=== PATIENT | male | born 1950 | race Hispanic/Latino ===

== ENCOUNTER 2020-10-30 18:36 | Emergency (ER) | payer MEDICARE, OTHER ==
--- OUTSIDE RECORDS SUMMARY | 2020-10-30 18:39 | XMS REPORT | Continuity of Care Document ---
:1950 Author Organization [facility] t Address [address] [place] [address] Care Team Providers Name Role Phone Unavailable Unavailable Unavailable Problems This patient has no known problems. Allergies, Adverse Reactions, Alerts This patient has no known allergies or adverse reactions. Medications This patient has no known medications. Procedures This patient has no known procedures. Encounters Start End Encounter Admission Attending Care Care Encounter Source Date/Time Date/Time Type Type Clinicians Facility Department ID 2020-06-03 2020-06-03 Outpatient [facility] [id number] [facility] 2020-05-04 2020-05-04 Outpatient [facility] [id number] [facility] Results This patient has no known results.
--- NOTE | 2020-10-30 19:02 | RAD REPORT ---
EXAM DESCRIPTION: CT - Head Brain Wo Cont - 10/30/2020 6:55 pm CLINICAL HISTORY: CONFUSED COMPARISON: No comparisons TECHNIQUE: All CT scans are performed using dose optimization technique as appropriate and may inclu de automated exposure control or mA/KV adjustment according to patient size. FINDINGS: Large cerebellar hemorrhage measuring nearly 5 centimeters in the posterior cranial fossa, centered right of midline. There is some intraventricular blood that extends up to the lateral ventr icles via the third ventricle and cerebral aqueduct. Chronic small vessel ischemic changes are noted. No acute large vascular territory infarct. No evidence of hydrocephalus at this time. The paranasal sinuses and mastoids are clear. The calvarium is intact. 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 No hydrocephalus. Discussed with Dr. Barakat by Dr. Ferrari at 1850 on 10/30/20
[2020-10-30 19:05] LABS: Absolute Lymphocytes (CBC) 2.2 K/uL (0.7-4.9); Basophils % 0.4 % (0-1.3); Hematocrit 43.1 % (39.6-49.0); Lymphocytes % 8.8 % (15.3-44.8); MPV 8.4 fL (7.6-11.3); RBC Red Blood Cell Count 4.82 M/uL (4.33-5.43)
[2020-10-30 19:06] LABS: Protime INR 1.08
[2020-10-30] MEDS ORDERED: NA CHLORIDE 0.9% 500 ML ONE (19:21)
[2020-10-30] MEDS ORDERED: FAMOTIDINE 20 MG/2 ML VIAL IV ONE (19:21)
[2020-10-30] MEDS ORDERED: ONDANSETRON 4 MG/2 ML VIAL ONE ×2 (19:21→19:29)
[2020-10-30] MEDS ORDERED: Nicardipine/NS 25 MG/250 ML KIT IV ONE (19:22)
[2020-10-30 19:26] LABS: Blood Morphology Comment NOT SEEN (NOT SEEN); Platelet Estimate ADEQ
[2020-10-30 19:27] LABS: ALT/SGPT 36 U/L (12-78); AST/SGOT 21 U/L (15-37); Albumin 4.8 g/dL (3.4-5.0); Alkaline Phosphatase 88 U/L (45-117); BUN Blood Urea Nitrogen 18 mg/dL (7-18); Bicarbonate 26 mmol/L (21-32); Bilirubin Direct 0.2 mg/dL (0-0.2); Bilirubin Total 0.6 mg/dL (0.2-1.0); Glucose Level 226 mg/dL (74-106); Magnesium 1.8 mg/dL (1.8-2.4); NT PRO-BNP 100 pg/mL (<125); Protein, Total 8.7 g/dL (6.4-8.2); Sodium Level 139 mmol/L (136-145); Troponin (Emerg Dept Use Only) < 0.02 ng/mL (0.0-0.045)
[2020-10-30 19:29] LABS: Potassium 2.9 mmol/L (3.5-5.1)
[2020-10-30] MEDS ORDERED: FENTANYL CITR 100 MCG/2 ML ONE (19:29)
[2020-10-30] MEDS ORDERED: NA CHLORIDE 0.9% 100 ML ONE (19:32)
[2020-10-30] MEDS ORDERED: LEVETIRACETAM 500 MG/5 ML VIAL IV ONE (19:32)
[2020-10-30] MEDS ORDERED: MANNITOL 20% 500 ML IV ONE (19:44)
--- NOTE | 2020-10-30 19:57 | EDPHYS ---
Physician Documentation [facility] Name: Contreras Naranjo Age: 69 yrs Sex: Male : 1950 Arrival Date: 10/30/2020 Time: 18:41 Bed 8 Private MD: ED Physician Zane Barakat HPI: 10/30 19:20 This 69 yrs old Male presents to ER via Unassigned with complaints of Headache cp and Weakness. 19:20 The patient's problem is reported as weakness, in the right lower extremity. Onset: The cp symptoms/episode began/occurred yesterday. Duration: The episode is continuous. Context: EMS reports patient was found sitting on couch complaining of headache. Vomitus observed on patient. Patient's baseline: Neuro: alert and fully oriented, Motor: no deficits, Ambulation: walks without assistance, Speech: normal, Patient with history of DM and HTN, unsure of prescribed medications. Patient reports taking daily aspirin. Patient complains of right leg weakness since yesterday. Patient complains of paresthesias to right side of face. Complains of headache to back of head, nausea.. Historical: - Allergies: 18:30 No Known Allergies; aa5 - PMHx: 18:30 Diabetes mellitus; Hypertensive disorder; aa5 ROS: 19:25 Constitutional: Negative for body aches, chills, fever, poor PO intake. cp 19:25 Cardiovascular: Negative for chest pain, edema, palpitations. cp 19:25 Respiratory: Negative for cough, shortness of breath, wheezing. 19:25 Abdomen/GI: Positive for nausea and vomiting, Negative for abdominal pain. 19:25 Neuro: Positive for headache, numbness, right leg weakness, Negative for altered mental status. 19:25 All other systems are negative. Exam: 19:30 Head/Face: Normocephalic, atraumatic. cp 19:30 Constitutional: The patient appears alert, awake, non-diaphoretic, non-toxic, well developed, well nourished. 19:30 Eyes: Periorbital structures: appear normal, Pupils: equal, round, and reactive to light and accomodation, Extraocular movements: intact throughout, Conjunctiva: normal, no exudate, no injection, Sclera: no appreciated abnormality, Lids and lashes: appear normal, bilaterally. 19:30 ENT: External ear(s): are unremarkable, Ear canal(s): are normal, clear, TM's: dullness, bilaterally, Nose: is normal, Mouth: Lips: moist, Oral mucosa: moist, Posterior pharynx: Airway: no evidence of obstruction, patent. 19:30 Neck: ROM/movement: is normal, is supple, no meningismus, no nuchal rigidity. 19:30 Chest/axilla: Inspection: Palpation: crepitus, is not appreciated, tenderness, is not appreciated. 19:30 Cardiovascular: Rate: normal, Rhythm: regular, Edema: is not appreciated, JVD: is not appreciated. 19:30 Respiratory: the patient does not display signs of respiratory distress, Respirations: normal, no use of accessory muscles, no retractions, labored breathing, is not present, Breath sounds: are clear throughout, no decreased breath sounds, no stridor, no wheezing. 19:30 Abdomen/GI: Inspection: abdomen appears normal, Palpation: abdomen is soft and non-tender, in all quadrants. 19:30 Skin: no rash present. 19:30 Neuro: Orientation: to person, place \T\ time. Mentation: able to follow commands, slow to respond, Motor: moves all fours, strength is 4/5 in the right arm and right leg, Sensation: light touch is decreased in the right side of face and right arm and right leg. 19:33 Radiologist reports: large posterior cerebellar hemorrhage cp 19:34 ECG was reviewed by the Attending Physician. cp Vital Signs: 18:30 BP 210 / 86; Pulse 69; Resp 20 S; Temp 98.0(O); Pulse Ox 100% on R/A; aa5 18:47 BP 186 / 113; Pulse 92; Resp 20 S; Pulse Ox 100% on R/A; aa5 19:00 BP 223 / 107; Pulse 95; Resp 20 S; Temp 97.3(O); Pulse Ox 100% on R/A; Pain 10/10; aa5 19:04 BP 213 / 105; Pulse 93; Resp 22 S; Pulse Ox 100% on R/A; aa5 19:06 BP 195 / 92; Pulse 95; Resp 20 S; Pulse Ox 100% on R/A; aa5 19:10 BP 182 / 80; Pulse 101; Resp 22 S; Pulse Ox 100% on R/A; aa5 19:20 Weight 58 kg; aa5 19:20 BP 169 / 67; Pulse 71; Resp 18 S; Pulse Ox 100% on R/A; aa5 19:30 BP 165 / 72; Pulse 84; Resp 18 S; Pulse Ox 100% on R/A; aa5 19:44 BP 163 / 83; Pulse 110; Resp 20 S; Pulse Ox 100% on R/A; aa5 NIH Stroke Scale Scores: 18:40 NIHSS Score: 5 cp MDM: 18:43 Patient medically screened. cp 18:45 Differential diagnosis: CVA, TIA, metabolic disorder, drug effects. cp 19:55 Data reviewed: vital signs, nurses notes, lab test result(s), EKG, radiologic studies, cp CT scan, I have discussed the patient's presentation/case with the attending Emergency Department Physician;. 19:55 Test interpretation: by ED physician or midlevel provider: ECG. Counseling: I had a cp detailed discussion with the patient and/or guardian regarding: the historical points, exam findings, and any diagnostic results supporting the discharge/admit diagnosis, the presence of at least one elevated blood pressure reading (>120/80) during this emergency department visit, lab results, radiology results, the need to transfer to another facility, for higher level of care. Response to treatment: the patient's symptoms have mildly improved after treatment. 10/30 18:43 Order name: Basic Metabolic Panel; Complete Time: 19:54 cp 10/30 18:43 Order name: CBC with Diff; Complete Time: 19:29 cp 10/30 18:43 Order name: LFT's; Complete Time: 19:54 cp 10/30 18:43 Order name: Magnesium; Complete Time: 19:54 cp 10/30 18:43 Order name: NT PRO-BNP; Complete Time: 19:54 cp 10/30 18:43 Order name: PT-INR; Complete Time: 19:08 cp 10/30 18:43 Order name: Troponin (emerg Dept Use Only); Complete Time: 19:54 cp 10/30 18:50 Order name: Head Brain Wo Cont CT; Complete Time: 19:05 la1 08 19:54 Interpretation: Report reviewed. cp 10/30 19:26 Order name: Manual Differential; Complete Time: 19:29 EDMS 10/30 19:31 Order name: glucometer results - FOR PT WITH NO ID aa5 10/30 18:43 Order name: EKG; Complete Time: 18:44 cp 10/30 18:43 Order name: Cardiac monitoring; Complete Time: 18:56 cp 10/30 18:43 Order name: EKG - Nurse/Tech; Complete Time: 19:54 cp 10/30 18:43 Order name: IV Saline Lock; Complete Time: 18:56 cp 10/30 18:43 Order name: Labs collected and sent; Complete Time: 18:56 cp 10/30 18:43 Order name: O2 Per Protocol; Complete Time: 18:56 cp 10/30 18:43 Order name: O2 Sat Monitoring; Complete Time: 18:56 cp EC:34 Rate is 84 beats/min. Rhythm is regular. CA interval is normal. QRS interval is normal. cp QT interval is normal. T waves are Inverted in lead aVL. Interpreted by me. Reviewed by me. Administered Medications: 19:00 Drug: Cardene (niCARdipine) 5 mg/hr Route: IV; Rate: calculated rate; Site: right aa5 antecubital; 20:00 Follow up: IV Status: Infusion continued upon transfer aa5 19:01 Drug: NS 0.9% 500 ml Route: IV; Rate: bolus; Site: left wrist; aa5 19:40 Follow up: IV Status: Completed infusion; IV Intake: 500ml aa 19:01 Drug: Zofran (Ondansetron) 4 mg Route: IVP; Site: left wrist; aa5 19:08 Follow up: Response: No adverse reaction 19: Drug: Pepcid (famotidine) 20 mg Route: IVP; Site: left wrist; aa5 19:08 Follow up: Response: No adverse reaction aa5 19:05 Drug: fentaNYL (PF) 25 mcg Route: IVP; Site: left wrist; aa5 19:10 Follow up: Response: No adverse reaction aa5 19:10 Drug: fentaNYL (PF) 25 mcg Route: IVP; Site: left wrist; aa5 19:15 Follow up: Response: No adverse reaction aa5 19:10 Drug: Keppra (levETIRAcetam) 1000 mg Route: IV; Rate: calculated rate; Site: left wrist;aa5 19:25 Follow up: Response: No adverse reaction; IV Status: Completed infusion aa5 19:17 CANCELLED (Physician Discretion): Zofran (Ondansetron) 4 mg IVP once; over 2 minutes aa5 19:29 Drug: Mannitol 20% 1 g/kg Volume: 500 ml; Route: IV; Rate: per protocol; Site: left aa wrist; 20:00 Follow up: IV Status: Completed infusion aa5 Disposition: 20:30 Chart complete. cp Disposition Summary: 10/30/20 19:57 Transfer Ordered Transfer Location: [facility] cp Reason: Higher level of care cp Condition: Stable cp Problem: new cp Symptoms: have improved cp Accepting Physician: DR Thomason(10/30/20 20:16) aa5 Diagnosis - Other nontraumatic intracerebral hemorrhage cp - Weakness - right arm and right leg cp - Paresthesia of skin - right arm and right leg cp Discharge Instructions: - Discharge Summary Sheet tt3 Forms: - Medication Reconciliation Form tt3 - SBAR form tt3 NIH Stroke Scale - NIH Stroke Score Date: 10/30/2020 Time: 18:40 Total Score = 5 1a. Level of Consciousness (LOC) - 0(Alert) 1b. Level of Consciousness (LOC) (Month \T\ Age) - 0(Both) 1c. LOC Commands (Open \T\ Closes Eyes/Salesperson [employer]iances) - 0(Both) 2. Best Gaze (Lateral Gaze Paresis) - 0(Normal) 3. Visual Field Loss - 0(No visual loss) 4. Facial Palsy - 1(Minor Paralysis) 5a. Left Arm: Motor (10-second hold) - 0(No drift) 5b. Right Arm: Motor (10-second hold) - 0(No drift) 6a. Left Leg: Motor (5-second hold - always test supine) - 0(No drift) 6b. Right Leg: Motor (5-second hold - always test supine) - 1(Drift) 7. Limb Ataxia (finger/nose \T\ heel/obrien - test with eyes open) - 2(Present in two limbs) 8. Sensory Loss (pinprick arms/legs/face) - 1(Mild to moderate loss) 9. Best Language: Aphasia (description/naming/reading) - 0(No aphasia) 10. Dysarthria (speech clarity - read or repeat words) - 0(Normal) 11. Extinction and Inattention (visual/tactile/auditory/spatial/personal) - 0(No abnormality) Initials: cp Addendum: 11/01/2020 07:34 Co-signature as Attending Physician, Zane Barakat MD I agree with the [facility] assessment and plan of care. Signatures: Dispatcher [employer] EDZane Martino MD MD cha Calderon, Audri, RN RN aa5 Zane Rubio, PA PA cp Corrections: (The following items were deleted from the chart) 10/30 19:00 18:52 Head Brain Wo Cont+CT.RAD.BRZ ordered. EDMS EDMS 19:17 19:05 Zofran (Ondansetron) 4 mg IVP once; over 2 minutes ordered. [facility] aa5 19:41 19:01 CORONAVIRUS+MR.LAB.BRZ ordered. EDMS EDMS 20:09 18:44 Chest Single View+RAD.RAD.BRZ ordered. EDMS EDMS 20:15 19:10 Cui ordered. aa5 20:16 19:57 DR Katelin clarke aa5
--- NOTE | 2020-10-30 19:57 | ER ---
Nurse's Notes [facility] Name: Contreras Naranjo Age: 69 yrs Sex: Male : 1950 Arrival Date: 10/30/2020 Time: 18:41 Bed 8 Private MD: Diagnosis: Other nontraumatic intracerebral hemorrhage;Weakness-right arm and right leg;Paresthesia of skin-right arm and right leg Presentation: 10/30 18:30 Chief complaint: Nausea/Vomiting and severe headache that began yesterday and got worse aa5 today around 1700. Right arm and right leg weakness noted. Pt denies fall. 18:30 Acuity: NANCY 2 aa5 18:30 Coronavirus screen: nausea, vomiting. aa5 18:30 Method Of Arrival: EMS: [facility] aa5 18:30 Ebola Screen: Patient negative for fever greater than or equal to 101.5 degrees aa5 Fahrenheit, and additional compatible Ebola Virus Disease symptoms. Initial Sepsis Screen: Does the patient meet any 2 criteria? No. Patient's initial sepsis screen is negative. Does the patient have a suspected source of infection? No. Patient's initial sepsis screen is negative. Risk Assessment: Do you want to hurt yourself or someone else? Patient reports no desire to harm self or others. Onset of symptoms was October 29, 2020. Historical: - Allergies: 18:30 No Known Allergies; aa5 - PMHx: 18:30 Diabetes mellitus; Hypertensive disorder; aa5 Screenin:50 Abuse screen: No signs of abuse. Nutritional screening: No deficits noted. Tuberculosis aa5 screening: No symptoms or risk factors identified. Fall Risk IV access (20 points). Total Jaramillo Fall Scale indicates No Risk (0-24 pts). Assessment: 18:30 General: Appears uncomfortable, Behavior is cooperative, restless. Pain: Complains of aa5 pain in head Pain currently is 10 out of 10 on a pain scale. Neuro: Level of Consciousness is awake, alert, obeys commands, Oriented to person, place, time, situation, Information Systems Director are weak on right Weakness in right arm(s) leg(s) Speech is normal, Reports headache that is the "worst ever", Denies paresthesias numbness. Cardiovascular: Heart tones S1 S2 present Rhythm is regular. Respiratory: Airway is patent Respiratory effort is even, unlabored, Respiratory pattern is regular, symmetrical, Breath sounds are clear bilaterally. GI: Abdomen is round non-distended, Bowel sounds present X 4 quads. Abd is soft and non tender X 4 quads. Reports nausea, vomiting. : No signs and/or symptoms were reported regarding the genitourinary system. EENT: No signs and/or symptoms were reported regarding the EENT system. Derm: Skin is dry, Skin is pale, Skin temperature is cool. Musculoskeletal: Range of motion: intact in all extremities. 18:46 Reassessment: Pt back from CT scan, accompanied by me, warm blankets provided. . aa5 General: General: Appears distressed, uncomfortable, Behavior is anxious, restless. 18:46 Pain: Complains of pain in head. Neuro: Level of Consciousness is awake, alert, obeys aa5 commands, Oriented to person, place, time, situation, Information Systems Director are weak bilaterally Moves all extremities. Speech is normal. Respiratory: Airway is patent Respiratory effort is even, unlabored, Respiratory pattern is regular, symmetrical. Derm: Skin is dry, Skin is pale, Skin temperature is cool. 18:46 Reassessment: Pt's at bedside . aa5 19:04 Reassessment: No changes from previously documented assessment. aa5 19:15 Reassessment: Pt appears calm at this time, pt currently resting in bed with eyes aa5 closed, respirations even and unlabored, skin is normal/warm/dry. . 19:30 Reassessment: No changes from previously documented assessment. aa5 19:50 Reassessment: Pt continues to rest in bed with eyes closed, respirations even and aa5 unlabored, skin is pink/warm/dry. Pt easy to awaken to verbal stimuli. Pt's remains at bedside. Awaiting life flight. . Vital Signs: 18:30 BP 210 / 86; Pulse 69; Resp 20 S; Temp 98.0(O); Pulse Ox 100% on R/A; aa5 18:47 BP 186 / 113; Pulse 92; Resp 20 S; Pulse Ox 100% on R/A; aa5 19:00 BP 223 / 107; Pulse 95; Resp 20 S; Temp 97.3(O); Pulse Ox 100% on R/A; Pain 10/10; aa5 19:04 BP 213 / 105; Pulse 93; Resp 22 S; Pulse Ox 100% on R/A; aa5 19:06 BP 195 / 92; Pulse 95; Resp 20 S; Pulse Ox 100% on R/A; aa5 19:10 BP 182 / 80; Pulse 101; Resp 22 S; Pulse Ox 100% on R/A; aa5 19:20 Weight 58 kg; aa5 19:20 BP 169 / 67; Pulse 71; Resp 18 S; Pulse Ox 100% on R/A; aa5 19:30 BP 165 / 72; Pulse 84; Resp 18 S; Pulse Ox 100% on R/A; aa5 19:44 BP 163 / 83; Pulse 110; Resp 20 S; Pulse Ox 100% on R/A; aa5 NIH Stroke Scale Scores: 18:40 NIHSS Score: 5 cp ED Course: 18:30 Patient arrived in ED. Triage completed. aa5 18:30 Patient has correct armband on for positive identification. Placed in gown. Bed in low aa5 position. Call light in reach. Side rails up X2. panel monitor on. Pulse ox on. NIBP on. 18:42 Zane Rubio PA is PHCP. cp 18:42 Zane Barakat MD is Attending Physician. cp 18:55 Head Brain Wo Cont CT In Process Unspecified. EDMS 18:56 Initiated transfer at [facility] with Kenyetta Rubi. tt3 19:00 Inserted saline lock: 20 gauge in left wrist, using aseptic technique. aa5 19:06 Kenyetta Rubi called back with their neurosurgeon, Dr. Thomason to consult with Dr. nick Barakat regarding the transfer request. 19:08 Notified Nurse Practitioner and/or Physician Sander Setter of a critical lab result(s), bb WBCs of 25.5 Zane DECKER notified. 19:13 Kenyetta Rubi gave admin approval. The accepting physician is Dr. Thomason. The pt tt3 is going to [facility] Neuro ICU. Nurse to call report to . Face sheet and MOT to be faxed to per Kenyetta's request. 19:15 Sandy Corbin, RN is Primary Nurse. aa5 20:00 No provider procedures requiring assistance completed. Patient transferred, IV remains aa5 in place. Administered Medications: 19:00 Drug: Cardene (niCARdipine) 5 mg/hr Route: IV; Rate: calculated rate; Site: right aa5 antecubital; 20:00 Follow up: IV Status: Infusion continued upon transfer aa5 19:01 Drug: NS 0.9% 500 ml Route: IV; Rate: bolus; Site: left wrist; aa5 19:40 Follow up: IV Status: Completed infusion; IV Intake: 500ml aa5 19:01 Drug: Zofran (Ondansetron) 4 mg Route: IVP; Site: left wrist; aa5 19:08 Follow up: Response: No adverse reaction aa5 19:01 Drug: Pepcid (famotidine) 20 mg Route: IVP; Site: left wrist; aa5 19:08 Follow up: Response: No adverse reaction aa5 19:05 Drug: fentaNYL (PF) 25 mcg Route: IVP; Site: left wrist; aa5 19:10 Follow up: Response: No adverse reaction aa5 19:10 Drug: fentaNYL (PF) 25 mcg Route: IVP; Site: left wrist; aa5 19:15 Follow up: Response: No adverse reaction aa5 19:10 Drug: Keppra (levETIRAcetam) 1000 mg Route: IV; Rate: calculated rate; Site: left wrist;aa5 19:25 Follow up: Response: No adverse reaction; IV Status: Completed infusion aa5 19:17 CANCELLED (Physician Discretion): Zofran (Ondansetron) 4 mg IVP once; over 2 minutes aa5 19:29 Drug: Mannitol 20% 1 g/kg Volume: 500 ml; Route: IV; Rate: per protocol; Site: left aa5 wrist; 20:00 Follow up: IV Status: Completed infusion aa5 Intake: 19:40 IV: 500ml; Total: 500ml. aa5 Outcome: 19:57 ER care complete, transfer ordered by MD. clarke 20:00 Transferred by helicopter to [facility], Transfer form completed. X-rays sent aa5 w/ patient. Note: Report given to gus Villafana (Neuro ICU) at [facility]. 20:00 Condition: stable aa5 20:00 Instructed on the need for transfer, Demonstrated understanding of instructions. 20:16 Patient left the ED. aa5 NIH Stroke Scale - NIH Stroke Score Date: 10/30/2020 Time: 18:40 Total Score = 5 1a. Level of Consciousness (LOC) - 0(Alert) 1b. Level of Consciousness (LOC) (Month \\T\\ Age) - 0(Both) 1c. LOC Commands (Open \\T\\ Closes Eyes/Director Case) - 0(Both) 2. Best Gaze (Lateral Gaze Paresis) - 0(Normal) 3. Visual Field Loss - 0(No visual loss) 4. Facial Palsy - 1(Minor Paralysis) 5a. Left Arm: Motor (10-second hold) - 0(No drift) 5b. Right Arm: Motor (10-second hold) - 0(No drift) 6a. Left Leg: Motor (5-second hold - always test supine) - 0(No drift) 6b. Right Leg: Motor (5-second hold - always test supine) - 1(Drift) 7. Limb Ataxia (finger/nose \\T\\ heel/obrien - test with eyes open) - 2(Present in two limbs) 8. Sensory Loss (pinprick arms/legs/face) - 1(Mild to moderate loss) 9. Best Language: Aphasia (description/naming/reading) - 0(No aphasia) 10. Dysarthria (speech clarity - read or repeat words) - 0(Normal) 11. Extinction and Inattention (visual/tactile/auditory/spatial/personal) - 0(No abnormality) Initials: cp Signatures: Dispatcher [employer] EDMS Linda George RN RN bb Williams, Irene, RN RN Sandy Corbin RN RN [facility] Zane Rubio PA PA [facility] Sol[facility] tt3 Corrections: (The following items were deleted from the chart) 19:32 19:13 Inserted saline lock: 20 gauge in left forearm, using aseptic technique. [facility] 19:43 18:30 Chief complaint: Nausea/Vomiting and severe headache that began yesterday aa5 and got worse today around 1700 [facility] 19:44 18:41 Patient arrived in ED. [facility] 19:44 19:42 Triage [place]. [place] [id number] 19:47 18:30 BP 223 / 107; Pulse 95bpm; Resp 20bpm; Spontaneous; Pulse Ox 100% RA; aa5 Temp 97.3F Oral; Pain 10/10; aa5 20:18 18:30 Chief complaint: Nausea/Vomiting and severe headache that began yesterday aa5 and got worse today around 1700. Right arm and right leg weakness noted. aa5 20:23 18:46 Neuro: Level of Consciousness is awake, alert, obeys commands, Oriented aa5 to person, place, time, situation, aa5
[2020-10-30 20:25] VITALS: O2SAT 100
[2020-10-30 20:28] VITALS: TEMP 97.3
[2020-10-30 20:38] VITALS: BP 163/83
--- NOTE | 2020-10-31 08:01 | EKG ---
Test Date: 2020-10-30 Test Time: 19:31:07 Fish Cleaner: YARIEL MEASUREMENT RESULTS: Intervals: Rate: 84 NE: 156 QRSD: 100 QT: 406 QTc: 479 Left Hand: P: 71 NE: 156 QRS: 7 T: 75 INTERPRETIVE STATEMENTS: Normal sinus rhythm Nonspecific ST abnormality Abnormal ECG No previous ECG available for comparison Electronically Signed On 10-31-20 08:00:15 CDT by Martínez Bergeron
== END 2020-10-30 20:16 | disposition short-term general hospital (02) ==
LOC: ER 18:36
DX: I61.8 Other nontraumatic intracerebral hemorrhage (principal); R53.1 Weakness; R20.2 Paresthesia of skin; I10 Essential (primary) hypertension; R29.705 NIHSS score 5; Z20.822 Contact with and (suspected) exposure to COVID-19
CPT/HCPCS: 93005; 85025; 80048; 36415; 83735; 85610; 82947; 80076; 84484; 83880; 70450; 99285; U0003; J3010; J1953; J7040; J2405 ×2

== ENCOUNTER 2020-12-02 17:18 | Emergency (ER) | payer MEDICARE, OTHER ==
--- OUTSIDE RECORDS SUMMARY | 2020-12-02 17:21 | XMS REPORT | Continuity of Care Document ---
:1950 Author Organization [facility] t Address [address] [place] [address] Care Team Providers Name Role Phone LIZET MALENA YOUNG Attending Clinician Unavailable Payers Payer Name Policy Type Policy Number Effective Date Expiration Date [place] [employer] [facility] [id number] 2020 00:00:00 Problems This patient has no known problems. Allergies, Adverse Reactions, Alerts This patient has no known allergies or adverse reactions. Medications This patient has no known medications. Procedures This patient has no known procedures. Encounters Start End Encounter Admission Attending Care Care Encounter Source Date/Time Date/Time Type Type Clinicians Facility Department ID 2020[id number] [place] [facility] 2020-11-26 2020-11-26 Outpatient [facility] [id number] [place] 00:00:00 [facility]00[facility]00 [facility] 2020-11-26 2020-11-26 Outpatient [facility] [id number] [facility] 2020-11-26 2020-11-26 Outpatient [facility] [id number] [facility] 2020-11-24 2020-11-24 Outpatient [facility] [id number] [facility] 2020-11-22 2020-11-22 Outpatient [facility] [id number] [facility] 2020-11-19 2020-11-19 Outpatient [facility] [id number] [facility] 2020-06-03 2020-06-03 Outpatient [facility] [id number] [facility] 2020-05-04 2020-05-04 Outpatient [facility] [id number] [facility] Results This patient has no known results.
[2020-12-02] MEDS ORDERED: ONDANSETRON 4 MG/2 ML VIAL ONE (18:42)
[2020-12-02] MEDS ORDERED: NA CHLORIDE 0.9% 500 ML ONE (18:42)
[2020-12-02 18:46] LABS: Albumin 3.5 g/dL (3.4-5.0); Bilirubin Direct 0.1 mg/dL (0-0.2); Bilirubin Total 0.6 mg/dL (0.2-1.0); Potassium 4.4 mmol/L (3.5-5.1); Protein, Total 7.7 g/dL (6.4-8.2)
[2020-12-02 18:52] LABS: Absolute Lymphocytes (CBC) 1.5 K/uL (0.7-4.9); Basophils % 0.5 % (0-1.3); Hematocrit 40.5 % (39.6-49.0); MPV 10.8 fL (7.6-11.3); RBC Red Blood Cell Count 4.43 M/uL (4.33-5.43)
--- NOTE | 2020-12-02 19:27 | RAD REPORT ---
EXAM DESCRIPTION: CT - Head Brain Wo Cont - 12/02/2020 7:16 pm CLINICAL HISTORY: vomiting, hx of SAH COMPARISON: Head Brain Wo Cont dated 10/30/2020 TECHNIQUE: All CT scans are performed using dose optimization technique as appropriate and may inclu de automated exposure control or mA/KV adjustment according to patient size. FINDINGS: No intracranial hemorrhage, hydrocephalus or extra-axial fluid collection.No areas of brai n edema or evidence of midline shift. Moderate chronic small vessel ischemic changes. Encephalomalaci a in the right cerebellar hemisphere with some residual hyperdensity likely remote blood products. No evidence of acute hemorrhage. The paranasal sinuses and mastoids are clear. Status post suboccipital craniectomy . IMPRESSION: No acute intracranial abnormality. Interval suboccipital craniectomy. Findings as noted above.
--- NOTE | 2020-12-02 19:40 | RAD REPORT ---
EXAM DESCRIPTION: CTStone Protocol - 12/02/2020 7:17 pm CLINICAL HISTORY: . constipation, vomiting COMPARISON: No comparisons TECHNIQUE: Biphasic CT imaging of the abdomen and pelvis was performed with 100 ml non-ionic IV cont rast. All CT scans are performed using dose optimization technique as appropriate and may include automated exposure control or mA/KV adjustment according to patient size. FINDINGS: Lower chest: Scarring at the right lung base. Circumferential thickened distal esophagus. Coronary artery calcifications. Liver: No acute abnormality or suspicious lesions. Cirrhotic liver morphology. Biliary: No biliary ductal dilatation. Stomach: No significant focal abnormality.Gastrostomy tube Duodenum: No significant focal abnormality. Pancreas: No significant abnormality. Spleen: No significant abnormality. Adrenal: No suspicious lesions. Kidney/ureter: No hydronephrosis. No renal calculi. Retroperitoneum: No retroperitoneal adenopathy. Vascular: No aneurysm. Atherosclerosis. Bowel: No significant focal abnormality. Normal appendix. Moderate difficulty Peritoneum: No ascites or free air. Bladder: Radiopaque debris within the bladder. Reproductive: No adnexal masses. Bones: No acute fracture. Other: n/a IMPRESSION: No acute intra-abdominal or pelvic finding. Radiopaque bladder debris/stones. Moderate colonic stool burden suggestive of constipation.
[2020-12-02] MEDS ORDERED: FLEET ENEMA ADULT PR ONE (20:41)
--- NOTE | 2020-12-02 21:51 | ER ---
Nurse's Notes [facility] Name: Contreras Naranjo Age: 69 yrs Sex: Male : 1950 Arrival Date: 12/02/2020 Time: 17:20 Bed 12 Private MD: Diagnosis: Constipation, unspecified;Vomiting Presentation: 12/02 17:41 Chief complaint: Spouse and/or significant other states: he had a bleeding stroke on tw2 10/30/20. he was in for 2 weeks. then went to [facility] that was a hell hole. he got worse when he was there. he arrived 11/23 at [facility]. [facility] 11/23/20. Dr. Christianson told me to bring him here to get him cleaned out because he hasnt gone to have a BM. Chief complaint: Spouse and/or significant other states: he has been bedridden since. his right side is weak from the stroke. Coronavirus screen: At this time, the client does not indicate any symptoms associated with coronavirus-19. Ebola Screen: Patient denies travel to an Ebola-affected area in the 21 days before illness onset. Initial Sepsis Screen: Does the patient meet any 2 criteria? No. Patient's initial sepsis screen is negative. Does the patient have a suspected source of infection? No. Patient's initial sepsis screen is negative. Risk Assessment: Do you want to hurt yourself or someone else? Patient reports no desire to harm self or others. Onset of symptoms was December 02, 2020. 17:41 Method Of Arrival: Wheelchair tw2 17:41 Acuity: NANCY 2 tw2 Triage Assessment: 17:45 General: Appears uncomfortable, Behavior is restless. Pain: Complains of pain in tw2 abdomen. GI: Parent/caregiver reports the patient having nausea. 17:45 General: Appears Behavior is drowsy. tw2 17:48 Neuro: Reports dizziness. tw2 Historical: - Allergies: 17:46 No Known Allergies; tw2 - Home Meds: 17:46 carvedilol 6.25 mg oral tab 1 tab 2 times per day [Active]; tw2 17:48 clonidine HCl 0.2 mg Oral tab 1 tab 3 times per day [Active]; NPH 10 units 3 times a tw2 day [Active]; losartan 50 mg oral tab 1 tab once daily [Active]; nystatin 100,000 unit/mL Oral susp 4 mL 4 times per day [Active]; ondansetron HCl 4 mg Oral tab 1 tab 4 times per day [Active]; pe glycol 3350-peg 400 (bulk) 40-60 % miscellaneous oint [Active]; quetiapine 50 mg oral tab 3 tab at bedtime [Active]; senna 8.6 mg oral tab 2 tabs once daily [Active]; - PMHx: 17:46 diabetes mellitus; Hypertensive disorder; Hemorrhagic stroke, 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 - Social history:: Smoking status: Patient denies any tobacco usage or history of. Screenin:56 Abuse screen: Denies threats or abuse. Nutritional screening: No deficits noted. tw2 Tuberculosis screening: No symptoms or risk factors identified. Fall Risk Secondary diagnosis (15 points) impaired mobility, CVA. Assessment: 18:15 General: Appears in no apparent distress. comfortable, Behavior is calm, cooperative, ld1 appropriate for age. Pain: Denies pain. Neuro: Level of Consciousness is awake, alert, obeys commands, Oriented to person, place, time, situation. Cardiovascular: Capillary refill < 3 seconds Patient's skin is warm and dry. Rhythm is regular. Respiratory: Airway is patent Respiratory effort is even, unlabored, Respiratory pattern is regular, symmetrical. 18:15 GI: Abdomen is flat, non-distended, Bowel sounds present X 4 quads. Abd is soft Abdomen ld1 is tender to palpation X 4 quads. GI: Reports constipation. : No signs and/or symptoms were reported regarding the genitourinary system. EENT: No signs and/or symptoms were reported regarding the EENT system. Derm: No signs and/or symptoms reported regarding the dermatologic system. Musculoskeletal: No signs and/or symptoms reported regarding the musculoskeletal system. 20:05 Reassessment: Patient appears in no apparent distress at this time. No changes from ld1 previously documented assessment. Patient and/or family updated on plan of care and expected duration. Pain level reassessed. Patient is alert, oriented x 3, equal unlabored respirations, skin warm/dry/pink. 20:46 Reassessment: Pt had large bowel movement. Stated "my stomach is feeling better." ld1 Notified ERP. Vital Signs: 17:41 BP 127 / 74; Pulse 71; Resp 17; Temp 98.8(TE); Pulse Ox 97% on R/A; Weight 63.05 kg; tw2 Height 6 ft. 1 in. (185.42 cm) (R); 19:00 BP 137 / 69; Pulse 75; Resp 18; Pulse Ox 98% on R/A; ld1 20:05 BP 107 / 82; Pulse 86; Resp 18; Pulse Ox 100% on R/A; ld1 20:46 BP 111 / 86; Pulse 84; Resp 18; Pulse Ox 99% on R/A; ld1 17:41 Body Mass Index 18.34 (63.05 kg, 185.42 cm) tw2 ED Course: 17:20 Patient arrived in ED. as 17:45 Triage completed. tw2 17:45 Arm band placed on. tw2 17:54 Francois Malik PA is PHCP. [facility] 17:54 Jer Paniagua MD is Attending Physician. jmm 17:56 Bed in low position. Call light in reach. Adult w/ patient. tw2 18:15 No provider procedures requiring assistance completed. ld1 18:46 Inserted saline lock: 22 gauge in right forearm, using aseptic technique. iw 19:16 CT Head Brain wo Cont In Process Unspecified. EDMS 19:17 CT Stone Protocol In Process Unspecified. EDMS 22:18 IV discontinued, intact, bleeding controlled, No redness/swelling at site. ld1 Administered Medications: 18:46 Drug: NS 0.9% 500 ml Route: IV; Rate: bolus; Site: right forearm; iw 20:23 Follow up: Response: No adverse reaction; IV Status: Completed infusion; IV Intake: ld1 500ml 18:49 Drug: Zofran (Ondansetron) 4 mg Route: IVP; Site: right forearm; ld1 18:49 Follow up: Response: No adverse reaction ld1 20:22 Drug: Fleet Enema (sodium phosphate) 133 ml Route: MT; ld1 20:23 Follow up: Response: No adverse reaction ld1 Intake: 20:23 IV: 500ml; Total: 500ml. ld1 Outcome: 21:50 Discharge ordered by . jmm 22:18 Discharged to home via wheelchair, with family. ld1 22:18 Condition: stable 22:18 Discharge instructions given to patient, family, Instructed on discharge instructions, follow up and referral plans. Demonstrated understanding of instructions, follow-up care. 22:19 Patient left the ED. ld1 Signatures: Dispatcher [employer] EDMS Francois Malik PA PA jmm Martinez, Amelia as Williams, Irene, RN RN iw Sheila Palumbo RN RN tw2 Glo Amin RN RN ld1
--- NOTE | 2020-12-02 21:51 | EDPHYS ---
Physician Documentation [facility] Name: Contreras Naranjo Age: 69 yrs Sex: Male : 1950 Arrival Date: 12/02/2020 Time: 17:20 Bed 12 Private MD: ED Physician Jer Paniagua HPI: 12/02 17:57 This 69 yrs old Male presents to ER via Wheelchair with complaints of jmm Constipation. 17:57 Onset: The symptoms/episode began/occurred gradually, 9 day(s) ago. Associated signs jmm and symptoms: Pertinent positives: nausea and vomiting. Is a 69-year-old male with history of diabetes mellitus hypertension, previous hemorrhagic stroke that presents to the emergency department with vomiting which states is due to the patient not having his normal medications. Patient normally takes Zofran since hemorrhagic stroke. is also concerned that the patient has not had a bowel movement in 1 week. Since approximately November 24.. Historical: - Allergies: 17:46 No Known Allergies; tw2 - Home Meds: 17:46 carvedilol 6.25 mg oral tab 1 tab 2 times per day [Active]; tw2 17:48 clonidine HCl 0.2 mg Oral tab 1 tab 3 times per day [Active]; NPH 10 units 3 times a tw2 day [Active]; losartan 50 mg oral tab 1 tab once daily [Active]; nystatin 100,000 unit/mL Oral susp 4 mL 4 times per day [Active]; ondansetron HCl 4 mg Oral tab 1 tab 4 times per day [Active]; pe glycol 3350-peg 400 (bulk) 40-60 % miscellaneous oint [Active]; quetiapine 50 mg oral tab 3 tab at bedtime [Active]; senna 8.6 mg oral tab 2 tabs once daily [Active]; - PMHx: 17:46 diabetes mellitus; Hypertensive disorder; Hemorrhagic stroke, 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 - Social history:: Smoking status: Patient denies any tobacco usage or history of. ROS: 17:57 Constitutional: Negative for fever, chills, and weight loss, Cardiovascular: Negative jmm for chest pain, palpitations, and edema, Respiratory: Negative for shortness of breath, cough, wheezing, and pleuritic chest pain. 17:57 Abdomen/GI: Positive for vomiting. 17:57 All other systems are negative. Exam: 17:57 Constitutional: This is a well developed, well nourished patient who is awake, alert, jmm and in no acute distress. Head/Face: atraumatic. Eyes: EOMI, no conjunctival erythema appreciated ENT: Moist Mucus Membranes Neck: Trachea midline, Supple Chest/axilla: Normal chest wall appearance and motion. Cardiovascular: Regular rate and rhythm. No edema appreciated Respiratory: Normal respirations, no respiratory distress appreciated Abdomen/GI: Non distended, soft Back: Normal ROM Skin: General appearance color normal 17:57 Neuro: 17:57 Psych: Behavior/mood is pleasant, cooperative. 21:58 Abdomen/GI: Inspection: Palpation: soft. [facility] Vital Signs: 17:41 BP 127 / 74; Pulse 71; Resp 17; Temp 98.8(TE); Pulse Ox 97% on R/A; Weight 63.05 kg; tw2 Height 6 ft. 1 in. (185.42 cm) (R); 19:00 BP 137 / 69; Pulse 75; Resp 18; Pulse Ox 98% on R/A; ld1 20:05 BP 107 / 82; Pulse 86; Resp 18; Pulse Ox 100% on R/A; ld1 20:46 BP 111 / 86; Pulse 84; Resp 18; Pulse Ox 99% on R/A; ld1 17:41 Body Mass Index 18.34 (63.05 kg, 185.42 cm) tw2 MDM: 17:57 Patient medically screened. [facility] 21:50 Data reviewed: vital signs, nurses notes. Counseling: I had a detailed discussion with [facility] the patient and/or guardian regarding: the historical points, exam findings, and any diagnostic results supporting the discharge/admit diagnosis, radiology results, the need for outpatient follow up, to return to the emergency department if symptoms worsen or persist or if there are any questions or concerns that arise at home. 12/02 17:58 Order name: Basic Metabolic Panel; Complete Time: 18:51 [facility] 12/02 17:58 Order name: CBC with Diff; Complete Time: 18:55 [facility] 12/02 17:58 Order name: Hepatic Function; Complete Time: 18:51 [facility] 12/02 17:58 Order name: Lipase; Complete Time: 18:51 [facility] 12/02 18:52 Order name: CT Head Brain wo Cont; Complete Time: 19:37 [facility] 12/02 18:52 Order name: CT Stone Protocol; Complete Time: 19:48 [facility] 12/02 17:58 Order name: IV Saline Lock; Complete Time: 18:10 [facility] 12/02 17:58 Order name: Labs collected and sent; Complete Time: 18:10 [facility] Administered Medications: 18:46 Drug: NS 0.9% 500 ml Route: IV; Rate: bolus; Site: right forearm; iw 20:23 Follow up: Response: No adverse reaction; IV Status: Completed infusion; IV Intake: ld1 500ml 18:49 Drug: Zofran (Ondansetron) 4 mg Route: IVP; Site: right forearm; ld1 18:49 Follow up: Response: No adverse reaction ld1 20:22 Drug: Fleet Enema (sodium phosphate) 133 ml Route: TN; ld1 20:23 Follow up: Response: No adverse reaction ld1 Disposition: 12/03 04:49 Co-signature as Attending Physician, Jer Paniagua MD I agree with the assessment and kdr plan of care. Disposition Summary: 12/02/20 21:50 Discharge Ordered Location: Home [facility] Condition: Stable jm Diagnosis - Constipation, unspecified jmm - Vomiting jmm Followup: jm - With: Private Physician - When: 2 - 3 days - Reason: Recheck today's complaints, Continuance of care, Re-evaluation by your physician Discharge Instructions: - Discharge Summary Sheet jmm - Constipation, Adult jmm - Vomiting, Adult jmm Forms: - Medication Reconciliation Form [facility] - Thank You Letter m - Antibiotic Education jmm - Prescription Opioid Use [facility] Signatures: Dispatcher [employer] Jer Judd MD MD kdr Mickail, Joel, PA PA [facility] Cyndee Huynh RN RN iw Sheila Palumbo RN RN tw2 Glo Amin RN RN ld1
[2020-12-02 22:26] VITALS: TEMP 98.8
[2020-12-02 22:30] VITALS: BP 111/86; O2SAT 99
== END 2020-12-02 22:19 | disposition home or self-care (01) ==
LOC: ER 17:18
DX: K59.00 Constipation, unspecified (principal); R11.10 Vomiting, unspecified; E11.9 Type 2 diabetes mellitus without complications; I10 Essential (primary) hypertension; Z86.73 Personal history of transient ischemic attack (TIA), and cerebral infarction without residual deficits
CPT/HCPCS: 96361; 85025; 80048; 36415; 80076; 83690; 70450; 76377; 74176; 96374; 99284; J7040; J2405

== ENCOUNTER 2021-06-24 13:49 | Observation (INO) | payer OTHER ==
[2021-06-24] MEDS ORDERED: METOCLOPRAMIDE 10 MG/2mL INJ ONE (15:43)
[2021-06-24] MEDS ORDERED: PANTOPRAZOLE 40 MG INJ ONE (15:43)
--- OUTSIDE RECORDS SUMMARY | 2021-06-24 15:52 | XMS REPORT | Continuity of Care Document ---
:1950 Author Organization [facility] t Address [address] [place] [address] [address]. [address]. [address] [place] [address] Care Team Providers Name Role Phone Tresa Christianson DO Primary Care Physician Herlinda Christianson Attending Clinician Unavailable DAVID Attending Clinician Unavailable MARII Attending Clinician Unavailable CHRISTOPHER Attending Clinician Unavailable WENDY Attending Clinician Unavailable HECTOR HINDS Attending Clinician Unavailable Ron RODRIGUEZ Attending Clinician Unavailable James OLSON Attending Clinician Katelin PARISI Attending Clinician Henna PARISI Attending Clinician Taryn Garcia MD Attending Clinician Payers Payer Name Policy Type Policy Number Effective Date Expiration Date S param [facility] [id number] 2020 00:00:00 Problems This patient has no known problems. Allergies, Adverse Reactions, Alerts This patient has no known allergies or adverse reactions. Social History Social Habit Start Date Stop Date Quantity Comments Source Exposure to Not sure [facility] SARS-CoV-2 (event) Tobacco use and 2021-03-07 2021-03-07 Smokeless tobacco [facility] exposure 00:00:00 00:00:00 non-user Sex Assigned At [birth year] [facility] 00:00:00 00:00:00 Smoking Status Start Date Stop Date Source Tobacco smoking consumption unknown [facility] Ex-smoker 2021-03-07 00:00:00 2021-03-07 00:00:00 [facility] Medications Ordered Filled Start Stop Current Ordering Indication Dosage Frequency Signature Comments Components Source Medication Medication Date Date Medication? Clinician (SIG) Name Name losartan Yes 25mg QD Take 25 mg [facility] (Cozaar) 25 2-25 by mouth 1 He alth MG tablet 09:09: (one) time 19 each day. metFORMIN Yes Q12H every 12 [facility] (Glucophage 2-25 () ) 1000 MG 09:09: hours. tablet 19 amLODIPine Yes amlodipine U T Besylate 2-25 5 mg Health (NORVASC 09:09: PO) 19 atorvastati Yes 20mg QD Take 20 mg UT n (Lipitor) 2-25 by mouth 1 He alth 20 MG 09:09: (one) time tablet 19 each day. At bedtime meloxicam Yes [id number] TAKE 1 UT (Mobic) 15 2-10 [id number] TABLET (15 H ealth MG tablet 00:00: MG TOTAL) 00 BY MOUTH ONE TIME EACH DAY. Diclofenac Yes [id number] Apply [facility] Sodium 1-18 [id number] topically Health (Voltaren) 00:00: 4 (four) 1 % 00 times a external day if gel needed (pain). Do not apply more than 8 grams daily. Diclofenac Yes [id number] Apply [facility] Sodium 1-18 [id number] topically Health (Voltaren) 00:00: 4 (four) 1 % 00 times a external day if gel needed (pain). Do not apply more than 8 grams daily. meloxicam 2021- Yes [id number] 15mg QD Take 1 UT (Mobic) 15 1-18 02-18 [id number] tablet (15 Health MG tablet 00:00: 05:59 mg total) 00 :00 by mouth 1 (one) time each day. No known 2020-03 No No known [facility] medications 2-13 medication He alth 13:15: s 55 metFORMIN 2020-03 Yes Q12H every 12 [facility] (Glucophage 2-13 ( ) 1000 MG 13:15: hours. tablet 47 amLODIPine 2020-03 Yes amlodipine U T Besylate 2-13 5 mg Health ([facility] 13:15: PO) 47 metFORMIN 2020-03 Yes Q12H every 12 [facility] (Glucophage 2-13 (twelve) [facility] ) 1000 MG 13:15: hours. tablet 47 amLODIPine 2020-03 Yes amlodipine U T Besylate 2-13 5 mg Health ([facility] 13:15: PO) 47 carvedilol 2020-03 Yes [facility] (Coreg) 1-30 Health 6.25 MG 00:00: tablet 00 carvedilol 2020-03 Yes [facility] (Coreg) 1-30 Health 6.25 MG 00:00: tablet 00 carvedilol 2020-03 Yes [facility] (Coreg) 1-30 Health 6.25 MG 00:00: tablet 00 senna 2020-03 Yes [facility] (Senokot) 0-29 Health 8.6 MG 00:00: tablet 00 senna 2020-03 Yes [facility] (Senokot) 0-29 Health 8.6 MG 00:00: tablet 00 senna 2020-03 Yes [facility] (Senokot) 0-29 Health 8.6 MG 00:00: tablet 00 Vital Signs Vital Name Observation Time Observation Value Comments Source Systolic blood pressure 2021-05-20 15:04:00 123 mm[Hg] [facility] Diastolic blood pressure 2021-05-20 15:04:00 83 mm[Hg] [facility] Heart rate 2021-05-20 15:04:00 75 /min [facility] Body temperature 2021-05-20 15:04:00 36.17 Dalila [facility] Respiratory rate 2021-05-20 15:04:00 18 /min [facility] Body height 2021-05-20 15:04:00 186.7 cm [facility] Body weight 2021-05-20 15:04:00 59.875 kg [facility] BMI 2021-05-20 15:04:00 17.18 kg/m2 [facility] Oxygen saturation in 2021-05-20 15:04:00 96 /min [facility] Arterial blood by Pulse oximetry Procedures Procedure Date / Time Performed Performing Clinician [facility] e AUTOMATED VISUAL FIELD, EXTENDED 2021-03-07 21:37:48 Tony Ramirez [facility] - OU - BOTH EYES MRI BRAIN W WO CONTRAST 2021-03-03 16:58:00 Jean Carloskatedhruv Sandraoctavio [facility] MRI HEAD ANGIO W AND WO IV 2021-01-03 13:22:00 Michael Aguillon [facility] CONTRAST Encounters Start End Encounter Admission Attending Care Care Encounter Source Date/Time Date/Time Type Type Clinicians Facility Department ID 2021-06-24 Outpatient Christianson, Na STLMLC [facility] [id number] [facility] 14:11[facility]00 [facility] 2021-06-06 Outpatient Christianson, Na STLMLC [facility] [id number] [facility] 16:10:02 [facility] 2021-05-24 Outpatient Christianson, Na STLMLC ST[facility] [id number] [facility] 16:44:01 [facility] 2021-05-20 Outpatient DAVID [facility] [id number] [place] 10:10:14 [facility] 2021-04-23 [facility] [id number] [place] 13:47:04 BRIAN DC [facility] 2021-04-20 Outpatient Christianson, Na STLMLC STLMLC [id number] [facility] [address] 14:25:16 [id number] [facility] 2021-04-20 Outpatient Christianson, Na STLMLC STLMLC [id number] [facility] 14:14:58 [id number] [facility] 2021-04-20 Outpatient Christianson, Na STLMLC STLMLC [id number] [facility] 13:49:11 [id number] [facility] 2021-04-20 Outpatient Christianson, Na STLMLC STLMLC [id number] [facility] 13:45:40 [id number] [facility] 2021-04-20 Outpatient Christianson, Na [facility]LMLC ST[facility]C [id number] [facility] 12:38:51 [id number] [facility] 2021-04-20 Outpatient Christianson, Na STLMLC STLMLC [id number] [facility] 12:37:46 [id number] [facility] 2021-04-20 Outpatient Tresa Christianson [facility] ST[facility] [id number] [facility] [facility] 12:30:50 [id number] [facility] 2021-04-20 Outpatient Tresa Christianson [facility]LMLC STL[facility] [id number] [facility] 12:15:45 [id number] [facility] 2021-04-12 Outpatient [facility] [id number] [place] 08:40:26 [facility] 2021-03-31 Outpatient TARYN WHITE [facility] [id number] [place] 13:13:47 [facility] 2021-02-09 Outpatient WENDY, [facility] [id number] [place] 01:03:51 [facility] 2020-11-30 Outpatient LIZET, [facility] [id number] [place] 01:04:12 [facility] 2021-06-14 2021-06-14 ambulatory [facility]MLC [facility] [id number] [facility] 2021-06-06 2021-06-06 ambulatory [facility] [id number] [facility] 2021-05-24 2021-05-24 ambulatory [facility] [id number] [facility] 2021-05-20 2021-05-20 Office ROSAS Keane 6410 [id number] [place] 08:30:00 10:09:41 Visit Diana HOBBS [id number] [facility] [id number] 2021-04-29 2021-04-29 ambulatory [facility]C [facility] [id number] [facility] 2021-04-22 2021-04-22 ambulatory [facility] [id number] [facility] 2021-04-22 2021-04-22 ambulatory [facility]C [facility] [id number] [facility] 2021-04-20 2021-04-20 Telephone Kay Velasquez [facility] [id number] [place] 00:00:00 00:00:00 Kay Velasquez [facility] [id number] [facility] MEDICAL [id number] [id number] 2021-03-21 2021-03-21 ambulatory [facility]LMLC [facility] [id number] [facility] 2021-03-16 2021-03-16 Outpatient MHIE IE [id number] Memoria 09:45:00 09:45:00 02 l Deny 2021-03-14 2021-03-14 ambulatory [facility]MLC [facility] [id number] [facility] 2021-03-08 2021-03-08 ambulatory [facility]MLC [facility] [id number] [facility]00 [facility] 2021-03-07 2021-03-07 Office ROSAS Ramirez 6400 [id number] [place] 13:00:00 14:00:00 Visit Donna HOBBS [id number] Health [id number] 2021-03-07 2021-03-07 ambulatory [facility]MLC [facility] [id number] [facility] 2021-03-03 2021-03-03 EXT [facility] OP SEAN Thomason [facility] [id number] [place] 00:00:00 00:00:00 [facility] LOCATION [id number] H ealt [id number] 2021-02-25 2021-02-25 ambulatory [facility]LMLC [facility] [id number] [facility] 2021-02-24 2021-02-24 ambulatory [facility]LMLC [facility] [id number] [facility] 2021-02-11 2021-02-11 ambulatory [facility]MLC [facility] [id number] [facility] 2021-02-11 2021-02-11 ambulatory [facility]MLC [facility] [id number] [facility] 2021-02-10 2021-02-10 ambulatory [facility]LMLC [facility] [id number] [facility] 2021-02-09 2021-02-09 Outpatient MHIE MHIE [id number] [facility]oria 08:45:00 08:45:00 01 herlinda Barclay 2021-01-12 2021-01-12 Outpatient MHIE [facility] [id number] Memoria 15:00:00 15:00:00 00 herlinda Barclay 2021-01-03 2021-01-03 EXT [facility] OP Henna, EXT [facility] [id number] [place] 00:00:00 00:00:00 [facility] LOCATION [id number] H [facility] [id number] 2020-12-31 2020-12-31 Outpatient [facility]LMLC [facility] [id number] [facility] 2020-12-29 2020-12-29 Outpatient [facility]MLC [facility] [id number] [facility] 2020-12-23 2020-12-23 Outpatient [facility]C [facility] [id number] [facility] 2020-12-22 2020-12-22 Outpatient [facility] [id number] [facility] 2020-12-17 2020-12-17 Outpatient [facility]MLC [facility] [id number] [facility] 2020-12-17 2020-12-17 Outpatient [facility]MLC STLC [id number] [facility] 2020-12-15 2020-12-15 Outpatient [facility]LMLC STLC [id number] [facility] 2020-12-14 2020-12-14 Outpatient [facility]LMLC STLC [id number] [facility] 2020-12-14 2020-12-14 Outpatient [facility]LMLC STLC [id number] [facility] 2020-12-10 2020-12-10 Outpatient [facility]LMLC STLC [id number] [facility] 2020-12-08 2020-12-08 Outpatient [facility]C [facility] [id number] [facility] 2020-12-08 2020-12-08 Outpatient [facility]LMLC STLC [id number] [facility] 2020-12-08 2020-12-08 Outpatient [facility]C STLC [id number] [facility] 2020-12-02 2020-12-02 Outpatient [facility] [id number] [facility] 2020-11-26 2020-11-26 [facility] [id number] [facility] 2020-11-26 2020-11-26 [facility] [id number] [facility] 2020-11-26 2020-11-26 [facility] [id number] [facility] 2020-11-24 2020-11-24 [facility] [id number] [facility] 2020-11-22 2020-11-22 [facility] [id number] [facility] 2020-11-19 2020-11-19 Out[facility] [id number] [facility] 2020-10-30 2020-10-30 EXT [facility] OP Garcia, EXT [facility] [id number] [place] 00:00:00 00:00:00 Awais Taryn [facility] [id number] [facility] [id number] 2020-06-03 2020-06-03 [facility] [id number] [facility] 2020-05-04 2020-05-04 [facility] [id number] [facility] Results This patient has no known results.
--- NOTE | 2021-06-24 17:14 | RAD REPORT ---
EXAM DESCRIPTION: RAD - Chest Single View - 06/24/2021 4:26 pm CLINICAL HISTORY: cough after taking 2 capsules, cannot tolerate PO COMPARISON: None TECHNIQUE: AP portable chest image was obtained 06/24/2021 4:26 pm . FINDINGS: Lung volumes are low but clear of aspiration findings, infiltrate or mass. No failure or v olume overload. Interstitial pattern is not outside of normal range for shallow inspiration portable film technique. Trachea is in the midline. No air trapping. Heart and vasculature are normal. No measurable pleural e ffusion and no pneumothorax. No acute bone findings seen. Thoracolumbar scoliosis is present. No acut e aortic findings suspected. IMPRESSION: No acute cardiopulmonary process.
--- NOTE | 2021-06-24 18:22 | RAD REPORT ---
EXAM DESCRIPTION: CT - Soft Tissue Neck W/Contr - 06/24/2021 6:09 pm CLINICAL HISTORY: dysphagia after taking abx capsules COMPARISON: Head Brain Wo Cont dated 12/02/2020 TECHNIQUE: During dynamic enhancement using 100 milliliters nonionic IV contrast, axial 5 millimeter thick images of the neck were obtained. All CT scans are performed using dose optimization technique as appropriate and may include automated exposure control or mA/KV adjustment according to patient size. FINDINGS: Intracranial portion the examination shows no acute finding. The patient has suboccipital craniectomy surgical changes that are stable from prior imaging. No globe or orbital content abnormal ity. No mastoid air cell or paranasal sinus acute finding. No pharyngeal mucosal mass or asymmetry identifiable. No tonsillar, tongue base or soft palate abnorm ality. Epiglottis is mildly thickened. There is mild edema continuing from the base of the epiglottis into t he valleculae and piriform sinus region. No laryngeal abnormality seen. No subglottic abnormalities a re seen. No esophageal abnormality seen. There are prominent cervical spine anterior endplate spurs from C3-C7 that cause extrinsic impression on to the cervical esophagus. A few small nonspecific cervical lymph nodes are present. No bulky lymphadenopathy. No vascular abnor mality. No acute bone finding is seen. IMPRESSION: Mild edema changes are evident in the epiglottis extending to the valleculae and pyrifor m sinus regions. No pharyngeal mass or asymmetry. No retropharyngeal abnormality seen. No acute esophageal finding. There is extrinsic compression on t he esophagus from extensive cervical spine degenerative spurring C3-C7.
--- NOTE | 2021-06-24 18:48 | ER ---
Nurse's Notes [facility] Name: Contreras Naranjo Age: 70 yrs Sex: Male : 1950 Arrival Date: 06/24/2021 Time: 13:50 Bed 6 Private MD: Tresa Christianson Diagnosis: Acute epiglottitis without obstruction-From pill erosion;Dysphagia Presentation: 06/24 14:24 Chief complaint: Patient states: He took his antibiotic for the cyst on his back and it ab2 got stuck in his throat last night, he's a stroke patient so he has a hard time. Since then he has been spitting up and having hard time swallowing. Pt denies SOB. Pt c/o cough. Pt denies any pain. Coronavirus screen: Vaccine status: Patient reports receiving the 2nd dose of the covid vaccine. Client denies travel out of the [place] in the last 14 days. At this time, the client does not indicate any symptoms associated with coronavirus-19. Ebola Screen: Patient negative for fever greater than or equal to 101.5 degrees Fahrenheit, and additional compatible Ebola Virus Disease symptoms Patient denies exposure to infectious person. Patient denies travel to an Ebola-affected area in the 21 days before illness onset. No symptoms or risks identified at this time. Initial Sepsis Screen: Does the patient meet any 2 criteria? No. Patient's initial sepsis screen is negative. Does the patient have a suspected source of infection? No. Patient's initial sepsis screen is negative. Risk Assessment: Do you want to hurt yourself or someone else? Patient reports no desire to harm self or others. Onset of symptoms is unknown. 14:24 Method Of Arrival: Wheelchair ab2 14:24 Acuity: NANCY 3 ab2 Triage Assessment: 14:28 General: Appears in no apparent distress. uncomfortable, Behavior is calm, cooperative, ab2 appropriate for age. Pain: Denies pain. Cardiovascular: No deficits noted. Respiratory: No deficits noted. Airway is patent Respiratory effort is even, unlabored, Respiratory pattern is regular, symmetrical, Denies shortness of breath. GI: Reports nausea, vomiting, Parent/caregiver reports the patient having Pt swallowed pill last night and caregiver believes it got stuck because since then he has been coughing and spitting up. Historical: - Allergies: 14:27 No Known Allergies; ab2 - PMHx: 14:27 diabetes mellitus; Hypertensive disorder; Right sided weakness; Hemorrhagic stroke, ab2 10/30/20; - PSHx: 14:27 PEG tube; ab2 - Immunization history:: Adult Immunizations up to date. - Social history:: Smoking status: Patient denies any tobacco usage or history of. - Family history:: not pertinent. - Hospitalizations: : No recent hospitalization is reported. Screenin:30 Abuse screen: Denies threats or abuse. jh6 16:30 Nutritional screening: No deficits noted. Tuberculosis screening: No symptoms or risk jh6 factors identified. Fall Risk None identified. Assessment: 15:53 General: Appears uncomfortable, Behavior is cooperative, appropriate for age. Pain: jh6 Complains of pain in thyroid cartilage, right aspect of thyroid and left aspect of thyroid Pain currently is 3 out of 10 on a pain scale. Quality of pain is described as burning. GI: Abdomen is flat, non-distended, Pt is actively vomiting clear fluid, Bowel sounds present X 4 quads. Reports vomiting. EENT: Reports pain when swallowing reports that last night when he swallowed a Capsul it became stuck in his throat. pt was able to drink water last night but today unable to keep anything down. pt states that is does not feel as if he has something stuck in his throat and is not having and trouble breathing. reports that pt has similar problem after his stroke last year but symptoms resolved on there own. . 17:00 Reassessment: No changes from previously documented assessment. at bedside, pt jh6 still coughing up sputum but able to speak in complete sentnces. 18:00 Reassessment: Patient and/or family updated on plan of care and expected duration. Pain jh6 level reassessed. Patient is alert, oriented x 3, equal unlabored respirations, skin warm/dry/pink. pt NPO. 20:34 Reassessment: Patient appears in no apparent distress at this time. as6 Vital Signs: 14:24 BP 110 / 62; Pulse 82; Resp 18; Temp 98.6(TE); Pulse Ox 99% on R/A; Weight 58.97 kg; ab2 Height 6 ft. 1 in. (185.42 cm); Pain 0/10; 18:55 BP 136 / 79; Pulse 76; Resp 17; Pulse Ox 100% ; jh6 20:34 BP 114 / 71; Pulse 82; Resp 18 S; Pulse Ox 94% on R/A; as6 22:12 BP 113 / 71; Pulse 74; Resp 18 S; Pulse Ox 93% on R/A; as6 23:54 BP 126 / 73; Pulse 76; Resp 18 S; Pulse Ox 96% on R/A; as6 14:24 Body Mass Index 17.15 (58.97 kg, 185.42 cm) ab2 ED Course: 13:50 Patient arrived in ED. am2 13:50 Tresa Christianson MD is Private Physician. am2 14:27 Triage completed. ab2 14:29 Arm band placed on right wrist. ab2 15:31 Wiliam De Dios MD is Attending Physician. rn 15:40 Bed in low position. Call light in reach. Side rails up X2. Adult w/ patient. jh6 15:53 Rajani Bo, BORIS is Primary Nurse. jh6 16:28 XRAY Chest (1 view) In Process Unspecified. EDMS 18:10 CT Soft Tissue Neck W/contr In Process Unspecified. EDMS 18:45 Dinesh De Dios MD is Hospitalizing Provider. rn 23:56 No provider procedures requiring assistance completed. Patient admitted, IV remains in as6 place. Administered Medications: 16:10 Drug: Reglan (metoCLOPramide) 10 mg Route: IVP; Site: left antecubital; 6 17:25 Follow up: Response: No adverse reaction 6 16:10 Drug: ProTONIX (pantoprazole) 40 mg Route: IVP; Site: left antecubital; 6 17:25 Follow up: Response: No adverse reaction jh6 18:53 Drug: Decadron - Dexamethasone 10 mg Route: IVP; Site: left antecubital; 6 23:56 Follow up: Response: No adverse reaction as6 Outcome: 18:47 Decision to Hospitalize by Provider. rn 23:57 Condition: stable as6 23:57 Instructed on the need for admit. 06/25 00:32 Admitted to Med/surg accompanied by nurse, family with patient, via stretcher, room as6 228, with chart, Report called to Fozia ESCALANTE 00:33 Patient left the ED. as6 Signatures: Dispatcher [employer] EDMS De Dios Wiliam, MD MD rn Dom, Meme am2 Gee Boston, RN RN as6 Rajani Bo RN RN jh6 Jose Hester
--- NOTE | 2021-06-24 18:48 | EDPHYS ---
Physician Documentation [facility] Name: Contreras Naranjo Age: 70 yrs Sex: Male : 1950 Arrival Date: 06/24/2021 Time: 13:50 Bed 6 Private MD: Tresa Christianson ED Physician Wiliam De Dios HPI: 06/24 18:33 This 70 yrs old Male presents to ER via Wheelchair with complaints of rn Vomiting, Cough. 18:35 The patient or guardian reports cough, sore throat, difficulty swallowing. Onset: The rn symptoms/episode began/occurred last night. Severity of symptoms: At their worst the symptoms were moderate, in the emergency department the symptoms are unchanged. Modifying factors: The symptoms are alleviated by nothing, the symptoms are aggravated by nothing. Associated signs and symptoms: Pertinent positives: rhinorrhea, sore throat, trouble swallowing, this patient has no pertinent positive symptoms. The patient has not experienced similar symptoms in the past. The patient has been recently seen by a physician:. reports taking abx for skin infection, clindamycin capsules, took one last night and got stuck in throat, had even more trouble swallowing a capsule this morning with persistent coughing and swelling sensation in throat. NO fever. [place] fine prior to taking capsules. Has PEG tube and chronic dysphagia from previous stroke, but states had been doing better taking PO. . Historical: - Allergies: 14:27 No Known Allergies; ab2 - PMHx: 14:27 diabetes mellitus; Hypertensive disorder; Right sided weakness; Hemorrhagic stroke, ab2 10/30/20; - PSHx: 14:27 PEG tube; ab2 - Immunization history:: Adult Immunizations up to date. - Social history:: Smoking status: Patient denies any tobacco usage or history of. - Family history:: not pertinent. - Hospitalizations: : No recent hospitalization is reported. ROS: 18:35 Constitutional: Negative for fever, chills, and weight loss, Eyes: Negative for injury, rn pain, redness, and discharge, ENT: + swelling sensation of throat and cough Neck: Negative for injury, pain, and swelling, Cardiovascular: Negative for chest pain, palpitations, and edema, Respiratory: Negative for shortness of breath, cough, wheezing, and pleuritic chest pain, Abdomen/GI: Negative for abdominal pain, nausea, vomiting, diarrhea, and constipation, Back: Negative for injury and pain, MS/Extremity: Negative for injury and deformity, Skin: Negative for injury Neuro: Negative for headache and seizure. Exam: 18:41 Constitutional: This is a well developed, well nourished patient who is awake, alert, rn holding emesis bag with constant spitting Head/Face: Normocephalic, atraumatic. Eyes: Periorbital areas with no swelling, redness, or edema. ENT: NO stridor. Cardiovascular: Regular rate and rhythm. No pulse deficits. Respiratory: No increased work of breathing, no retractions or nasal flaring. Clear bilateral breath sounds. Abdomen/GI: soft, non-tender Skin: Warm, dry MS/ Extremity: Pulses equal, no cyanosis. Neuro: Awake and alert, GCS 15 Vital Signs: 14:24 BP 110 / 62; Pulse 82; Resp 18; Temp 98.6(TE); Pulse Ox 99% on R/A; Weight 58.97 kg; ab2 Height 6 ft. 1 in. (185.42 cm); Pain 0/10; 18:55 BP 136 / 79; Pulse 76; Resp 17; Pulse Ox 100% ; jh6 20:34 BP 114 / 71; Pulse 82; Resp 18 S; Pulse Ox 94% on R/A; as6 22:12 BP 113 / 71; Pulse 74; Resp 18 S; Pulse Ox 93% on R/A; as6 23:54 BP 126 / 73; Pulse 76; Resp 18 S; Pulse Ox 96% on R/A; as6 14:24 Body Mass Index 17.15 (58.97 kg, 185.42 cm) ab2 MDM: 15:31 Patient medically screened. rn 18:41 Differential Diagnosis: Other epiglottis, pharyngitis, pill esophagitis/pharyngitis. rn Data reviewed: vital signs, nurses notes. 18:44 Counseling: I had a detailed discussion with the patient and/or guardian regarding: the rn historical points, exam findings, and any diagnostic results supporting the discharge/admit diagnosis, lab results, radiology results, the need for further work-up and treatment in the hospital. Response to treatment: There is no appreciated change of the patient's symptoms at this time, and as a result, I will admit patient. Admission orders: after a detailed discussion of the patient's condition and case, the admit orders are written by me. ED course: Consulted with Dr. Perla, will consult on patient, states steroids will help for now. CT shows epiglottis edema and pharyngeal edema, likely related to pill erosion. Esophagus without acute findings. Admitted to hospitalist service.. 06/24 18:38 Order name: CBC with Diff; Complete Time: 22:24 la1 06/24 18:38 Order name: CMP; Complete Time: 22:24 la1 06/24 15:42 Order name: XRAY Chest (1 view); Complete Time: 17:33 rn 06/24 15:42 Order name: CT Soft Tissue Neck W/contr; Complete Time: 18:23 rn 06/24 19:08 Order name: COVID-19 SARS RT PCR (Document "Date of Onset" if Symptomatic); Complete la1 Time: 22:24 06/24 21:35 Order name: CBC Smear Scan; Complete Time: 22:24 EDMS 06/24 15:37 Order name: IV Start; Complete Time: 16:24 rn Administered Medications: 16:10 Drug: Reglan (metoCLOPramide) 10 mg Route: IVP; Site: left antecubital; jh6 17:25 Follow up: Response: No adverse reaction jh6 16:10 Drug: ProTONIX (pantoprazole) 40 mg Route: IVP; Site: left antecubital; jh6 17:25 Follow up: Response: No adverse reaction jh6 18:53 Drug: Decadron - Dexamethasone 10 mg Route: IVP; Site: left antecubital; jh6 23:56 Follow up: Response: No adverse reaction as6 Disposition Summary: 06/24/21 18:47 Hospitalization Ordered Hospitalization Status: Observation rn Provider: Dinesh De Dios rn Location: Telemetry/MedSurg (observation) rn Condition: Stable rn Problem: new rn Symptoms: are unchanged rn Bed/Room Type: Standard rn Room Assignment: 228(06/24/21 23:50) cg Diagnosis - Acute epiglottitis without obstruction - From pill erosion rn - Dysphagia rn Forms: - Medication Reconciliation Form rn - SBAR form rn Signatures: Dispatcher [employer] EDMS Wiliam De Dios MD MD rn Angel Shaffer, [facility] Marquez RN RN cg Gee Boston, RN RN as6 Rajani Bo, RN RN jh6 Jose Hester Corrections: (The following items were deleted from the chart) 18:42 18:35 Constitutional: Negative for fever, chills, and weight loss, Eyes: Negative for rn injury, pain, redness, and discharge, Neck: Negative for injury, pain, and swelling, Cardiovascular: Negative for chest pain, palpitations, and edema, Respiratory: Negative for shortness of breath, cough, wheezing, and pleuritic chest pain, Abdomen/GI: Negative for abdominal pain, nausea, vomiting, diarrhea, and constipation, Back: Negative for injury and pain, MS/Extremity: Negative for injury and deformity, Skin: Negative for injury, rash, and discoloration, Neuro: Negative for headache, weakness, numbness, tingling, and seizure, rn 23:50 18:47 rn cg
[2021-06-24] MEDS ORDERED: dexAMETHasone 10 MG/ML VIAL ONE (18:50)
--- NOTE | 2021-06-24 19:23 | P.HP ---
Certification for Inpatient Patient admitted to: Observation With expected LOS: <2 Midnights Patient will require the following post-hospital care: None Practitioner: I am a practitioner with admitting privileges, knowledge of patient current condition, hospital course, and medical plan of care. Services: Services provided to patient in accordance with Admission requirements found in Title 42 Section 412.3 of the Code of Federal Regulations Patient History Date of Service: 06/24/21 Reason for admission: Dysphagia, epiglottitis History of Present Illness: 70-year-old male with history of hemorrhagic stroke in 2020 resulting in right-sided weakness, dysphagia with PEG tube in place presents the emergency department for cough, vomiting. Patient has an area of cellulitis/cyst to his back which he has been taking oral clindamycin for the past few days for. Initially he was taking the pills okay orally but the last 2 doses have gotten s tuck in the back of his throat causing irritation. At this time patient is unable to tolerate anything by mouth, having a lot of cough and vomiting. Patient had CT scan of the neck performed without contrast which demonstrated mild edema changes are evident in the epiglottis extending to the vallecula and pyriform sinus regions no acute esophageal findings. ENT was consulted by ED provider who recommends patient be admitted under observation as he is not tolerating eating by mouth at this time recommendation is for treatment with IV steroids and once patient is tolerating p.o. to add sucralfate. Will admit strictly n.p.o. Allergies No Known Allergies Allergy (Unverified 06/24/21 19:12) - Past Medical/Surgical History -: Hemorrhagic CVA 2020 -: PEG tube -: Hypertension -: Diabetes mellitus type 2 [id number] -: Brain surgery -: PEG tube Psychosocial/ Personal History: Patient lives at home with his - Family History Family History: Reviewed- Non-Contributory - Social History Smoking Status: Never smoker Alcohol use: No CD- Drugs: No Caffeine use: No Place of Residence: Home Review of Systems 10-point ROS is otherwise unremarkable ENT: Throat Pain, Throat Swelling Respiratory: Cough Gastrointestinal: Vomiting Physical Examination - Physical Exam General: Alert, In no apparent distress, Oriented x3 HEENT: Atraumatic, PERRLA, Mucous membr. moist/pink, EOMI, Sclerae nonicteric Neck: Supple, 2+ carotid pulse no bruit, No LAD, Without JVD or thyroid abnormality Respiratory: Normal air movement, Diminished Cardiovascular: Regular rate/rhythm, Normal S1 S2 Capillary refill: <2 Seconds Gastrointestinal: Normal bowel sounds, No tenderness, Other (PEG tube in place) Musculoskeletal: No tenderness Integumentary: Erythema (Small area of erythema/cellulitis surrounding cyst to the mid back area), [place] Neurological: Normal affect, Abnormal speech (Speech is slurred at baseline), Abnormal strength (Right-sided weakness previous CVA) Lymphatics: No axilla or inguinal lymphadenopathy Assessment and Plan - Plan Assessment: Dysphagia, noninfectious epiglottitis Cellulitis of the back Diabetes type [id number] Hypertension Plan: Dysphagia, noninfectious epiglottitis: Strictly n.p.o., utilize PEG tube for medications and tube feeds. ENT consulted airway is patent no respiratory distress able to speak clearly. Having difficulty swallowing, tolerating secretions is having coughing/vomiting. Chest x-ray is unremarkable continue with IV steroids until patient is tolerating p.o. to some degree and possibly add sucralfate per ENT. Cellulitis of the back: Patient was on his last 2 days of clindamycin for cellulitis/cyst of the back reports this is significantly improved small area of erythema/cellulitis noted on exam CBC is pending. We will continue with clindamycin IV for the time being. Diabetes type [id number]: ACHS Accu-Chek, sliding scale insulin. Hypertension: Continue home meds DVT PPX: Lovenox Code status: DNR Discharge Plan: Home Plan to discharge in: 24 Hours - Advance Directives Does patient have a Living Will: No Does patient have a Durable POA for Healthcare: No - Code Status/Comfort Care Code Status Assessed: Yes (DNR) Critical Care: No Time Spent Managing Pts Care (In Minutes): 55
[2021-06-24 20:39] LABS: Absolute Lymphocytes (CBC) 0.9 K/uL (0.7-4.9); Hematocrit 37.5 % (39.6-49.0); Lymphocytes % 6.2 % (15.3-44.8); MPV 8.9 fL (7.6-11.3)
[2021-06-24 21:02] LABS: ALT/SGPT 19 U/L (12-78); AST/SGOT 13 U/L (15-37); Albumin 3.9 g/dL (3.4-5.0); Alkaline Phosphatase 92 U/L (45-117); BUN Blood Urea Nitrogen 12 mg/dL (7-18); Bicarbonate 29 mmol/L (21-32); Bilirubin Total 0.7 mg/dL (0.2-1.0); Glucose Level 159 mg/dL (74-106); Potassium 4.1 mmol/L (3.5-5.1); Protein, Total 7.8 g/dL (6.4-8.2); Sodium Level 133 mmol/L (136-145)
[2021-06-24 21:35] LABS: Blood Morphology Comment NOT SEEN (NOT SEEN); Platelet Estimate ADEQ; White Blood Cell Scan OK (OK)
[2021-06-25] MEDS ORDERED: ONDANSETRON 4 MG/2 ML VIAL IV PRN (00:54)
[2021-06-25] MEDS: INSULIN -REGULAR HUMAN 50 UNIT/0.5 ML ML SQ SCH ×3 (00:54→11:30)
[2021-06-25] MEDS ORDERED: CLINDAMYCIN IV 150 MG/ML (6 mL) VIAL ONE (01:37)
[2021-06-25] MEDS ORDERED: NA CHLORIDE 0.9% 50 ML ONE (01:38)
[2021-06-25] MEDS: dexAMETHasone 10 MG/ML VIAL IV SCH ×2 (01:42→08:31)
[2021-06-25] MEDS: CLINDAMYCIN INJ 600 MG in NA CHLORIDE 0.9% 50 ML IV SCH ×2 (01:43→08:32)
[2021-06-25 02:03] VITALS: O2SAT 95; BMI 16.9
[2021-06-25] MEDS ORDERED: FIBER FT SCH (02:30)
[2021-06-25] MEDS ORDERED: [UNRECOGNIZED DRUG - OTHER] FT SCH (02:30)
[2021-06-25] MEDS ORDERED: NUT TX GLUC INTOL LF SOY FT SCH (02:30)
[2021-06-25] MEDS ORDERED: GLUCERNA 1.2 CAL 1,000 ML BOT FT SCH (03:00)
[2021-06-25 06:20] LABS: Absolute Lymphocytes (CBC) 0.7 K/uL (0.7-4.9); Hematocrit 38.4 % (39.6-49.0); Lymphocytes % 5.3 % (15.3-44.8); MPV 9.2 fL (7.6-11.3)
[2021-06-25 06:37] LABS: ALT/SGPT 18 U/L (12-78); AST/SGOT 10 U/L (15-37); Albumin 3.9 g/dL (3.4-5.0); Alkaline Phosphatase 84 U/L (45-117); BUN Blood Urea Nitrogen 14 mg/dL (7-18); Bicarbonate 28 mmol/L (21-32); Bilirubin Total 0.7 mg/dL (0.2-1.0); Glucose Level 227 mg/dL (74-106); Potassium 4.3 mmol/L (3.5-5.1); Sodium Level 133 mmol/L (136-145)
[2021-06-25] MEDS ORDERED: ENOXAPARIN 40 MG/0.4 ML SQ SCH (09:00)
--- NOTE | 2021-06-25 11:24 | P.DS ---
Admission Date: 06/24/21 Discharge Date: 06/25/21 Disposition: ROUTINE DISCHARGE Discharge Condition: FAIR Reason for Admission: Dysphagia, epiglottitis Brief History of Present Illness: Aw with pill stucj back of his throat. C/o sore throat Hospital Course: Pill spontaneously dissolved or passed . C/o sore throat. Advised to take all pills via PEG check with speach. USe OTC lozenges. Vitals stable at discharge Vital Signs/Physical Exam: Temp Pulse Resp BP Pulse Ox 97.8 F 73 16 112/69 92 06/25/21 08:00 06/25/21 08:00 06/25/21 08:00 06/25/21 08:00 06/25/21 08:00 Laboratory Data at Discharge: WBC 12.5 K/uL (4.3-10.9) H D 06/25/21 06:03 Hgb 13.3 g/dL (13.6-17.9) L 06/25/21 06:03 Hct 38.4 % (39.6-49.0) L 06/25/21 06:03 Plt Count 354 K/uL (152-406) 06/25/21 06:03 Sodium 133 mmol/L (136-145) L 06/25/21 06:03 Potassium 4.3 mmol/L (3.5-5.1) 06/25/21 06:03 BUN 14 mg/dL (7-18) 06/25/21 06:03 Creatinine 0.46 mg/dL (0.55-1.3) L 06/25/21 06:03 Glucose 227 mg/dL (74-106) H 06/25/21 06:03 Total Bilirubin 0.7 mg/dL (0.2-1.0) 06/25/21 06:03 AST 10 U/L (15-37) L 06/25/21 06:03 ALT 18 U/L (12-78) 06/25/21 06:03 Alkaline Phosphatase 84 U/L (45-117) 06/25/21 06:03 Home Medications: Amlodipine [Norvasc*] 5 mg PO DAILY 06/25/21 Atorvastatin Calcium 20 mg PO BEDTIME 06/25/21 Losartan Potassium [Cozaar] 25 mg PO DAILY 06/25/21 Metformin HCl 1,000 mg PO BID 06/25/21 Nut.tx.gluc Intol,Lf,Soy/Fiber [Glucerna 1 Hnak Liquid] 60 ml FT Q1H 06/25/21 carvediloL [Carvedilol] 6.25 mg PO BID 06/25/21 Physician Discharge Instructions: Patient to take all his pills crushed by the PEG tube including his antibiotics Take over the counter lozenges for ssore throat Followup: Tresa Christianson DO [Primary Care Provider] -
--- NOTE | 2021-06-25 12:04 | P.PN ---
Date of Service: 06/25/21 ENT Consultation Please see dictated H&P Impression: 1. Acute pill esophagitis 2. Severe oropharyngeal dysphagia-- positive for aspiration per laryngoscope exam. 3. Laryngopharyngeal reflux Plan: 1. Patient receiving steroids-- I would continue for an additional week and taper down. 2. I would keep using PEG solely for intake and medications. 3. Consider starting famotidine or PPI for reflux. 4. Business card given to followup in 2-4 weeks outpatient-- repeat laryngoscope. 5. Consider outpatient swallowing therapy with speech therapist.
[2021-06-25 12:06] VITALS: BP 103/63; TEMP 98.2
--- NOTE | 2021-06-25 13:08 | CON ---
Date of Consultation: 06/25/2021 Chief Complaint: Difficulty swallowing. 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 He was placed on clindamycin to take orally and the capsules became lodged in the back of his throat causing irritation and this resulted in him his inability to be able to swallow and he was concerned that his throat was closing. He had a CT scan of the neck performed without contrast in the emergency room, which demonstrated epiglottic edema and extending to the vallecular and piriform sinus, but no acute esophageal findings. The patient was admitted to the medical floor and I was consulted for further evaluation. Currently, the patient is in no acute distress, but he reports mucus production-moderate and he still has discomfort of the throat. He has been on steroids for approximately 12 hours and states that the pain is improved, but he still feels that his throat is swollen. He is able to talk and describe his symptoms with no difficulty and he denies dyspnea, vomiting, regurgitation, or other ENT complaints today. Past Medical History: Hemorrhagic CVA in 2020, hypertension, type 2 diabetes mellitus. Past Surgical History: PEG tube placement and brain surgery. Social History: Denies tobacco, illicit drugs, or alcohol. Medications: Please refer the MAR. Review of Systems: Eyes: Denies drainage or swelling. Ears: Denies otorrhea, otalgia, or mastoid pain. Nose: Denies rhinorrhea or postnasal drip, or exudate. Throat: Positive for moderate sore throat and throat swelling. Respiratory: Positive for cough. Gastrointestinal: Positive for regurgitation and vomiting. Physical Examination: Vital Signs: Stable. He is in no apparent distress. He is oriented x3. Head: Atraumatic, normocephalic. Eyes: PERRLA/EOMI. Ears: Moderate cerumen. Bilateral ear canals and tympanic membranes are intact. No middle ear effusion. Nose: Moist mucosa, midline septum. Throat: Moist mucous membranes with protrusion of tongue and the patient is able to mobilize the tongue to the left and right with no difficulty. Neck: Supple. Trachea midline. Flexible laryngoscope: After obtaining verbal consent, the patient was placed into a sniffing position and the scope was advanced along the floor of the left nasal cavity and advanced to the laryngeal complex. The patient had choking and gagging during exam and I was able to get him to undergo a liquid deglutition, which demonstrated a significantly delayed epiglottic inversion and laryngeal elevation. The patient had significant pooling of secretions in bilateral piriform sinuses. The patient coughed during the procedure and I was able to visualize glottic closure during the cough, but there was significant anterior arytenoid edema and erythema suggestive of laryngopharyngeal reflux and possibly irritation from the clindamycin capsules. There was moderate inflammation at the opening of the epiglottis. The scope was withdrawn to the level of the nasopharynx and the patient had pooling of secretions at this level. The scope was then completely withdrawn. The patient tolerated well. Diagnoses: 1. Acute pill esophagitis. 2. Non-infectious epiglottitis with severe oropharyngeal dysphagia-positive for aspiration during exam today. 3. Laryngopharyngeal reflux. Recommendations: 1. The patient is currently receiving IV steroids. I would continue this for another week and taper down and he can take this through the PEG tube. 2. I would keep all feeds and medications through the PEG for now-strict n.p.o. 3. Consider starting famotidine or PPI for reflux. 4. The patient will follow up in my outpatient clinic in 2-4 weeks and we will consider swallowing therapy at that time with a speech therapist. We will also repeat the laryngoscope in the outpatient setting. Thank you, Dr. De Dios, for this most interesting consultation. AB/MONIE Voice ID: [id number] Report ID: [id number] JUICE
[2021-06-25] MEDS ORDERED: METFORMIN HCL 500 MG TAB PO SCH (17:00)
[2021-06-25] MEDS ORDERED: HOME MED 1 EA UNK (Metformin Hcl [Metformin Hcl] 1,000 MG Tablet) PO SCH (21:00)
[2021-06-25] MEDS ORDERED: ATORVASTATIN 20 MG TAB PO SCH (21:00)
[2021-06-25] MEDS ORDERED: carvediloL 6.25 MG TAB PO SCH (21:00)
[2021-06-26] MEDS ORDERED: AMLODIPINE 5 MG TAB PO SCH (09:00)
[2021-06-26] MEDS ORDERED: HOME MED 1 EA UNK (Losartan Potassium [Cozaar] 25 MG Tablet) PO SCH (09:00)
[2021-06-26] MEDS ORDERED: LOSARTAN POTASSIUM 50 MG TABLET PO SCH (09:00)
== END 2021-06-25 12:46 | disposition home or self-care (01) ==
LOC: ER 13:49 → ERHOLD 19:10 → 2ND 23:54
PROVIDERS: ADMIT Internal Medicine Sleep Medicine; ATTEND Internal Medicine Sleep Medicine
PROC: 0CJS8ZZ Inspection of Larynx, Via Natural or Artificial Opening Endoscopic (ICD-10-PCS; principal; 2021-06-25)
DX: R13.12 Dysphagia, oropharyngeal phase (principal); I69.351 Hemiplegia and hemiparesis following cerebral infarction affecting right dominant side; I69.391 Dysphagia following cerebral infarction; J05.10 Acute epiglottitis without obstruction; K20.80 Other esophagitis without bleeding; E11.9 Type 2 diabetes mellitus without complications; I10 Essential (primary) hypertension; Z93.1 Gastrostomy status; Z20.822 Contact with and (suspected) exposure to COVID-19
CPT/HCPCS: 36415; 70491; 71045; 80053; 82947; 85025; 96374; 96375; 99285; C9113; G0378; J1100; J1650; J2765; U0003

== ENCOUNTER 2022-09-11 21:48 | Emergency (ER) | payer OTHER ==
--- OUTSIDE RECORDS SUMMARY | 2022-09-11 21:58 | XMS REPORT | Continuity of Care Document ---
:1950 Author Organization [facility] t Address [address] [facility] [address] [place] [address] Care Team Providers Name Role Phone Unknown, Physician Primary Care Physician Unavailable Jenny Mondragon Attending Clinician Unavailable Tresa Christianson Attending Clinician Unavailable EDGAR KEANE Attending Clinician Unavailable BRIAN COLVIN Attending Clinician Unavailable TARYN WHITE Attending Clinician Unavailable MARGARET NGUYEN Attending Clinician Unavailable MALENA HINDS Attending Clinician Unavailable Francisco Javier Ava HEBERT Attending Clinician Donna Ramirez OD Attending Clinician YOLANDA CORDOBA Attending Clinician Unavailable Adalid PARISI, Yolanda Ortiz Attending Clinician Bismark Hensley MD Attending Clinician Kay Velasquez MA Attending Clinician Unavailable Katelin PARISI, Leonardo Attending Clinician Michael Aguillon MD Attending Clinician Awais Garcia MD Attending Clinician Payers Payer Name Policy Type Policy Number Effective Date Expiration Date [facility] CLAUDIO [id number] 2020 00:00:00 [facility] C1 [id number] [facility] ([facility]MO) [facility] C1 [id number] [facility] Complete (HMO) [facility] C1 [id number] [facility] Complete (O) [place] [id number] [facility] Complete (O) [place] [id number] [facility] Complete (O) [facility] Problems Condition Condition Condition Status Onset Resolution Last Treating Co mments Source Name Details Category Date Date Treatment Clinician Date Right Right Disease Active [facility] rotator rotator 8-10 Health cuff cuff 00:00: tendonitis tendonitis 00 Injury of Injury of Disease Active [facility] right right 8-10 Health shoulder shoulder 00:00: 00 Dysphagia Dysphagia Disease Active [facility] following following 07-19 Heal th other other 00:00: nontraumat nontraumat 00 ic ic intracrani intracrani al al hemorrhage hemorrhage 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 07-19 Heal th malformati malformati 00:00: on on 00 Blurry Blurry Disease Active 2020-03 [facility] vision, vision, 1-15 Health bilateral bilateral 00:00: 00 [id number] Incomplete Problem Co mmon emptying Spirit of bladder - [facility] [id number] H/O: CVA Problem Comm on (cerebrova Spirit scular - [facility] accident) [facility] [id number] Lower Problem Common urinary [facility] tract [facility] 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[facility] mellitus mellitus - [facility] without without St complicati complicati [facility] [id number] BPH loc w Problem Com mon urin Spirit obs/LUTS - [facility] Essential Essential Problem Com mon hypertensi hypertensi Sp david on on - [facility] Vitamin D Vitamin D Problem Com mon deficiency deficiency Sp david - [facility] [id number] History of Problem Co mmon CVA with Spirit residual - [facility] deficit [facility] [id number] Type 2 Problem Common diabetes [facility] mellitus - [facility] with [facility] [id number] Mixed Problem Common hyperlipid Spirit emia - [facility] [id number] S/P POLE FRAMER MACHINE Problem Common shunt Spirit - [facility] [id number] PEG Problem Common (percutane Spirit ous - [facility] endoscopic [facility] gastrostom [facility] y) [facility] [id number] Dysphagia, Problem Com mon unspecifie Spirit d type - [facility] [id number] custodial Problem Com mon (current) Spirit use of - [facility] insulin [facility] Attention Attention Problem Com mon to G-tube to G-tube Spir it - [facility] Dysphagia Dysphagia Problem Com mon following following Spir it other other - [facility] nontraumat nontraumat [facility] hemorrhage hemorrhage [id number] Constipati Problem Com mon on, Spirit unspecifie - [facility] d constipati [facility] on 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 Social History Social Habit Start Date Stop Date Quantity Comments Source History of [facility] - Tobacco Use [facility] Sex Assigned At [facility] david - [facility] Exposure to 2021-09-09 2021-09-19 Not sure [facility] SARS-CoV-2 00:00:00 08:39:00 (event) Alcohol intake 2021-09-19 2021-09-19 Ex-drinker [facility] 00:00:00 00:00:00 (finding) Tobacco use and 2021-04-12 2021-04-12 Smokeless tobacco [facility] exposure 00:00:00 00:00:00 non-user Smoking Status Start Date Stop Date Source Tobacco smoking [facility] consumption unknown Former Smoker 2022-06-26 00:00:00 2022-06-26 [facility] t - [facility] 00:00:00 [facility] Medications Ordered Filled Start Stop Current Ordering Indication Dosage Frequency Signature Comments Components Source Medication Medication Date Date Medication? Clinician (SIG) Name Name Doxazosin Doxazosin 2021-03 No Doxazosin Mesylate 2 Mesylate 2 -09 Mesylate 2 MG MG 00:00: MG 00 Doxazosin Doxazosin 2021-03 No Doxazosin Mesylate 4 Mesylate 4 -09 Mesylate 4 MG MG 00:00: MG 00 Doxazosin Doxazosin 2021-03 No Doxazosin Mesylate 4 Mesylate 4 -09 Mesylate 4 MG MG 00:00: MG 00 Doxazosin Doxazosin 2021-03 No Doxazosin Mesylate 4 Mesylate 4 -09 Mesylate 4 MG MG 00:00: MG 00 Doxazosin Doxazosin 2021-03 No Doxazosin Mesylate 8 Mesylate 8 - Mesylate 8 MG MG 00:00: MG 00 Doxazosin Doxazosin 2021-03 No Doxazosin Mesylate 8 Mesylate 8 04-03 Mesylate 8 MG MG 00:00: MG 00 Flomax 0.4 Flomax 0.4 2021-03- No 1{capsu QD Flomax 0.4 MG MG 03-27 le} MG 00:00: 00:00 00 :00 Flomax 0.4 Flomax 0.4 2021-03- No 1{capsu QD Flomax 0.4 MG MG 03-27 le} MG 00:00: 00:00 00 :00 Ferrous Ferrous 2-0 No 5{ml} QD Ferrous Sulfate 75 Sulfate 75 9-27 Sulfate 75 (15 Fe) (15 Fe) 00:00: (15 Fe) MG/ML MG/ML 00 MG/ML Ferrous Ferrous 2022-0 No 5{ml} QD Ferrous Sulfate 75 Sulfate 75 9-27 Sulfate 75 (15 Fe) (15 Fe) 00:00: (15 Fe) MG/ML MG/ML 00 MG/ML Ferrous Ferrous 2022-0 No 5{ml} QD Ferrous Sulfate 75 Sulfate 75 9-27 Sulfate 75 (15 Fe) (15 Fe) 00:00: (15 Fe) MG/ML MG/ML 00 MG/ML Ferrous Ferrous 2-0 No 5{ml} QD Ferrous Sulfate 75 Sulfate 75 9-27 Sulfate 75 (15 Fe) (15 Fe) 00:00: (15 Fe) MG/ML MG/ML 00 MG/ML Ferrous Ferrous 2022-0 No 5{ml} QD Ferrous Sulfate 75 Sulfate 75 9-27 Sulfate 75 (15 Fe) (15 Fe) 00:00: (15 Fe) MG/ML MG/ML 00 MG/ML Ferrous Ferrous 2022-0 No 5{ml} QD Ferrous Sulfate 75 Sulfate 75 9-27 Sulfate 75 (15 Fe) (15 Fe) 00:00: (15 Fe) MG/ML MG/ML 00 MG/ML Ferrous Ferrous 2022-0 No 5{ml} QD Ferrous Sulfate 75 Sulfate 75 9-27 Sulfate 75 (15 Fe) (15 Fe) 00:00: (15 Fe) MG/ML MG/ML 00 MG/ML Ferrous Ferrous 2022-0 No 5{ml} QD Ferrous Sulfate 75 Sulfate 75 9-27 Sulfate 75 (15 Fe) (15 Fe) 00:00: (15 Fe) MG/ML MG/ML 00 MG/ML Ferrous Ferrous 2022-0 No 5{ml} QD Ferrous Sulfate 75 Sulfate 75 9-27 Sulfate 75 (15 Fe) (15 Fe) 00:00: (15 Fe) MG/ML MG/ML 00 MG/ML Ferrous Ferrous 2022-0 No 5{ml} QD Ferrous Sulfate 75 Sulfate 75 9-27 Sulfate 75 (15 Fe) (15 Fe) 00:00: (15 Fe) MG/ML MG/ML 00 MG/ML Glucerna Glucerna 2022-0 No TID Glucerna 1.5 Hank - 1.5 Hank - 9-20 1.5 Hank - 00:00: 00 Glucerna Glucerna 2022-0 No TID Glucerna 1.5 Hank - 1.5 Hank - 9-20 1.5 Hank - 00:00: 00 Glucerna Glucerna 2022-0 No TID Glucerna 1.5 Hank - 1.5 Hank - 9-20 1.5 Hank - 00:00: 00 Glucerna Glucerna 2022-0 No TID Glucerna 1.5 Hank - 1.5 Hank - 9-20 1.5 Hank - 00:00: 00 Glucerna Glucerna 2022-0 No TID Glucerna 1.5 Hank - 1.5 Hank - 9-20 1.5 Hank - 00:00: 00 Glucerna Glucerna 2021-0 No TID Glucerna 1.5 Hank - 1.5 Hank - 9-20 1.5 Hank - 00:00: 00 Glucerna Glucerna 2021-0 No TID Glucerna 1.5 Hank - 1.5 Hank - 9-20 1.5 Hank - 00:00: 00 Glucerna Glucerna 2021-0 No TID Glucerna 1.5 Hank - 1.5 Hank - 9-20 1.5 Hank - 00:00: 00 Glucerna Glucerna 2021-0 No TID Glucerna 1.5 Hank - 1.5 Hank - 9-20 1.5 Hank - 00:00: 00 Glucerna Glucerna 2021-0 No QID Glucerna 1.5 Hank - 1.5 Hank - 9-20 1.5 Hank - 00:00: 00 Glucerna Glucerna 2021-0 No QID Glucerna 1.5 Hank - 1.5 Hank - 9-20 1.5 Hank - 00:00: 00 Glucerna Glucerna 2021-0 No TID Glucerna 1.5 Hank - 1.5 Hank - 9-20 1.5 Hank - 00:00: 00 Glucerna Glucerna 2021-0 No TID Glucerna 1.5 Hank - 1.5 Hank - 9-20 1.5 Hank - 00:00: 00 Glucerna Glucerna 2021-0 No TID Glucerna 1.5 Hank - 1.5 Hank - 9-20 1.5 Hank - 00:00: 00 Mupirocin 2 Mupirocin 2 2021- No TID Mupirocin % % 7- 07-22 2 % 00:00: 00:00 00 :00 amLODIPine 0 Yes amlodipine U T Besylate 6-27 5 mg Health ([facility] 09:28: PO) 37 atorvastati Yes 20mg QD Take 20 mg UT n (Lipitor) 6-27 by mouth 1 He alth 20 MG 09:28: (one) time tablet 37 each day. At bedtime losartan Yes 25mg QD Take 25 mg UT (Cozaar) 25 6-27 by mouth 1 He alth MG tablet 09:28: (one) time 37 each day. Multiple 2021-0 Yes 1{tbl} QD Take 1 UT Vitamins-Mi 6-27 tablet by [facility] nerals 09:28: mouth 1 (multivitam 37 (one) time in with each day. minerals) tablet amLODIPine 2021-0 Yes amlodipine U T Besylate 6-27 5 [facility] 37 atorvastati 2021-0 Yes 20mg QD Take 20 mg UT n (Lipitor) 6-27 by mouth 1 He alth 20 MG 09:28: (one) time tablet 37 each day. At bedtime losartan 2021-0 Yes 25mg QD Take 25 mg UT (Cozaar) 25 6-27 by mouth 1 He alth MG tablet 09:28: (one) time 37 each day. Multiple 2021-0 Yes 1{tbl} QD Take 1 UT Vitamins-Mi 6-27 tablet by [facility] nerals 09:28: mouth 1 (multivitam 37 (one) time in with each day. minerals) tablet amLODIPine 0 Yes amlodipine U T Besylate 6-27 5 mg Health ([facility] 09:28: PO) 37 metFORMIN 2022-0 Yes Q12H every 12 UT (Glucophage 5-27 (twelve) Heal th ) 1000 MG 10:59: hours. tablet 24 TWICE DAILY, ONCE IN THE MORNING AND ONCE IN THE EVENING amLODIPine 2021-0 Yes amlodipine U T Besylate 5-27 5 mg [facility] 10[facility]59: PO) 24 atorvastati 2021-0 Yes 20mg QD Take 20 mg UT n (Lipitor) 5-27 by mouth 1 He alth 20 MG 10:59: (one) time tablet 24 each day. At bedtime losartan 2022-0 Yes 25mg QD Take 25 mg UT (Cozaar) 25 5-27 by mouth 1 He alth MG tablet 10:59: (one) time 24 each day. metFORMIN 2022-0 Yes Q12H every 12 UT (Glucophage 5-27 (twelve) Heal th ) 1000 MG 10:59: hours. tablet 24 TWICE DAILY, ONCE IN THE MORNING AND ONCE IN THE EVENING amLODIPine 2-0 Yes amlodipine U T Besylate 5-27 5 mg Health ([facility] 10:59: PO) 24 atorvastati Yes 20mg QD Take 20 mg UT n (Lipitor) 5-27 by mouth 1 He alth 20 MG 10:59: (one) time tablet 24 each day. At bedtime losartan 0 Yes 25mg QD Take 25 mg UT (Cozaar) 25 5-27 by mouth 1 He alth MG tablet 10:59: (one) time 24 each day. metFORMIN 2021-0 Yes Q12H every 12 UT (Glucophage 5-27 () Heal ) 1000 MG 10:59: hours. tablet 24 TWICE DAILY, ONCE IN THE MORNING AND ONCE IN THE EVENING metFORMIN 2021-0 Yes Q12H every 12 UT (Glucophage 5-27 () ) 1000 MG 10:59: hours. tablet 24 TWICE DAILY, ONCE IN THE MORNING AND ONCE IN THE EVENING metFORMIN 2021-0 Yes Q12H every 12 UT (Glucophage 5-27 () ) 1000 MG 10:59: hours. tablet 24 TWICE DAILY, ONCE IN THE MORNING AND ONCE IN THE EVENING metFORMIN metFORMIN No BID metFORMIN HCl 1000 MG HCl 1000 MG 4-05 HCl 1000 00:00: MG 00 metFORMIN metFORMIN 0 No BID metFORMIN HCl 1000 MG HCl 1000 MG 4-05 HCl 1000 00:00: MG 00 metFORMIN metFORMIN 2021-0 No BID metFORMIN HCl 1000 MG HCl 1000 MG 4-05 HCl 1000 00:00: MG 00 Clindamycin Clindamycin 2021- No 2{capsu TID Clindamyci HCl 300 MG HCl 300 MG 06-14 les} n HCl 300 00:00: 00:00 MG 00 :00 Diclofenac Diclofenac 2021-0 2021- No BID Diclofenac Sodium 1 % Sodium 1 % 05-25 Sodium 1 % 00:00: 00:00 00 :00 Diclofenac Diclofenac 2021-2021- No BID Diclofenac Sodium 1 % Sodium 1 % 05-25 Sodium 1 % 00:00: 00:00 00 :00 Diclofenac Diclofenac 2021-0 2021- No BID Diclofenac Sodium 1 % Sodium 1 % 05-25 Sodium 1 % 00:00: 00:00 00 :00 meloxicam 2021-0 Yes [id number] TAKE 1 UT (Mobic) 15 2-10 [id number] TABLET (15 H ealth MG tablet 00:00: MG TOTAL) 00 BY MOUTH ONE TIME EACH DAY. meloxicam 0 Yes [id number] TAKE 1 UT (Mobic) 15 2-10 [id number] TABLET (15 H ealth MG tablet 00:00: MG TOTAL) 00 BY MOUTH ONE TIME EACH DAY. meloxicam 2021-0 Yes [id number] TAKE 1 UT (Mobic) 15 2-10 [id number] TABLET (15 H ealth MG tablet 00:00: MG TOTAL) 00 BY MOUTH ONE TIME EACH DAY. meloxicam 2021-0 Yes [id number] TAKE 1 UT (Mobic) 15 2-10 [id number] TABLET (15 H ealth MG tablet 00:00: MG TOTAL) 00 BY MOUTH ONE TIME EACH DAY. Diclofenac 0 Yes [id number] Apply UT Sodium 1-18 [id number] topically Health (Voltaren) 00:00: 4 (four) 1 % 00 times a external day if gel needed (pain). Do not apply more than 8 grams daily. Diclofenac 0 Yes [id number] Apply UT Sodium 1-18 [id number] topically Health (Voltaren) 00:00: 4 (four) 1 % 00 times a external day if gel needed (pain). Do not apply more than 8 grams daily. Diclofenac 0 Yes [id number] Apply UT Sodium 1-18 [id number] topically Health (Voltaren) 00:00: 4 (four) 1 % 00 times a external day if gel needed (pain). Do not apply more than 8 grams daily. Diclofenac 0 Yes [id number] Apply UT Sodium 1-18 [id number] topically Health (Voltaren) 00:00: 4 (four) 1 % 00 times a external day if gel needed (pain). Do not apply more than 8 grams daily. Diclofenac 0 Yes [id number] Apply UT Sodium 1-18 [id number] topically Health (Voltaren) 00:00: 4 (four) 1 % 00 times a external day if gel needed (pain). Do not apply more than 8 grams daily. meloxicam 2021-0 202- No [id number] 15mg QD Take 1 UT (Mobic) 15 1-18 02-10 [id number] tablet (15 Health MG tablet 00:00: 00:00 mg total) 00 :00 by mouth 1 (one) time each day. No known 2020-03 No No known UT medications 2-13 medication He alth 13:15: s 55 metFORMIN 2020-03 Yes Q12H every 12 UT (Glucophage 2-13 (twelve) Heal th ) 1000 MG 13:15: hours. tablet 47 amLODIPine 2020-03 Yes amlodipine U T Besylate 2-13 5 mg Health ([facility] 13:15: PO) 47 carvedilol 2020-03 Yes UT [...] 1-30 Health 6.25 MG 00:00: tablet 00 Accu-Chek Accu-Chek 2020-03 No Accu-Chek Soft Touch Soft Touch 1-09 Soft Touch Lancets Lancets 00:00: Lancets 00 Accu-Chek Accu-Chek 2020-03 No Accu-Chek Soft Touch Soft Touch 1-09 Soft Touch Lancets Lancets 00:00: Lancets 00 Accu-Chek Accu-Chek 2020-03 No Accu-Chek Soft Touch Soft Touch 1-09 Soft Touch Lancets Lancets 00:00: Lancets 00 Accu-Chek Accu-Chek 2020-03 No Accu-Chek Soft Touch Soft Touch 1-09 Soft Touch Lancets Lancets 00:00: Lancets 00 Accu-Chek Accu-Chek 2020-03 No Accu-Chek Soft Touch Soft Touch 1-09 Soft Touch Lancets Lancets 00:00: Lancets 00 Accu-Chek Accu-Chek 2021-1 No Accu-Chek Soft Touch Soft Touch 1-09 Soft Touch Lancets Lancets 00:00: Lancets 00 Accu-Chek Accu-Chek 2020-03 No Accu-Chek Soft Touch Soft Touch 1-09 Soft Touch Lancets Lancets 00:00: Lancets 00 Accu-Chek Accu-Chek 2020-03 No Accu-Chek Soft Touch Soft Touch 1-09 Soft Touch Lancets Lancets 00:00: Lancets 00 Accu-Chek Accu-Chek 2020-03 No Accu-Chek Soft Touch Soft Touch 1-09 Soft Touch Lancets Lancets 00:00: Lancets 00 Accu-Chek Accu-Chek 2020-03 No Accu-Chek Soft Touch Soft Touch 1-09 Soft Touch Lancets Lancets 00:00: Lancets 00 senna 2020-03 Yes UT (Senokot) 0-29 [...] 0-29 Health 8.6 MG 00:00: tablet 00 metFORMIN metFORMIN 2020-0 No 1{table BID metFORMIN HCl 500 MG HCl 500 MG 9-28 t} HCl 500 MG 00:00: 00 metFORMIN metFORMIN 2020-0 No 1{table BID metFORMIN HCl 500 MG HCl 500 MG 9-28 t} HCl 500 MG 00:00: 00 metFORMIN metFORMIN 2020-0 No 1{table BID metFORMIN HCl 500 MG HCl 500 MG 9-28 t} HCl 500 MG 00:00: 00 metFORMIN metFORMIN 2020-0 No 1{table BID metFORMIN HCl 500 MG HCl 500 MG 9-28 t} HCl 500 MG 00:00: 00 metFORMIN metFORMIN 2020-0 No 1{table BID metFORMIN HCl 500 MG HCl 500 MG 9-28 t} HCl 500 MG 00:00: 00 metFORMIN metFORMIN 2021-0 No 1{table BID metFORMIN HCl 500 MG HCl 500 MG 9-28 t} HCl 500 MG 00:00: 00 metFORMIN metFORMIN 2021-0 No 1{table BID metFORMIN HCl 500 MG HCl 500 MG 9-28 t} HCl 500 MG 00:00: 00 metFORMIN metFORMIN 2021-0 No 1{table BID metFORMIN HCl 500 MG HCl 500 MG 9-28 t} HCl 500 MG 00:00: 00 metFORMIN metFORMIN 1-0 No 1{table BID metFORMIN HCl 500 MG HCl 500 MG 9-28 t} HCl 500 MG 00:00: 00 metFORMIN metFORMIN 1-0 No 1{table BID metFORMIN HCl 500 MG HCl 500 MG 9-28 t} HCl 500 MG 00:00: 00 metFORMIN metFORMIN 1-0 No 1{table BID metFORMIN HCl 500 MG HCl 500 MG 9-28 t} HCl 500 MG 00:00: 00 metFORMIN metFORMIN 1-0 No 1{table BID metFORMIN HCl 500 MG HCl 500 MG 9-28 t} HCl 500 MG 00:00: 00 metFORMIN metFORMIN 1-0 No 1{table BID metFORMIN HCl 500 MG HCl 500 MG 9-28 t} HCl 500 MG 00:00: 00 metFORMIN metFORMIN 1-0 No 1{table BID metFORMIN HCl 500 MG HCl 500 MG 9-28 t} HCl 500 MG 00:00: 00 Glucerna Glucerna 1-0 No Glucerna 1.0 Hank - 1.0 Hank - 9-15 1.0 Hank - 00:00: 00 Glucerna Glucerna 1-0 No Glucerna 1.0 Hank - 1.0 Hank - 9-15 1.0 Hank - 00:00: 00 Glucerna Glucerna 1-0 No Glucerna 1.0 Hank - 1.0 Hank - 9-15 1.0 Hank - 00:00: 00 Glucerna Glucerna 1-0 No Glucerna 1.0 Hank - 1.0 Hank - 9-15 1.0 Hank - 00:00: 00 Glucerna Glucerna 1-0 No Glucerna 1.0 Hank - 1.0 Hank - 9-15 1.0 Hank - 00:00: 00 Glucerna Glucerna 1-0 No Glucerna 1.0 Hank - 1.0 Hank - 9-15 1.0 Hank - 00:00: 00 Glucerna Glucerna 2021-0 No Glucerna 1.0 Hank - 1.0 Hank - 915 1.0 Hank - 00:00: 00 Glucerna Glucerna 1-0 No Glucerna 1.0 Hank - 1.0 Hank - 915 1.0 Hank - 00:00: 00 Glucerna Glucerna 1-0 No Glucerna 1.0 Hank - 1.0 Hank - 915 1.0 Hank - 00:00: 00 Glucerna Glucerna 1-0 No Glucerna 1.0 Hank - 1.0 Hank - 915 1.0 Hank - 00:00: 00 Glucerna Glucerna 1-0 No Glucerna 1.0 Hank - 1.0 Hank - 15 1.0 Hank - 00:00: 00 Glucerna Glucerna 2021-0 No Glucerna 1.0 Hank - 1.0 Hank - 15 1.0 Hank - 00:00: 00 Glucerna Glucerna 1-0 No Glucerna 1.0 Hank - 1.0 Hank - 915 1.0 Hank - 00:00: 00 Glucerna Glucerna 1-0 No Glucerna 1.0 Hank - 1.0 Hank - 15 1.0 Hank - 00:00: 00 Glucerna Glucerna 1-0 No Glucerna 1.0 Hank - 1.0 Hank - 15 1.0 Hank - 00:00: 00 Glucerna Glucerna 2021-0 No Glucerna 1.0 Hank - 1.0 Hank - 15 1.0 Hank - 00:00: 00 Glucerna Glucerna 2021-0 No Glucerna 1.0 Hank - 1.0 Hank - 915 1.0 Hank - 00:00: 00 Glucerna Glucerna 2021-0 No Glucerna 1.0 Hank - 1.0 Hank - 915 1.0 Hank - 00:00: 00 Glucerna Glucerna 2021-0 No Glucerna 1.0 Hank - 1.0 Hank - 915 1.0 Hank - 00:00: 00 Glucerna Glucerna 2021-0 No Glucerna 1.0 Hank - 1.0 Hank - 12-08 1.0 Hank - 00:00: 00 Glucerna Glucerna 1-0 No Glucerna 1.0 Hank - 1.0 Hank - 15 1.0 Hank - 00:00: 00 Glucerna Glucerna 1-0 No Glucerna 1.0 Hank - 1.0 Hank - 15 1.0 Hank - 00:00: 00 Glucerna Glucerna 1-0 No Glucerna 1.0 Hank - 1.0 Hank - 12-08 1.0 Hank - 00:00: 00 Glucerna Glucerna 1-0 No Glucerna 1.0 Hank - 1.0 Hank - 12-08 1.0 Hank - 00:00: 00 Glucerna Glucerna 1-0 No Glucerna 1.0 Hank - 1.0 Hank - 12-08 1.0 Hank - 00:00: 00 Glucerna Glucerna 2021-0 No Glucerna 1.0 Hank - 1.0 Hank - 12-08 1.0 Hank - 00:00: 00 Glucerna Glucerna 1-0 No Glucerna 1.0 Hank - 1.0 Hank - 15 1.0 Hank - 00:00: 00 Glucerna Glucerna 1-0 No Glucerna 1.0 Hank - 1.0 Hank - 12-08 1.0 Hank - 00:00: 00 Glucerna Glucerna 2021-0 No Glucerna 1.0 Hank - 1.0 Hank - 12-08 1.0 Hank - 00:00: 00 Glucerna Glucerna 1-0 No Glucerna 1.0 Hank - 1.0 Hank - 15 1.0 Hank - 00:00: 00 Glucerna Glucerna 2021-0 No Glucerna 1.0 Hank - 1.0 Hank - 12-08 1.0 Hank - 00:00: 00 Glucerna Glucerna 2021-0 No Glucerna 1.0 Hank - 1.0 Hank - 15 1.0 Hank - 00:00: 00 Glucerna Glucerna 2021-0 No Glucerna 1.0 Hank - 1.0 Hank - 12-08 1.0 Hank - 00:00: 00 Glucerna Glucerna 0 No Glucerna 1.0 Hank - 1.0 Hank - 9-15 1.0 Hank - 00:00: 00 Glucerna Glucerna 2020-0 No Glucerna 1.0 Hank - 1.0 Hank - 9-15 1.0 Hank - 00:00: 00 Fleet Enema Fleet Enema 2020- No Fleet 7-19 7-19 9-15 11-13 Enema 7-19 GM/118ML GM/118ML 00:00: 00:00 GM/118ML 00 :00 Fleet Enema Fleet Enema 2020- No Fleet 7-19 7-19 9-15 11-13 Enema 7-19 GM/118ML GM/118ML 00:00: 00:00 GM/118ML 00 :00 Polyethylen Polyethylen No 1{packe QD Polyethyle e Glycol e Glycol t_mixed ne Glycol 3350 17 GM 3350 17 GM _with_8 3350 17 GM _ounces _of_flu id} Ondansetron Ondansetron No Ondansetro HCl 4 MG HCl 4 MG n HCl 4 MG Losartan Losartan No 2{table QD Losartan Potassium Potassium t} Potassium 50 MG 50 MG 50 MG Famotidine Famotidine No 1{table BID Famotidine 40 MG 40 MG t_as_ne 40 MG eded} QUEtiapine QUEtiapine No 3{table QD QUEtiapine Fumarate 25 Fumarate 25 t_at_be Fumarate MG MG dtime} 25 MG Carvedilol Carvedilol No 1{table BID Carvedilol 6.25 MG 6.25 MG t_with_ 6.25 MG food} Strips Strips No Strips cloNIDine cloNIDine No 1{table TID cloNIDine HCl 0.2 MG HCl 0.2 MG t} HCl 0.2 MG metFORMIN metFORMIN No 1{table BID metFORMIN HCl 1000 MG HCl 1000 MG t_with_ HCl 1000 a_meal} MG Cholecalcif Cholecalcif No 1{capsu QD Cholecalci robbin 50 MCG robbin 50 MCG le} ferol 50 (1999) (1999) MCG (1999) Senna 8.6 Senna 8.6 No 1{table BID Senna 8.6 MG MG ts_at_b MG edtime_ as_need ed} Atorvastati Atorvastati No 1{table QD Atorvastat n Calcium n Calcium t} in Calcium 40 MG 40 MG 40 MG Aspir-Low Aspir-Low No 1{table QD Aspir-Low 81 MG 81 MG t} 81 MG glipiZIDE glipiZIDE No BID glipiZIDE 10 MG 10 MG 10 MG Insulin Insulin No Insulin Isophane Isophane Isophane Human Human Human amLODIPine amLODIPine No 1{table QD amLODIPine Besylate 5 Besylate 5 t} Besylate 5 MG MG MG Polyethylen Polyethylen No 1{packe QD Polyethyle e Glycol e Glycol t_mixed ne Glycol 3350 17 GM 3350 17 GM _with_8 3350 17 GM _ounces _of_flu id} Ondansetron Ondansetron No Ondansetro HCl 4 MG HCl 4 MG n HCl 4 MG Losartan Losartan No 2{table QD Losartan Potassium Potassium t} Potassium 50 MG 50 MG 50 MG Famotidine Famotidine No 1{table BID Famotidine 40 MG 40 MG t_as_ne 40 MG eded} Insulin Insulin No Insulin Isophane Isophane Isophane Human Human Human metFORMIN metFORMIN No 1{table BID metFORMIN HCl 1000 MG HCl 1000 MG t_with_ HCl 1000 a_meal} MG Famotidine Famotidine No 1{table BID Famotidine 40 MG 40 MG t_as_ne 40 MG eded} amLODIPine amLODIPine No 1{table QD amLODIPine Besylate 5 Besylate 5 t} Besylate 5 MG MG MG Losartan Losartan No 2{table QD Losartan Potassium Potassium t} Potassium 50 MG 50 MG 50 MG Aspir-Low Aspir-Low No 1{table QD Aspir-Low 81 MG 81 MG t} 81 MG Atorvastati Atorvastati No 1{table QD Atorvastat n Calcium n Calcium t} in Calcium 40 MG 40 MG 40 MG Ondansetron Ondansetron No Ondansetro HCl 4 MG HCl 4 MG n HCl 4 MG Senna 8.6 Senna 8.6 No 1{table BID Senna 8.6 MG MG ts_at_b MG edtime_ as_need ed} Polyethylen Polyethylen No 1{packe QD Polyethyle e Glycol e Glycol t_mixed ne Glycol 3350 17 GM 3350 17 GM _with_8 3350 17 GM _ounces _of_flu id} glipiZIDE glipiZIDE No BID glipiZIDE 10 MG 10 MG 10 MG Carvedilol Carvedilol No 1{table BID Carvedilol 6.25 MG 6.25 MG t_with_ 6.25 MG food} QUEtiapine QUEtiapine No 3{table QD QUEtiapine Fumarate 25 Fumarate 25 t_at_be Fumarate MG MG dtime} 25 MG cloNIDine cloNIDine No 1{table TID cloNIDine HCl 0.2 MG HCl 0.2 MG t} HCl 0.2 MG Cholecalcif Cholecalcif No 1{capsu QD Cholecalci robbin 50 MCG robbin 50 MCG le} ferol 50 (1999) (1999) MCG (1999) Strips Strips No Strips Insulin Insulin No Insulin Isophane Isophane Isophane Human Human Human metFORMIN metFORMIN No 1{table BID metFORMIN HCl 1000 MG HCl 1000 MG t_with_ HCl 1000 a_meal} MG Famotidine Famotidine No 1{table BID Famotidine 40 MG 40 MG t_as_ne 40 MG eded} amLODIPine amLODIPine No 1{table QD amLODIPine Besylate 5 Besylate 5 t} Besylate 5 MG MG MG Losartan Losartan No 2{table QD Losartan Potassium Potassium t} Potassium 50 MG 50 MG 50 MG Aspir-Low Aspir-Low No 1{table QD Aspir-Low 81 MG 81 MG t} 81 MG cloNIDine cloNIDine No 1{table TID cloNIDine HCl 0.2 MG HCl 0.2 MG t} HCl 0.2 MG Atorvastati Atorvastati No 1{table QD Atorvastat n Calcium n Calcium t} in Calcium 40 MG 40 MG 40 MG Ondansetron Ondansetron No Ondansetro HCl 4 MG HCl 4 MG n HCl 4 MG Senna 8.6 Senna 8.6 No 1{table BID Senna 8.6 MG MG ts_at_b MG edtime_ as_need ed} Polyethylen Polyethylen No 1{packe QD Polyethyle e Glycol e Glycol t_mixed ne Glycol 3350 17 GM 3350 17 GM _with_8 3350 17 GM _ounces _of_flu id} glipiZIDE glipiZIDE No BID glipiZIDE 10 MG 10 MG 10 MG Carvedilol Carvedilol No 1{table BID Carvedilol 6.25 MG 6.25 MG t_with_ 6.25 MG food} QUEtiapine QUEtiapine No 3{table QD QUEtiapine Fumarate 25 Fumarate 25 t_at_be Fumarate MG MG dtime} 25 MG Cholecalcif Cholecalcif No 1{capsu QD Cholecalci robbin 50 MCG robbin 50 MCG le} ferol 50 (1999) (1999) MCG (1999) Strips Strips No Strips Strips Strips No Strips Carvedilol Carvedilol No 1{table BID Carvedilol 6.25 MG 6.25 MG t_with_ 6.25 MG food} Atorvastati Atorvastati No 1{table QD Atorvastat n Calcium n Calcium t} in Calcium 40 MG 40 MG 40 MG Senna 8.6 Senna 8.6 No 1{table BID Senna 8.6 MG MG ts_at_b MG edtime_ as_need ed} Aspir-Low Aspir-Low No 1{table QD Aspir-Low 81 MG 81 MG t} 81 MG QUEtiapine QUEtiapine No 3{table QD QUEtiapine Fumarate 25 Fumarate 25 t_at_be Fumarate MG MG dtime} 25 MG amLODIPine amLODIPine No 1{table QD amLODIPine Besylate 5 Besylate 5 t} Besylate 5 MG MG MG metFORMIN metFORMIN No 1{table BID metFORMIN HCl 1000 MG HCl 1000 MG t_with_ HCl 1000 a_meal} MG glipiZIDE glipiZIDE No BID glipiZIDE 10 MG 10 MG 10 MG Famotidine Famotidine No 1{table BID Famotidine 40 MG 40 MG t_as_ne 40 MG eded} Polyethylen Polyethylen No 1{packe QD Polyethyle e Glycol e Glycol t_mixed ne Glycol 3350 17 GM 3350 17 GM _with_8 3350 17 GM _ounces _of_flu id} Insulin Insulin No Insulin Isophane Isophane Isophane Human Human Human cloNIDine cloNIDine No 1{table TID cloNIDine HCl 0.2 MG HCl 0.2 MG t} HCl 0.2 MG Cholecalcif Cholecalcif No 1{capsu QD Cholecalci robbin 50 MCG robbin 50 MCG le} ferol 50 (1999) (1999) MCG (2000 UT) Ondansetron Ondansetron No Ondansetro HCl 4 MG HCl 4 MG n HCl 4 MG Losartan Losartan No 2{table QD Losartan Potassium Potassium t} Potassium 50 MG 50 MG 50 MG Aspir-Low Aspir-Low No 1{table QD Aspir-Low 81 MG 81 MG t} 81 MG Strips Strips No Strips amLODIPine amLODIPine No 1{table QD amLODIPine Besylate 5 Besylate 5 t} Besylate 5 MG MG MG Famotidine Famotidine No 1{table BID Famotidine 40 MG 40 MG t_as_ne 40 MG eded} Atorvastati Atorvastati No 1{table QD Atorvastat n Calcium n Calcium t} in Calcium 40 MG 40 MG 40 MG Polyethylen Polyethylen No 1{packe QD Polyethyle e Glycol e Glycol t_mixed ne Glycol 3350 17 GM 3350 17 GM _with_8 3350 17 GM _ounces _of_flu id} Accu-Chek Accu-Chek No Accu-Chek Guide - Guide - Guide - glipiZIDE glipiZIDE No BID glipiZIDE 10 MG 10 MG 10 MG QUEtiapine QUEtiapine No 3{table QD QUEtiapine Fumarate 25 Fumarate 25 t_at_be Fumarate MG MG dtime} 25 MG metFORMIN metFORMIN No 1{table BID metFORMIN HCl 1000 MG HCl 1000 MG t_with_ HCl 1000 a_meal} MG Cholecalcif Cholecalcif No 1{capsu QD Cholecalci robbin 50 MCG robbin 50 MCG le} ferol 50 (1999) (1999) MCG (1999) Losartan Losartan No 2{table QD Losartan Potassium Potassium t} Potassium 50 MG 50 MG 50 MG Senna 8.6 Senna 8.6 No 1{table BID Senna 8.6 MG MG ts_at_b MG edtime_ as_need ed} Insulin Insulin No Insulin Isophane Isophane Isophane Human Human Human Ondansetron Ondansetron No Ondansetro HCl 4 MG HCl 4 MG n HCl 4 MG cloNIDine cloNIDine No 1{table TID cloNIDine HCl 0.2 MG HCl 0.2 MG t} HCl 0.2 MG Carvedilol Carvedilol No 1{table BID Carvedilol 6.25 MG 6.25 MG t_with_ 6.25 MG food} Aspir-Low Aspir-Low No 1{table QD Aspir-Low 81 MG 81 MG t} 81 MG Strips Strips No Strips amLODIPine amLODIPine No 1{table QD amLODIPine Besylate 5 Besylate 5 t} Besylate 5 MG MG MG Famotidine Famotidine No 1{table BID Famotidine 40 MG 40 MG t_as_ne 40 MG eded} Atorvastati Atorvastati No 1{table QD Atorvastat n Calcium n Calcium t} in Calcium 40 MG 40 MG 40 MG Polyethylen Polyethylen No 1{packe QD Polyethyle e Glycol e Glycol t_mixed ne Glycol 3350 17 GM 3350 17 GM _with_8 3350 17 GM _ounces _of_flu id} Accu-Chek Accu-Chek No Accu-Chek Guide - Guide - Guide - glipiZIDE glipiZIDE No BID glipiZIDE 10 MG 10 MG 10 MG QUEtiapine QUEtiapine No 3{table QD QUEtiapine Fumarate 25 Fumarate 25 t_at_be Fumarate MG MG dtime} 25 MG metFORMIN metFORMIN No 1{table BID metFORMIN HCl 1000 MG HCl 1000 MG t_with_ HCl 1000 a_meal} MG Cholecalcif Cholecalcif No 1{capsu QD Cholecalci robbin 50 MCG robbin 50 MCG le} ferol 50 (1999) (1999) MCG (1999) Losartan Losartan No 2{table QD Losartan Potassium Potassium t} Potassium 50 MG 50 MG 50 MG Senna 8.6 Senna 8.6 No 1{table BID Senna 8.6 MG MG ts_at_b MG edtime_ as_need ed} Insulin Insulin No Insulin Isophane Isophane Isophane Human Human Human Ondansetron Ondansetron No Ondansetro HCl 4 MG HCl 4 MG n HCl 4 MG cloNIDine cloNIDine No 1{table TID cloNIDine HCl 0.2 MG HCl 0.2 MG t} HCl 0.2 MG Carvedilol Carvedilol No 1{table BID Carvedilol 6.25 MG 6.25 MG t_with_ 6.25 MG food} amLODIPine amLODIPine No 1{table QD amLODIPine Besylate 5 Besylate 5 t} Besylate 5 MG MG MG Atorvastati Atorvastati No 1{table QD Atorvastat n Calcium n Calcium t} in Calcium 40 MG 40 MG 40 MG Aspir-Low Aspir-Low No 1{table QD Aspir-Low 81 MG 81 MG t} 81 MG Famotidine Famotidine No 1{table BID Famotidine 40 MG 40 MG t_as_ne 40 MG eded} Strips Strips No Strips QUEtiapine QUEtiapine No 3{table QD QUEtiapine Fumarate 25 Fumarate 25 t_at_be Fumarate MG MG dtime} 25 MG metFORMIN metFORMIN No metFORMIN HCl 500 MG HCl 500 MG HCl 500 MG metFORMIN metFORMIN No 1{table BID metFORMIN HCl 1000 MG HCl 1000 MG t_with_ HCl 1000 a_meal} MG glipiZIDE glipiZIDE No BID glipiZIDE 10 MG 10 MG 10 MG Carvedilol Carvedilol No 1{table BID Carvedilol 6.25 MG 6.25 MG t_with_ 6.25 MG food} Losartan Losartan No 2{table QD Losartan Potassium Potassium t} Potassium 50 MG 50 MG 50 MG Insulin Insulin No Insulin Isophane Isophane Isophane Human Human Human Senna 8.6 Senna 8.6 No 1{table BID Senna 8.6 MG MG ts_at_b MG edtime_ as_need ed} cloNIDine cloNIDine No 1{table TID cloNIDine HCl 0.2 MG HCl 0.2 MG t} HCl 0.2 MG Cholecalcif Cholecalcif No 1{capsu QD Cholecalci robbin 50 MCG robbin 50 MCG le} ferol 50 (1999) (1999) MCG (1999) Accu-Chek Accu-Chek No Accu-Chek Guide - Guide - Guide - Ondansetron Ondansetron No Ondansetro HCl 4 MG HCl 4 MG n HCl 4 MG Polyethylen Polyethylen No 1{packe QD Polyethyle e Glycol e Glycol t_mixed ne Glycol 3350 17 GM 3350 17 GM _with_8 3350 17 GM _ounces _of_flu id} amLODIPine amLODIPine No 1{table QD amLODIPine Besylate 5 Besylate 5 t} Besylate 5 MG MG MG Atorvastati Atorvastati No 1{table QD Atorvastat n Calcium n Calcium t} in Calcium 40 MG 40 MG 40 MG Aspir-Low Aspir-Low No 1{table QD Aspir-Low 81 MG 81 MG t} 81 MG Famotidine Famotidine No 1{table BID Famotidine 40 MG 40 MG t_as_ne 40 MG eded} Strips Strips No Strips QUEtiapine QUEtiapine No 3{table QD QUEtiapine Fumarate 25 Fumarate 25 t_at_be Fumarate MG MG dtime} 25 MG metFORMIN metFORMIN No metFORMIN HCl 500 MG HCl 500 MG HCl 500 MG metFORMIN metFORMIN No 1{table BID metFORMIN HCl 1000 MG HCl 1000 MG t_with_ HCl 1000 a_meal} MG glipiZIDE glipiZIDE No BID glipiZIDE 10 MG 10 MG 10 MG Carvedilol Carvedilol No 1{table BID Carvedilol 6.25 MG 6.25 MG t_with_ 6.25 MG food} Cholecalcif Cholecalcif No 1{capsu QD Cholecalci robbin 50 MCG robbin 50 MCG le} ferol 50 (1999) (1999) MCG (1999) Insulin Insulin No Insulin Isophane Isophane Isophane Human Human Human cloNIDine cloNIDine No 1{table TID cloNIDine HCl 0.2 MG HCl 0.2 MG t} HCl 0.2 MG Senna 8.6 Senna 8.6 No 1{table BID Senna 8.6 MG MG ts_at_b MG edtime_ as_need ed} Accu-Chek Accu-Chek No Accu-Chek Guide - Guide - Guide - Ondansetron Ondansetron No Ondansetro HCl 4 MG HCl 4 MG n HCl 4 MG Polyethylen Polyethylen No 1{packe QD Polyethyle e Glycol e Glycol t_mixed ne Glycol 3350 17 GM 3350 17 GM _with_8 3350 17 GM _ounces _of_flu id} Losartan Losartan No Losartan Potassium Potassium Potassium 50 MG 50 MG 50 MG Cholecalcif Cholecalcif No 1{capsu QD Cholecalci robbin 50 MCG robbin 50 MCG le} ferol 50 (1999) (1999) MCG (1999) Atorvastati Atorvastati No 1{table QD Atorvastat n Calcium n Calcium t} in Calcium 40 MG 40 MG 40 MG metFORMIN metFORMIN No 1{table BID metFORMIN HCl 1000 MG HCl 1000 MG t_with_ HCl 1000 a_meal} MG glipiZIDE glipiZIDE No BID glipiZIDE 10 MG 10 MG 10 MG Insulin Insulin No Insulin Isophane Isophane Isophane Human Human Human metFORMIN metFORMIN No 1{table BID metFORMIN HCl 1000 MG HCl 1000 MG t_with_ HCl 1000 a_meal} MG Carvedilol Carvedilol No 1{table BID Carvedilol 6.25 MG 6.25 MG t_with_ 6.25 MG food} amLODIPine amLODIPine No 1{table QD amLODIPine Besylate 5 Besylate 5 t} Besylate 5 MG MG MG Accu-Chek Accu-Chek No Accu-Chek Guide - Guide - Guide - Polyethylen Polyethylen No 1{packe QD Polyethyle e Glycol e Glycol t_mixed ne Glycol 3350 17 GM 3350 17 GM _with_8 3350 17 GM _ounces _of_flu id} Aspir-Low Aspir-Low No 1{table QD Aspir-Low 81 MG 81 MG t} 81 MG Strips Strips No Strips Senna 8.6 Senna 8.6 No 1{table BID Senna 8.6 MG MG ts_at_b MG edtime_ as_need ed} cloNIDine cloNIDine No 1{table TID cloNIDine HCl 0.2 MG HCl 0.2 MG t} HCl 0.2 MG Losartan Losartan No 2{table QD Losartan Potassium Potassium ts} Potassium 25 MG 25 MG 25 MG Ondansetron Ondansetron No Ondansetro HCl 4 MG HCl 4 MG n HCl 4 MG QUEtiapine QUEtiapine No 3{table QD QUEtiapine Fumarate 25 Fumarate 25 t_at_be Fumarate MG MG dtime} 25 MG Famotidine Famotidine No 1{table BID Famotidine 40 MG 40 MG t_as_ne 40 MG eded} metFORMIN metFORMIN No 1{table BID metFORMIN HCl 1000 MG HCl 1000 MG t_with_ HCl 1000 a_meal} MG Losartan Losartan No 2{table QD Losartan Potassium Potassium ts} Potassium 25 MG 25 MG 25 MG Polyethylen Polyethylen No 1{packe QD Polyethyle e Glycol e Glycol t_mixed ne Glycol 3350 17 GM 3350 17 GM _with_8 3350 17 GM _ounces _of_flu id} Insulin Insulin No Insulin Isophane Isophane Isophane Human Human Human glipiZIDE glipiZIDE No BID glipiZIDE 10 MG 10 MG 10 MG Senna 8.6 Senna 8.6 No 1{table BID Senna 8.6 MG MG ts_at_b MG edtime_ as_need ed} metFORMIN metFORMIN No 1{table BID metFORMIN HCl 1000 MG HCl 1000 MG t_with_ HCl 1000 a_meal} MG Carvedilol Carvedilol No 1{table BID Carvedilol 6.25 MG 6.25 MG t_with_ 6.25 MG food} amLODIPine amLODIPine No 1{table QD amLODIPine Besylate 5 Besylate 5 t} Besylate 5 MG MG MG cloNIDine cloNIDine No 1{table TID cloNIDine HCl 0.2 MG HCl 0.2 MG t} HCl 0.2 MG Accu-Chek Accu-Chek No Accu-Chek Guide - Guide - Guide - Aspir-Low Aspir-Low No 1{table QD Aspir-Low 81 MG 81 MG t} 81 MG Famotidine Famotidine No 1{table BID Famotidine 40 MG 40 MG t_as_ne 40 MG eded} Atorvastati Atorvastati No 1{table QD Atorvastat n Calcium n Calcium t} in Calcium 40 MG 40 MG 40 MG Strips Strips No Strips Ondansetron Ondansetron No Ondansetro HCl 4 MG HCl 4 MG n HCl 4 MG QUEtiapine QUEtiapine No 3{table QD QUEtiapine Fumarate 25 Fumarate 25 t_at_be Fumarate MG MG dtime} 25 MG Cholecalcif Cholecalcif No 1{capsu QD Cholecalci robbin 50 MCG robbin 50 MCG le} ferol 50 (1999 UT) (1999) MCG (1999) metFORMIN metFORMIN No 1{table BID metFORMIN HCl 1000 MG HCl 1000 MG t_with_ HCl 1000 a_meal} MG Losartan Losartan No 2{table QD Losartan Potassium Potassium ts} Potassium 25 MG 25 MG 25 MG Polyethylen Polyethylen No 1{packe QD Polyethyle e Glycol e Glycol t_mixed ne Glycol 3350 17 GM 3350 17 GM _with_8 3350 17 GM _ounces _of_flu id} Insulin Insulin No Insulin Isophane Isophane Isophane Human Human Human glipiZIDE glipiZIDE No BID glipiZIDE 10 MG 10 MG 10 MG Senna 8.6 Senna 8.6 No 1{table BID Senna 8.6 MG MG ts_at_b MG edtime_ as_need ed} metFORMIN metFORMIN No 1{table BID metFORMIN HCl 1000 MG HCl 1000 MG t_with_ HCl 1000 a_meal} MG Carvedilol Carvedilol No 1{table BID Carvedilol 6.25 MG 6.25 MG t_with_ 6.25 MG food} amLODIPine amLODIPine No 1{table QD amLODIPine Besylate 5 Besylate 5 t} Besylate 5 MG MG MG cloNIDine cloNIDine No 1{table TID cloNIDine HCl 0.2 MG HCl 0.2 MG t} HCl 0.2 MG Accu-Chek Accu-Chek No Accu-Chek Guide - Guide - Guide - Aspir-Low Aspir-Low No 1{table QD Aspir-Low 81 MG 81 MG t} 81 MG Famotidine Famotidine No 1{table BID Famotidine 40 MG 40 MG t_as_ne 40 MG eded} Atorvastati Atorvastati No 1{table QD Atorvastat n Calcium n Calcium t} in Calcium 40 MG 40 MG 40 MG Strips Strips No Strips Ondansetron Ondansetron No Ondansetro HCl 4 MG HCl 4 MG n HCl 4 MG QUEtiapine QUEtiapine No 3{table QD QUEtiapine Fumarate 25 Fumarate 25 t_at_be Fumarate MG MG dtime} 25 MG Cholecalcif Cholecalcif No 1{capsu QD Cholecalci robbin 50 MCG robbin 50 MCG le} ferol 50 (1999) (1999) MCG (1999) Cholecalcif Cholecalcif No 1{capsu QD Cholecalci robbin 50 MCG robbin 50 MCG le} ferol 50 (1999) (1999) MCG (1999) metFORMIN metFORMIN No 1{table BID metFORMIN HCl 1000 MG HCl 1000 MG t_with_ HCl 1000 a_meal} MG Senna 8.6 Senna 8.6 No 1{table BID Senna 8.6 MG MG ts_at_b MG edtime_ as_need ed} Ondansetron Ondansetron No Ondansetro HCl 4 MG HCl 4 MG n HCl 4 MG Carvedilol Carvedilol No 1{table BID Carvedilol 6.25 MG 6.25 MG t_with_ 6.25 MG food} Polyethylen Polyethylen No 1{packe QD Polyethyle e Glycol e Glycol t_mixed ne Glycol 3350 17 GM 3350 17 GM _with_8 3350 17 GM _ounces _of_flu id} QUEtiapine QUEtiapine No 3{table QD QUEtiapine Fumarate 25 Fumarate 25 t_at_be Fumarate MG MG dtime} 25 MG Aspir-Low Aspir-Low No 1{table QD Aspir-Low 81 MG 81 MG t} 81 MG metFORMIN metFORMIN No 1{table BID metFORMIN HCl 1000 MG HCl 1000 MG t_with_ HCl 1000 a_meal} MG Insulin Insulin No Insulin Isophane Isophane Isophane Human Human Human cloNIDine cloNIDine No 1{table TID cloNIDine HCl 0.2 MG HCl 0.2 MG t} HCl 0.2 MG Accu-Chek Accu-Chek No Accu-Chek Guide - Guide - Guide - Famotidine Famotidine No 1{table BID Famotidine 40 MG 40 MG t_as_ne 40 MG eded} glipiZIDE glipiZIDE No BID glipiZIDE 10 MG 10 MG 10 MG Strips Strips No Strips Atorvastati Atorvastati No 1{table QD Atorvastat n Calcium n Calcium t} in Calcium 40 MG 40 MG 40 MG amLODIPine amLODIPine No 1{table QD amLODIPine Besylate 5 Besylate 5 t} Besylate 5 MG MG MG Losartan Losartan No 2{table QD Losartan Potassium Potassium ts} Potassium 25 MG 25 MG 25 MG Cholecalcif Cholecalcif No 1{capsu QD Cholecalci robbin 50 MCG robbin 50 MCG le} ferol 50 (1999) (1999) MCG (1999) metFORMIN metFORMIN No 1{table BID metFORMIN HCl 1000 MG HCl 1000 MG t_with_ HCl 1000 a_meal} MG Senna 8.6 Senna 8.6 No 1{table BID Senna 8.6 MG MG ts_at_b MG edtime_ as_need ed} Ondansetron Ondansetron No Ondansetro HCl 4 MG HCl 4 MG n HCl 4 MG Carvedilol Carvedilol No 1{table BID Carvedilol 6.25 MG 6.25 MG t_with_ 6.25 MG food} Polyethylen Polyethylen No 1{packe QD Polyethyle e Glycol e Glycol t_mixed ne Glycol 3350 17 GM 3350 17 GM _with_8 3350 17 GM _ounces _of_flu id} QUEtiapine QUEtiapine No 3{table QD QUEtiapine Fumarate 25 Fumarate 25 t_at_be Fumarate MG MG dtime} 25 MG Aspir-Low Aspir-Low No 1{table QD Aspir-Low 81 MG 81 MG t} 81 MG metFORMIN metFORMIN No 1{table BID metFORMIN HCl 1000 MG HCl 1000 MG t_with_ HCl 1000 a_meal} MG Insulin Insulin No Insulin Isophane Isophane Isophane Human Human Human cloNIDine cloNIDine No 1{table TID cloNIDine HCl 0.2 MG HCl 0.2 MG t} HCl 0.2 MG Accu-Chek Accu-Chek No Accu-Chek Guide - Guide - Guide - Famotidine Famotidine No 1{table BID Famotidine 40 MG 40 MG t_as_ne 40 MG eded} glipiZIDE glipiZIDE No BID glipiZIDE 10 MG 10 MG 10 MG Strips Strips No Strips Atorvastati Atorvastati No 1{table QD Atorvastat n Calcium n Calcium t} in Calcium 40 MG 40 MG 40 MG amLODIPine amLODIPine No 1{table QD amLODIPine Besylate 5 Besylate 5 t} Besylate 5 MG MG MG Losartan Losartan No 2{table QD Losartan Potassium Potassium ts} Potassium 25 MG 25 MG 25 MG Cholecalcif Cholecalcif No 1{capsu QD Cholecalci robbin 50 MCG robbin 50 MCG le} ferol 50 (1999) (1999) MCG (1999) metFORMIN metFORMIN No 1{table BID metFORMIN HCl 1000 MG HCl 1000 MG t_with_ HCl 1000 a_meal} MG Senna 8.6 Senna 8.6 No 1{table BID Senna 8.6 MG MG ts_at_b MG edtime_ as_need ed} Ondansetron Ondansetron No Ondansetro HCl 4 MG HCl 4 MG n HCl 4 MG Carvedilol Carvedilol No 1{table BID Carvedilol 6.25 MG 6.25 MG t_with_ 6.25 MG food} Polyethylen Polyethylen No 1{packe QD Polyethyle e Glycol e Glycol t_mixed ne Glycol 3350 17 GM 3350 17 GM _with_8 3350 17 GM _ounces _of_flu id} QUEtiapine QUEtiapine No 3{table QD QUEtiapine Fumarate 25 Fumarate 25 t_at_be Fumarate MG MG dtime} 25 MG Aspir-Low Aspir-Low No 1{table QD Aspir-Low 81 MG 81 MG t} 81 MG metFORMIN metFORMIN No 1{table BID metFORMIN HCl 1000 MG HCl 1000 MG t_with_ HCl 1000 a_meal} MG Insulin Insulin No Insulin Isophane Isophane Isophane Human Human Human cloNIDine cloNIDine No 1{table TID cloNIDine HCl 0.2 MG HCl 0.2 MG t} HCl 0.2 MG Accu-Chek Accu-Chek No Accu-Chek Guide - Guide - Guide - Famotidine Famotidine No 1{table BID Famotidine 40 MG 40 MG t_as_ne 40 MG eded} glipiZIDE glipiZIDE No BID glipiZIDE 10 MG 10 MG 10 MG Strips Strips No Strips Atorvastati Atorvastati No 1{table QD Atorvastat n Calcium n Calcium t} in Calcium 40 MG 40 MG 40 MG amLODIPine amLODIPine No 1{table QD amLODIPine Besylate 5 Besylate 5 t} Besylate 5 MG MG MG Losartan Losartan No 2{table QD Losartan Potassium Potassium ts} Potassium 25 MG 25 MG 25 MG amLODIPine amLODIPine No 1{table QD amLODIPine Besylate 5 Besylate 5 t} Besylate 5 MG MG MG metFORMIN metFORMIN No 1{table BID metFORMIN HCl 1000 MG HCl 1000 MG t_with_ HCl 1000 a_meal} MG Carvedilol Carvedilol No Carvedilol 6.25 MG 6.25 MG 6.25 MG Senna 8.6 Senna 8.6 No 1{table BID Senna 8.6 MG MG ts_at_b MG edtime_ as_need ed} Polyethylen Polyethylen No 1{packe QD Polyethyle e Glycol e Glycol t_mixed ne Glycol 3350 17 GM 3350 17 GM _with_8 3350 17 GM _ounces _of_flu id} metFORMIN metFORMIN No 1{table BID metFORMIN HCl 1000 MG HCl 1000 MG t_with_ HCl 1000 a_meal} MG Ondansetron Ondansetron No Ondansetro HCl 4 MG HCl 4 MG n HCl 4 MG metFORMIN metFORMIN No BID metFORMIN HCl 1000 MG HCl 1000 MG HCl 1000 MG Insulin Insulin No Insulin Isophane Isophane Isophane Human Human Human Accu-Chek Accu-Chek No Accu-Chek Guide - Guide - Guide - cloNIDine cloNIDine No 1{table TID cloNIDine HCl 0.2 MG HCl 0.2 MG t} HCl 0.2 MG Cholecalcif Cholecalcif No 1{capsu QD Cholecalci robbin 50 MCG robbin 50 MCG le} ferol 50 (1999 UT) (1999) MCG (1999) QUEtiapine QUEtiapine No 3{table QD QUEtiapine Fumarate 25 Fumarate 25 t_at_be Fumarate MG MG dtime} 25 MG Strips Strips No Strips Atorvastati Atorvastati No 1{table QD Atorvastat n Calcium n Calcium t} in Calcium 40 MG 40 MG 40 MG glipiZIDE glipiZIDE No BID glipiZIDE 10 MG 10 MG 10 MG Losartan Losartan No 2{table QD Losartan Potassium Potassium ts} Potassium 25 MG 25 MG 25 MG Aspir-Low Aspir-Low No 1{table QD Aspir-Low 81 MG 81 MG t} 81 MG Famotidine Famotidine No 1{table BID Famotidine 40 MG 40 MG t_as_ne 40 MG eded} amLODIPine amLODIPine No 1{table QD amLODIPine Besylate 5 Besylate 5 t} Besylate 5 MG MG MG metFORMIN metFORMIN No 1{table BID metFORMIN HCl 1000 MG HCl 1000 MG t_with_ HCl 1000 a_meal} MG Carvedilol Carvedilol No Carvedilol 6.25 MG 6.25 MG 6.25 MG Senna 8.6 Senna 8.6 No 1{table BID Senna 8.6 MG MG ts_at_b MG edtime_ as_need ed} Polyethylen Polyethylen No 1{packe QD Polyethyle e Glycol e Glycol t_mixed ne Glycol 3350 17 GM 3350 17 GM _with_8 3350 17 GM _ounces _of_flu id} metFORMIN metFORMIN No 1{table BID metFORMIN HCl 1000 MG HCl 1000 MG t_with_ HCl 1000 a_meal} MG Ondansetron Ondansetron No Ondansetro HCl 4 MG HCl 4 MG n HCl 4 MG metFORMIN metFORMIN No BID metFORMIN HCl 1000 MG HCl 1000 MG HCl 1000 MG Insulin Insulin No Insulin Isophane Isophane Isophane Human Human Human Accu-Chek Accu-Chek No Accu-Chek Guide - Guide - Guide - cloNIDine cloNIDine No 1{table TID cloNIDine HCl 0.2 MG HCl 0.2 MG t} HCl 0.2 MG Cholecalcif Cholecalcif No 1{capsu QD Cholecalci robbin 50 MCG robbin 50 MCG le} ferol 50 (1999) (1999) MCG (1999) QUEtiapine QUEtiapine No 3{table QD QUEtiapine Fumarate 25 Fumarate 25 t_at_be Fumarate MG MG dtime} 25 MG Strips Strips No Strips Atorvastati Atorvastati No 1{table QD Atorvastat n Calcium n Calcium t} in Calcium 40 MG 40 MG 40 MG glipiZIDE glipiZIDE No BID glipiZIDE 10 MG 10 MG 10 MG Losartan Losartan No 2{table QD Losartan Potassium Potassium ts} Potassium 25 MG 25 MG 25 MG Aspir-Low Aspir-Low No 1{table QD Aspir-Low 81 MG 81 MG t} 81 MG Famotidine Famotidine No 1{table BID Famotidine 40 MG 40 MG t_as_ne 40 MG eded} amLODIPine amLODIPine No 1{table QD amLODIPine Besylate 5 Besylate 5 t} Besylate 5 MG MG MG metFORMIN metFORMIN No 1{table BID metFORMIN HCl 1000 MG HCl 1000 MG t_with_ HCl 1000 a_meal} MG Carvedilol Carvedilol No Carvedilol 6.25 MG 6.25 MG 6.25 MG Senna 8.6 Senna 8.6 No 1{table BID Senna 8.6 MG MG ts_at_b MG edtime_ as_need ed} Polyethylen Polyethylen No 1{packe QD Polyethyle e Glycol e Glycol t_mixed ne Glycol 3350 17 GM 3350 17 GM _with_8 3350 17 GM _ounces _of_flu id} metFORMIN metFORMIN No 1{table BID metFORMIN HCl 1000 MG HCl 1000 MG t_with_ HCl 1000 a_meal} MG Ondansetron Ondansetron No Ondansetro HCl 4 MG HCl 4 MG n HCl 4 MG metFORMIN metFORMIN No BID metFORMIN HCl 1000 MG HCl 1000 MG HCl 1000 MG Insulin Insulin No Insulin Isophane Isophane Isophane Human Human Human Accu-Chek Accu-Chek No Accu-Chek Guide - Guide - Guide - cloNIDine cloNIDine No 1{table TID cloNIDine HCl 0.2 MG HCl 0.2 MG t} HCl 0.2 MG Cholecalcif Cholecalcif No 1{capsu QD Cholecalci robbin 50 MCG robbin 50 MCG le} ferol 50 (1999) (1999) MCG (1999) QUEtiapine QUEtiapine No 3{table QD QUEtiapine Fumarate 25 Fumarate 25 t_at_be Fumarate MG MG dtime} 25 MG Strips Strips No Strips Atorvastati Atorvastati No 1{table QD Atorvastat n Calcium n Calcium t} in Calcium 40 MG 40 MG 40 MG glipiZIDE glipiZIDE No BID glipiZIDE 10 MG 10 MG 10 MG Losartan Losartan No 2{table QD Losartan Potassium Potassium ts} Potassium 25 MG 25 MG 25 MG Aspir-Low Aspir-Low No 1{table QD Aspir-Low 81 MG 81 MG t} 81 MG Famotidine Famotidine No 1{table BID Famotidine 40 MG 40 MG t_as_ne 40 MG eded} Polyethylen Polyethylen No 1{packe QD Polyethyle e Glycol e Glycol t_mixed ne Glycol 3350 17 GM 3350 17 GM _with_8 3350 17 GM _ounces _of_flu id} amLODIPine amLODIPine No 1{table QD amLODIPine Besylate 5 Besylate 5 t} Besylate 5 MG MG MG Ondansetron Ondansetron No Ondansetro HCl 4 MG HCl 4 MG n HCl 4 MG cloNIDine cloNIDine No 1{table TID cloNIDine HCl 0.2 MG HCl 0.2 MG t} HCl 0.2 MG Carvedilol Carvedilol No Carvedilol 6.25 MG 6.25 MG 6.25 MG Cholecalcif Cholecalcif No 1{capsu QD Cholecalci robbin 50 MCG robbin 50 MCG le} ferol 50 (1999) (1999) MCG (1999) glipiZIDE glipiZIDE No BID glipiZIDE 10 MG 10 MG 10 MG metFORMIN metFORMIN No 1{table BID metFORMIN HCl 1000 MG HCl 1000 MG t_with_ HCl 1000 a_meal} MG Insulin Insulin No Insulin Isophane Isophane Isophane Human Human Human Atorvastati Atorvastati No 1{table QD Atorvastat n Calcium n Calcium t} in Calcium 40 MG 40 MG 40 MG Accu-Chek Accu-Chek No Accu-Chek Guide - Guide - Guide - Aspir-Low Aspir-Low No 1{table QD Aspir-Low 81 MG 81 MG t} 81 MG Famotidine Famotidine No 1{table BID Famotidine 40 MG 40 MG t_as_ne 40 MG eded} Senna 8.6 Senna 8.6 No 1{table BID Senna 8.6 MG MG ts_at_b MG edtime_ as_need ed} QUEtiapine QUEtiapine No 3{table QD QUEtiapine Fumarate 25 Fumarate 25 t_at_be Fumarate MG MG dtime} 25 MG metFORMIN metFORMIN No BID metFORMIN HCl 1000 MG HCl 1000 MG HCl 1000 MG Losartan Losartan No 2{table QD Losartan Potassium Potassium ts} Potassium 25 MG 25 MG 25 MG Strips Strips No Strips metFORMIN metFORMIN No 1{table BID metFORMIN HCl 1000 MG HCl 1000 MG t_with_ HCl 1000 a_meal} MG Polyethylen Polyethylen No 1{packe QD Polyethyle e Glycol e Glycol t_mixed ne Glycol 3350 17 GM 3350 17 GM _with_8 3350 17 GM _ounces _of_flu id} amLODIPine amLODIPine No 1{table QD amLODIPine Besylate 5 Besylate 5 t} Besylate 5 MG MG MG Ondansetron Ondansetron No Ondansetro HCl 4 MG HCl 4 MG n HCl 4 MG cloNIDine cloNIDine No 1{table TID cloNIDine HCl 0.2 MG HCl 0.2 MG t} HCl 0.2 MG Carvedilol Carvedilol No Carvedilol 6.25 MG 6.25 MG 6.25 MG Cholecalcif Cholecalcif No 1{capsu QD Cholecalci robbin 50 MCG robbin 50 MCG le} ferol 50 (1999) (1999) MCG (1999) metFORMIN metFORMIN No QD metFORMIN HCl 1000 MG HCl 1000 MG HCl 1000 MG metFORMIN metFORMIN No 1{table BID metFORMIN HCl 1000 MG HCl 1000 MG t_with_ HCl 1000 a_meal} MG Insulin Insulin No Insulin Isophane Isophane Isophane Human Human Human Atorvastati Atorvastati No 1{table QD Atorvastat n Calcium n Calcium t} in Calcium 40 MG 40 MG 40 MG Accu-Chek Accu-Chek No Accu-Chek Guide - Guide - Guide - Aspir-Low Aspir-Low No 1{table QD Aspir-Low 81 MG 81 MG t} 81 MG Famotidine Famotidine No 1{table BID Famotidine 40 MG 40 MG t_as_ne 40 MG eded} Senna 8.6 Senna 8.6 No 1{table BID Senna 8.6 MG MG ts_at_b MG edtime_ as_need ed} QUEtiapine QUEtiapine No 3{table QD QUEtiapine Fumarate 25 Fumarate 25 t_at_be Fumarate MG MG dtime} 25 MG glipiZIDE glipiZIDE No BID glipiZIDE 10 MG 10 MG 10 MG Losartan Losartan No 2{table QD Losartan Potassium Potassium ts} Potassium 25 MG 25 MG 25 MG Strips Strips No Strips metFORMIN metFORMIN No 1{table BID metFORMIN HCl 1000 MG HCl 1000 MG t_with_ HCl 1000 a_meal} MG Polyethylen Polyethylen No 1{packe QD Polyethyle e Glycol e Glycol t_mixed ne Glycol 3350 17 GM 3350 17 GM _with_8 3350 17 GM _ounces _of_flu id} amLODIPine amLODIPine No 1{table QD amLODIPine Besylate 5 Besylate 5 t} Besylate 5 MG MG MG Ondansetron Ondansetron No Ondansetro HCl 4 MG HCl 4 MG n HCl 4 MG cloNIDine cloNIDine No 1{table TID cloNIDine HCl 0.2 MG HCl 0.2 MG t} HCl 0.2 MG Carvedilol Carvedilol No Carvedilol 6.25 MG 6.25 MG 6.25 MG Cholecalcif Cholecalcif No 1{capsu QD Cholecalci robbin 50 MCG robbin 50 MCG le} ferol 50 (1999) (1999) MCG (1999) metFORMIN metFORMIN No QD metFORMIN HCl 1000 MG HCl 1000 MG HCl 1000 MG metFORMIN metFORMIN No 1{table BID metFORMIN HCl 1000 MG HCl 1000 MG t_with_ HCl 1000 a_meal} MG Insulin Insulin No Insulin Isophane Isophane Isophane Human Human Human Atorvastati Atorvastati No 1{table QD Atorvastat n Calcium n Calcium t} in Calcium 40 MG 40 MG 40 MG Accu-Chek Accu-Chek No Accu-Chek Guide - Guide - Guide - Aspir-Low Aspir-Low No 1{table QD Aspir-Low 81 MG 81 MG t} 81 MG Famotidine Famotidine No 1{table BID Famotidine 40 MG 40 MG t_as_ne 40 MG eded} Senna 8.6 Senna 8.6 No 1{table BID Senna 8.6 MG MG ts_at_b MG edtime_ as_need ed} QUEtiapine QUEtiapine No 3{table QD QUEtiapine Fumarate 25 Fumarate 25 t_at_be Fumarate MG MG dtime} 25 MG glipiZIDE glipiZIDE No BID glipiZIDE 10 MG 10 MG 10 MG Losartan Losartan No 2{table QD Losartan Potassium Potassium ts} Potassium 25 MG 25 MG 25 MG Strips Strips No Strips metFORMIN metFORMIN No 1{table BID metFORMIN HCl 1000 MG HCl 1000 MG t_with_ HCl 1000 a_meal} MG Aspir-Low Aspir-Low No 1{table QD Aspir-Low 81 MG 81 MG t} 81 MG Cholecalcif Cholecalcif No 1{capsu QD Cholecalci robbin 50 MCG robbin 50 MCG le} ferol 50 (1999) (1999) MCG (1999) Strips Strips No Strips Carvedilol Carvedilol No Carvedilol 6.25 MG 6.25 MG 6.25 MG metFORMIN metFORMIN No 1{table BID metFORMIN HCl 1000 MG HCl 1000 MG t_with_ HCl 1000 a_meal} MG metFORMIN metFORMIN No QD metFORMIN HCl 1000 MG HCl 1000 MG HCl 1000 MG Ondansetron Ondansetron No Ondansetro HCl 4 MG HCl 4 MG n HCl 4 MG cloNIDine cloNIDine No 1{table TID cloNIDine HCl 0.2 MG HCl 0.2 MG t} HCl 0.2 MG Polyethylen Polyethylen No 1{packe QD Polyethyle e Glycol e Glycol t_mixed ne Glycol 3350 17 GM 3350 17 GM _with_8 3350 17 GM _ounces _of_flu id} Senna 8.6 Senna 8.6 No 1{table BID Senna 8.6 MG MG ts_at_b MG edtime_ as_need ed} amLODIPine amLODIPine No 1{table QD amLODIPine Besylate 5 Besylate 5 t} Besylate 5 MG MG MG Insulin Insulin No Insulin Isophane Isophane Isophane Human Human Human glipiZIDE glipiZIDE No BID glipiZIDE 10 MG 10 MG 10 MG Losartan Losartan No 2{table QD Losartan Potassium Potassium ts} Potassium 25 MG 25 MG 25 MG Accu-Chek Accu-Chek No Accu-Chek Guide - Guide - Guide - Atorvastati Atorvastati No 1{table QD Atorvastat n Calcium n Calcium t} in Calcium 40 MG 40 MG 40 MG Famotidine Famotidine No 1{table BID Famotidine 40 MG 40 MG t_as_ne 40 MG eded} QUEtiapine QUEtiapine No 3{table QD QUEtiapine Fumarate 25 Fumarate 25 t_at_be Fumarate MG MG dtime} 25 MG metFORMIN metFORMIN No 1{table BID metFORMIN HCl 1000 MG HCl 1000 MG t_with_ HCl 1000 a_meal} MG metFORMIN metFORMIN No 1{table BID metFORMIN HCl 1000 MG HCl 1000 MG t_with_ HCl 1000 a_meal} MG metFORMIN metFORMIN No 1{table BID metFORMIN HCl 1000 MG HCl 1000 MG t_with_ HCl 1000 a_meal} MG Polyethylen Polyethylen No 1{packe QD Polyethyle e Glycol e Glycol t_mixed ne Glycol 3350 17 GM 3350 17 GM _with_8 3350 17 GM _ounces _of_flu id} Atorvastati Atorvastati No 1{table QD Atorvastat n Calcium n Calcium t} in Calcium 40 MG 40 MG 40 MG Losartan Losartan No 2{table QD Losartan Potassium Potassium ts} Potassium 25 MG 25 MG 25 MG Strips Strips No Strips Carvedilol Carvedilol No Carvedilol 6.25 MG 6.25 MG 6.25 MG Senna 8.6 Senna 8.6 No 1{table BID Senna 8.6 MG MG ts_at_b MG edtime_ as_need ed} Ondansetron Ondansetron No Ondansetro HCl 4 MG HCl 4 MG n HCl 4 MG Insulin Insulin No Insulin Isophane Isophane Isophane Human Human Human Aspir-Low Aspir-Low No 1{table QD Aspir-Low 81 MG 81 MG t} 81 MG Famotidine Famotidine No 1{table BID Famotidine 40 MG 40 MG t_as_ne 40 MG eded} metFORMIN metFORMIN No BID metFORMIN HCl 1000 MG HCl 1000 MG HCl 1000 MG Accu-Chek Accu-Chek No Accu-Chek Guide - Guide - Guide - amLODIPine amLODIPine No 1{table QD amLODIPine Besylate 5 Besylate 5 t} Besylate 5 MG MG MG cloNIDine cloNIDine No 1{table TID cloNIDine HCl 0.2 MG HCl 0.2 MG t} HCl 0.2 MG QUEtiapine QUEtiapine No 3{table QD QUEtiapine Fumarate 25 Fumarate 25 t_at_be Fumarate MG MG dtime} 25 MG Cholecalcif Cholecalcif No 1{capsu QD Cholecalci robbin 50 MCG robbin 50 MCG le} ferol 50 (1999) (1999) MCG (1999) glipiZIDE glipiZIDE No BID glipiZIDE 10 MG 10 MG 10 MG metFORMIN metFORMIN No 1{table BID metFORMIN HCl 1000 MG HCl 1000 MG t_with_ HCl 1000 a_meal} MG metFORMIN metFORMIN No 1{table BID metFORMIN HCl 1000 MG HCl 1000 MG t_with_ HCl 1000 a_meal} MG Polyethylen Polyethylen No 1{packe QD Polyethyle e Glycol e Glycol t_mixed ne Glycol 3350 17 GM 3350 17 GM _with_8 3350 17 GM _ounces _of_flu id} Atorvastati Atorvastati No 1{table QD Atorvastat n Calcium n Calcium t} in Calcium 40 MG 40 MG 40 MG Losartan Losartan No 2{table QD Losartan Potassium Potassium ts} Potassium 25 MG 25 MG 25 MG Strips Strips No Strips Carvedilol Carvedilol No Carvedilol 6.25 MG 6.25 MG 6.25 MG Senna 8.6 Senna 8.6 No 1{table BID Senna 8.6 MG MG ts_at_b MG edtime_ as_need ed} Ondansetron Ondansetron No Ondansetro HCl 4 MG HCl 4 MG n HCl 4 MG Insulin Insulin No Insulin Isophane Isophane Isophane Human Human Human Aspir-Low Aspir-Low No 1{table QD Aspir-Low 81 MG 81 MG t} 81 MG Famotidine Famotidine No 1{table BID Famotidine 40 MG 40 MG t_as_ne 40 MG eded} metFORMIN metFORMIN No BID metFORMIN HCl 1000 MG HCl 1000 MG HCl 1000 MG Accu-Chek Accu-Chek No Accu-Chek Guide - Guide - Guide - amLODIPine amLODIPine No 1{table QD amLODIPine Besylate 5 Besylate 5 t} Besylate 5 MG MG MG cloNIDine cloNIDine No 1{table TID cloNIDine HCl 0.2 MG HCl 0.2 MG t} HCl 0.2 MG QUEtiapine QUEtiapine No 3{table QD QUEtiapine Fumarate 25 Fumarate 25 t_at_be Fumarate MG MG dtime} 25 MG Cholecalcif Cholecalcif No 1{capsu QD Cholecalci robbin 50 MCG robbin 50 MCG le} ferol 50 (1999) (1999) MCG (1999) glipiZIDE glipiZIDE No BID glipiZIDE 10 MG 10 MG 10 MG Famotidine Famotidine No 1{table BID Famotidine 40 MG 40 MG t_as_ne 40 MG eded} Atorvastati Atorvastati No 1{table QD Atorvastat n Calcium n Calcium t} in Calcium 40 MG 40 MG 40 MG cloNIDine cloNIDine No 1{table TID cloNIDine HCl 0.2 MG HCl 0.2 MG t} HCl 0.2 MG Losartan Losartan No 2{table QD Losartan Potassium Potassium ts} Potassium 25 MG 25 MG 25 MG Aspir-Low Aspir-Low No 1{table QD Aspir-Low 81 MG 81 MG t} 81 MG Accu-Chek Accu-Chek No Accu-Chek Guide - Guide - Guide - Strips Strips No Strips Senna 8.6 Senna 8.6 No 1{table BID Senna 8.6 MG MG ts_at_b MG edtime_ as_need ed} Insulin Insulin No Insulin Isophane Isophane Isophane Human Human Human Cholecalcif Cholecalcif No 1{capsu QD Cholecalci robbin 50 MCG robbin 50 MCG le} ferol 50 (1999) (1999) MCG (1999) Carvedilol Carvedilol No Carvedilol 6.25 MG 6.25 MG 6.25 MG metFORMIN metFORMIN No 1{table BID metFORMIN HCl 1000 MG HCl 1000 MG t_with_ HCl 1000 a_meal} MG Ondansetron Ondansetron No Ondansetro HCl 4 MG HCl 4 MG n HCl 4 MG amLODIPine amLODIPine No 1{table QD amLODIPine Besylate 5 Besylate 5 t} Besylate 5 MG MG MG glipiZIDE glipiZIDE No BID glipiZIDE 10 MG 10 MG 10 MG Polyethylen Polyethylen No 1{packe QD Polyethyle e Glycol e Glycol t_mixed ne Glycol 3350 17 GM 3350 17 GM _with_8 3350 17 GM _ounces _of_flu id} metFORMIN metFORMIN No BID metFORMIN HCl 1000 MG HCl 1000 MG HCl 1000 MG metFORMIN metFORMIN No 1{table BID metFORMIN HCl 1000 MG HCl 1000 MG t_with_ HCl 1000 a_meal} MG QUEtiapine QUEtiapine No 3{table QD QUEtiapine Fumarate 25 Fumarate 25 t_at_be Fumarate MG MG dtime} 25 MG Famotidine Famotidine No 1{table BID Famotidine 40 MG 40 MG t_as_ne 40 MG eded} Atorvastati Atorvastati No 1{table QD Atorvastat n Calcium n Calcium t} in Calcium 40 MG 40 MG 40 MG cloNIDine cloNIDine No 1{table TID cloNIDine HCl 0.2 MG HCl 0.2 MG t} HCl 0.2 MG Losartan Losartan No 2{table QD Losartan Potassium Potassium ts} Potassium 25 MG 25 MG 25 MG Aspir-Low Aspir-Low No 1{table QD Aspir-Low 81 MG 81 MG t} 81 MG Accu-Chek Accu-Chek No Accu-Chek Guide - Guide - Guide - Strips Strips No Strips Senna 8.6 Senna 8.6 No 1{table BID Senna 8.6 MG MG ts_at_b MG edtime_ as_need ed} Insulin Insulin No Insulin Isophane Isophane Isophane Human Human Human Cholecalcif Cholecalcif No 1{capsu QD Cholecalci robbin 50 MCG robbin 50 MCG le} ferol 50 (1999) (1999) MCG (1999) Carvedilol Carvedilol No Carvedilol 6.25 MG 6.25 MG 6.25 MG metFORMIN metFORMIN No 1{table BID metFORMIN HCl 1000 MG HCl 1000 MG t_with_ HCl 1000 a_meal} MG Ondansetron Ondansetron No Ondansetro HCl 4 MG HCl 4 MG n HCl 4 MG amLODIPine amLODIPine No 1{table QD amLODIPine Besylate 5 Besylate 5 t} Besylate 5 MG MG MG glipiZIDE glipiZIDE No BID glipiZIDE 10 MG 10 MG 10 MG Polyethylen Polyethylen No 1{packe QD Polyethyle e Glycol e Glycol t_mixed ne Glycol 3350 17 GM 3350 17 GM _with_8 3350 17 GM _ounces _of_flu id} metFORMIN metFORMIN No BID metFORMIN HCl 1000 MG HCl 1000 MG HCl 1000 MG metFORMIN metFORMIN No 1{table BID metFORMIN HCl 1000 MG HCl 1000 MG t_with_ HCl 1000 a_meal} MG QUEtiapine QUEtiapine No 3{table QD QUEtiapine Fumarate 25 Fumarate 25 t_at_be Fumarate MG MG dtime} 25 MG Famotidine Famotidine No 1{table BID Famotidine 40 MG 40 MG t_as_ne 40 MG eded} Atorvastati Atorvastati No 1{table QD Atorvastat n Calcium n Calcium t} in Calcium 40 MG 40 MG 40 MG cloNIDine cloNIDine No 1{table TID cloNIDine HCl 0.2 MG HCl 0.2 MG t} HCl 0.2 MG Losartan Losartan No 2{table QD Losartan Potassium Potassium ts} Potassium 25 MG 25 MG 25 MG Aspir-Low Aspir-Low No 1{table QD Aspir-Low 81 MG 81 MG t} 81 MG Accu-Chek Accu-Chek No Accu-Chek Guide - Guide - Guide - Strips Strips No Strips Senna 8.6 Senna 8.6 No 1{table BID Senna 8.6 MG MG ts_at_b MG edtime_ as_need ed} Insulin Insulin No Insulin Isophane Isophane Isophane Human Human Human Cholecalcif Cholecalcif No 1{capsu QD Cholecalci robbin 50 MCG robbin 50 MCG le} ferol 50 (1999) (1999) MCG (1999) Carvedilol Carvedilol No Carvedilol 6.25 MG 6.25 MG 6.25 MG metFORMIN metFORMIN No 1{table BID metFORMIN HCl 1000 MG HCl 1000 MG t_with_ HCl 1000 a_meal} MG Ondansetron Ondansetron No Ondansetro HCl 4 MG HCl 4 MG n HCl 4 MG amLODIPine amLODIPine No 1{table QD amLODIPine Besylate 5 Besylate 5 t} Besylate 5 MG MG MG glipiZIDE glipiZIDE No BID glipiZIDE 10 MG 10 MG 10 MG Polyethylen Polyethylen No 1{packe QD Polyethyle e Glycol e Glycol t_mixed ne Glycol 3350 17 GM 3350 17 GM _with_8 3350 17 GM _ounces _of_flu id} metFORMIN metFORMIN No BID metFORMIN HCl 1000 MG HCl 1000 MG HCl 1000 MG metFORMIN metFORMIN No 1{table BID metFORMIN HCl 1000 MG HCl 1000 MG t_with_ HCl 1000 a_meal} MG QUEtiapine QUEtiapine No 3{table QD QUEtiapine Fumarate 25 Fumarate 25 t_at_be Fumarate MG MG dtime} 25 MG Famotidine Famotidine No 1{table BID Famotidine 40 MG 40 MG t_as_ne 40 MG eded} Atorvastati Atorvastati No 1{table QD Atorvastat n Calcium n Calcium t} in Calcium 40 MG 40 MG 40 MG cloNIDine cloNIDine No 1{table TID cloNIDine HCl 0.2 MG HCl 0.2 MG t} HCl 0.2 MG Losartan Losartan No 2{table QD Losartan Potassium Potassium ts} Potassium 25 MG 25 MG 25 MG Aspir-Low Aspir-Low No 1{table QD Aspir-Low 81 MG 81 MG t} 81 MG Accu-Chek Accu-Chek No Accu-Chek Guide - Guide - Guide - Strips Strips No Strips Senna 8.6 Senna 8.6 No 1{table BID Senna 8.6 MG MG ts_at_b MG edtime_ as_need ed} Insulin Insulin No Insulin Isophane Isophane Isophane Human Human Human Cholecalcif Cholecalcif No 1{capsu QD Cholecalci robbin 50 MCG robbin 50 MCG le} ferol 50 (1999) (1999) MCG (1999) Carvedilol Carvedilol No Carvedilol 6.25 MG 6.25 MG 6.25 MG metFORMIN metFORMIN No 1{table BID metFORMIN HCl 1000 MG HCl 1000 MG t_with_ HCl 1000 a_meal} MG Ondansetron Ondansetron No Ondansetro HCl 4 MG HCl 4 MG n HCl 4 MG amLODIPine amLODIPine No 1{table QD amLODIPine Besylate 5 Besylate 5 t} Besylate 5 MG MG MG glipiZIDE glipiZIDE No BID glipiZIDE 10 MG 10 MG 10 MG Polyethylen Polyethylen No 1{packe QD Polyethyle e Glycol e Glycol t_mixed ne Glycol 3350 17 GM 3350 17 GM _with_8 3350 17 GM _ounces _of_flu id} metFORMIN metFORMIN No BID metFORMIN HCl 1000 MG HCl 1000 MG HCl 1000 MG metFORMIN metFORMIN No 1{table BID metFORMIN HCl 1000 MG HCl 1000 MG t_with_ HCl 1000 a_meal} MG QUEtiapine QUEtiapine No 3{table QD QUEtiapine Fumarate 25 Fumarate 25 t_at_be Fumarate MG MG dtime} 25 MG Insulin Insulin No Insulin Isophane Isophane Isophane Human Human Human amLODIPine amLODIPine No 1{table QD amLODIPine Besylate 5 Besylate 5 t} Besylate 5 MG MG MG metFORMIN metFORMIN No BID metFORMIN HCl 1000 MG HCl 1000 MG HCl 1000 MG Losartan Losartan No Losartan Potassium Potassium Potassium 50 MG 50 MG 50 MG Aspir-Low Aspir-Low No 1{table QD Aspir-Low 81 MG 81 MG t} 81 MG Carvedilol Carvedilol No Carvedilol 6.25 MG 6.25 MG 6.25 MG Accu-Chek Accu-Chek No Accu-Chek Guide - Guide - Guide - metFORMIN metFORMIN No metFORMIN HCl 1000 MG HCl 1000 MG HCl 1000 MG cloNIDine cloNIDine No 1{table TID cloNIDine HCl 0.2 MG HCl 0.2 MG t} HCl 0.2 MG Strips Strips No Strips Famotidine Famotidine No 1{table BID Famotidine 40 MG 40 MG t_as_ne 40 MG eded} Polyethylen Polyethylen No 1{packe QD Polyethyle e Glycol e Glycol t_mixed ne Glycol 3350 17 GM 3350 17 GM _with_8 3350 17 GM _ounces _of_flu id} Senna 8.6 Senna 8.6 No 1{table BID Senna 8.6 MG MG ts_at_b MG edtime_ as_need ed} glipiZIDE glipiZIDE No BID glipiZIDE 10 MG 10 MG 10 MG QUEtiapine QUEtiapine No 3{table QD QUEtiapine Fumarate 25 Fumarate 25 t_at_be Fumarate MG MG dtime} 25 MG Cholecalcif Cholecalcif No 1{capsu QD Cholecalci robbin 50 MCG robbin 50 MCG le} ferol 50 (1999) (1999) MCG (1999) Atorvastati Atorvastati No 1{table QD Atorvastat n Calcium n Calcium t} in Calcium 40 MG 40 MG 40 MG Ondansetron Ondansetron No Ondansetro HCl 4 MG HCl 4 MG n HCl 4 MG Famotidine Famotidine No 1{table BID Famotidine 40 MG 40 MG t_as_ne 40 MG eded} Aspir-Low Aspir-Low No 1{table QD Aspir-Low 81 MG 81 MG t} 81 MG amLODIPine amLODIPine No 1{table QD amLODIPine Besylate 5 Besylate 5 t} Besylate 5 MG MG MG glipiZIDE glipiZIDE No BID glipiZIDE 10 MG 10 MG 10 MG Strips Strips No Strips Polyethylen Polyethylen No 1{packe QD Polyethyle e Glycol e Glycol t_mixed ne Glycol 3350 17 GM 3350 17 GM _with_8 3350 17 GM _ounces _of_flu id} cloNIDine cloNIDine No 1{table TID cloNIDine HCl 0.2 MG HCl 0.2 MG t} HCl 0.2 MG metFORMIN metFORMIN No BID metFORMIN HCl 1000 MG HCl 1000 MG HCl 1000 MG Accu-Chek Accu-Chek No Accu-Chek Guide - Guide - Guide - Losartan Losartan No Losartan Potassium Potassium Potassium 50 MG 50 MG 50 MG Senna 8.6 Senna 8.6 No 1{table BID Senna 8.6 MG MG ts_at_b MG edtime_ as_need ed} Cholecalcif Cholecalcif No 1{capsu QD Cholecalci robbin 50 MCG robbin 50 MCG le} ferol 50 (1999) (1999) MCG (1999) Carvedilol Carvedilol No Carvedilol 6.25 MG 6.25 MG 6.25 MG Insulin Insulin No Insulin Isophane Isophane Isophane Human Human Human Atorvastati Atorvastati No 1{table QD Atorvastat n Calcium n Calcium t} in Calcium 40 MG 40 MG 40 MG metFORMIN metFORMIN No metFORMIN HCl 1000 MG HCl 1000 MG HCl 1000 MG Ondansetron Ondansetron No Ondansetro HCl 4 MG HCl 4 MG n HCl 4 MG QUEtiapine QUEtiapine No 3{table QD QUEtiapine Fumarate 25 Fumarate 25 t_at_be Fumarate MG MG dtime} 25 MG Famotidine Famotidine No 1{table BID Famotidine 40 MG 40 MG t_as_ne 40 MG eded} Aspir-Low Aspir-Low No 1{table QD Aspir-Low 81 MG 81 MG t} 81 MG amLODIPine amLODIPine No 1{table QD amLODIPine Besylate 5 Besylate 5 t} Besylate 5 MG MG MG glipiZIDE glipiZIDE No BID glipiZIDE 10 MG 10 MG 10 MG Strips Strips No Strips Polyethylen Polyethylen No 1{packe QD Polyethyle e Glycol e Glycol t_mixed ne Glycol 3350 17 GM 3350 17 GM _with_8 3350 17 GM _ounces _of_flu id} cloNIDine cloNIDine No 1{table TID cloNIDine HCl 0.2 MG HCl 0.2 MG t} HCl 0.2 MG metFORMIN metFORMIN No BID metFORMIN HCl 1000 MG HCl 1000 MG HCl 1000 MG Accu-Chek Accu-Chek No Accu-Chek Guide - Guide - Guide - Losartan Losartan No Losartan Potassium Potassium Potassium 50 MG 50 MG 50 MG Senna 8.6 Senna 8.6 No 1{table BID Senna 8.6 MG MG ts_at_b MG edtime_ as_need ed} Cholecalcif Cholecalcif No 1{capsu QD Cholecalci robbin 50 MCG robbin 50 MCG le} ferol 50 (1999) (1999) MCG (1999) Carvedilol Carvedilol No Carvedilol 6.25 MG 6.25 MG 6.25 MG Insulin Insulin No Insulin Isophane Isophane Isophane Human Human Human Atorvastati Atorvastati No 1{table QD Atorvastat n Calcium n Calcium t} in Calcium 40 MG 40 MG 40 MG metFORMIN metFORMIN No metFORMIN HCl 1000 MG HCl 1000 MG HCl 1000 MG Ondansetron Ondansetron No Ondansetro HCl 4 MG HCl 4 MG n HCl 4 MG QUEtiapine QUEtiapine No 3{table QD QUEtiapine Fumarate 25 Fumarate 25 t_at_be Fumarate MG MG dtime} 25 MG Senna 8.6 Senna 8.6 No 1{table BID Senna 8.6 MG MG ts_at_b MG edtime_ as_need ed} metFORMIN metFORMIN No metFORMIN HCl 1000 MG HCl 1000 MG HCl 1000 MG Insulin Insulin No Insulin Isophane Isophane Isophane Human Human Human amLODIPine amLODIPine No 1{table QD amLODIPine Besylate 5 Besylate 5 t} Besylate 5 MG MG MG Accu-Chek Accu-Chek No Accu-Chek Guide - Guide - Guide - Aspir-Low Aspir-Low No 1{table QD Aspir-Low 81 MG 81 MG t} 81 MG metFORMIN metFORMIN No BID metFORMIN HCl 1000 MG HCl 1000 MG HCl 1000 MG Atorvastati Atorvastati No 1{table QD Atorvastat n Calcium n Calcium t} in Calcium 40 MG 40 MG 40 MG Famotidine Famotidine No 1{table BID Famotidine 40 MG 40 MG t_as_ne 40 MG eded} Losartan Losartan No Losartan Potassium Potassium Potassium 50 MG 50 MG 50 MG QUEtiapine QUEtiapine No 3{table QD QUEtiapine Fumarate 25 Fumarate 25 t_at_be Fumarate MG MG dtime} 25 MG cloNIDine cloNIDine No 1{table TID cloNIDine HCl 0.2 MG HCl 0.2 MG t} HCl 0.2 MG Cholecalcif Cholecalcif No 1{capsu QD Cholecalci robbin 50 MCG robbin 50 MCG le} ferol 50 (1999) (1999) MCG (1999) Polyethylen Polyethylen No 1{packe QD Polyethyle e Glycol e Glycol t_mixed ne Glycol 3350 17 GM 3350 17 GM _with_8 3350 17 GM _ounces _of_flu id} Ondansetron Ondansetron No Ondansetro HCl 4 MG HCl 4 MG n HCl 4 MG Strips Strips No Strips Carvedilol Carvedilol No Carvedilol 6.25 MG 6.25 MG 6.25 MG glipiZIDE glipiZIDE No BID glipiZIDE 10 MG 10 MG 10 MG Senna 8.6 Senna 8.6 No 1{table BID Senna 8.6 MG MG ts_at_b MG edtime_ as_need ed} metFORMIN metFORMIN No metFORMIN HCl 1000 MG HCl 1000 MG HCl 1000 MG Insulin Insulin No Insulin Isophane Isophane Isophane Human Human Human amLODIPine amLODIPine No 1{table QD amLODIPine Besylate 5 Besylate 5 t} Besylate 5 MG MG MG Accu-Chek Accu-Chek No Accu-Chek Guide - Guide - Guide - Aspir-Low Aspir-Low No 1{table QD Aspir-Low 81 MG 81 MG t} 81 MG metFORMIN metFORMIN No BID metFORMIN HCl 1000 MG HCl 1000 MG HCl 1000 MG Atorvastati Atorvastati No 1{table QD Atorvastat n Calcium n Calcium t} in Calcium 40 MG 40 MG 40 MG Famotidine Famotidine No 1{table BID Famotidine 40 MG 40 MG t_as_ne 40 MG eded} Losartan Losartan No Losartan Potassium Potassium Potassium 50 MG 50 MG 50 MG QUEtiapine QUEtiapine No 3{table QD QUEtiapine Fumarate 25 Fumarate 25 t_at_be Fumarate MG MG dtime} 25 MG cloNIDine cloNIDine No 1{table TID cloNIDine HCl 0.2 MG HCl 0.2 MG t} HCl 0.2 MG Cholecalcif Cholecalcif No 1{capsu QD Cholecalci robbin 50 MCG robbin 50 MCG le} ferol 50 (1999) (1999) MCG (1999) Polyethylen Polyethylen No 1{packe QD Polyethyle e Glycol e Glycol t_mixed ne Glycol 3350 17 GM 3350 17 GM _with_8 3350 17 GM _ounces _of_flu id} Ondansetron Ondansetron No Ondansetro HCl 4 MG HCl 4 MG n HCl 4 MG Strips Strips No Strips Carvedilol Carvedilol No Carvedilol 6.25 MG 6.25 MG 6.25 MG glipiZIDE glipiZIDE No BID glipiZIDE 10 MG 10 MG 10 MG Senna 8.6 Senna 8.6 No 1{table BID Senna 8.6 MG MG ts_at_b MG edtime_ as_need ed} metFORMIN metFORMIN No metFORMIN HCl 1000 MG HCl 1000 MG HCl 1000 MG Insulin Insulin No Insulin Isophane Isophane Isophane Human Human Human amLODIPine amLODIPine No 1{table QD amLODIPine Besylate 5 Besylate 5 t} Besylate 5 MG MG MG Accu-Chek Accu-Chek No Accu-Chek Guide - Guide - Guide - Aspir-Low Aspir-Low No 1{table QD Aspir-Low 81 MG 81 MG t} 81 MG metFORMIN metFORMIN No BID metFORMIN HCl 1000 MG HCl 1000 MG HCl 1000 MG Atorvastati Atorvastati No 1{table QD Atorvastat n Calcium n Calcium t} in Calcium 40 MG 40 MG 40 MG Famotidine Famotidine No 1{table BID Famotidine 40 MG 40 MG t_as_ne 40 MG eded} Strips Strips No Strips Losartan Losartan No Losartan Potassium Potassium Potassium 50 MG 50 MG 50 MG QUEtiapine QUEtiapine No 3{table QD QUEtiapine Fumarate 25 Fumarate 25 t_at_be Fumarate MG MG dtime} 25 MG cloNIDine cloNIDine No 1{table TID cloNIDine HCl 0.2 MG HCl 0.2 MG t} HCl 0.2 MG Cholecalcif Cholecalcif No 1{capsu QD Cholecalci robbin 50 MCG robbin 50 MCG le} ferol 50 (1999) (1999) MCG (1999) Polyethylen Polyethylen No 1{packe QD Polyethyle e Glycol e Glycol t_mixed ne Glycol 3350 17 GM 3350 17 GM _with_8 3350 17 GM _ounces _of_flu id} Ondansetron Ondansetron No Ondansetro HCl 4 MG HCl 4 MG n HCl 4 MG Carvedilol Carvedilol No Carvedilol 6.25 MG 6.25 MG 6.25 MG glipiZIDE glipiZIDE No BID glipiZIDE 10 MG 10 MG 10 MG Accu-Chek Accu-Chek No Accu-Chek Guide - Guide - Guide - QUEtiapine QUEtiapine No 3{table QD QUEtiapine Fumarate 25 Fumarate 25 t_at_be Fumarate MG MG dtime} 25 MG Senna 8.6 Senna 8.6 No 1{table BID Senna 8.6 MG MG ts_at_b MG edtime_ as_need ed} Ondansetron Ondansetron No Ondansetro HCl 4 MG HCl 4 MG n HCl 4 MG Losartan Losartan No Losartan Potassium Potassium Potassium 50 MG 50 MG 50 MG metFORMIN metFORMIN No BID metFORMIN HCl 1000 MG HCl 1000 MG HCl 1000 MG cloNIDine cloNIDine No 1{table TID cloNIDine HCl 0.2 MG HCl 0.2 MG t} HCl 0.2 MG Famotidine Famotidine No 1{table BID Famotidine 40 MG 40 MG t_as_ne 40 MG eded} glipiZIDE glipiZIDE No BID glipiZIDE 10 MG 10 MG 10 MG amLODIPine amLODIPine No 1{table QD amLODIPine Besylate 5 Besylate 5 t} Besylate 5 MG MG MG Cholecalcif Cholecalcif No 1{capsu QD Cholecalci robbin 50 MCG robbin 50 MCG le} ferol 50 (1999) (1999) MCG (1999) Polyethylen Polyethylen No 1{packe QD Polyethyle e Glycol e Glycol t_mixed ne Glycol 3350 17 GM 3350 17 GM _with_8 3350 17 GM _ounces _of_flu id} Insulin Insulin No Insulin Isophane Isophane Isophane Human Human Human Carvedilol Carvedilol No Carvedilol 6.25 MG 6.25 MG 6.25 MG Atorvastati Atorvastati No 1{table QD Atorvastat n Calcium n Calcium t} in Calcium 40 MG 40 MG 40 MG Strips Strips No Strips metFORMIN metFORMIN No metFORMIN HCl 1000 MG HCl 1000 MG HCl 1000 MG Aspir-Low Aspir-Low No 1{table QD Aspir-Low 81 MG 81 MG t} 81 MG Accu-Chek Accu-Chek No Accu-Chek Guide - Guide - Guide - QUEtiapine QUEtiapine No 3{table QD QUEtiapine Fumarate 25 Fumarate 25 t_at_be Fumarate MG MG dtime} 25 MG Senna 8.6 Senna 8.6 No 1{table BID Senna 8.6 MG MG ts_at_b MG edtime_ as_need ed} Ondansetron Ondansetron No Ondansetro HCl 4 MG HCl 4 MG n HCl 4 MG Losartan Losartan No Losartan Potassium Potassium Potassium 50 MG 50 MG 50 MG metFORMIN metFORMIN No BID metFORMIN HCl 1000 MG HCl 1000 MG HCl 1000 MG cloNIDine cloNIDine No 1{table TID cloNIDine HCl 0.2 MG HCl 0.2 MG t} HCl 0.2 MG Famotidine Famotidine No 1{table BID Famotidine 40 MG 40 MG t_as_ne 40 MG eded} glipiZIDE glipiZIDE No BID glipiZIDE 10 MG 10 MG 10 MG amLODIPine amLODIPine No 1{table QD amLODIPine Besylate 5 Besylate 5 t} Besylate 5 MG MG MG Cholecalcif Cholecalcif No 1{capsu QD Cholecalci robbin 50 MCG robbin 50 MCG le} ferol 50 (1999) (1999) MCG (1999) Polyethylen Polyethylen No 1{packe QD Polyethyle e Glycol e Glycol t_mixed ne Glycol 3350 17 GM 3350 17 GM _with_8 3350 17 GM _ounces _of_flu id} Insulin Insulin No Insulin Isophane Isophane Isophane Human Human Human Carvedilol Carvedilol No Carvedilol 6.25 MG 6.25 MG 6.25 MG Atorvastati Atorvastati No 1{table QD Atorvastat n Calcium n Calcium t} in Calcium 40 MG 40 MG 40 MG Strips Strips No Strips metFORMIN metFORMIN No metFORMIN HCl 1000 MG HCl 1000 MG HCl 1000 MG Aspir-Low Aspir-Low No 1{table QD Aspir-Low 81 MG 81 MG t} 81 MG Accu-Chek Accu-Chek No Accu-Chek Guide - Guide - Guide - QUEtiapine QUEtiapine No 3{table QD QUEtiapine Fumarate 25 Fumarate 25 t_at_be Fumarate MG MG dtime} 25 MG Senna 8.6 Senna 8.6 No 1{table BID Senna 8.6 MG MG ts_at_b MG edtime_ as_need ed} Ondansetron Ondansetron No Ondansetro HCl 4 MG HCl 4 MG n HCl 4 MG Losartan Losartan No Losartan Potassium Potassium Potassium 50 MG 50 MG 50 MG metFORMIN metFORMIN No BID metFORMIN HCl 1000 MG HCl 1000 MG HCl 1000 MG cloNIDine cloNIDine No 1{table TID cloNIDine HCl 0.2 MG HCl 0.2 MG t} HCl 0.2 MG Famotidine Famotidine No 1{table BID Famotidine 40 MG 40 MG t_as_ne 40 MG eded} glipiZIDE glipiZIDE No BID glipiZIDE 10 MG 10 MG 10 MG amLODIPine amLODIPine No 1{table QD amLODIPine Besylate 5 Besylate 5 t} Besylate 5 MG MG MG Cholecalcif Cholecalcif No 1{capsu QD Cholecalci robbin 50 MCG robbin 50 MCG le} ferol 50 (1999) (1999) MCG (1999) Polyethylen Polyethylen No 1{packe QD Polyethyle e Glycol e Glycol t_mixed ne Glycol 3350 17 GM 3350 17 GM _with_8 3350 17 GM _ounces _of_flu id} Insulin Insulin No Insulin Isophane Isophane Isophane Human Human Human Carvedilol Carvedilol No Carvedilol 6.25 MG 6.25 MG 6.25 MG Atorvastati Atorvastati No 1{table QD Atorvastat n Calcium n Calcium t} in Calcium 40 MG 40 MG 40 MG Strips Strips No Strips metFORMIN metFORMIN No metFORMIN HCl 1000 MG HCl 1000 MG HCl 1000 MG Aspir-Low Aspir-Low No 1{table QD Aspir-Low 81 MG 81 MG t} 81 MG metFORMIN metFORMIN No BID metFORMIN HCl 1000 MG HCl 1000 MG HCl 1000 MG Losartan Losartan No Losartan Potassium Potassium Potassium 50 MG 50 MG 50 MG Senna 8.6 Senna 8.6 No 1{table BID Senna 8.6 MG MG ts_at_b MG edtime_ as_need ed} Accu-Chek Accu-Chek No Accu-Chek Guide - Guide - Guide - Aspir-Low Aspir-Low No 1{table QD Aspir-Low 81 MG 81 MG t} 81 MG Polyethylen Polyethylen No 1{packe QD Polyethyle e Glycol e Glycol t_mixed ne Glycol 3350 17 GM 3350 17 GM _with_8 3350 17 GM _ounces _of_flu id} Atorvastati Atorvastati No 1{table QD Atorvastat n Calcium n Calcium t} in Calcium 40 MG 40 MG 40 MG Strips Strips No Strips Carvedilol Carvedilol No Carvedilol 6.25 MG 6.25 MG 6.25 MG metFORMIN metFORMIN No BID metFORMIN HCl 1000 MG HCl 1000 MG HCl 1000 MG Losartan Losartan No Losartan Potassium Potassium Potassium 50 MG 50 MG 50 MG Senna 8.6 Senna 8.6 No 1{table BID Senna 8.6 MG MG ts_at_b MG edtime_ as_need ed} Accu-Chek Accu-Chek No Accu-Chek Guide - Guide - Guide - Aspir-Low Aspir-Low No 1{table QD Aspir-Low 81 MG 81 MG t} 81 MG Polyethylen Polyethylen No 1{packe QD Polyethyle e Glycol e Glycol t_mixed ne Glycol 3350 17 GM 3350 17 GM _with_8 3350 17 GM _ounces _of_flu id} Atorvastati Atorvastati No 1{table QD Atorvastat n Calcium n Calcium t} in Calcium 40 MG 40 MG 40 MG Strips Strips No Strips Carvedilol Carvedilol No Carvedilol 6.25 MG 6.25 MG 6.25 MG metFORMIN metFORMIN No BID metFORMIN HCl 1000 MG HCl 1000 MG HCl 1000 MG Losartan Losartan No Losartan Potassium Potassium Potassium 50 MG 50 MG 50 MG Glucerna Glucerna No QID Glucerna 1.5 Hank - 1.5 Hank - 1.5 Hank - Doxazosin Doxazosin No Doxazosin Mesylate 8 Mesylate 8 Mesylate 8 MG MG MG Insulin Insulin No Insulin Isophane Isophane Isophane Human Human Human Strips Strips No Strips Polyethylen Polyethylen No 1{packe QD Polyethyle e Glycol e Glycol t_mixed ne Glycol 3350 17 GM 3350 17 GM _with_8 3350 17 GM _ounces _of_flu id} Accu-Chek Accu-Chek No Accu-Chek Guide - Guide - Guide - Atorvastati Atorvastati No 1{table QD Atorvastat n Calcium n Calcium t} in Calcium 40 MG 40 MG 40 MG Carvedilol Carvedilol No Carvedilol 6.25 MG 6.25 MG 6.25 MG Aspir-Low Aspir-Low No 1{table QD Aspir-Low 81 MG 81 MG t} 81 MG Senna 8.6 Senna 8.6 No 1{table BID Senna 8.6 MG MG ts_at_b MG edtime_ as_need ed} amLODIPine amLODIPine No 1{table QD amLODIPine Besylate 5 Besylate 5 t} Besylate 5 MG MG MG metFORMIN metFORMIN No BID metFORMIN HCl 1000 MG HCl 1000 MG HCl 1000 MG Losartan Losartan No Losartan Potassium Potassium Potassium 50 MG 50 MG 50 MG Aspir-Low Aspir-Low No 1{table QD Aspir-Low 81 MG 81 MG t} 81 MG Carvedilol Carvedilol No Carvedilol 6.25 MG 6.25 MG 6.25 MG Accu-Chek Accu-Chek No Accu-Chek Guide - Guide - Guide - metFORMIN metFORMIN No metFORMIN HCl 1000 MG HCl 1000 MG HCl 1000 MG cloNIDine cloNIDine No 1{table TID cloNIDine HCl 0.2 MG HCl 0.2 MG t} HCl 0.2 MG Strips Strips No Strips Famotidine Famotidine No 1{table BID Famotidine 40 MG 40 MG t_as_ne 40 MG eded} Polyethylen Polyethylen No 1{packe QD Polyethyle e Glycol e Glycol t_mixed ne Glycol 3350 17 GM 3350 17 GM _with_8 3350 17 GM _ounces _of_flu id} Senna 8.6 Senna 8.6 No 1{table BID Senna 8.6 MG MG ts_at_b MG edtime_ as_need ed} glipiZIDE glipiZIDE No BID glipiZIDE 10 MG 10 MG 10 MG QUEtiapine QUEtiapine No 3{table QD QUEtiapine Fumarate 25 Fumarate 25 t_at_be Fumarate MG MG dtime} 25 MG Cholecalcif Cholecalcif No 1{capsu QD Cholecalci robbin 50 MCG robbin 50 MCG le} ferol 50 (1999) (1999) MCG (1999) Atorvastati Atorvastati No 1{table QD Atorvastat n Calcium n Calcium t} in Calcium 40 MG 40 MG 40 MG Ondansetron Ondansetron No Ondansetro HCl 4 MG HCl 4 MG n HCl 4 MG Famotidine Famotidine No 1{table BID Famotidine 40 MG 40 MG t_as_ne 40 MG eded} Aspir-Low Aspir-Low No 1{table QD Aspir-Low 81 MG 81 MG t} 81 MG amLODIPine amLODIPine No 1{table QD amLODIPine Besylate 5 Besylate 5 t} Besylate 5 MG MG MG glipiZIDE glipiZIDE No BID glipiZIDE 10 MG 10 MG 10 MG Strips Strips No Strips Polyethylen Polyethylen No 1{packe QD Polyethyle e Glycol e Glycol t_mixed ne Glycol 3350 17 GM 3350 17 GM _with_8 3350 17 GM _ounces _of_flu id} cloNIDine cloNIDine No 1{table TID cloNIDine HCl 0.2 MG HCl 0.2 MG t} HCl 0.2 MG metFORMIN metFORMIN No BID metFORMIN HCl 1000 MG HCl 1000 MG HCl 1000 MG Accu-Chek Accu-Chek No Accu-Chek Guide - Guide - Guide - Losartan Losartan No Losartan Potassium Potassium Potassium 50 MG 50 MG 50 MG Senna 8.6 Senna 8.6 No 1{table BID Senna 8.6 MG MG ts_at_b MG edtime_ as_need ed} Cholecalcif Cholecalcif No 1{capsu QD Cholecalci robbin 50 MCG robbin 50 MCG le} ferol 50 (1999) (1999) MCG (1999) Carvedilol Carvedilol No Carvedilol 6.25 MG 6.25 MG 6.25 MG Insulin Insulin No Insulin Isophane Isophane Isophane Human Human Human Atorvastati Atorvastati No 1{table QD Atorvastat n Calcium n Calcium t} in Calcium 40 MG 40 MG 40 MG metFORMIN metFORMIN No metFORMIN HCl 1000 MG HCl 1000 MG HCl 1000 MG Ondansetron Ondansetron No Ondansetro HCl 4 MG HCl 4 MG n HCl 4 MG QUEtiapine QUEtiapine No 3{table QD QUEtiapine Fumarate 25 Fumarate 25 t_at_be Fumarate MG MG dtime} 25 MG Famotidine Famotidine No 1{table BID Famotidine 40 MG 40 MG t_as_ne 40 MG eded} Aspir-Low Aspir-Low No 1{table QD Aspir-Low 81 MG 81 MG t} 81 MG amLODIPine amLODIPine No 1{table QD amLODIPine Besylate 5 Besylate 5 t} Besylate 5 MG MG MG glipiZIDE glipiZIDE No BID glipiZIDE 10 MG 10 MG 10 MG Strips Strips No Strips Polyethylen Polyethylen No 1{packe QD Polyethyle e Glycol e Glycol t_mixed ne Glycol 3350 17 GM 3350 17 GM _with_8 3350 17 GM _ounces _of_flu id} cloNIDine cloNIDine No 1{table TID cloNIDine HCl 0.2 MG HCl 0.2 MG t} HCl 0.2 MG metFORMIN metFORMIN No BID metFORMIN HCl 1000 MG HCl 1000 MG HCl 1000 MG Accu-Chek Accu-Chek No Accu-Chek Guide - Guide - Guide - Losartan Losartan No Losartan Potassium Potassium Potassium 50 MG 50 MG 50 MG Senna 8.6 Senna 8.6 No 1{table BID Senna 8.6 MG MG ts_at_b MG edtime_ as_need ed} Cholecalcif Cholecalcif No 1{capsu QD Cholecalci robbin 50 MCG robbin 50 MCG le} ferol 50 (1999) (1999) MCG (1999) Carvedilol Carvedilol No Carvedilol 6.25 MG 6.25 MG 6.25 MG Insulin Insulin No Insulin Isophane Isophane Isophane Human Human Human Atorvastati Atorvastati No 1{table QD Atorvastat n Calcium n Calcium t} in Calcium 40 MG 40 MG 40 MG metFORMIN metFORMIN No metFORMIN HCl 1000 MG HCl 1000 MG HCl 1000 MG Ondansetron Ondansetron No Ondansetro HCl 4 MG HCl 4 MG n HCl 4 MG QUEtiapine QUEtiapine No 3{table QD QUEtiapine Fumarate 25 Fumarate 25 t_at_be Fumarate MG MG dtime} 25 MG Losartan Losartan No 2{table QD Losartan Potassium Potassium t} Potassium 50 MG 50 MG 50 MG Ondansetron Ondansetron No Ondansetro HCl 4 MG HCl 4 MG n HCl 4 MG Senna 8.6 Senna 8.6 No 1{table BID Senna 8.6 MG MG ts_at_b MG edtime_ as_need ed} cloNIDine cloNIDine No 1{table TID cloNIDine HCl 0.2 MG HCl 0.2 MG t} HCl 0.2 MG amLODIPine amLODIPine No 1{table QD amLODIPine Besylate 5 Besylate 5 t} Besylate 5 MG MG MG Strips Strips No Strips Atorvastati Atorvastati No 1{table QD Atorvastat n Calcium n Calcium t} in Calcium 40 MG 40 MG 40 MG glipiZIDE glipiZIDE No BID glipiZIDE 10 MG 10 MG 10 MG metFORMIN metFORMIN No 1{table BID metFORMIN HCl 1000 MG HCl 1000 MG t_with_ HCl 1000 a_meal} MG Carvedilol Carvedilol No 1{table BID Carvedilol 6.25 MG 6.25 MG t_with_ 6.25 MG food} Famotidine Famotidine No 1{table BID Famotidine 40 MG 40 MG t_as_ne 40 MG eded} Cholecalcif Cholecalcif No 1{capsu QD Cholecalci robbin 50 MCG robbin 50 MCG le} ferol 50 (1999) (1999) MCG (1999) Polyethylen Polyethylen No 1{packe QD Polyethyle e Glycol e Glycol t_mixed ne Glycol 3350 17 GM 3350 17 GM _with_8 3350 17 GM _ounces _of_flu id} Insulin Insulin No Insulin Isophane Isophane Isophane Human Human Human Aspir-Low Aspir-Low No 1{table QD Aspir-Low 81 MG 81 MG t} 81 MG QUEtiapine QUEtiapine No 3{table QD QUEtiapine Fumarate 25 Fumarate 25 t_at_be Fumarate MG MG dtime} 25 MG Losartan Losartan No 2{table QD Losartan Potassium Potassium t} Potassium 50 MG 50 MG 50 MG Ondansetron Ondansetron No Ondansetro HCl 4 MG HCl 4 MG n HCl 4 MG Senna 8.6 Senna 8.6 No 1{table BID Senna 8.6 MG MG ts_at_b MG edtime_ as_need ed} cloNIDine cloNIDine No 1{table TID cloNIDine HCl 0.2 MG HCl 0.2 MG t} HCl 0.2 MG amLODIPine amLODIPine No 1{table QD amLODIPine Besylate 5 Besylate 5 t} Besylate 5 MG MG MG Strips Strips No Strips Atorvastati Atorvastati No 1{table QD Atorvastat n Calcium n Calcium t} in Calcium 40 MG 40 MG 40 MG glipiZIDE glipiZIDE No BID glipiZIDE 10 MG 10 MG 10 MG metFORMIN metFORMIN No 1{table BID metFORMIN HCl 1000 MG HCl 1000 MG t_with_ HCl 1000 a_meal} MG Carvedilol Carvedilol No 1{table BID Carvedilol 6.25 MG 6.25 MG t_with_ 6.25 MG food} Famotidine Famotidine No 1{table BID Famotidine 40 MG 40 MG t_as_ne 40 MG eded} Cholecalcif Cholecalcif No 1{capsu QD Cholecalci robbin 50 MCG robbin 50 MCG le} ferol 50 (1999) (1999) MCG (1999) Polyethylen Polyethylen No 1{packe QD Polyethyle e Glycol e Glycol t_mixed ne Glycol 3350 17 GM 3350 17 GM _with_8 3350 17 GM _ounces _of_flu id} Insulin Insulin No Insulin Isophane Isophane Isophane Human Human Human Aspir-Low Aspir-Low No 1{table QD Aspir-Low 81 MG 81 MG t} 81 MG QUEtiapine QUEtiapine No 3{table QD QUEtiapine Fumarate 25 Fumarate 25 t_at_be Fumarate MG MG dtime} 25 MG Losartan Losartan No 2{table QD Losartan Potassium Potassium t} Potassium 50 MG 50 MG 50 MG Ondansetron Ondansetron No Ondansetro HCl 4 MG HCl 4 MG n HCl 4 MG metFORMIN metFORMIN No 1{table BID metFORMIN HCl 1000 MG HCl 1000 MG t_with_ HCl 1000 a_meal} MG cloNIDine cloNIDine No 1{table TID cloNIDine HCl 0.2 MG HCl 0.2 MG t} HCl 0.2 MG Carvedilol Carvedilol No 1{table BID Carvedilol 6.25 MG 6.25 MG t_with_ 6.25 MG food} amLODIPine amLODIPine No 1{table QD amLODIPine Besylate 5 Besylate 5 t} Besylate 5 MG MG MG Strips Strips No Strips Atorvastati Atorvastati No 1{table QD Atorvastat n Calcium n Calcium t} in Calcium 40 MG 40 MG 40 MG glipiZIDE glipiZIDE No BID glipiZIDE 10 MG 10 MG 10 MG Famotidine Famotidine No 1{table BID Famotidine 40 MG 40 MG t_as_ne 40 MG eded} Senna 8.6 Senna 8.6 No 1{table BID Senna 8.6 MG MG ts_at_b MG edtime_ as_need ed} Polyethylen Polyethylen No 1{packe QD Polyethyle e Glycol e Glycol t_mixed ne Glycol 3350 17 GM 3350 17 GM _with_8 3350 17 GM _ounces _of_flu id} Insulin Insulin No Insulin Isophane Isophane Isophane Human Human Human Aspir-Low Aspir-Low No 1{table QD Aspir-Low 81 MG 81 MG t} 81 MG Cholecalcif Cholecalcif No 1{capsu QD Cholecalci robbin 50 MCG robbin 50 MCG le} ferol 50 (1999) (1999) MCG (1999) QUEtiapine QUEtiapine No 3{table QD QUEtiapine Fumarate 25 Fumarate 25 t_at_be Fumarate MG MG dtime} 25 MG Losartan Losartan No 2{table QD Losartan Potassium Potassium t} Potassium 50 MG 50 MG 50 MG Ondansetron Ondansetron No Ondansetro HCl 4 MG HCl 4 MG n HCl 4 MG metFORMIN metFORMIN No 1{table BID metFORMIN HCl 1000 MG HCl 1000 MG t_with_ HCl 1000 a_meal} MG cloNIDine cloNIDine No 1{table TID cloNIDine HCl 0.2 MG HCl 0.2 MG t} HCl 0.2 MG Carvedilol Carvedilol No 1{table BID Carvedilol 6.25 MG 6.25 MG t_with_ 6.25 MG food} amLODIPine amLODIPine No 1{table QD amLODIPine Besylate 5 Besylate 5 t} Besylate 5 MG MG MG Strips Strips No Strips Atorvastati Atorvastati No 1{table QD Atorvastat n Calcium n Calcium t} in Calcium 40 MG 40 MG 40 MG glipiZIDE glipiZIDE No BID glipiZIDE 10 MG 10 MG 10 MG Famotidine Famotidine No 1{table BID Famotidine 40 MG 40 MG t_as_ne 40 MG eded} Senna 8.6 Senna 8.6 No 1{table BID Senna 8.6 MG MG ts_at_b MG edtime_ as_need ed} Polyethylen Polyethylen No 1{packe QD Polyethyle e Glycol e Glycol t_mixed ne Glycol 3350 17 GM 3350 17 GM _with_8 3350 17 GM _ounces _of_flu id} Insulin Insulin No Insulin Isophane Isophane Isophane Human Human Human Aspir-Low Aspir-Low No 1{table QD Aspir-Low 81 MG 81 MG t} 81 MG Cholecalcif Cholecalcif No 1{capsu QD Cholecalci robbin 50 MCG robbin 50 MCG le} ferol 50 (1999) (1999) MCG (1999) QUEtiapine QUEtiapine No 3{table QD QUEtiapine Fumarate 25 Fumarate 25 t_at_be Fumarate MG MG dtime} 25 MG Losartan Losartan No 2{table QD Losartan Potassium Potassium t} Potassium 50 MG 50 MG 50 MG Ondansetron Ondansetron No Ondansetro HCl 4 MG HCl 4 MG n HCl 4 MG metFORMIN metFORMIN No 1{table BID metFORMIN HCl 1000 MG HCl 1000 MG t_with_ HCl 1000 a_meal} MG cloNIDine cloNIDine No 1{table TID cloNIDine HCl 0.2 MG HCl 0.2 MG t} HCl 0.2 MG Carvedilol Carvedilol No 1{table BID Carvedilol 6.25 MG 6.25 MG t_with_ 6.25 MG food} amLODIPine amLODIPine No 1{table QD amLODIPine Besylate 5 Besylate 5 t} Besylate 5 MG MG MG Strips Strips No Strips Atorvastati Atorvastati No 1{table QD Atorvastat n Calcium n Calcium t} in Calcium 40 MG 40 MG 40 MG glipiZIDE glipiZIDE No BID glipiZIDE 10 MG 10 MG 10 MG Famotidine Famotidine No 1{table BID Famotidine 40 MG 40 MG t_as_ne 40 MG eded} Senna 8.6 Senna 8.6 No 1{table BID Senna 8.6 MG MG ts_at_b MG edtime_ as_need ed} Polyethylen Polyethylen No 1{packe QD Polyethyle e Glycol e Glycol t_mixed ne Glycol 3350 17 GM 3350 17 GM _with_8 3350 17 GM _ounces _of_flu id} Insulin Insulin No Insulin Isophane Isophane Isophane Human Human Human Aspir-Low Aspir-Low No 1{table QD Aspir-Low 81 MG 81 MG t} 81 MG Cholecalcif Cholecalcif No 1{capsu QD Cholecalci robbin 50 MCG robbin 50 MCG le} ferol 50 (1999) (1999) MCG (1999) QUEtiapine QUEtiapine No 3{table QD QUEtiapine Fumarate 25 Fumarate 25 t_at_be Fumarate MG MG dtime} 25 MG QUEtiapine QUEtiapine No 3{table QD QUEtiapine Fumarate 25 Fumarate 25 t_at_be Fumarate MG MG dtime} 25 MG Carvedilol Carvedilol No 1{table BID Carvedilol 6.25 MG 6.25 MG t_with_ 6.25 MG food} Strips Strips No Strips cloNIDine cloNIDine No 1{table TID cloNIDine HCl 0.2 MG HCl 0.2 MG t} HCl 0.2 MG metFORMIN metFORMIN No 1{table BID metFORMIN HCl 1000 MG HCl 1000 MG t_with_ HCl 1000 a_meal} MG Cholecalcif Cholecalcif No 1{capsu QD Cholecalci robbin 50 MCG robbin 50 MCG le} ferol 50 (1999) (1999) MCG (1999) Senna 8.6 Senna 8.6 No 1{table BID Senna 8.6 MG MG ts_at_b MG edtime_ as_need ed} Atorvastati Atorvastati No 1{table QD Atorvastat n Calcium n Calcium t} in Calcium 40 MG 40 MG 40 MG Aspir-Low Aspir-Low No 1{table QD Aspir-Low 81 MG 81 MG t} 81 MG glipiZIDE glipiZIDE No BID glipiZIDE 10 MG 10 MG 10 MG Insulin Insulin No Insulin Isophane Isophane Isophane Human Human Human amLODIPine amLODIPine No 1{table QD amLODIPine Besylate 5 Besylate 5 t} Besylate 5 MG MG MG Polyethylen Polyethylen No 1{packe QD Polyethyle e Glycol e Glycol t_mixed ne Glycol 3350 17 GM 3350 17 GM _with_8 3350 17 GM _ounces _of_flu id} Ondansetron Ondansetron No Ondansetro HCl 4 MG HCl 4 MG n HCl 4 MG Losartan Losartan No 2{table QD Losartan Potassium Potassium t} Potassium 50 MG 50 MG 50 MG Famotidine Famotidine No 1{table BID Famotidine 40 MG 40 MG t_as_ne 40 MG eded} QUEtiapine QUEtiapine No 3{table QD QUEtiapine Fumarate 25 Fumarate 25 t_at_be Fumarate MG MG dtime} 25 MG Carvedilol Carvedilol No 1{table BID Carvedilol 6.25 MG 6.25 MG t_with_ 6.25 MG food} Strips Strips No Strips cloNIDine cloNIDine No 1{table TID cloNIDine HCl 0.2 MG HCl 0.2 MG t} HCl 0.2 MG metFORMIN metFORMIN No 1{table BID metFORMIN HCl 1000 MG HCl 1000 MG t_with_ HCl 1000 a_meal} MG Cholecalcif Cholecalcif No 1{capsu QD Cholecalci robbin 50 MCG robbin 50 MCG le} ferol 50 (1999) (1999) MCG (1999) Senna 8.6 Senna 8.6 No 1{table BID Senna 8.6 MG MG ts_at_b MG edtime_ as_need ed} Atorvastati Atorvastati No 1{table QD Atorvastat n Calcium n Calcium t} in Calcium 40 MG 40 MG 40 MG Aspir-Low Aspir-Low No 1{table QD Aspir-Low 81 MG 81 MG t} 81 MG glipiZIDE glipiZIDE No BID glipiZIDE 10 MG 10 MG 10 MG Insulin Insulin No Insulin Isophane Isophane Isophane Human Human Human amLODIPine amLODIPine No 1{table QD amLODIPine Besylate 5 Besylate 5 t} Besylate 5 MG MG MG Polyethylen Polyethylen No 1{packe QD Polyethyle e Glycol e Glycol t_mixed ne Glycol 3350 17 GM 3350 17 GM _with_8 3350 17 GM _ounces _of_flu id} Ondansetron Ondansetron No Ondansetro HCl 4 MG HCl 4 MG n HCl 4 MG Losartan Losartan No 2{table QD Losartan Potassium Potassium t} Potassium 50 MG 50 MG 50 MG Famotidine Famotidine No 1{table BID Famotidine 40 MG 40 MG t_as_ne 40 MG eded} QUEtiapine QUEtiapine No 3{table QD QUEtiapine Fumarate 25 Fumarate 25 t_at_be Fumarate MG MG dtime} 25 MG Carvedilol Carvedilol No 1{table BID Carvedilol 6.25 MG 6.25 MG t_with_ 6.25 MG food} Strips Strips No Strips cloNIDine cloNIDine No 1{table TID cloNIDine HCl 0.2 MG HCl 0.2 MG t} HCl 0.2 MG metFORMIN metFORMIN No 1{table BID metFORMIN HCl 1000 MG HCl 1000 MG t_with_ HCl 1000 a_meal} MG Cholecalcif Cholecalcif No 1{capsu QD Cholecalci robbin 50 MCG robbin 50 MCG le} ferol 50 (1999) (1999) MCG (1999) Senna 8.6 Senna 8.6 No 1{table BID Senna 8.6 MG MG ts_at_b MG edtime_ as_need ed} Atorvastati Atorvastati No 1{table QD Atorvastat n Calcium n Calcium t} in Calcium 40 MG 40 MG 40 MG Aspir-Low Aspir-Low No 1{table QD Aspir-Low 81 MG 81 MG t} 81 MG glipiZIDE glipiZIDE No BID glipiZIDE 10 MG 10 MG 10 MG Insulin Insulin No Insulin Isophane Isophane Isophane Human Human Human amLODIPine amLODIPine No 1{table QD amLODIPine Besylate 5 Besylate 5 t} Besylate 5 MG MG MG Nystatin Nystatin 2021- No 4{ml} QID Nystatin [id number] 04-05 [id number] UNIT/ML UNIT/ML 00:00 UNIT/ML :00 Nystatin Nystatin 2021- No 4{ml} QID Nystatin [id number] 04-05 [id number] UNIT/ML UNIT/ML 00:00 UNIT/ML :00 Nystatin Nystatin 2021- No 4{ml} QID Nystatin [id number] [id number] 04-05 [id number] UNIT/ML UNIT/ML 00:00 UNIT/ML :00 Nystatin Nystatin 2- No 4{ml} QID Nystatin [id number] 01-11 [id number] UNIT/ML UNIT/ML 00:00 UNIT/ML :00 Nystatin Nystatin 2- No 4{ml} QID Nystatin [id number] 01-11 [id number] UNIT/ML UNIT/ML 00:00 UNIT/ML :00 Nystatin Nystatin 2- No 4{ml} QID Nystatin 060409 [id number] 01-11 [id number] UNIT/ML UNIT/ML 00:00 UNIT/ML :00 Nystatin Nystatin 2- No 4{ml} QID Nystatin [id number] 01-11 [id number] UNIT/ML UNIT/ML 00:00 UNIT/ML :00 Nystatin Nystatin 2- No 4{ml} QID Nystatin 943562 [id number] 01-11 [id number] UNIT/ML UNIT/ML 00:00 UNIT/ML :00 Nystatin Nystatin 2- No 4{ml} QID Nystatin [id number] [id number] 01-11 [id number] UNIT/ML UNIT/ML 00:00 UNIT/ML :00 Nystatin Nystatin 2- No 4{ml} QID Nystatin 521050 [id number] -11 [id number] UNIT/ML UNIT/ML 00:00 UNIT/ML :00 Immunizations Ordered Immunization Filled Immunization Date Status Commen ts Source Name Name Prevnar 20 (PCV20) Prevnar 20 (PCV20) 2022-06-26 Completed [facility] 13:10:00 - [facility] FLUZONE HIGH DOSE FLUZONE HIGH DOSE 2021-12-19 Completed [facility] OVER 65 OVER 65 12:36:00 - [facility] FLUZONE HIGH DOSE FLUZONE HIGH DOSE 2021-12-19 Completed [facility] OVER 65 OVER 65 12:36:00 - [facility] FLUZONE HIGH DOSE FLUZONE HIGH DOSE 2021-12-19 Completed [facility] OVER 65 OVER 65 12:36:00 - [facility] FLUZONE HIGH DOSE FLUZONE HIGH DOSE 2021-12-19 Completed [facility] OVER 65 OVER 65 12:36:00 - [facility] FLUZONE HIGH DOSE FLUZONE HIGH DOSE 2021-12-19 Completed [facility] OVER 65 OVER 65 12:36:00 - [facility] FLUZONE HIGH DOSE FLUZONE HIGH DOSE 2021-12-19 Completed [facility] OVER 65 OVER 65 12:36:00 - [facility] FLUZONE HIGH DOSE FLUZONE HIGH DOSE 2021-12-19 Completed [facility] OVER 65 OVER 65 12:36:00 - [facility] FLUZONE HIGH DOSE FLUZONE HIGH DOSE 2021-12-19 Completed [facility] OVER 65 OVER 65 12:36:00 - [facility] FLUZONE HIGH DOSE FLUZONE HIGH DOSE 2021-12-19 Completed [facility] OVER 65 OVER 65 12:36:00 - [facility] FLUZONE HIGH DOSE FLUZONE HIGH DOSE 2021-12-19 Completed [facility] OVER 65 OVER 65 12:36:00 - [facility] FLUZONE HIGH DOSE FLUZONE HIGH DOSE 2021-12-19 Completed [facility] OVER 65 OVER 65 12:36:00 - [facility] FLUZONE HIGH DOSE FLUZONE HIGH DOSE 2021-12-19 Completed [facility] OVER 65 OVER 65 12:36:00 - [facility] FLUZONE HIGH DOSE FLUZONE HIGH DOSE 2021-12-19 Completed [facility] OVER 65 OVER 65 12:36:00 - [facility] FLUZONE HIGH DOSE FLUZONE HIGH DOSE 2021-12-19 Completed [facility] OVER 65 OVER 65 12:36:00 - [facility] FLUZONE HIGH DOSE FLUZONE HIGH DOSE 2021-12-19 Completed [facility] OVER 65 OVER 65 12:36:00 - [facility] COVID-19 Pfizer 2021-03-01 [facility] [facility] ([facility]) COVID-19 Pfizer 2021-03-01 Completed [facility]:00:00 ([facility]) COVID-19 Pfizer 2021-03-01 Completed [facility]:00 ([facility]) COVID-19 Pfizer & 2021-03-01 Completed [facility]:00:00 ([facility]) COVID-19 Pfizer 2021-03-01 Completed [facility]:00 ([facility]) Fluzone Fluzone 2021-02-24 Completed [facility] 16:31:00 - [facility] Fluzone Fluzone 2021-02-24 Completed [facility] 16:31:00 - [facility] Fluzone Fluzone 2021-02-24 Completed [facility] 16:31:00 - [facility] Fluzone Fluzone 2021-02-24 Completed [facility] 16:31:00 - [facility] Fluzone Fluzone 2021-02-24 Completed [facility] 16:31:00 - [facility] Fluzone Fluzone 2021-02-24 Completed [facility] 16:31:00 - [facility] Fluzone Fluzone 2021-02-24 Completed [facility] 16:31:00 - [facility] Fluzone Fluzone 2021-02-24 Completed [facility] 16:31:00 - [facility] Fluzone Fluzone 2021-02-24 Completed [facility] 16:31:00 - [facility] Fluzone Fluzone 2021-02-24 Completed [facility] 16:31:00 - [facility] Fluzone Fluzone 2021-02-24 Completed [facility] 16::00 - [facility] Fluzone Fluzone 2021-02-24 Completed [facility] 16:31:00 - [facility] Fluzone Fluzone 2021-02-24 Completed [facility] 16::00 - [facility] [facility] Fluzone Fluzone 2021-02-24 [facility] 16:31:00 - [facility] Fluzone Fluzone 2021-02-24 Completed [facility] 16:31:00 - [facility] Fluzone Fluzone 2021-02-24 Completed [facility] 16:31:00 - [facility] Fluzone Fluzone 2021-02-24 Completed [facility] 16:31:00 - [facility] Fluzone Fluzone 2021-02-24 Completed [facility] 16:31:00 - [facility] Fluzone Fluzone 2021-02-24 Completed [facility] 16:31:00 - [facility] Fluzone Fluzone 2021-02-24 Completed [facility] 16:31:00 - [facility] Fluzone Fluzone 2021-02-24 Completed [facility] 16:31:00 - [facility] Fluzone Fluzone 2021-02-24 Completed [facility] 16:31:00 - [facility] Fluzone Fluzone 2021-02-24 Completed [facility] 16:31:00 - [facility] Fluzone Fluzone 2021-02-24 Completed [facility] 16:31:00 - [facility] Fluzone Fluzone 2021-02-24 Completed [facility] 16:31:00 - [facility] Fluzone Fluzone 2021-02-24 Completed [facility] 16:31:00 - [facility] Fluzone Fluzone 2021-02-24 Com[facility] 16::00 - [facility] Fluzone Fluzone 2021-02-24 Completed [facility] 16:31:00 - [facility] Fluzone Fluzone 2021-02-24 Com[facility] 16::00 - [facility] Fluzone Fluzone 2021-02-24 Completed [facility] 16:31:00 - [facility] Fluzone Fluzone 2021-02-24 Com[facility] 16::00 - [facility] Fluzone Fluzone 2021-02-24 [facility]pleted [facility] 16:31:00 - [facility] Fluzone Fluzone 2021-02-24 Completed [facility] 16:31:00 - [facility] Fluzone Fluzone 2021-02-24 Completed [facility] 16:31:00 - [facility] Fluzone Fluzone 2021-02-24 Completed [facility] 16:31:00 - [facility] Fluzone Fluzone 2021-02-24 Completed [facility] 16:31:00 - [facility] Fluzone Fluzone 2021-02-24 Completed [facility] 16:31:00 - [facility] Fluzone Fluzone 2021-02-24 Completed [facility] 16:31:00 - [facility] Fluzone Fluzone 2021-02-24 Completed [facility] 16:31:00 - [facility] Fluzone Fluzone 2021-02-24 Completed [facility] 16:31:00 - [facility] Fluzone Fluzone 2021-02-24 Completed [facility] 16:31:00 - [facility] Fluzone Fluzone 2021-02-24 Completed [facility] 16:31:00 - [facility] Fluzone Fluzone 2021-02-24 Completed [facility] 16:31:00 - [facility] Fluzone Fluzone 2021-02-24 [facility] 16::00 - [facility] Fluzone Fluzone 2021-02-24 Completed [facility] 16:31:00 - [facility] Influenza, seasonal, 2021-02-[facility]00 Influenza, seasonal, 2021-02-24 [facility]:00:00 Influenza, seasonal, 2021-02-24 [facility] 00:00:00 Influenza, seasonal, 2021-02-24 [facility] 00:00:00 Influenza, seasonal, 2021-02-24 [facility]:00 FluAD FluAD 2020-03-05 [facility]pleted [facility] 11:53:00 - [facility] FluAD FluAD 2020-03-05 Completed [facility] 11:53:00 - [facility] FluAD FluAD 2020-03-05 [facility]pleted [facility] 11:53:00 - [facility] FluAD FluAD 2020-03-05 Completed [facility] 11:53:00 - [facility] FluAD FluAD 2020-03-05 Completed [facility] 11:53:00 - [facility] FluAD FluAD 2020-03-05 Completed [facility] 11:53:00 - [facility] FluAD FluAD 2020-03-05 Completed [facility] 11:53:00 - [facility] FluAD FluAD 2020-03-05 Completed [facility] 11:53:00 - [facility] FluAD FluAD 2020-03-05 Completed [facility] 11:53:00 - [facility] FluAD FluAD 2020-03-05 Completed [facility] 11:53:00 - [facility] FluAD FluAD 2020-03-05 Completed [facility] 11:53:00 - [facility] FluAD FluAD 2020-03-05 [facility]pleted [facility] 11:53:00 - [facility] FluAD FluAD 2020-03-05 Completed [facility] 11:53:00 - [facility] FluAD FluAD 2020-03-05 Completed [facility] 11:53:00 - [facility] FluAD FluAD 2020-03-05 Completed [facility] 11:53:00 - [facility] FluAD FluAD 2020-03-05 Completed [facility] 11:53:00 - [facility] FluAD FluAD 2020-03-05 Completed [facility] 11:53:00 - [facility] FluAD FluAD 2020-03-05 Completed [facility] 11:53:00 - [facility] FluAD FluAD 2020-03-05 Completed [facility] 11:53:00 - [facility] FluAD FluAD 2020-03-05 Completed [facility] 11:53:00 - [facility] FluAD FluAD 2020-03-05 Completed [facility] 11:53:00 - [facility] FluAD FluAD 2020-03-05 Completed [facility] 11:53:00 - [facility] FluAD FluAD 2020-03-05 Completed [facility] 11:53:00 - [facility] FluAD FluAD 2020-03-05 Completed [facility] 11:53:00 - [facility] FluAD FluAD 2020-03-05 Completed [facility] 11:53:00 - [facility] FluAD FluAD 2020-03-05 Completed [facility] 11:53:00 - [facility] FluAD FluAD 2020-03-05 Completed [facility] 11:53:00 - [facility] FluAD FluAD 2020-03-05 Completed [facility] 11:53:00 - [facility] FluAD FluAD 2020-03-05 Completed [facility] 11:53:00 - [facility] FluAD FluAD 2020-03-05 Completed [facility] 11:53:00 - [facility] FluAD FluAD 2020-03-05 Completed [facility] 11:53:00 - [facility] FluAD FluAD 2020-03-05 Completed [facility] 11:53:00 - [facility] FluAD FluAD 2020-03-05 Completed [facility] 11:53:00 - [facility] FluAD FluAD 2020-03-05 Completed [facility] 11:53:00 - [facility] FluAD FluAD 2020-03-05 Completed [facility] 11:53:00 - [facility] FluAD FluAD 2020-03-05 Completed [facility] 11:53:00 - [facility] FluAD FluAD 2020-03-05 Completed [facility] 11:53:00 - [facility] FluAD FluAD 2020-03-05 Completed [facility] 11:53:00 - [facility] FluAD FluAD 2020-03-05 Completed [facility] 11:53:00 - [facility] FluAD FluAD 2020-03-05 Completed [facility] 11:53:00 - [facility] FluAD FluAD 2020-03-05 Completed [facility] 11:53:00 - [facility] FluAD FluAD 2020-03-05 Completed [facility] 11:53:00 - [facility] FluAD FluAD 2020-03-05 Completed [facility] 11:53:00 - [facility] FluAD FluAD 2020-03-05 Completed [facility] 11:53:00 - [facility] FluAD FluAD 2020-03-05 Completed [facility] 11:53:00 - [facility] FluAD FluAD 2020-03-05 Completed [facility] 11:53:00 - [facility] FluAD FluAD 2020-03-05 Completed [facility] 11:53:00 - [facility] FluAD FluAD 2020-03-05 Completed [facility] 11:53:00 - [facility] FluAD FluAD 2020-03-05 Completed [facility] 11:53:00 - [facility] FluAD FluAD 2020-03-05 Completed [facility] 11:53:00 [facility] Vital Signs Vital Name Observation Time Observation Value Comments Source height 2022-04-28 13:00:00 73.5 [in_i] [facility] weight 2022-04-28 13:00:00 130 [lb_av] [facility] temperature 2022-04-28 13:00:00 97.2 [degF] [facility] bmi 2022-04-28 13:00:00 16.92 kg/m2 [facility] oximetry 2022-04-28 13:00:00 96 % [facility] respiratory rate 2022-04-28 13:00:00 16 /min Comm on [facility] blood pressure 2022-04-28 13:00:00 118 mm[Hg] [facility] - systolic [facility] blood pressure 2022-04-28 13:00:00 64 mm[Hg] [facility] - diastolic [facility] height 2022-03-09 08:15:00 73.5 [in_i] [facility] weight 2022-03-09 08:15:00 130 [lb_av] [facility] temperature 2022-03-09 08:15:00 97.6 [degF] [facility] bmi 2022-03-09 08:15:00 16.92 kg/m2 [facility] oximetry 2022-03-09 08:15:00 98 % [facility] respiratory rate 2022-03-09 08:15:00 18 /min Comm on [facility] blood pressure 2022-03-09 08:15:00 132 mm[Hg] [facility] - systolic [facility] blood pressure 2022-03-09 08:15:00 68 mm[Hg] [facility] - diastolic [facility] height 2022-01-25 10:30:00 73.5 [in_i] [facility] weight 2022-01-25 10:30:00 130 [lb_av] [facility] temperature 2022-01-25 10:30:00 99.3 [degF] [facility] bmi 2022-01-25 10:30:00 16.92 kg/m2 [facility] oximetry 2022-01-25 10:30:00 96 % [facility] respiratory rate 2022-01-25 10:30:00 16 /min Comm on [facility] blood pressure 2022-01-25 10:30:00 125 mm[Hg] [facility] - systolic [facility] blood pressure 2022-01-25 10:30:00 62 mm[Hg] [facility] - diastolic [facility] height 2021-12-19 11:00:00 73.5 [in_i] [facility] weight 2021-12-19 11:00:00 128.0 [lb_av] [facility] temperature 2021-12-19 11:00:00 97.9 [degF] [facility] bmi 2021-12-19 11:00:00 16.66 kg/m2 [facility] oximetry 2021-12-19 11:00:00 97 % [facility] respiratory rate 2021-12-19 11:00:00 15 /min Comm on [facility] blood pressure 2021-12-19 11:00:00 101 mm[Hg] [facility] - systolic [facility] blood pressure 2021-12-19 11:00:00 57 mm[Hg] [facility] - diastolic [facility] height 2021-10-31 14:20:00 73.5 [in_i] [facility] weight 2021-10-31 14:20:00 128 [lb_av] [facility] temperature 2021-10-31 14:20:00 97.8 [degF] [facility] bmi 2021-10-31 14:20:00 16.66 kg/m2 [facility] height 2021-10-17 14:40:00 73.50 [in_i] [facility] weight 2021-10-17 14:40:00 128 [lb_av] [facility] temperature 2021-10-17 14:40:00 98.0 [degF] [facility] bmi 2021-10-17 14:40:00 16.66 kg/m2 [facility] oximetry 2021-10-17 14:40:00 95 % [facility] respiratory rate 2021-10-17 14:40:00 15 /min Comm on [facility] blood pressure 2021-10-17 14:40:00 111 mm[Hg] [facility] - systolic [facility] blood pressure 2021-10-17 14:40:00 74 mm[Hg] [facility] - diastolic [facility] height 2021-08-30 11:20:00 73.50 [in_i] [facility] weight 2021-08-30 11:20:00 128 [lb_av] [facility] bmi 2021-08-30 11:20:00 16.66 kg/m2 [facility] height 2021-06-28 11:40:00 73.50 [in_i] [facility] weight 2021-06-28 11:40:00 128.9 [lb_av] [facility] temperature 2021-06-28 11:40:00 98.1 [degF] [facility] bmi 2021-06-28 11:40:00 16.77 kg/m2 [facility] oximetry 2021-06-28 11:40:00 97 % [facility] respiratory rate 2021-06-28 11:40:00 16 /min Comm on [facility] blood pressure 2021-06-28 11:40:00 103 mm[Hg] [facility] - systolic [facility] blood pressure 2021-06-28 11:40:00 65 mm[Hg] [facility] - diastolic [facility] height 2021-06-14 16:30:00 73.50 [in_i] [facility] weight 2021-06-14 16:30:00 130 [lb_av] [facility] temperature 2021-06-14 16:30:00 97.5 [degF] [facility] bmi 2021-06-14 16:30:00 16.92 kg/m2 [facility] oximetry 2021-06-14 16:30:00 96 % [facility] respiratory rate 2021-06-14 16:30:00 16 /min Comm on [facility] blood pressure 2021-06-14 16:30:00 120 mm[Hg] [facility] - systolic [facility] blood pressure 2021-06-14 16:30:00 69 mm[Hg] [facility] - diastolic [facility] height 2021-04-22 10:20:00 73.50 [in_i] [facility] weight 2021-04-22 10:20:00 161.0 [lb_av] Common [facility] temperature 2021-04-22 10:20:00 97.6 [degF] [facility] bmi 2021-04-22 10:20:00 20.95 kg/m2 [facility] oximetry 2021-04-22 10:20:00 98 % [facility] respiratory rate 2021-04-22 10:20:00 15 /min Comm on [facility] blood pressure 2021-04-22 10:20:00 122 mm[Hg] [facility] - systolic [facility] blood pressure 2021-04-22 10:20:00 63 mm[Hg] [facility] - diastolic [facility] height 2021-04-22 10:00:00 73.50 [in_i] [facility] weight 2021-04-22 10:00:00 161.0 [lb_av] [facility] - [facility] temperature 2021-04-22 10:00:00 97.6 [degF] [facility] bmi 2021-04-22 10:00:00 20.95 kg/m2 [facility] oximetry 2021-04-22 10:00:00 98 % [facility] blood pressure 2021-04-22 10:00:00 122 mm[Hg] [facility] - systolic [facility] blood pressure 2021-04-22 10:00:00 63 mm[Hg] [facility] - diastolic [facility] height 2021-02-24 15:00:00 73.50 [in_i] [facility] weight 2021-02-24 15:00:00 161 [lb_av] [facility] temperature 2021-02-24 15:00:00 98.1 [degF] [facility] bmi 2021-02-24 15:00:00 20.95 kg/m2 [facility] oximetry 2021-02-24 15:00:00 97 % [facility] respiratory rate 2021-02-24 15:00:00 17 /min Comm on [facility] blood pressure 2021-02-24 15:00:00 115 mm[Hg] [facility] - systolic [facility] blood pressure 2021-02-24 15:00:00 70 mm[Hg] [facility] - diastolic [facility] Procedures Procedure Date / Time Performed Performing Clinician Sour e AUTOMATED VISUAL FIELD, EXTENDED 2021-09-19 15:37:53 JamesTony newton [facility] - OU - BOTH EYES AUTOMATED VISUAL FIELD, EXTENDED 2021-03-07 21:37:48 James Tony [facility] - OU - BOTH EYES MRI BRAIN W WO CONTRAST 2021-03-03 16:58:00 Leonardo Thomason [facility] MRI HEAD ANGIO W AND WO IV 2021-01-03 13:22:00 Michael Aguillon [facility] CONTRAST Encounters Start End Encounter Admission Attending Care Care Encounter Source Date/Time Date/Time Type Type Clinicians Facility Department ID 2022-06-26 Outpatient Mondragon, STLMLC STLMLC [id number] [facility] 09:45:01 [facility] [id number] [facility] 2022-04-28 Outpatient Mondragon, STLMLC STLMLC [id number] [facility] 12:50:01 [facility] [id number] [facility] 2022-04-11 Outpatient Mondragon, STLMLC STLMLC [id number] Common 10:45:00 [facility] [id number] [facility] 2022-03-21 Outpatient [facility] [id number] [place] 14:25:51 [id number] [facility] 2022-03-16 Outpatient Christianson, Na STLMLC STLMLC [id number] 2 Common 16:28:01 [facility] 2021-12-16 Outpatient Christianson, Na STLMLC STLMLC [id number] 2 Common 08:16:01 [facility] 2021-08-30 Outpatient Christianson, Na STLMLC STLMLC [id number] 2 Common 11:51:01 [facility] 2021-06-29 Outpatient Christianson, Na STLMLC STLMLC [id number] 2 Common 12:33:01 [facility] 2021-06-24 Outpatient Christianson, Na STLMLC STLMLC [id number] 2 [facility] 14:11:00 [facility] 2021-06-06 Outpatient Christianson, Na STLMLC STLMLC [id number] 2 [facility] 16:10:02 [facility] 2021-05-24 Outpatient Christianson, Na STLMLC STLMLC [id number] 2 [facility] 16:44:01 [facility] 2021-05-20 Outpatient DAVID, [facility] [id number] [place] 10:10:14 [facility] 2021-04-23 Outpatient JERE [facility] [id number] [place] 13:47:04 BRIAN DC [facility] 2021-04-20 Outpatient Christianson, Na STLMLC STLMLC [id number] 2 Common 14:25:16 [id number] [facility] 2021-04-20 Outpatient Christianson, Na STLMLC STLMLC [id number] 2 [facility] 14:14:58 [id number] [facility] 2021-04-20 Outpatient Christianson, Na STLMLC STLMLC [id number] 2 [facility] 13:49:11 [id number] [facility] 2021-04-20 Outpatient Christianson, Na STLMLC STLMLC [id number] 2 Common 13:45:40 [id number] [facility] 2021-04-20 Outpatient Christianson, Na STLMLC STLMLC [id number] 2 [facility] 12:38:51 [id number] [facility] 2021-04-20 Outpatient Christianson, Na STLMLC STLMLC [id number] 2 [facility] 12:37:46 [id number] [facility] 2021-04-20 Outpatient Christianson, Na STLMLC STLMLC [id number] 2 [facility] 12:30:50 [id number] [facility] 2021-04-20 Outpatient Christianson, Na STLMLC STLMLC [id number] 2 Common 12:15:45 [id number] [facility] 2021-04-12 Outpatient [facility] [id number] [place] 08:40:26 [facility] 2021-03-31 Outpatient TARYN WHITE [facility] [id number] [place] 13:13:47 [facility] 2021-02-09 Outpatient WENDY [facility] [id number] [place] 01:03:51 [facility] 2020-11-30 Outpatient LIZET, [facility] [id number] [place] 01:04:12 [facility] 2022-04-28 2022-04-28 OFFICE STLMLC STLMLC [id number] [place] m[place] 00:00:00 00:00:00 VISIT [facility] PT - CHI LEVEL 4 [facility] 2022-04-21 2022-04-21 (TEL) STLMLC STLMLC [id number] [facility] 00:00:00 00:00:00 [facility] 2022-03-10 2022-03-10 (TEL) STLMLC STLMLC [id number] [facility] 00:00:00 00:00:00 [facility] 2022-03-09 2022-03-09 OFFICE STLMLC STLMLC [id number] [facility] 00:00:00 00:00:00 VISIT [facility] PT - CHI LEVEL 2 [facility] 2022-03-09 2022-03-09 (TEL) STLMLC STLMLC [id number] [facility] 00:00:00 00:00:00 [facility] 2022-01-25 2022-01-25 OFFICE STLMLC STLMLC [id number] [facility] 00:00:00 00:00:00 VISIT NEW [facility] PT LEVEL 2 [facility] 2022-01-25 2022-01-25 (TEL) STLMLC STLMLC [id number] [facility] 00:00:00 00:00:00 [facility] 2022-01-23 2022-01-23 (TEL) STLMLC STLMLC [id number] [facility] 00:00:00 00:00:00 [facility] 2021-12-20 2021-12-20 (TEL) STLMLC STLMLC [id number] [facility] 00:00:00 00:00:00 [facility] 2021-12-19 2021-12-19 (TEL) STLMLC STLMLC [id number] [facility] 00:00:00 00:00:00 [facility] 2021-12-19 2021-12-19 OFFICE STLMLC STLMLC [id number] [facility] 00:00:00 00:00:00 [facility] - CHI LEVEL 4 [facility] 2021-11-04 2021-11-04 (TEL) STLMLC STLMLC [id number] [facility] 00:00:00 00:00:00 [facility] 2021-10-31 2021-10-31 OFFICE STLMLC STLMLC [id number] [facility] 00:00:00 00:00:00 [facility] - CHI LEVEL 1 [facility] 2021-10-27 2021-10-27 (TEL) STLMLC STLMLC [id number] [facility] 00:00:00 00:00:00 [facility] 2021-10-21 2021-10-21 (TEL) STLMLC STLMLC [id number] [facility] 00:00:00 00:00:00 [facility] 2021-10-17 2021-10-17 OFFICE STLMLC STLMLC [id number] [facility] 00:00:00 00:00:00 VISIT [facility] ESTAB PT - CHI LEVEL 4 [facility] 2021-10-14 2021-10-14 (TEL) STLMLC STLMLC [id number] [facility] 00:00:00 00:00:00 [facility] 2021-10-14 2021-10-14 Telephone ROSAS Mcintyre 6400 [id number] [place] 00:00:00 00:00:00 Ava HOBBS [id number] [facility] [id number] 2021-09-28 2021-09-28 (TEL) STLMLC STLMLC [id number] [facility] 00:00:00 00:00:00 [facility] 2021-09-27 2021-09-27 (TEL) STLMLC STLMLC [id number] [facility] 00:00:00 00:00:00 [facility] 2021-09-19 2021-09-19 Office ROSAS Ramirez 6400 [id number] [place] 09:00:00 10:31:[address] [id number] Health [id number] 2021-09-16 2021-09-16 (TEL) STLMLC STLMLC [id number] [facility] 00:00:00 00:00:00 [facility] 2021-09-14 2021-09-14 Outpatient ADALID [address] 09:40:00 12:47:00 YOLANDA 2021-09-09 2021-09-09 (TEL) STLMLC STLMLC [id number] [facility] 00:00:00 00:00:00 [facility] 2021-09-05 2021-09-05 (TEL) STLMLC STLMLC [id number] [facility] 00:00:00 00:00:00 [facility] 2021-08-30 2021-08-30 (TEL) STLMLC STLMLC [id number] [facility] 00:00:00 00:00:00 [facility] 2021-08-30 2021-08-30 OFFICE STLMLC STLMLC [id number] [facility] 00:00:00 00:00:00 VISIT [facility] LEVEL 4 [facility] 2021-08-30 2021-08-30 Telephone ROSAS [place] 6400 [id number] [place] 00:00:00 00:00:[address] [id number] Health [id number] 2021-08-23 2021-08-23 Telephone ROSAS [place] 6400 [id number] [place] 00:00:00 00:00:[address] [id number] Health [id number] 2021-08-19 2021-08-19 Office Bismark Hensley [facility] 6410 [id number] [place] 11:00:00 16:20:[address] [id number] Health [id number] 2021-07-19 2021-07-19 Office ROSAS [place] 6400 [id number] [place] 09:15:00 09:30:[address] [id number] Health [id number] 2021-07-06 2021-07-06 (TEL) STLMLC STLMLC [id number] [facility] 00:00:00 00:00:00 [facility] 2021-07-06 2021-07-06 (TEL) STLMLC STLMLC [id number] [facility] 00:00:00 00:00:00 [facility] 2021-06-29 2021-06-29 Telephone ROSAS [place] 6400 [id number] [place] 00:00:00 00:00:[address] [id number] Health [id number] 2021-06-28 2021-06-28 OFFICE STLMLC STLMLC [id number] Co mmon 00:00:00 00:00:00 VISIT [facility] LEVEL 4 [facility] 2021-06-28 2021-06-28 Telephone ROSAS [place] 6400 [id number] [place] 00:00:00 00:00:[address] [id number] Health [id number] 2021-06-27 2021-06-27 (TEL) STLMLC STLMLC [id number] Co mmon 00:00:00 00:00:00 [facility] 2021-06-14 2021-06-14 (TEL) STLMLC STLMLC [id number] Co mmon 00:00:00 00:00:00 [facility] 2021-06-14 2021-06-14 OFFICE STLMLC STLMLC [id number] Co mmon 00:00:00 00:00:00 VISIT EST Spir it PT LEVEL 3 - [facility] 2021-06-06 2021-06-06 (TEL) STLMLC STLMLC [id number] Co mmon 00:00:00 00:00:00 [facility] 2021-05-24 2021-05-24 (TEL) STLMLC STLMLC [id number] Co mmon 00:00:00 00:00:00 Spirit - [facility] 2021-05-20 2021-05-20 Office ROASS Keane 6410 [id number] [place] 08:30:00 10:09:41 Visit Edgar HOBBS [id number] Health [id number] 2021-04-29 2021-04-29 (TEL) STLMLC STLMLC [id number] Co mmon 00:00:00 00:00:00 [facility] 2021-04-22 2021-04-22 OFFICE STLMLC STLMLC [id number] Co mmon 00:00:00 00:00:00 VISIT EST Spir it PT LEVEL 3 - [facility] 2021-04-22 2021-04-22 SUB ANNUAL STLMLC STLMLC [id number] Common 00:00:00 00:00:00 [facility] WELLNESS - CHI VISIT [facility] 2021-04-20 2021-04-20 Telephone Kay Velasquez [facility] 1.2.840. [id number] [place] 00:00:00 00:00:00 Kay Velasquez [id number] Health MEDICAL [id number] PLAZA 1 [id number] 2021-04-12 2021-04-12 Office Taryn White [facility] [id number] [place] 09:00:00 10:18:19 [facility] [place] [id number] [facility] [id number] PLAZA 0 [id number] 2021-03-21 2021-03-21 (TEL) STLC STLMLC [id number] Co mmon 00:00:00 00:00:00 [facility] 2021-03-16 2021-03-16 Outpatient MHIE MHIE [id number] Memoria 09:45:00 09:45:00 02 herlinda Barclay 2021-03-16 2021-03-16 Outpatient MHIE MHIE [id number] Memoria 09:45:00 09:45:00 02 herlinda Barclay 2021-03-14 2021-03-14 OFFICE STLC STLC [id number] Co mmon 00:00:00 00:00:00 VISIT [facility] LEVEL 1 [facility] 2021-03-08 2021-03-08 (TEL) STLMLC STLMLC [id number] Co mmon 00:00:00 00:00:00 [facility] 2021-03-07 2021-03-07 Office James, ROSAS 6400 1.2.840.114 [id number] [place] 13:00:00 14:00:[address] [id number] Health [id number] 2021-03-07 2021-03-07 Office James, UTP 6400 1.2.840.114 [id number] [place] 13:00:00 14:00:[address] [id number] Health [id number] 2021-03-07 2021-03-07 (WEB) STLC STLMLC [id number] Co mmon 00:00:00 00:00:00 [facility] 2021-03-03 2021-03-03 EXT MHH OP Katelin, SEAN MSRDP 1.2.840.114 [id number] [place] 00:00:00 00:00:00 Anjail LOCATION [id number] H ealth [id number] 2021-03-03 2021-03-03 EXT MHH OP Katelin, EXT MSRDP 1.2.840.114 [id number] [place] 00:00:00 00:00:00 [facility] [id number] [facility] [id number] 2021-02-25 2021-02-25 (TEL) STLMLC STLMLC [id number] Co mmon 00:00:00 00:00:00 [facility] 2021-02-24 2021-02-24 OFFICE STLMLC STLMLC [id number] Co mmon 00:00:00 00:00:00 VISIT [facility] LEVEL 4 [facility] 2021-02-11 2021-02-11 (TEL) STLMLC STLMLC [id number] Co mmon 00:00:00 00:00:00 [facility] 2021-02-11 2021-02-11 (TEL) STLMLC STLMLC [id number] Co mmon 00:00:00 00:00:00 [facility] 2021-02-10 2021-02-10 (TEL) STLMLC STLMLC [id number] Co mmon 00:00:00 00:00:00 [facility] 2021-02-09 2021-02-09 Outpatient MHIE MHIE [id number] Memoria 08:45:00 08:45:00 01 [facility] 2021-02-09 2021-02-09 Outpatient MHIE MHIE [id number] Memoria 08:45:00 08:45:00 01 [facility] 2021-01-31 2021-01-31 (TEL) STLMLC STLMLC [id number] Co mmon 00:00:00 00:00:00 [facility] 2021-01-12 2021-01-12 Outpatient MHIE MHIE [id number] Memoria 15:00:00 15:00:00 00 [facility] 2021-01-12 2021-01-12 Outpatient MHIE MHIE [id number] Memoria 15:00:00 15:00:00 00 herlinda [place] 2021-01-03 2021-01-03 EXT MHH OP Savitz, EXT MSRDP 1.2.840.114 [id number] [place] 00:00:00 00:00:00 Michael LOCATION [id number] H ealth [id number] [id number] 2021-01-03 2021-01-03 EXT MHH OP Savitz, EXT MSRDP 1.2.840.114 [id number] [place] 00:00:00 00:00:00 Michael LOCATION [id number] H ealth [id number] 2020-12-31 2020-12-31 (TEL) STLMLC STLMLC [id number] Co mmon 00:00:00 00:00:00 [facility] 2020-12-29 2020-12-29 Outpatient STLMLC STLMLC [id number] Common 00:00:00 00:00:00 [facility] 2020-12-23 2020-12-23 Outpatient STLMLC STLMLC [id number] Common 00:00:00 00:00:00 [facility] 2020-12-22 2020-12-22 (TEL) STLMLC STLMLC [id number] Co mmon 00:00:00 00:00:00 [facility] 2020-12-17 2020-12-17 Outpatient STLMLC STLMLC [id number] Common 00:00:00 00:00:00 [facility] 2020-12-17 2020-12-17 Outpatient STLMLC STLMLC [id number] Common 00:00:00 00:00:00 [facility] 2020-12-15 2020-12-15 Outpatient STLMLC STLMLC [id number] Common 00:00:00 00:00:00 [facility] 2020-12-14 2020-12-14 Outpatient STLMLC STLMLC [id number] Common 00:00:00 00:00:00 [facility] 2020-12-14 2020-12-14 Outpatient STLMLC STLMLC [id number] Common 00:00:00 00:00:00 [facility] 2020-12-10 2020-12-10 Outpatient STLMLC STLMLC [id number] Common 00:00:00 00:00:00 [facility] 2020-12-08 2020-12-08 Outpatient STLMLC STLMLC [id number] Common 00:00:00 00:00:00 [facility] 2020-12-08 2020-12-08 Outpatient STLMLC STLMLC [id number] Common 00:00:00 00:00:00 [facility] 2020-12-08 2020-12-08 Outpatient STLMLC STLMLC [id number] Common 00:00:00 00:00:00 [facility] 2020-12-02 2020-12-02 Outpatient STLMLC STLMLC [id number] Common 00:00:00 00:00:00 [facility] 2020-11-26 2020-11-26 Outpatient STLMLC STLMLC [id number] Common 00:00:00 00:00:00 [facility] 2020-11-26 2020-11-26 Outpatient STLMLC STLMLC [id number] Common 00:00:00 00:00:00 [facility] 2020-11-26 2020-11-26 Outpatient STLMLC STLMLC [id number] Common 00:00:00 00:00:00 [facility] 2020-11-24 2020-11-24 Outpatient STLMLC STLMLC [id number] Common 00:00:00 00:00:00 [facility] 2020-11-22 2020-11-22 Outpatient STLMLC STLMLC [id number] Common 00:00:00 00:00:00 [facility] 2020-11-19 2020-11-19 Outpatient STLMLC STLMLC [id number] Common 00:00:00 00:00:00 [facility] 2020-11-08 2020-11-08 Outpatient [facility]JFHBK [facility]H 00:00:00 00:00:00 [id number] 2020-10-30 2020-10-30 EXT [facility] OP Garcia, EXT MSRDP 1.2.840.114 [id number] [place] 00:00:00 00:00:00 Awais Adler LOCATION [id number] Health [id number] 2020-10-30 2020-10-30 EXT [facility] OP Jose, EXT MSRDP 1.2.840.114 [id number] [place] 00:00:00 00:00:00 Awais Adler LOCATION [id number] Health [id number] 2020-06-03 2020-06-03 Outpatient [facility] [id number] Common 00:00:00 00:00:00 [facility] 2020-05-04 2020-05-04 Outpatient [facility] [id number] Common 00:00:00 00:00:00 [facility] Results Test Description Test Time Test Comments Results Result Comments Source HEMOGLOBIN A1C Test Item Value Reference Range Interpretation Comme nts A1C (test code = 4548-4) 6.4 SARS-COV 2 AntigenSARS-COV 2 Antigen
--- NOTE | 2022-09-11 22:28 | ER ---
Nurse's Notes [facility] Name: Contreras Naranjo Age: 71 yrs Sex: Male : 1950 Arrival Date: 09/11/2022 Time: 21:48 Bed 14 Private MD: Diagnosis: Encounter for attention to gastrostomy Presentation: 09/11 22:06 Chief complaint: Spouse and/or significant other states: "For a few weeks now, his PEG mb9 tube has been acting up. Dr. Doherty said he would replace it after we got clearance from Dr. Lopez. Dr. Lopez gave us clearance to replace it today. But his PEG tube hasn't been flushing and I couldn't give him his feeding or medications that were due today.". Coronavirus screen: Vaccine status: Patient reports receiving the 2nd dose of the covid vaccine. Ebola Screen: No symptoms or risks identified at this time. Initial Sepsis Screen: Does the patient meet any 2 criteria? No. Patient's initial sepsis screen is negative. Does the patient have a suspected source of infection? No. Patient's initial sepsis screen is negative. Risk Assessment: Do you want to hurt yourself or someone else? Patient reports no desire to harm self or others. Onset of symptoms was September 11, 2022. 22:06 Method Of Arrival: Wheelchair mb9 22:06 Acuity: NANCY 4 mb9 Triage Assessment: 22:10 General: Appears in no apparent distress. Behavior is calm, cooperative, appropriate mb9 for age. Pain: Denies pain. Neuro: Level of Consciousness is awake, alert, obeys commands, Oriented to person, place, time, situation, Appropriate for age. Respiratory: Airway is patent Respiratory effort is even, unlabored, Respiratory pattern is regular, symmetrical. GI: PEG tube clamped. Patient currently denies nausea, pain. Derm: Skin is pink, warm \\T\\ dry. 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 - Social history:: Smoking status: Patient denies any tobacco usage or history of. Screenin:30 [facility] ED Fall Risk Assessment (Adult) History of falling in the last 3 months, jb4 including since admission No falls in past 3 months (0 pts) Confusion or Disorientation No (0 pts) Score/Fall Risk Level 0 - 2 = Low Risk Oriented to surroundings, Maintained a safe environment. Abuse screen: Denies threats or abuse. Nutritional screening: No deficits noted. Tuberculosis screening: No symptoms or risk factors identified. Assessment: 22:11 Reassessment: see triage assessment. mb9 22:29 Reassessment: PEG irrigated and now able to be flushed with ease. pt denies any pain jb4 after PEG tube being flushed. Vital Signs: 22:06 BP 171 / 81; Pulse 70; Resp 16; Temp 98.8(O); Pulse Ox 100% ; Weight 65.32 kg (M); mb9 Height 6 ft. 1 in. ; 22:06 Body Mass Index 19.00 (65.32 kg, 185.42 cm) mb9 ED Course: 21:50 Patient arrived in ED. jj6 21:54 Krissy Finn FNP-C is [facility]. kb 21:54 Wiliam De Dios MD is Attending Physician. kb 22:06 Arm band placed on. mb9 22:08 Triage completed. mb9 22:11 Placed in gown. Bed in low position. Call light in reach. Side rails up X 1. Client mb9 placed on continuous cardiac and pulse oximetry monitoring. NIBP monitoring applied. 22:30 No provider procedures requiring assistance completed. Patient did not have IV access jb4 during this emergency room visit. Administered Medications: No medications were administered Medication: 22:11 VIS not applicable for this client. mb9 Outcome: 22:28 Discharge ordered by . kb 22:30 Discharged to home via wheelchair, with family. jb4 22:30 Condition: stable 22:30 Discharge instructions given to patient, family, Instructed on discharge instructions, follow up and referral plans. Demonstrated understanding of instructions, follow-up care. 22:30 Patient left the ED. jb4 Signatures: Krissy Finn FNP-C FNP-Ckb Bryson, James, RN RN jb4 Rajani Cainj6 Laura Dickson, RN RN mb9 Corrections: (The following items were deleted from the chart) 22:11 22:06 Acuity: NANCY 3 mb9 mb9
--- NOTE | 2022-09-11 22:28 | EDPHYS ---
Physician Documentation [facility] Name: Contreras Naranjo Age: 71 yrs Sex: Male : 1950 Arrival Date: 09/11/2022 Time: 21:48 Bed 14 Private MD: ED Physician Wiliam De Dios HPI: 09/11 22:27 This 71 yrs old Male presents to ER via Wheelchair with complaints of Problem kb With Feeding Tube. 22:27 reports she tried to connect pt to his tube feeding at 1900 and his tube would not kb flush. States he has an appt with Dr Doherty to have the tube changed out because it has been in for 2 years.. Onset: The symptoms/episode began/occurred just prior to arrival. Severity of symptoms: At their worst the symptoms were mild in the emergency department the symptoms are unchanged. The patient has not experienced similar symptoms in the past. The patient has been recently seen by a physician:. 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 - Social history:: Smoking status: Patient denies any tobacco usage or history of. ROS: 22:26 Constitutional: Negative for fever, chills, and weight loss. kb 22:26 All other systems are negative. Exam: 22:26 Constitutional: This is a well developed, well nourished patient who is awake, alert, kb and in no acute distress. Head/Face: Normocephalic, atraumatic. ENT: Moist Mucous membranes Cardiovascular: Regular rate and rhythm with a normal S1 and S2. No gallops, murmurs, or rubs. No pulse deficits. Respiratory: Respirations even and unlabored. No increased work of breathing. Talking in full sentences Abdomen/GI: Soft, non-tender. No distention Skin: Warm, dry with normal turgor. Normal color. MS/ Extremity: Pulses equal, no cyanosis. Neurovascular intact. Full, normal range of motion. Neuro: Awake and alert, GCS 15, oriented to person, place, time, and situation. Vital Signs: 22:06 BP 171 / 81; Pulse 70; Resp 16; Temp 98.8(O); Pulse Ox 100% ; Weight 65.32 kg (M); mb9 Height 6 ft. 1 in. ; 22:06 Body Mass Index 19.00 (65.32 kg, 185.42 cm) mb9 MDM: 21:54 Patient medically screened. kb 22:26 Data reviewed: vital signs, nurses notes. Historians other than the Patient: marina Spouse/Significant Other: . Counseling: I had a detailed discussion with the patient and/or guardian regarding: the historical points, exam findings, and any diagnostic results supporting the discharge/admit diagnosis, the need for outpatient follow up, a family practitioner, a general surgeon, to return to the emergency department if symptoms worsen or persist or if there are any questions or concerns that arise at home. 22:28 ED course: RN was able to flush PEG tube. . kb 09/11 22:12 Order name: Flavio. Order: flush PEG tube ; Complete Time: 22:29 kb Administered Medications: No medications were administered Disposition: 22:35 Co-signature as Attending Physician, Wiliam De Dios MD I reviewed the patient's care rn provided by the Advanced Practice Provider and agree with the diagnosis and treatment plan. Disposition Summary: 09/11/22 22:28 Discharge Ordered Location: Home kb Condition: Stable kb Diagnosis - Encounter for attention to gastrostomy kb Followup: kb - With: Emergency Department - When: As needed - Reason: Worsening of condition Followup: kb - With: Private Physician - When: 2 - 3 days - Reason: Recheck today's complaints, Continuance of care, Re-evaluation by your physician Discharge Instructions: - Discharge Summary Sheet kb - PEG Tube Home Guide, [id number] kb Forms: - Medication Reconciliation Form kb - Thank You Letter kb - Antibiotic Education kb - Prescription Opioid Use kb Signatures: Krissy Finn, AMANDA-C AMANDA-Wiliam Man MD MD rn Breneman, Mary Beth, RN RN mb9
[2022-09-11 22:46] VITALS: BP 171/81; TEMP 98.8; O2SAT 100
== END 2022-09-11 22:30 | disposition home or self-care (01) ==
LOC: ER 21:48
DX: Z43.1 Encounter for attention to gastrostomy (principal)
CPT/HCPCS: 99282

== ENCOUNTER → 2022-09-15 | Day surgery (SDC) | payer OTHER ==
[~2022-09-15] MED LIST: CEFAZOLIN SODIUM 1 GM/VIAL ONE; FENTANYL CITR 100 MCG/2 ML ONE; MIDAZOLAM HCL 2 MG/2 ML INJ ONE; NA CHLORIDE 0.9% 1,000 ML ONE; propofoL 200 MG/20 ML VIAL IV ONE
--- OUTSIDE RECORDS SUMMARY | 2022-09-15 11:53 | XMS REPORT | Continuity of Care Document ---
:1950 Author Organization [facility] t Address [address] [place] [address] Care Team Providers Name Role Phone Unknown, [...] Policy Number Effective Date Expiration Date S [facility] [id number] 2020 00:00:00 [facility] C1 [id number] [facility] (HMO) [facility] C1 [id number] [facility] - [facility] Complete (HMO) [facility] C1 [id number] [facility] - [facility] Complete (O) [place] [id number] [facility] - [facility] Complete (O) [place] [address] [id number] [facility] - [facility] Complete (O) [facility] Problems Condition Condition Condition Status Onset Resolution [...] vision, 1-15 Health bilateral bilateral 00:00: 00 [id number] Incomplete Problem Co mmon emptying Spirit of bladder - [facility] [id number] H/O: CVA Problem Comm on (cerebrova Spirit scular - [facility] accident) [facility] [id number] Lower Problem Common urinary [facility] tract [facility] 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[facility] mellitus mellitus - [facility] without without St complicati complicati [facility] [id number] BPH loc w Problem Com mon urin Spirit obs/LUTS - [facility] Essential Essential Problem Com mon hypertensi hypertensi Sp david on on - [facility] Vitamin D Vitamin D Problem Com mon deficiency deficiency Sp david - [facility] [id number] History of Problem Co mmon CVA with Spirit residual - [facility] deficit [facility] [id number] Type 2 Problem Common diabetes [facility] mellitus - [facility] with [facility] [id number] Mixed Problem Common hyperlipid Spirit emia - [facility] [id number] S/P CHARGE ENTRY Problem Common shunt Spirit - [facility] [id number] PEG Problem Common (percutane Spirit ous - CHI endoscopic St gastrostom 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 in [facility] cerebellum Center Attention Attention Problem Com mon to to Spirit gastrostom gastrostom - [facility] y tube y tube [facility] Attention Encounter Problem Com mon to for Spirit gastrostom attention - C HI y to gastrostom [facility] Allergies, Adverse Reactions, Alerts This patient has no known allergies or adverse reactions. Social History Social Habit Start Date Stop Date Quantity Comments Source History of [facility] - Tobacco Use [facility] Sex Assigned At [facility] david - [facility] Exposure to 2021-09-09 2021-09-19 Not sure [facility] SARS-CoV-2 00:00:00 08:39:00 (event) Alcohol intake 2021-09-19 2021-09-19 Ex-drinker [facility] 00:00:00 00:00:00 (finding) Tobacco use and 2021-04-12 2021-04-12 Smokeless tobacco [facility] exposure 00:00:00 00:00:00 non-user Smoking Status Start Date Stop Date Source Tobacco smoking [facility] consumption unknown Former Smoker 2022-06-26 00:00:00 2022-06-26 [facility] - [facility] 00:00:00 [facility] Medications Ordered Filled Start Stop Current [...] Take 1 UT Vitamins-Mi 6-27 tablet by [facility] nerals 09:28: mouth 1 (multivitam 37 (one) time in with each day. minerals) tablet amLODIPine 2021-0 Yes amlodipine U T Besylate 6-27 5 mg [facility] PO) 37 atorvastati 2021-0 Yes 20mg [...] Take 1 UT Vitamins-Mi 6-27 tablet by [facility] nerals 09:28: mouth 1 (multivitam 37 [...] [facility] T Besylate 5-27 5 mg [facility] 10[facility]59: PO) 24 atorvastati 2021-0 Yes 20mg [...] 00:00: 00:00 00 :00 meloxicam 2021-0 Yes [id number] TAKE 1 UT (Mobic) 15 2-10 [id number] TABLET (15 H ealth MG tablet 00:00: MG TOTAL) 00 BY MOUTH ONE TIME EACH DAY. meloxicam 0 Yes [id number] TAKE 1 UT (Mobic) 15 2-10 [id number] TABLET (15 H ealth MG tablet 00:00: MG TOTAL) 00 BY MOUTH ONE TIME EACH DAY. meloxicam 2021-0 Yes [id number] TAKE 1 UT (Mobic) 15 2-10 [id number] TABLET (15 H ealth MG tablet 00:00: MG TOTAL) 00 BY MOUTH ONE TIME EACH DAY. meloxicam 2021-0 Yes [id number] TAKE 1 UT (Mobic) 15 2-10 [id number] TABLET (15 H ealth MG tablet 00:00: MG TOTAL) 00 BY MOUTH ONE TIME EACH DAY. Diclofenac 0 Yes [id number] Apply [facility] Sodium 1-18 [id number] topically Health (Voltaren) 00:00: 4 (four) 1 % 00 times a external day if gel needed (pain). Do not apply more than 8 grams daily. Diclofenac 0 Yes [id number] Apply [facility] Sodium 1-18 [id number] topically Health (Voltaren) 00:00: 4 (four) 1 % 00 times a external day if gel needed (pain). Do not apply more than 8 grams daily. Diclofenac 0 Yes [id number] Apply [facility] Sodium 1-18 [id number] topically Health (Voltaren) 00:00: 4 (four) 1 % 00 times a external day if gel needed (pain). Do not apply more than 8 grams daily. Diclofenac 0 Yes [id number] Apply [facility] Sodium 1-18 [id number] topically Health (Voltaren) 00:00: 4 (four) 1 % 00 times a external day if gel needed (pain). Do not apply more than 8 grams daily. Diclofenac 0 Yes [id number] Apply [facility] Sodium 1-18 [id number] topically Health (Voltaren) 00:00: 4 (four) 1 % 00 times a external day if gel needed (pain). Do not apply more than 8 grams daily. meloxicam 2021-0 202- No [id number] 15mg QD Take 1 UT (Mobic) 15 1-18 02-10 [id number] tablet (15 Health MG tablet 00:00: 00:00 [...] 00 Glucerna Glucerna 2021-0 No Glucerna 1.0 Ahnk - 1.0 Hank - 12-08 1.0 Hank [...] Nystatin Nystatin 2021- No 4{ml} QID Nystatin 313981 992883 04-05 [id number] UNIT/ML UNIT/ML 00:00 UNIT/ML :00 Nystatin Nystatin 2021- No 4{ml} QID Nystatin 173630 354357 04-05 269757 UNIT/ML UNIT/ML 00:00 UNIT/ML :00 Nystatin Nystatin 2021- No 4{ml} QID Nystatin 590863 037159 04-05 339309 UNIT/ML UNIT/ML 00:00 UNIT/ML :00 Nystatin Nystatin 2- No 4{ml} QID Nystatin 471144 [id number] 01-11 [id number] UNIT/ML UNIT/ML 00:00 UNIT/ML :00 Nystatin Nystatin 2- No 4{ml} QID Nystatin 257101 [id number] 01-11 184219 UNIT/ML UNIT/ML 00:00 UNIT/ML :00 Nystatin Nystatin 2- No 4{ml} QID Nystatin 089232 974324 01-11 [id number] UNIT/ML UNIT/ML 00:00 UNIT/ML :00 Nystatin Nystatin 2- No 4{ml} QID Nystatin 001648 888356 01-11 175053 UNIT/ML UNIT/ML 00:00 UNIT/ML :00 Nystatin Nystatin 2- No 4{ml} QID Nystatin 989649 215786 01-11 024893 UNIT/ML UNIT/ML 00:00 UNIT/ML :00 Nystatin Nystatin 2- No 4{ml} QID Nystatin 174541 028479 01-11 205453 UNIT/ML UNIT/ML 00:00 UNIT/ML :00 Nystatin Nystatin 2- No 4{ml} QID Nystatin 363970 800353 -11 611314 UNIT/ML UNIT/ML 00:00 UNIT/ML :00 Immunizations Ordered Immunization Filled Immunization Date Status Commen ts Source Name Name Prevnar 20 (PCV20) Prevnar 20 (PCV20) 2022-06-26 [facility]pleted [facility] 13:10:00 - [facility] FLUZONE HIGH DOSE FLUZONE HIGH DOSE 2021-12-19 Completed [facility] OVER 65 OVER 65 12:36:00 - [facility] FLUZONE HIGH DOSE FLUZONE HIGH DOSE 2021-12-19 Completed [facility] OVER 65 OVER 65 12:36:00 - [facility] FLUZONE HIGH DOSE FLUZONE HIGH DOSE 2021-12-19 Completed [facility] OVER 65 OVER 65 12:36:00 - [facility] FLUZONE HIGH DOSE FLUZONE HIGH DOSE 2021-12-19 Completed [facility] OVER 65 OVER 65 12:36:00 - [facility] FLUZONE HIGH DOSE FLUZONE HIGH DOSE 2021-12-19 Completed [facility] OVER 65 OVER 65 12:36:00 - [facility] FLUZONE HIGH DOSE FLUZONE HIGH DOSE 2021-12-19 Completed [facility] OVER 65 OVER 65 12:36:00 - [facility] FLUZONE HIGH DOSE FLUZONE HIGH DOSE 2021-12-19 Completed [facility] OVER 65 OVER 65 12:36:00 - [facility] FLUZONE HIGH DOSE FLUZONE HIGH DOSE 2021-12-19 Completed [facility] OVER 65 OVER 65 12:36:00 - [facility] FLUZONE HIGH DOSE FLUZONE HIGH DOSE 2021-12-19 Completed [facility] OVER 65 OVER 65 12:36:00 - [facility] FLUZONE HIGH DOSE FLUZONE HIGH DOSE 2021-12-19 Completed [facility] OVER 65 OVER 65 12:36:00 - [facility] FLUZONE HIGH DOSE FLUZONE HIGH DOSE 2021-12-19 Completed [facility] OVER 65 OVER 65 12:36:00 - [facility] FLUZONE HIGH DOSE FLUZONE HIGH DOSE 2021-12-19 Completed [facility] OVER 65 OVER 65 12:36:00 - [facility] FLUZONE HIGH DOSE FLUZONE HIGH DOSE 2021-12-19 Completed [facility] OVER 65 OVER 65 12:36:00 - [facility] FLUZONE HIGH DOSE FLUZONE HIGH DOSE 2021-12-19 Completed [facility] OVER 65 OVER 65 12:36:00 - [facility] FLUZONE HIGH DOSE FLUZONE HIGH DOSE 2021-12-19 Completed [facility] OVER 65 OVER 65 12:36:00 - [facility] COVID-19 Pfizer 2021-03-01 [facility] [...] Fluzone 2021-02-24 Completed [facility] 16:31:00 - [facility] Fluzone Fluzone 2021-02-24 Completed [facility] 16:31:00 - [facility] Fluzone Fluzone 2021-02-24 Completed [facility] 16:31:00 - [facility] Fluzone Fluzone 2021-02-24 Completed [facility] 16:31:00 - [facility] Fluzone Fluzone 2021-02-24 Completed [facility] 16:31:00 - [facility] Fluzone Fluzone 2021-02-24 Completed [facility] 16:31:00 - [facility] Fluzone Fluzone 2021-02-24 Completed [facility] 16:31:00 - [facility] Fluzone Fluzone 2021-02-24 Completed [facility] 16:31:00 - [facility] Fluzone Fluzone 2021-02-24 Completed [facility] 16:31:00 - [facility] Fluzone Fluzone 2021-02-24 Completed [facility] 16:31:00 - [facility] Fluzone Fluzone 2021-02-24 Completed [facility] 16::00 - [facility] Fluzone Fluzone 2021-02-24 Completed [facility] 16:31:00 - [facility] Fluzone Fluzone 2021-02-24 Completed [facility] 16::00 - [facility] Fluzone Fluzone 2021-02-24 Completed [facility] 16:31:00 - [facility] Fluzone Fluzone 2021-02-24 Completed [facility] 16:31:00 - [facility] Fluzone Fluzone 2021-02-24 Completed [facility] 16:31:00 - [facility] Fluzone Fluzone 2021-02-24 Completed [facility] 16:31:00 - [facility] Fluzone Fluzone 2021-02-24 Completed [facility] 16:31:00 - [facility] Fluzone Fluzone 2021-02-24 Completed [facility] 16:31:00 - [facility] Fluzone Fluzone 2021-02-24 Completed [facility] 16:31:00 - [facility] Fluzone Fluzone 2021-02-24 Completed [facility] 16:31:00 - [facility] Fluzone Fluzone 2021-02-24 Completed [facility] 16:31:00 - [facility] Fluzone Fluzone 2021-02-24 Completed [facility] 16:31:00 - [facility] Fluzone Fluzone 2021-02-24 Completed [facility] 16:31:00 - [facility] Fluzone Fluzone 2021-02-24 Completed [facility] 16:31:00 - [facility] Fluzone Fluzone 2021-02-24 Completed [facility] 16:31:00 - [facility] Fluzone Fluzone 2021-02-24 Completed [facility] 16::00 - [facility] Fluzone Fluzone 2021-02-24 Completed [facility] 16:31:00 - [facility] Fluzone Fluzone 2021-02-24 Completed [facility] 16::00 - [facility] Fluzone Fluzone 2021-02-24 Completed [facility] 16:31:00 - [facility] Fluzone Fluzone 2021-02-24 Completed [facility] 16::00 - [facility] Fluzone Fluzone 2021-02-24 Completed [facility] 16:31:00 - [facility] Fluzone Fluzone 2021-02-24 Completed [facility] 16:31:00 - [facility] Fluzone Fluzone 2021-02-24 Completed [facility] 16:31:00 - [facility] Fluzone Fluzone 2021-02-24 Completed [facility] 16:31:00 - [facility] Fluzone Fluzone 2021-02-24 Completed [facility] 16:31:00 - [facility] Fluzone Fluzone 2021-02-24 Completed [facility] 16:31:00 - [facility] Fluzone Fluzone 2021-02-24 Completed [facility] 16:31:00 - [facility] Fluzone Fluzone 2021-02-24 Completed [facility] 16:31:00 - [facility] Fluzone Fluzone 2021-02-24 Completed [facility] 16:31:00 - [facility] Fluzone Fluzone 2021-02-24 Completed [facility] 16:31:00 - [facility] Fluzone Fluzone 2021-02-24 Completed [facility] 16:31:00 - [facility] Fluzone Fluzone 2021-02-24 Completed [facility] 16:31:00 - [facility] Fluzone Fluzone 2021-02-24 Completed [facility] 16::00 - [facility] Fluzone Fluzone 2021-02-24 Completed [facility] 16:31:00 - [facility] Influenza, seasonal, 2021-02-[facility]:00 Influenza, seasonal, 2021-02-24 [facility] 00:00:00 Influenza, seasonal, 2021-02-24 [facility] 00:00:00 Influenza, seasonal, 2021-02-24 [facility] 00:00:00 Influenza, seasonal, 2021-02-24 [facility] 00:00:00 FluAD FluAD 2020-03-05 Completed [facility] 11:53:00 - [facility] FluAD FluAD 2020-03-05 Completed [facility] 11:53:00 - [facility] FluAD FluAD 2020-03-05 Completed [facility] 11:53:00 - [facility] FluAD FluAD 2020-03-05 Completed [facility] 11:53:00 - [facility] FluAD FluAD 2020-03-05 Completed [facility] 11:53:00 - [facility] FluAD FluAD 2020-03-05 Completed [facility] 11:53:00 - [facility] FluAD FluAD 2020-03-05 Completed [facility] 11:53:00 - [facility] FluAD FluAD 2020-03-05 Completed [facility] 11:53:00 - [facility] FluAD FluAD 2020-03-05 Completed [facility] 11:53:00 - [facility] FluAD FluAD 2020-03-05 Completed [facility] 11:53:00 - [facility] FluAD FluAD 2020-03-05 Completed [facility] 11:53:00 - [facility] FluAD FluAD 2020-03-05 Completed [facility] 11:53:00 - [facility] FluAD FluAD 2020-03-05 Completed [facility] 11:53:00 - [facility] FluAD FluAD 2020-03-05 Completed [facility] 11:53:00 - [facility] FluAD FluAD 2020-03-05 Completed [facility] 11:53:00 - [facility] FluAD FluAD 2020-03-05 Completed [facility] 11:53:00 - [facility] FluAD FluAD 2020-03-05 Completed [facility] 11:53:00 - [facility] FluAD FluAD 2020-03-05 Completed [facility] 11:53:00 - [facility] FluAD FluAD 2020-03-05 Completed [facility] 11:53:00 - [facility] FluAD FluAD 2020-03-05 Completed [facility] 11:53:00 - [facility] FluAD FluAD 2020-03-05 Completed [facility] 11:53:00 - [facility] FluAD FluAD 2020-03-05 Completed [facility] 11:53:00 - [facility] FluAD FluAD 2020-03-05 Completed [facility] 11:53:00 - [facility] FluAD FluAD 2020-03-05 Completed [facility] 11:53:00 - [facility] FluAD FluAD 2020-03-05 Completed [facility] 11:53:00 - [facility] FluAD FluAD 2020-03-05 Completed [facility] 11:53:00 - [facility] FluAD FluAD 2020-03-05 Completed [facility] 11:53:00 - [facility] FluAD FluAD 2020-03-05 Completed [facility] 11:53:00 - [facility] FluAD FluAD 2020-03-05 Completed [facility] 11:53:00 - [facility] FluAD FluAD 2020-03-05 Completed [facility] 11:53:00 - [facility] FluAD FluAD 2020-03-05 Completed [facility] 11:53:00 - [facility] FluAD FluAD 2020-03-05 Completed [facility] 11:53:00 - [facility] FluAD FluAD 2020-03-05 Completed [facility] 11:53:00 - [facility] FluAD FluAD 2020-03-05 Completed [facility] 11:53:00 - [facility] FluAD FluAD 2020-03-05 Completed [facility] 11:53:00 - [facility] FluAD FluAD 2020-03-05 Completed [facility] 11:53:00 - [facility] FluAD FluAD 2020-03-05 Completed [facility] 11:53:00 - [facility] FluAD FluAD 2020-03-05 Completed [facility] 11:53:00 - [facility] FluAD FluAD 2020-03-05 Completed [facility] 11:53:00 - [facility] FluAD FluAD 2020-03-05 Completed [facility] 11:53:00 - [facility] FluAD FluAD 2020-03-05 Completed [facility] 11:53:00 - [facility] FluAD FluAD 2020-03-05 Completed [facility] 11:53:00 - [facility] FluAD FluAD 2020-03-05 Completed [facility] 11:53:00 - [facility] FluAD FluAD 2020-03-05 Completed [facility] 11:53:00 - [facility] FluAD FluAD 2020-03-05 Completed [facility] 11:53:00 - [facility] FluAD FluAD 2020-03-05 Completed [facility] 11:53:00 - [facility] FluAD FluAD 2020-03-05 Completed [facility] 11:53:00 - [facility] FluAD FluAD 2020-03-05 Completed [facility] 11:53:00 - [facility] FluAD FluAD 2020-03-05 Completed [facility] 11:53:00 - [facility] FluAD FluAD 2020-03-05 Completed [facility] 11:53:00 [facility] Vital Signs Vital Name Observation Time Observation Value Comments Source height 2022-04-28 13:00:00 73.5 [in_i] [facility] weight 2022-04-28 13:00:00 130 [lb_av] [facility] temperature 2022-04-28 13:00:00 97.2 [degF] [facility] bmi 2022-04-28 13:00:00 16.92 kg/m2 [facility] oximetry 2022-04-28 13:00:00 96 % [facility] respiratory rate 2022-04-28 13:00:00 16 /min Comm on [facility] blood pressure 2022-04-28 13:00:00 118 mm[Hg] [facility] - systolic [facility] blood pressure 2022-04-28 13:00:00 64 mm[Hg] [facility] - diastolic [facility] height 2022-03-09 08:15:00 73.5 [in_i] [facility] weight 2022-03-09 08:15:00 130 [lb_av] [facility] temperature 2022-03-09 08:15:00 97.6 [degF] [facility] bmi 2022-03-09 08:15:00 16.92 kg/m2 [facility] oximetry 2022-03-09 08:15:00 98 % [facility] respiratory rate 2022-03-09 08:15:00 18 /min Comm on [facility] blood pressure 2022-03-09 08:15:00 132 mm[Hg] [facility] - systolic [facility] blood pressure 2022-03-09 08:15:00 68 mm[Hg] Common [facility] - diastolic [facility] height 2022-01-25 10:30:00 73.5 [in_i] Common [facility] weight 2022-01-25 10:30:00 130 [lb_av] Common [facility] temperature 2022-01-25 10:30:00 99.3 [degF] [facility] bmi 2022-01-25 10:30:00 16.92 kg/m2 Common S pirit [facility] oximetry 2022-01-25 10:30:00 96 % Common S [facility] respiratory rate 2022-01-25 10:30:00 16 /min Comm on [facility] blood pressure 2022-01-25 10:30:00 125 mm[Hg] Common [facility] - systolic [facility] blood pressure 2022-01-25 10:30:00 62 mm[Hg] Common [facility] - diastolic [facility] height 2021-12-19 11:00:00 73.5 [in_i] Common [facility] weight 2021-12-19 11:00:00 128.0 [lb_av] [facility] temperature 2021-12-19 11:00:00 97.9 [degF] [facility] bmi 2021-12-19 11:00:00 16.66 kg/m2 [facility] S [facility] oximetry 2021-12-19 11:00:00 97 % Common S [facility] respiratory rate 2021-12-19 11:00:00 15 /min Comm on [facility] blood pressure 2021-12-19 11:00:00 101 mm[Hg] Common [facility] - systolic [facility] blood pressure 2021-12-19 11:00:00 57 mm[Hg] Common [facility] - diastolic [facility] height 2021-10-31 14:20:00 73.5 [in_i] Common [facility] weight 2021-10-31 14:20:00 128 [lb_av] [facility] temperature 2021-10-31 14:20:00 97.8 [degF] [facility] bmi 2021-10-31 14:20:00 16.66 kg/m2 [facility] height 2021-10-17 14:40:00 73.50 [in_i] [facility] weight 2021-10-17 14:40:00 128 [lb_av] [facility] temperature 2021-10-17 14:40:00 98.0 [degF] [facility] bmi 2021-10-17 14:40:00 16.66 kg/m2 [facility] oximetry 2021-10-17 14:40:00 95 % [facility] respiratory rate 2021-10-17 14:40:00 15 /min Comm on [facility] blood pressure 2021-10-17 14:40:00 111 mm[Hg] Common [facility] - systolic [facility] blood pressure 2021-10-17 14:40:00 74 mm[Hg] Common [facility] - diastolic [facility] height 2021-08-30 11:20:00 73.50 [in_i] [facility] weight 2021-08-30 11:20:00 128 [lb_av] [facility] bmi 2021-08-30 11:20:00 16.66 kg/m2 [facility] height 2021-06-28 11:40:00 73.50 [in_i] [facility] weight 2021-06-28 11:40:00 128.9 [lb_av] [facility] temperature 2021-06-28 11:40:00 98.1 [degF] [facility] bmi 2021-06-28 11:40:00 16.77 kg/m2 [facility] oximetry 2021-06-28 11:40:00 97 % Common S [facility] respiratory rate 2021-06-28 11:40:00 16 /min Comm on [facility] blood pressure 2021-06-28 11:40:00 103 mm[Hg] Common [facility] - systolic [facility] blood pressure 2021-06-28 11:40:00 65 mm[Hg] Common [facility] - diastolic [facility] height 2021-06-14 16:30:00 73.50 [in_i] Common [facility] weight 2021-06-14 16:30:00 130 [lb_av] [facility] temperature 2021-06-14 16:30:00 97.5 [degF] [facility] bmi 2021-06-14 16:30:00 16.92 kg/m2 [facility] oximetry 2021-06-14 16:30:00 96 % Common [facility] respiratory rate 2021-06-14 16:30:00 16 /min Comm on [facility] blood pressure 2021-06-14 16:30:00 120 mm[Hg] Common [facility] - systolic [facility] blood pressure 2021-06-14 16:30:00 69 mm[Hg] Common [facility] - diastolic [facility] height 2021-04-22 10:20:00 73.50 [in_i] [facility] weight 2021-04-22 10:20:00 161.0 [lb_av] Common [facility] temperature 2021-04-22 10:20:00 97.6 [degF] Common S [facility] bmi 2021-04-22 10:20:00 20.95 kg/m2 Common [facility] oximetry 2021-04-22 10:20:00 98 % Common [facility] respiratory rate 2021-04-22 10:20:00 15 /min Comm on [facility] blood pressure 2021-04-22 10:20:00 122 mm[Hg] Common [facility] - systolic [facility] blood pressure 2021-04-22 10:20:00 63 mm[Hg] Common [facility] - diastolic [facility] height 2021-04-22 10:00:00 73.50 [in_i] Common [facility] weight 2021-04-22 10:00:00 161.0 [lb_av] Common [facility] - [facility] temperature 2021-04-22 10:00:00 97.6 [degF] Common S [facility] bmi 2021-04-22 10:00:00 20.95 kg/m2 [facility] S [facility] oximetry 2021-04-22 10:00:00 98 % Common [facility] blood pressure 2021-04-22 10:00:00 122 mm[Hg] Common [facility] - systolic [facility] blood pressure 2021-04-22 10:00:00 63 mm[Hg] [facility] - diastolic [facility] height 2021-02-24 15:00:00 73.50 [in_i] Common S [facility] weight 2021-02-24 15:00:00 161 [lb_av] Common S [facility] temperature 2021-02-24 15:00:00 98.1 [degF] [facility] bmi 2021-02-24 15:00:00 20.95 kg/m2 Common S [facility] oximetry 2021-02-24 15:00:00 97 % Common [facility] respiratory rate 2021-02-24 15:00:00 17 /min Comm on [facility] blood pressure 2021-02-24 15:00:00 115 mm[Hg] Common [facility] - systolic [facility] blood pressure 2021-02-24 15:00:00 70 mm[Hg] Common [facility] - diastolic [facility] Procedures Procedure Date / Time Performed Performing Clinician Sour e AUTOMATED VISUAL FIELD, EXTENDED 2021-09-19 15:37:53 JamesTony newton [facility] - OU - BOTH EYES AUTOMATED VISUAL FIELD, EXTENDED 2021-03-07 21:37:48 James Tony [facility] - OU - BOTH EYES MRI BRAIN W WO CONTRAST 2021-03-03 16:58:00 Leonardo Thomason [facility] MRI HEAD ANGIO W AND WO IV 2021-01-03 13:22:00 Michael Aguillon [facility] CONTRAST Encounters Start End Encounter Admission Attending Care Care Encounter Source Date/Time Date/Time Type Type Clinicians Facility Department ID 2022-06-26 Outpatient Mondragon, STLMLC STLMLC [id number] Common 09:45:01 [facility] [id number] [facility] 2022-04-28 Outpatient Mondragon, STLMLC STLMLC [id number] Common 12:50:01 [facility] [id number] [facility] 2022-04-11 Outpatient Mondragon, STLMLC STLMLC [id number] Common 10:45:00 [facility] [id number] [facility] 2022-03-21 Outpatient [facility] [id number] [place] 14:25:51 [id number] [facility] 2022-03-16 Outpatient Christianson, Na STLMLC STLMLC [id number] Common 16:28:01 [facility] 2021-12-16 Outpatient Christianson, Na STLMLC STLMLC [id number] 2 Common 08:16:01 [facility] 2021-08-30 Outpatient Christianson, Na STLMLC STLMLC [id number] 2 Common 11:51:01 [facility] 2021-06-29 Outpatient Christianson, Na STLMLC STLMLC [id number] 2 Common 12:33:01 [facility] 2021-06-24 Outpatient Christianson, Na STLMLC STLMLC [id number] 2 Common 14:11:00 [facility] 2021-06-06 Outpatient Christianson, Na STLMLC STLMLC [id number] 2 Common 16:10:02 [facility] 2021-05-24 Outpatient Christianson, Na STLMLC STLMLC [id number] 2 Common 16:44:01 [facility] 2021-05-20 Outpatient DAVID, [facility] [id number] [place] 10:10:14 [facility] 2021-04-23 Outpatient JERE [facility] [id number] [place] 13:47:04 BRIAN DC [facility] 2021-04-20 Outpatient Christianson, Na STLMLC STLMLC [id number] 2 Common 14:25:16 [id number] [facility] 2021-04-20 Outpatient Christianson, Na STLMLC STLMLC [id number] 2 Common 14:14:58 [id number] [facility] 2021-04-20 Outpatient Christianson, Na STLMLC STLMLC [id number] 2 Common 13:49:11 [id number] [facility] 2021-04-20 Outpatient Christianson, Na STLMLC STLMLC [id number] 2 Common 13:45:40 [id number] [facility] 2021-04-20 Outpatient Christianson, Na STLMLC STLMLC [id number] 2 Common 12:38:51 [id number] [facility] 2021-04-20 Outpatient Christianson, Na STLMLC STLMLC [id number] 2 Common 12:37:46 [id number] [facility] 2021-04-20 Outpatient Christianson, Na STLMLC STLMLC [id number] 2 Common 12:30:50 [id number] [facility] 2021-04-20 Outpatient Christianson, Na STLMLC STLMLC [id number] 2 Common 12:15:45 [id number] [facility] 2021-04-12 Outpatient [facility] [id number] [place] 08:40:26 [facility] 2021-03-31 Outpatient TARYN WHITE [facility] [id number] [place] 13:13:47 [facility] 2021-02-09 Outpatient WENDY [facility] [id number] [place] 01:03:51 [facility] 2020-11-30 Outpatient LIZET, [facility] [id number] [place] 01:04:12 [facility] 2022-04-28 2022-04-28 OFFICE STLMLC STLMLC [id number] Co mmon 00:00:00 00:00:00 VISIT [facility] PT - CHI LEVEL 4 [facility] 2022-04-21 2022-04-21 (TEL) STLMLC STLMLC [id number] Co mmon 00:00:00 00:00:00 [facility] 2022-03-10 2022-03-10 (TEL) STLMLC STLMLC [id number] Co mmon 00:00:00 00:00:00 [facility] 2022-03-09 2022-03-09 OFFICE STLMLC STLMLC [id number] Co mmon 00:00:00 00:00:00 VISIT [facility] PT - CHI LEVEL 2 [facility] 2022-03-09 2022-03-09 (TEL) STLMLC STLMLC [id number] Co mmon 00:00:00 00:00:00 [facility] 2022-01-25 2022-01-25 OFFICE STLMLC STLMLC [id number] Co mmon 00:00:00 00:00:00 VISIT NEW [facility] PT LEVEL 2 [facility] 2022-01-25 2022-01-25 (TEL) STLMLC STLMLC [id number] Co mmon 00:00:00 00:00:00 [facility] 2022-01-23 2022-01-23 (TEL) STLMLC STLMLC [id number] Co mmon 00:00:00 00:00:00 [facility] 2021-12-20 2021-12-20 (TEL) STLMLC STLMLC [id number] Co mmon 00:00:00 00:00:00 [facility] 2021-12-19 2021-12-19 (TEL) STLMLC STLMLC [id number] Co mmon 00:00:00 00:00:00 [facility] 2021-12-19 2021-12-19 OFFICE STLMLC STLMLC [id number] Co mmon 00:00:00 00:00:00 [facility]ISIT [facility] PT - CHI LEVEL 4 [facility] 2021-11-04 2021-11-04 (TEL) STLMLC STLMLC [id number] Co mmon 00:00:00 00:00:00 [facility] 2021-10-31 2021-10-31 OFFICE STLMLC STLMLC [id number] Co mmon 00:00:00 00:00:00 VISIT [facility] PT - CHI LEVEL 1 [facility] 2021-10-27 2021-10-27 (TEL) STLMLC STLMLC [id number] Co mmon 00:00:00 00:00:00 [facility] 2021-10-21 2021-10-21 (TEL) STLMLC STLMLC [id number] Co mmon 00:00:00 00:00:00 [facility] 2021-10-17 2021-10-17 OFFICE STLMLC STLMLC [id number] Co mmon 00:00:00 00:00:[address] [facility] ESTAB PT - CHI LEVEL 4 [facility] 2021-10-14 2021-10-14 (TEL) STLMLC STLMLC [id number] Co mmon 00:00:00 00:00:00 [facility] 2021-10-14 2021-10-14 Telephone ROSAS Mcintyre 6400 1.2.840.114 [id number] [place] 00:00:00 00:00:00 Ava HOBBS [id number] [facility] [id number] 2021-09-28 2021-09-28 (TEL) STLMLC STLMLC [id number] Co mmon 00:00:00 00:00:00 [facility] 2021-09-27 2021-09-27 (TEL) STLMLC STLMLC [id number] Co mmon 00:00:00 00:00:00 [facility] 2021-09-19 2021-09-19 Office ROSAS Ramirez 6400 1.2.840.114 [id number] [place] 09:00:00 10:31:[address] [id number] Health [id number] 2021-09-16 2021-09-16 (TEL) STLMLC STLMLC [id number] Co mmon 00:00:00 00:00:00 [facility] 2021-09-14 2021-09-14 Outpatient ADALID [address] 09:40:00 12:47:00 YOLANDA 2021-09-09 2021-09-09 (TEL) STLMLC STLMLC [id number] Co mmon 00:00:00 00:00:00 [facility] 2021-09-05 2021-09-05 (TEL) STLMLC STLMLC [id number] Co mmon 00:00:00 00:00:00 [facility] 2021-08-30 2021-08-30 (TEL) STLMLC STLMLC [id number] Co mmon 00:00:00 00:00:00 [facility] 2021-08-30 2021-08-30 OFFICE STLMLC STLMLC [id number] Co mmon 00:00:00 00:00:00 VISIT [facility] LEVEL 4 [facility] 2021-08-30 2021-08-30 Telephone ROSAS Cordoba 6400 1.2.840.114 [id number] [place] 00:00:00 00:00:[address] [id number] Health [id number] 2021-08-23 2021-08-23 Telephone ROSAS Cordoba 6400 1.2.840.114 [id number] [place] 00:00:00 00:00:[address] [id number] Health [id number] 2021-08-19 2021-08-19 Office Bismark Hensley U[facility] 6410 1.2.840.114 [id number] [place] 11:00:00 16:20:[address] [id number] Health [id number] [id number] 2021-07-19 2021-07-19 Office ROSAS Cordoba 6400 1.2.840.114 [id number] [place] 09:15:00 09:30:[address] [id number] Health [id number] [id number] 2021-07-06 2021-07-06 (TEL) STLMLC STLMLC [id number] Co mmon 00:00:00 00:00:00 [facility] 2021-07-06 2021-07-06 (TEL) STLMLC STLMLC [id number] Co mmon 00:00:00 00:00:00 [facility] 2021-06-29 2021-06-29 Telephone ROSAS Cordoba 6400 1.2.840.114 [id number] [place] 00:00:00 00:00:[address] [id number] Health [id number] [id number] 2021-06-28 2021-06-28 OFFICE STLMLC STLMLC [id number] Co mmon 00:00:00 00:00:00 VISIT [facility] LEVEL 4 [facility] 2021-06-28 2021-06-28 Telephone ROSAS Cordoba 6400 1.2.840.114 [id number] [place] 00:00:00 00:00:[address] [id number] Health [id number] [id number] 2021-06-27 2021-06-27 (TEL) STLMLC STLMLC [id number] Co mmon 00:00:00 00:00:00 [facility] 2021-06-14 2021-06-14 (TEL) STLMLC STLMLC [id number] Co mmon 00:00:00 00:00:00 [facility] 2021-06-14 2021-06-14 OFFICE STLMLC STLMLC [id number] Co mmon 00:00:00 00:00:00 VISIT EST [facility] PT LEVEL 3 - CHI [facility] 2021-06-06 2021-06-06 (TEL) STLMLC STLMLC [id number] Co mmon 00:00:00 00:00:00 [facility] 2021-05-24 2021-05-24 (TEL) STLMLC STLMLC [id number] Co mmon 00:00:00 00:00:00 [facility] 2021-05-20 2021-05-20 Office ROSAS Keane 6410 1.2.840.114 [id number] [place] 08:30:00 10:09:41 Visit Edgar HOBBS [id number] Health 9.2.7.2.686 [id number] 2021-04-29 2021-04-29 (TEL) STLMLC STLMLC [id number] Co mmon 00:00:00 00:00:00 [facility] 2021-04-22 2021-04-22 OFFICE STLMLC STLMLC [id number] Co mmon 00:00:00 00:00:00 VISIT EST [facility] PT LEVEL 3 - [facility] 2021-04-22 2021-04-22 SUB ANNUAL STLMLC STLMLC [id number] Common 00:00:00 00:00:00 [facility] WELLNESS - CHI VISIT [facility] 2021-04-20 2021-04-20 Telephone Kay Velasquez [facility] 1.2.840. 114 [id number] [place] 00:00:00 00:00:00 Kay Velasquez [id number] Health MEDICAL 9.2.7.2.686 [address] 4 [id number] 2021-04-12 2021-04-12 Office Taryn White [facility] 1.2.840.114 [id number] [place] 09:00:00 10:18:19 [id number] [facility] 9.2.7.2.686 [address] [id number] 2021-03-21 2021-03-21 (TEL) STLC STLMLC [id number] Co mmon 00:00:00 00:00:00 [facility] 2021-03-16 2021-03-16 Outpatient MHIE MHIE [id number] Memoria 09:45:00 09:45:00 02 herlinda Barclay 2021-03-16 2021-03-16 Outpatient MHIE MHIE [id number] Memoria 09:45:00 09:45:00 02 herlinda Barclay 2021-03-14 2021-03-14 OFFICE STLC STLC [id number] Co mmon 00:00:00 00:00:00 VISIT [facility] LEVEL 1 [facility] 2021-03-08 2021-03-08 (TEL) STLMLC STLMLC [id number] Co mmon 00:00:00 00:00:00 [facility] 2021-03-07 2021-03-07 Office James, ROSAS 6400 1.2.840.114 [id number] [place] 13:00:00 14:00:[address] [id number] Health 9.2.7.2.686 [id number] 2021-03-07 2021-03-07 Office James, UTP 6400 1.2.840.114 [id number] [place] 13:00:00 14:00:[address] [id number] Health 9.2.7.2.686 [id number] 2021-03-07 2021-03-07 (WEB) STLC STLMLC [id number] Co mmon 00:00:00 00:00:00 [facility] 2021-03-03 2021-03-03 EXT MHH OP Katelin, SEAN MSRDP 1.2.840.114 [id number] [place] 00:00:00 00:00:00 Anjail LOCATION [id number] H ealth 9.2.7.2.686 [id number] 2021-03-03 2021-03-03 EXT MHH OP Katelin, EXT MSRDP 1.2.840.114 [id number] [place] 00:00:00 00:00:00 [facility] 350.1.13.58 H [facility] 9.2.7.2.686 [id number] 2021-02-25 2021-02-25 (TEL) STLMLC STLMLC [id number] Co mmon 00:00:00 00:00:00 [facility] 2021-02-24 2021-02-24 OFFICE STLMLC STLMLC [id number] Co mmon 00:00:00 00:00:00 VISIT [facility] LEVEL 4 [facility] 2021-02-11 2021-02-11 (TEL) STLMLC STLMLC [id number] Co mmon 00:00:00 00:00:00 [facility] 2021-02-11 2021-02-11 (TEL) STLMLC STLMLC [id number] Co mmon 00:00:00 00:00:00 [facility] 2021-02-10 2021-02-10 (TEL) STLMLC STLMLC [id number] Co mmon 00:00:00 00:00:00 [facility] 2021-02-09 2021-02-09 Outpatient MHIE MHIE [id number] Memoria 08:45:00 08:45:00 01 [facility] 2021-02-09 2021-02-09 Outpatient MHIE MHIE [id number] Memoria 08:45:00 08:45:00 01 [facility] 2021-01-31 2021-01-31 (TEL) STLMLC STLMLC [id number] Co mmon 00:00:00 00:00:00 [facility] 2021-01-12 2021-01-12 Outpatient MHIE MHIE [id number] Memoria 15:00:00 15:00:00 00 [facility] 2021-01-12 2021-01-12 Outpatient MHIE MHIE [id number] Memoria 15:00:00 15:00:00 00 herlinda [place] 2021-01-03 2021-01-03 EXT MHH OP Savitz, EXT MSRDP 1.2.840.114 [id number] [place] 00:00:00 00:00:00 Michael LOCATION [id number] H ealth 9.2.7.2.686 [id number] 2021-01-03 2021-01-03 EXT MHH OP Savitz, EXT MSRDP 1.2.840.114 [id number] [place] 00:00:00 00:00:00 Michael LOCATION [id number] H ealth 9.2.7.2.686 [id number] 2020-12-31 2020-12-31 (TEL) STLMLC STLMLC [id number] Co mmon 00:00:00 00:00:00 [facility] 2020-12-29 2020-12-29 Outpatient STLMLC STLMLC [id number] Common 00:00:00 00:00:00 [facility] 2020-12-23 2020-12-23 Outpatient STLMLC STLMLC [id number] Common 00:00:00 00:00:00 [facility] 2020-12-22 2020-12-22 (TEL) STLMLC STLMLC [id number] Co mmon 00:00:00 00:00:00 [facility] 2020-12-17 2020-12-17 Outpatient STLMLC STLMLC [id number] Common 00:00:00 00:00:00 [facility] 2020-12-17 2020-12-17 Outpatient STLMLC STLMLC [id number] Common 00:00:00 00:00:00 [facility] 2020-12-15 2020-12-15 Outpatient STLMLC STLMLC [id number] Common 00:00:00 00:00:00 [facility] 2020-12-14 2020-12-14 Outpatient STLMLC STLMLC [id number] Common 00:00:00 00:00:00 [facility] 2020-12-14 2020-12-14 Outpatient STLMLC STLMLC [id number] Common 00:00:00 00:00:00 [facility] 2020-12-10 2020-12-10 Outpatient STLMLC STLMLC [id number] Common 00:00:00 00:00:00 [facility] 2020-12-08 2020-12-08 Outpatient STLMLC STLMLC [id number] Common 00:00:00 00:00:00 [facility] 2020-12-08 2020-12-08 Outpatient STLMLC STLMLC [id number] Common 00:00:00 00:00:00 [facility] 2020-12-08 2020-12-08 Outpatient STLMLC STLMLC [id number] Common 00:00:00 00:00:00 [facility] 2020-12-02 2020-12-02 Outpatient STLMLC STLMLC [id number] Common 00:00:00 00:00:00 [facility] 2020-11-26 2020-11-26 Outpatient STLMLC STLMLC [id number] Common 00:00:00 00:00:00 [facility] 2020-11-26 2020-11-26 Outpatient STLMLC STLMLC [id number] Common 00:00:00 00:00:00 [facility] 2020-11-26 2020-11-26 Outpatient STLMLC STLMLC [id number] Common 00:00:00 00:00:00 [facility] 2020-11-24 2020-11-24 Outpatient STLMLC STLMLC [id number] Common 00:00:00 00:00:00 [facility] 2020-11-22 2020-11-22 Outpatient STLMLC STLMLC [id number] Common 00:00:00 00:00:00 [facility] 2020-11-19 2020-11-19 Outpatient STLMLC STLMLC [id number] Common 00:00:00 00:00:00 [facility] 2020-11-08 2020-11-08 Outpatient [facility] 00:00:00 00:00:00 [id number] 2020-10-30 2020-10-30 EXT [facility] OP Garcia, EXT MSRDP 1.2.840.114 [id number] [place] 00:00:00 00:00:00 Awais Adler LOCATION [id number] Health 9.2.7.2.686 [id number] 2020-10-30 2020-10-30 EXT [facility] OP Jose, EXT MSRDP 1.2.840.114 [id number] [place] 00:00:00 00:00:00 Awais Adler LOCATION [id number] Health 9.2.7.2.686 [id number] 2020-06-03 2020-06-[address] [facility] [id number] Common 00:00:00 00:00:00 [facility] 2020-05-04 2020-05-[facility] [id number] Common 00:00:00 00:00:00 [facility] Results Test Description Test Time Test Comments Results Result Comments Source HEMOGLOBIN A1C Test Item Value Reference Range Interpretation Comme nts A1C (test code = 4548-4) 6.4 SARS-COV 2 AntigenSARS-COV 2 Antigen
--- NOTE | 2022-09-15 15:02 | EDPHYS ---
Physician Documentation [facility] Name: Contreras Naranjo Age: 71 yrs Sex: Male : 1950 Arrival Date: 09/15/2022 Time: 11:43 Bed 10 Private MD: ED Physician Wiliam De Dios HPI: 09/15 15:13 This 71 yrs old Male presents to ER via Wheelchair with complaints of Problem kb With Feeding Tube. 15:13 reports PEG tube has been clogged since 629. States she has been unable to feed kb pt or give medications. Is scheduled for surgery on Sunday with Dr Doherty to have PEG replaced. Onset: The symptoms/episode began/occurred this morning. Severity of symptoms: At their worst the symptoms were mild in the emergency department the symptoms are unchanged. The patient has experienced similar episodes in the past, a few times. The patient has been recently seen by a physician:. 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 - Social history:: Smoking status: Patient denies any tobacco usage or history of. ROS: 12:40 Constitutional: Negative for fever, chills, and weight loss. kb 12:40 All other systems are negative. Exam: 14:07 Constitutional: This is a well developed, well nourished patient who is awake, alert, kb and in no acute distress. Head/Face: Normocephalic, atraumatic. ENT: Moist Mucous membranes Cardiovascular: Regular rate and rhythm with a normal S1 and S2. No gallops, murmurs, or rubs. No pulse deficits. Respiratory: Respirations even and unlabored. No increased work of breathing. Talking in full sentences Abdomen/GI: Soft, non-tender. No distention Skin: Warm, dry with normal turgor. Normal color. MS/ Extremity: Pulses equal, no cyanosis. Neurovascular intact. Full, normal range of motion. Neuro: Awake and alert, GCS 15, oriented to person, place, time, and situation. Moves all extremities. Normal gait. 14:07 Abdomen/GI: Inspection: PEG without redness, drainage. Vital Signs: 11:52 BP 125 / 69; Pulse 67; Resp 16; Temp 98.2; Pulse Ox 97% on R/A; Weight 65.32 kg (R); cm10 Height 6 ft. 1 in. (R); Pain 0/10; 13:50 BP 143 / 79; Pulse 64; Resp 18 S; Pulse Ox 96% on R/A; kc6 14:52 Pulse 67; Resp 18 S; Pulse Ox 97% on R/A; kc6 15:12 BP 145 / 81; kc6 15:54 BP 141 / 81; Pulse 65; Resp 17; Pulse Ox 97% on R/A; Pain 0/10; ll1 11:52 Body Mass Index 19.00 (65.32 kg, 185.42 cm) cm10 11:52 Pain Scale: Adult cm10 15:54 Pain Scale: Adult ll1 MDM: 11:52 Patient medically screened. kb 12:55 Data reviewed: vital signs, nurses notes. Management of patient was discussed with the kb following: Wood Products Manufacturer: awaiting call back from Dr Doherty. 15:00 Management of patient was discussed with the following: Wood Products Manufacturer: Dr Doherty saw pt kb in ER. Will take to OR for new PEG today. Historians other than the Patient: Spouse/Significant Other: . Counseling: I had a detailed discussion with the patient and/or guardian regarding: the historical points, exam findings, and any diagnostic results supporting the discharge/admit diagnosis, the need for further work-up and treatment in the hospital. 15:12 Management of patient was discussed with the following: Hospitalist: Dr Vilchis. kb 15:13 Consideration of Admission/Observation Patient was admitted/placed on observation. kb 09/15 15:16 Order name: CBC with Diff; Complete Time: 15:52 kb 09/15 15:16 Order name: Basic Metabolic Panel; Complete Time: 15:52 kb 09/15 15:16 Order name: IV Start; Complete Time: 15:22 kb 09/15 15:16 Order name: NPO; Complete Time: 15:22 kb Administered Medications: No medications were administered Disposition: 17:48 Co-signature as Attending Physician, Wiliam De Dios MD I reviewed the patient's care rn provided by the Advanced Practice Provider and agree with the diagnosis and treatment plan. Disposition Summary: 09/15/22 15:01 Hospitalization Ordered Hospitalization Status: Observation kb Provider: Marvin Doherty Condition: Stable kb Problem: new kb Symptoms: are unchanged kb Bed/Room Type: Standard kb Location: Operating Room(09/15/22 15:14) kb Room Assignment: (09/15/22 15:14) kb Diagnosis - Gastrostomy complication, unspecified kb Forms: - Medication Reconciliation Form kb - SBAR form kb Signatures: Dispatcher [employer] EDKrissy Landa, PHYSICIAN OFFICE NURSE-C PHYSICIAN OFFICE NURSE-CkWiliam Gallo MD MD rn Tanya Doherty RN RN cm10 Corrections: (The following items were deleted from the chart) 14:52 11:59 Misc. Order ordered. kb kc6 15:14 15:01 Telemetry/MedSurg (observation) kb kb 15:14 15:01 kb kb
--- NOTE | 2022-09-15 15:02 | ER ---
Nurse's Notes [facility] Name: Contreras Naranjo Age: 71 yrs Sex: Male : 1950 Arrival Date: 09/15/2022 Time: 11:43 Bed 10 Private MD: Diagnosis: Gastrostomy complication, unspecified Presentation: 09/15 11:52 Chief complaint: Spouse and/or significant other states: Pt's PEG tube is not working. cm10 patient's states that this morning she was unable to flush the PEG tube and tried to unclog it at home with no success. Patient is scheduled to have his PEG tube changed on Sunday. Coronavirus screen: Vaccine status: Patient reports receiving the 2nd dose of the covid vaccine. Client denies travel out of the [place] in the last 14 days. At this time, the client does not indicate any symptoms associated with coronavirus-19. Ebola Screen: Patient denies travel to an Ebola-affected area in the 21 days before illness onset. No symptoms or risks identified at this time. Initial Sepsis Screen: Does the patient meet any 2 criteria? No. Patient's initial sepsis screen is negative. Does the patient have a suspected source of infection? No. Patient's initial sepsis screen is negative. Risk Assessment: Do you want to hurt yourself or someone else?. Onset of symptoms was September 15, 2022. 11:52 Method Of Arrival: Wheelchair cm10 11:52 Acuity: NANCY 4 cm10 Historical: - Allergies: 11:54 No Known Allergies; cm10 - PMHx: 11:54 diabetes mellitus; Hemorrhagic stroke, 10/30/20; Hypercholesterolemia; Hypertensive cm10 disorder; Right sided weakness; - PSHx: 11:54 PEG tube; cm10 - Immunization history:: Adult Immunizations up to date. - Social history:: Smoking status: Patient denies any tobacco usage or history of. Screenin:[address] [facility] ED Fall Risk Assessment (Adult) History of falling in the last 3 months, kc6 including since admission No falls in past 3 months (0 pts) Confusion or Disorientation No (0 pts) Intoxicated or Sedated No (0 pts) Impaired Gait No (0 pts) Mobility Assist Device Used No (0 pt) Altered Elimination No (0 pt) Score/Fall Risk Level 0 - 2 = Low Risk Oriented to surroundings, Maintained a safe environment, Educated pt \T\ family on fall prevention, incl call for assistance when getting out of bed, Assessed \T\ reinforced patient's understanding of fall precautions, Hourly rounding (assess needs \T\ fall precautionary measures) done. Abuse screen: Denies threats or abuse. Denies injuries from another. Nutritional screening: No deficits noted. Tuberculosis screening: No symptoms or risk factors identified. Assessment: 12:00 General: Appears in no apparent distress. comfortable, Behavior is calm, cooperative, kc6 appropriate for age. Pain: Denies pain. Neuro: Level of Consciousness is awake, alert, obeys commands, Oriented to person, place, time, situation, Appropriate for age. Cardiovascular: Capillary refill < 3 seconds. Respiratory: Airway is patent Trachea midline Respiratory effort is even, unlabored, Respiratory pattern is regular, symmetrical. GI: PEG tube in place, clamped. to gravity drainage. Site clean. : No signs and/or symptoms were reported regarding the genitourinary system. EENT: No signs and/or symptoms were reported regarding the EENT system. Derm: No signs and/or symptoms reported regarding the dermatologic system. Skin is intact, Skin is pink, warm \T\ dry. Musculoskeletal: No signs and/or symptoms reported regarding the musculoskeletal system. Circulation, motion, and sensation intact. Capillary refill < 3 seconds, Range of motion: intact in all extremities. 12:15 Reassessment: unable to flush tube at this time. BORIS Giraldo attempted as well. mike Cameron SURVEILLANCE SPECIALIST notified, contacting Dr. Doherty. 13:50 Reassessment: Patient appears in no apparent distress at this time. No changes from kc6 previously documented assessment. Patient and/or family updated on plan of care and expected duration. Pain level reassessed. Patient is alert, oriented x 3, equal unlabored respirations, skin warm/dry/pink. 14:52 Reassessment: Patient appears in no apparent distress at this time. No changes from kc6 previously documented assessment. Patient and/or family updated on plan of care and expected duration. Pain level reassessed. Patient is alert, oriented x 3, equal unlabored respirations, skin warm/dry/pink. 15:12 Reassessment: Patient appears in no apparent distress at this time. No changes from kc6 previously documented assessment. Patient and/or family updated on plan of care and expected duration. Pain level reassessed. Patient is alert, oriented x 3, equal unlabored respirations, skin warm/dry/pink. 15:33 Reassessment: No changes from previously documented assessment. Report received from 1 BORIS Li. 15:54 Reassessment: No changes from previously documented assessment. To OR via stretcher. ll1 Vital Signs: 11:52 BP 125 / 69; Pulse 67; Resp 16; Temp 98.2; Pulse Ox 97% on R/A; Weight 65.32 kg (R); cm10 Height 6 ft. 1 in. (R); Pain 0/10; 13:50 BP 143 / 79; Pulse 64; Resp 18 S; Pulse Ox 96% on R/A; kc6 14:52 Pulse 67; Resp 18 S; Pulse Ox 97% on R/A; kc6 15:12 BP 145 / 81; kc6 15:54 BP 141 / 81; Pulse 65; Resp 17; Pulse Ox 97% on R/A; Pain 0/10; ll1 11:52 Body Mass Index 19.00 (65.32 kg, 185.42 cm) cm10 11:52 Pain Scale: Adult cm10 15:54 Pain Scale: Adult ll1 ED Course: 11:45 Patient arrived in ED. im 11:52 Krissy Finn FNP-C is PHCP. kb 11:52 Wiliam De Dios MD is Attending Physician. kb 11:54 Triage completed. cm10 11:54 Arm band placed on Patient placed in waiting room. cm10 11:58 Jen Burnett RN is Primary Nurse. kc6 12:00 Patient has correct armband on for positive identification. Bed in low position. Call kc6 light in reach. Side rails up X2. Adult w/ patient. 15:01 Marvin Doherty MD is Hospitalizing Provider. kb 15:23 Inserted saline lock: 20 gauge in right forearm, using aseptic technique. Blood kc6 collected. 15:34 No provider procedures requiring assistance completed. Patient admitted, IV remains in ll1 place. Administered Medications: No medications were administered Medication: 15:34 VIS not applicable for this client. 1 Outcome: 15:01 Decision to Hospitalize by Provider. kb 15:34 Admitted to OR ll1 15:34 Condition: stable 15:34 Instructed on the need for admit. 16:00 Patient left the ED. ll1 Signatures: Krissy Finn, AMANDA-[place]ina CONNELLP-Casey Johnson RN RN ll1 Jen Burnett RN RN kc6 Nadya Fuentes Clarissa, RN RN cm10 Corrections: (The following items were deleted from the chart) 12:46 12:15 Reassessment: unable to flush tube at this time. BORIS Giraldo attempted as well mike kc 13:55 12:15 Reassessment: unable to flush tube at this time. BORIS Giraldo attempted as well. kc6 JERMAINE Cameron notified kc6
[2022-09-15 15:41] LABS: Absolute Lymphocytes (CBC) 1.3 K/uL (0.7-4.9); Hematocrit 44.6 % (39.6-49.0); MCV 89.9 fL (80-100); MPV 10.7 fL (7.6-11.3); RBC Red Blood Cell Count 4.96 M/uL (4.33-5.43)
--- NOTE | 2022-09-15 17:19 | P.BOP ---
Preoperative diagnosis: non functional gastrostomy tube , dyaphagia, hemorrhagic stroke Postoperative diagnosis: same Primary procedure: 1, Removal of PEG gastrostomy tube Secondary procedure: 2. Placement of new gastrostomy tube Estimated blood loss: none Specimen: old tube Findings: as above Anesthesia: MAC Drain(s): Other (18F gastrostomy tube) Transferred to: Recovery Room Condition: Good
[2022-09-15 17:44] VITALS: O2SAT 100
[2022-09-15 17:53] VITALS: BP 144/67; TEMP 98.2
--- NOTE | 2022-09-15 20:45 | CON ---
Date of Consultation: 09/15/2022 Reason For Service: Malfunctioning G-tube for exchange. History Of Present Illness: This is the case of a 71-year-old patient known by us and today is , but he was scheduled for this Sunday. DICTATION ENDS HERE MIGUELANGEL/MONIE Voice ID: [id number] Report ID: [id number]
--- NOTE | 2022-09-15 21:03 | DS ---
Diagnoses: Nonfunctional gastrostomy tube, dysphagia, and hemorrhagic stroke. Procedures: Removal of nonfunctional PEG gastrostomy tube and placement of a new gastrostomy tube. Disposition: Home. Activity: As tolerated. No heavy lifting. Diet: Continue previous diet. Follow Up: Follow up with his primary doctor and with me in a week from now. MIGUELANGEL/MONIE Voice ID: [id number] Report ID: [id number]
--- NOTE | 2022-09-15 21:03 | OP ---
Date of Procedure: 09/15/2022 Surgeon: Marvin Doherty MD Preoperative Diagnoses: Nonfunctional gastrostomy tube, dysphagia, odynophagia, and hemorrhagic stro ke. Postoperative Diagnoses: Nonfunctional gastrostomy tube, dysphagia, odynophagia, and hemorrhagic str dave. Procedures: 1.Removal of nonfunctional percutaneous gastrostomy tube. 2.Placement of a new gastrostomy tube. Anesthesia: Local plus MAC. Specimen: Old tube. Findings: The old tube was nonfunctional and breaking in many places. We were able to at least sierra ve the G-tube by holding it with instruments properly, without breaking it inside the stomach. Then the tube was replaced with a gastrostomy tube with balloon inflated to proper recommendations. We we re able to use the same channel and place an 18-Wallisian gastrostomy tube. Complications: None. Indications: This is a case of a 71-year-old patient for whom the only way to receive his medication s and his treatments and diet was through the gastrostomy tube, which was nonfunctional. He was clive g to have it replaced next Sunday because it was malfunctioning, but this time it is nonfunctional at all so he came to the hospital to the ER and they asked me to see if I can remove this tube. The pr oblem is that his tube is broken in so many places and when we pull it out, it may remain in place an d that will trigger a looking for that foreign body and also at the same time, he does not want the u pper endoscopy to do the gastrostomy tube, so it will make me do an open gastrostomy. For that reaso n, we decided to do it under sedation and anesthesia in the OR. He understood the benefits, alternat clarisa, and risks of removal and placement of a new gastrostomy tube through the tunneled or through an open laparotomy, which include, but not limited to infection, bleeding, damage to adjacent structure s, anesthesia complication, MA and even . He also understands this may not relieve symptoms and he might need more than one surgical intervention. He understood and signed a consent. Description Of Procedure: The patient was brought to the operating room and placed in supine positio n. Anesthesia was done without complication. Abdominal area was prepped and draped in sterile fashi on. We removed the previous stitches from the previous tube. Then, after that, we were able to kostas ct an area that is although weak, the rubber is almost melted away. We were able to pull a little bi t the tube to the point that we can reach part of the tube that was intracorporeal and we were able t o put a clamp in that region and looked like good quality in that area and we were able to put until we took the tube out. Then, after that, we measured the area and the one we could put in that region is an 18-Wallisian tube, so we placed that through the tunnel without resistance. We checked for place ment with the help of auscultation and stomach sounds and also aspiration. We aspirated gastric cont ent. We also placed saline inside and then removed the same amount. We also put some air in that ar ea and hear with auscultation proper placement. Once we first secured we were in the right place, we inflated the balloon following the public health inspector's specification and then adjust the flanges of that tube and then secured in place with 3-0 nylon after injecting local anesthetic. The patient tolerate d the procedure well. The patient was sent to recovery in stable condition. MIGUELANGEL/MONIE Voice ID: [id number] Report ID: [id number]
--- NOTE | 2022-09-18 15:04 | DS ---
Diagnoses: Nonfunctional gastrostomy tube, dysphagia, odynophagia, hemorrhagic stroke. Procedures: Removal of PEG, gastrostomy tube, placement of a new gastrostomy tube. Disposition: Home. Plan: Follow up in my office in a week. MIGUELANGEL/MONIE Voice ID: [id number] Report ID: [id number]
--- NOTE | 2022-09-18 15:16 | OP ---
Date of Procedure: 09/18/2022 Surgeon: Marvin Doherty MD Preoperative Diagnoses: Nonfunctional gastrostomy tube, dysphagia, hemorrhagic stroke, odynophagia, unable to swallow. Postoperative Diagnoses: Nonfunctional gastrostomy tube, dysphagia, hemorrhagic stroke, odynophagia, unable to swallow. Procedures: 1.Removal of nonfunctional PEG, gastrostomy tube. 2.Placement of a new gastrostomy tube. Specimen: Old tube. Finding: Nonfunctional G-tube. Tract is still intact. Anesthesia: MAC. Packs And Drains: Placement of an 18-Estonian gastrostomy tube with balloon. Indication: This is the case of a 71-year-old patient, who comes to us with a malfunctioning gastros melisa tube several days ago. The tube has been there. There are many broken areas, leaking everywher e. The family is still able to feed him since he depends in that 100% for his medications and his fe eding. They have been able to do the another PEG tube due to unable to do the upper endoscopy, so carlene osborne came to us for a change probably open gastrostomy tube placement and based on this, we had booked for several days from now to have this done, but today he shows in the ER with a nonfunctional G-tube completely and ER trying to unclog it. They could not use it and they want that today because they need to give medications. We were able to see him in ER. We were in OR doing some of the cases. Carlene torres hospitalist was kind enough to allow to do us at this case for today instead of Sunday, so he under stands the risks of when we pull that tube breaking inside the stomach, creating an issue because ___ may not be able to recover or may cause bowel obstruction. He understands also that we canno t replace the tube through the tunnel. We might have to do open gastrostomy tube, laparotomy. He un derstands the benefits, alternatives, and risks, which include, but not limited to infection, bleedin g, damage to adjacent structures, anesthesia complication, SC, even . He also understood this m ay not relieve any symptoms. He might need more than one surgical intervention. He understood, sign ed a consent. Procedure In Detail: The patient was brought to the operating room, placed in supine position. Anes thesia was done without complication. Abdominal area was prepped and draped in the usual sterile fas hion. Once again, we were ready to do an open gastrostomy tube if needed. We released the stitches from that area and then carefully pulled the gastrostomy tube once again, the entire area even going through the skin, it was soft and friable. We were able to find we pulled, it came out co mpletely. The tube was replaced with an 18-Estonian gastrostomy tube with a balloon on it. That was i nflated following correctional facility psychiatrist's specification. The tube seems to be working fine. We proceeded to verify location by auscultation via aspiration. The patient tolerated the procedure well. The patie nt sent to recovery in stable condition after securing the tube with stitches with nylon. Once again, this is a re-dictation. I believe I dictated that previously. It is in the computer, so we are going to make sure that we have the dictation present there. If the other dictation is found , please use both of them. MIGUELANGEL/MONIE Voice ID: [id number] Report ID: [id number]
== END ==
LOC: ER 11:43 → DS 15:56
PROVIDERS: ATTEND Surgery
PROC: 0DH60UZ Insertion of Feeding Device into Stomach, Open Approach (ICD-10-PCS; principal; 2022-09-15 19:00)
DX: K94.23 Gastrostomy malfunction (principal); R13.10 Dysphagia, unspecified; Z86.73 Personal history of transient ischemic attack (TIA), and cerebral infarction without residual deficits
CPT/HCPCS: 85025; 80048; 36415; 99285; 43762; J2704; J2250; J3010; J7030; J0690; 88300

== ENCOUNTER 2022-09-28 06:07 | Day surgery (SDC) | payer OTHER ==
[2022-09-28] MEDS ORDERED: TROPICAMIDE 1% OPTH 3 ML BOT ONE (06:22)
[2022-09-28] MEDS ORDERED: MOXIFLOXACIN HCL 10 DROPS/ML **OR USE OPTH ONE (06:22)
[2022-09-28] MEDS ORDERED: PHENYLEPHRINE 2.5% OPTH 2 ML ONE (06:22)
[2022-09-28] MEDS ORDERED: KETOROLAC OPTHALMIC 5 ML BOT ONE (06:22)
[2022-09-28] MEDS ORDERED: NA CHLORIDE 0.9% 1,000 ML ONE (06:23)
[2022-09-28] MEDS ORDERED: CYCLOPENTOLATE 2% OPTH 2 ML ONE (06:23)
[2022-09-28] MEDS ORDERED: BSS OPTHALMIC SOL 15 ML OPTH ONE (07:13)
[2022-09-28] MEDS ORDERED: EPINEPHRINE/PF 1 MG/ML AMP ONE (07:13)
[2022-09-28] MEDS ORDERED: DUOVISC 1 KIT OPTH ONE (07:13)
[2022-09-28] MEDS ORDERED: BALANCED SALT IRRIG PLAIN 500 ML IRR ONE (07:13)
[2022-09-28] MEDS ORDERED: TOBRADEX 0.3-0.1% OPTH OINTMENT ONE (07:14)
[2022-09-28] MEDS ORDERED: POVIDONE-IODINE 5% EYE DROPS ONE (07:14)
[2022-09-28] MEDS ORDERED: SUCCINYLCHOLINE 20 MG/ML (10 ML) IV ONE (07:31)
[2022-09-28] MEDS ORDERED: SUGAMMADEX SODIUM 200 MG/2 ML VIAL IV ONE (07:41)
[2022-09-28] MEDS ORDERED: propofoL 200 MG/20 ML VIAL IV ONE (07:44)
[2022-09-28] MEDS ORDERED: GLYCOPYRROLATE 0.2 MG/ML SYR ONE ×2 (07:45→08:23)
[2022-09-28] MEDS ORDERED: LIDOCAINE 2% MPF 5 ML VIAL ONE ×2 (07:45→07:46)
[2022-09-28] MEDS ORDERED: ROCURONIUM 50 MG/5 ML VIAL IV ONE (07:48)
[2022-09-28] MEDS ORDERED: Phenylephrine HCl 10 MG/ML 1 ML VIAL ONE (08:08)
[2022-09-28] MEDS ORDERED: NS 0.9% VIAL 10 ML ONE (08:09)
[2022-09-28] MEDS ORDERED: LIDOCAINE 1% MPF 30 ML VIAL ONE (08:17)
[2022-09-28] MEDS ORDERED: NEOSTIGMINE 1 MG/ML -10 ML VIAL ONE (08:23)
[2022-09-28] MEDS ORDERED: ONDANSETRON 4 MG/2 ML VIAL ONE (08:24)
[2022-09-28] MEDS ORDERED: EPHEDRINE SULF 50 MG/ML VIAL ONE (08:27)
[2022-09-28 10:29] VITALS: BP 110/61; TEMP 97.7; O2SAT 95
--- NOTE | 2022-09-28 19:13 | OP ---
Date of Procedure: 09/28/2022 Surgeon: Fredy Sadler MD [employer] Supervisor: None. Preoperative Diagnosis: Visually significant cataract, right eye. Postoperative Diagnosis: Visually significant cataract, right eye. Procedure Performed: Cataract extraction of right eye with placement of toric intraocular lens. Description Of Procedure: After being properly identified in the preoperative holding area, the chantal ent was taken back to the operating room where a time-out was performed. Patient was then placed in general anesthesia and prepped and draped in the normal sterile fashion. Examination of the eye unde rneath the operating microscope revealed a well dilated pupil as well as the horizontal reyna had bee n made in the preoperative holding area with the patient upright. A Diaz marker was used to fabio 1 76 degrees, which was the axis calculated for placement of the toric intraocular lens and this was ma rked again with a . The globe was then grasped with a pair of 0.12 forceps and paracentesi s wound was made in the 12 o'clock and 6 o'clock positions. Anterior chamber filled with Viscoat. T he globe was again grasped and the main phaco incision wound was made temporally using a 2.4 mm kerat ome in a triplanar fashion. A continuous curvilinear capsulorrhexis was created using an [facility] eps. Hydrodissection and hydrodelineation of the lens were carried out and the lens was removed usin g a standard divide and conquer technique. A total CDE time was less than 10 seconds. Once all 4 qu adrants had been removed, the phaco handpiece was exchanged for a bimanual irrigation aspiration hand piece and the remaining cortical material was removed and the capsular bag polished. The capsular ba g was then filled with Provisc and an Baldo model SN6AT4, serial #[id number], which was a 21.0 diopt er SN6AT4 model was implanted into the capsular bag and rotated into position. The viscoelastic was then removed with careful attention to remove the visco behind the lens as well. Once confirming dinh t the IOL still remained in good alignment, the wounds were hydrated, found to be watertight and the procedure concluded. The lid speculum and drapes were removed and the patient patched over TobraDex ointment. He was taken to the postoperative holding area in stable condition having tolerated the pr ocedure well. He was under general anesthesia the entire time. There were no specimens sent. No dr los placed. Implants were as above, and no complications. Patient is to follow up with myself, Dr. Fredy Sadler, tomorrow morning. ROMA/ISABELAL Voice ID: [id number] Report ID: [id number]
== END 2022-09-28 09:35 | disposition home or self-care (01) ==
LOC: OR 06:07
PROVIDERS: ATTEND Ophthalmology
PROC: 08RJ3JZ Replacement of Right Lens with Synthetic Substitute, Percutaneous Approach (ICD-10-PCS; principal; 2022-09-28 07:30)
DX: H25.11 Age-related nuclear cataract, right eye (principal)
CPT/HCPCS: 82947 ×2; 66984; A4216; J2704; J2710; J0171; J2370; J1885; J2001 ×2; J2405; J7030

== ENCOUNTER 2022-10-26 06:22 | Day surgery (SDC) | payer OTHER ==
[2022-10-24 12:57] LABS: Potassium 4.7 mEq/L (3.5-5.1)
--- NOTE | 2022-10-25 17:37 | EKG ---
Test Date: 2022-10-24 Test Time: 12:22:04 Side Splitter: ARIANA MEASUREMENT RESULTS: Intervals: Rate: 69 SC: 158 QRSD: 92 QT: 386 QTc: 413 [place]: P: 30 SC: 158 QRS: -12 T: -2 INTERPRETIVE STATEMENTS: Normal sinus rhythm Minimal voltage criteria for LVH, may be normal variant Borderline ECG Compared to ECG 10/30/2020 19:31:07 Left ventricular hypertrophy now present ST (T wave) deviation no longer present Electronically Signed On 10-25-22 17:34:04 CDT by Valerio Carlos
[2022-10-26] MEDS ORDERED: MOXIFLOXACIN HCL 10 DROPS/ML **OR USE OPTH ONE (06:53)
[2022-10-26] MEDS ORDERED: TROPICAMIDE 1% OPTH 3 ML BOT ONE (06:53)
[2022-10-26] MEDS ORDERED: PHENYLEPHRINE 10% OPTH 5ML ONE (06:54)
[2022-10-26] MEDS ORDERED: KETOROLAC OPTHALMIC 5 ML BOT ONE (06:54)
[2022-10-26] MEDS ORDERED: CYCLOPENTOLATE 2% OPTH 2 ML ONE (06:54)
[2022-10-26] MEDS ORDERED: NA CHLORIDE 0.9% 1,000 ML ONE (06:54)
[2022-10-26] MEDS ORDERED: BSS OPTHALMIC SOL 15 ML OPTH ONE (07:15)
[2022-10-26] MEDS ORDERED: EPINEPHRINE/PF 1 MG/ML AMP ONE (07:15)
[2022-10-26] MEDS ORDERED: POVIDONE-IODINE 5% EYE DROPS ONE (07:16)
[2022-10-26] MEDS ORDERED: DUOVISC 1 KIT OPTH ONE (07:16)
[2022-10-26] MEDS ORDERED: BALANCED SALT IRRIG PLAIN 500 ML IRR ONE (07:16)
[2022-10-26] MEDS ORDERED: TOBRADEX 0.3-0.1% OPTH OINTMENT ONE (07:35)
[2022-10-26] MEDS ORDERED: SUCCINYLCHOLINE 20 MG/ML (10 ML) IV ONE (07:39)
[2022-10-26] MEDS ORDERED: LIDOCAINE 2% MPF 5 ML VIAL ONE (07:40)
[2022-10-26] MEDS ORDERED: FENTANYL CITR 100 MCG/2 ML ONE (07:40)
[2022-10-26] MEDS ORDERED: propofoL 200 MG/20 ML VIAL IV ONE (07:40)
[2022-10-26] MEDS ORDERED: dexAMETHasone 4 MG/ML VIAL ONE (07:40)
[2022-10-26] MEDS ORDERED: ONDANSETRON 4 MG/2 ML VIAL ONE (07:40)
[2022-10-26] MEDS ORDERED: Phenylephrine HCl 10 MG/ML 1 ML VIAL ONE (08:02)
[2022-10-26] MEDS ORDERED: NS 0.9% VIAL 10 ML ONE ×2 (08:02→08:09)
[2022-10-26] MEDS ORDERED: GLYCOPYRROLATE 0.2 MG/ML SYR ONE (08:08)
[2022-10-26] MEDS ORDERED: EPHEDRINE SULF 50 MG/ML VIAL ONE (08:09)
[2022-10-26 09:22] VITALS: TEMP 97.2; O2SAT 98
[2022-10-26 09:54] VITALS: BP 116/83
--- NOTE | 2022-10-26 09:59 | OP ---
Date of Procedure: 10/26/2022 Surgeon: Fredy Sadler MD Preoperative Diagnosis: Visually significant cataract, left eye. Postoperative Diagnosis: Visually significant cataract, left eye. Procedure Performed: Cataract extraction, left eye, with placement of a toric intraocular lens. Description Of Procedure: After being properly identified in the preoperative holding area, patient was taken back to the operating room where a time-out was performed. Patient was then prepped and dr aped in the normal sterile fashion. Examination of the eye underneath the operating microscope revea led a well dilated pupil with a good red reflex. In my preoperatively made reyna at the 180 horizont al position, an inferior 90 degree for later alignment of the toric lens. The globe was grasped with a pair of 0.12 forceps and a paracentesis wound was made superiorly and inferiorly and the anterior chamber filled with Viscoat. The main phaco incision was made temporally using a 2.4 mm keratome in a triplanar fashion with the globe grasped and a continuous curvilinear capsulorrhexis was created us ing a cystotome and completed with an Utrata forceps. Hydrodissection and hydrodelineation were flores ied out using a cannula resulting in free rotation of the lens nucleus. Thereafter, the lens was rem adonis in a standard [id number] technique. Once all 4 quadrants had been removed, the phaco parada ndpiece was exchanged for bimanual irrigation and aspiration handpieces and the remaining cortical ma terial was removed. The capsular bag was filled with viscoelastic and the Baldo model SN6AT6, power 20.5 diopter, serial #[id number] was delivered into the capsular bag. As the lens unfolded, it was noted that the lens was an upside-down S-shaped configuration and additional viscoelastic was added a nd the lens flipped using a Sinskey hook and a chopper. This was done without incident, a lthough there was a small anterior capsular split in the inferior nasal quadrant. Integrity was stil l good and allowed for IOL capture and rotation. The toric lens was rotated to 178 degrees, which parada d been calculated preoperatively and the remaining viscoelastic material was removed using irrigation and aspiration handpiece. The wounds were hydrated with a 30-gauge cannula, found to be watertight and the procedure concluded with the patient tolerating the procedure well, having been under general anesthesia the entire time. There were no specimens sent. No drains placed. Implants are as above and the only complication is the small split, which should lead to no problems. Patient is to follo w up with myself, Dr. Fredy Sadler, in the morning. ROMA/ISABELAL Voice ID: [id number] Report ID: [id number]
== END 2022-10-26 09:45 | disposition home or self-care (01) ==
LOC: OR 06:22
PROVIDERS: ATTEND Ophthalmology
PROC: 08RK3JZ Replacement of Left Lens with Synthetic Substitute, Percutaneous Approach (ICD-10-PCS; 2022-10-26)
PROC: 08PK3JZ Removal of Synthetic Substitute from Left Lens, Percutaneous Approach (ICD-10-PCS; principal; 2022-10-26 07:30)
DX: H25.13 Age-related nuclear cataract, bilateral (principal)
CPT/HCPCS: 36415; 80048; 82947; 93005; A4216; J0171; J1100; J1885; J2001; J2371; J2405; J2704; J3010; J7030

== ENCOUNTER 2023-01-01 06:08 | Inpatient (IN) | payer OTHER ==
--- OUTSIDE RECORDS SUMMARY | 2023-01-01 06:16 | XMS REPORT | Continuity of Care Document ---
:1950 Author Organization [facility] t Address [address] [facility] [address] [place] [id number] Care Team Providers Name Role Phone Unknown, Physician Primary Care Physician Unavailable Jenny Mondragon Attending Clinician Unavailable Tresa Christianson Attending Clinician Unavailable EDGAR KEANE Attending Clinician Unavailable BRIAN COLVIN Attending Clinician Unavailable TARYN WHITE Attending Clinician Unavailable MARGARET NGUYEN Attending Clinician Unavailable MALENA HINDS Attending Clinician Unavailable Ava Mcintyre APRN Attending Clinician Donna Ramirez OD Attending Clinician YOLANDA CORDOBA Attending Clinician Unavailable Yolanda Cordoba MD Attending Clinician Bismark Hensley MD Attending Clinician Kay Velasquez MA Attending Clinician Unavailable Leonardo Thomason MD Attending Clinician Michael Aguillon MD Attending Clinician Awais Garcia MD Attending Clinician Payers Payer Name Policy Type Policy Number Effective Date Expiration Date S [facility] CLAUDIO [id number] 2020 00:00:00 [facility] C1 [id number] [facility] Complete (HMO) [facility] C1 [id number] [facility] Complete (HMO) [facility] C1 [id number] [facility] Complete (HMO) [facility] C1 [id number] [facility] Medicare - [facility] Complete (O) [facility] C1 [id number] [facility] Medicare [facility] Complete ([facility] [facility] Problems Condition Condition Condition Status Onset Resolution Last Treating Co mments Source Name Details Category Date Date Treatment Clinician Date Right Right Disease Active [facility] rotator rotator 8-10 Health cuff cuff 00:00: tendonitis tendonitis 00 Injury of Injury of Disease Active [place] right right 8-10 Health shoulder shoulder 00:00: 00 Dysphagia Dysphagia Disease Active [facility] following following 07-19 Heal th other other 00:00: nontraumat nontraumat 00 ic ic intracrani intracrani al al hemorrhage hemorrhage 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 07-19 Heal th malformati malformati 00:00: on on 00 Blurry Blurry Disease Active 2020-03 [facility] vision, vision, 1-15 Health bilateral bilateral 00:00: 00 [id number] Incomplete Problem Co mmon emptying Spirit of bladder - [facility] [id number] H/O: CVA Problem Comm on (cerebrova Spirit scular - [facility] accident) [facility] [id number] Lower Problem Common urinary [facility] 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[facility] mellitus mellitus - [facility] without without St complicati complicati [facility]ia [facility] [id number] BPH loc w Problem Com mon urin Spirit obs/LUTS - [facility] Essential Essential Problem Com mon hypertensi hypertensi Sp david on on - [facility] Vitamin D Vitamin D Problem Com mon deficiency deficiency Sp david - [facility] [id number] History of Problem Co mmon CVA with Spirit residual - [facility] deficit [facility] [id number] Type 2 Problem Common diabetes Spirit mellitus - [facility] with [facility] [id number] Mixed Problem Common hyperlipid Spirit emia - [facility] [id number] S/P HAND II THERMAL CUTTER Problem Common shunt [facility] [id number] PEG Problem Common (percutane Spirit ous - CHI endoscopic [facility] gastrostom 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 Cerebral Nontraumat Problem Com mon hemorrhage ic Spirit intracereb - [facility]I ral hemorrhage [facility] in [facility] cerebellum Center Attention Attention Problem Com mon to to Spirit gastrostom gastrostom - [facility] y tube y tube [facility] Attention Encounter Problem Com mon to for Spirit gastrostom attention - C HI y to gastrostom [facility] Allergies, Adverse Reactions, Alerts This patient has no known allergies or adverse reactions. Social History Social Habit Start Date Stop Date Quantity Comments Source History of [facility] - Tobacco Use [facility] Sex Assigned At [facility] david - [facility] Exposure to 2021-09-09 2021-09-19 Not sure [place] [facility] SARS-CoV-2 00:00:00 08:39:00 (event) Alcohol intake 2021-09-19 2021-09-19 Ex-drinker [place] [facility] 00:00:00 00:00:00 (finding) Tobacco use and 2021-04-12 2021-04-12 Smokeless tobacco [place] [facility] exposure 00:00:00 00:00:00 non-user Smoking Status Start Date Stop Date Source Tobacco smoking [place] [facility] consumption unknown Former Smoker 2022-09-25 00:00:00 2022-09-25 [facility] Spiri t - [facility] 00:00:00 [facility] Medications Ordered Filled Start Stop Current Ordering Indication Dosage Frequency Signature Comments Components Source Medication Medication Date Date Medication? Clinician (SIG) Name Name Pantoprazol Pantoprazol No QD Pantoprazo e Sodium 40 e Sodium 40 7-05 le Sodium MG MG 00:00: 40 MG 00 Doxazosin Doxazosin 2021-03 No Doxazosin Mesylate 2 Mesylate 2 09 Mesylate 2 MG MG 00:00: MG 00 Doxazosin Doxazosin 2021-03 No Doxazosin Mesylate 4 Mesylate 4 - Mesylate 4 MG MG 00:00: MG 00 Doxazosin Doxazosin 2021-03 No Doxazosin Mesylate 4 Mesylate 4 -09 Mesylate 4 MG MG 00:00: MG 00 Doxazosin Doxazosin 2021-03 No Doxazosin Mesylate 4 Mesylate 4 - Mesylate 4 MG MG 00:00: MG 00 Doxazosin Doxazosin 2021-03 No Doxazosin Mesylate 8 Mesylate 8 04-03 Mesylate 8 MG MG 00:00: MG 00 Doxazosin Doxazosin 2021-03 No Doxazosin Mesylate 8 Mesylate 8 09 Mesylate 8 MG MG 00:00: MG 00 Flomax 0.4 Flomax 0.4 2021-03- No 1{capsu QD Flomax 0.4 MG MG 03-27 le} MG 00:00: 00:00 00 :00 Flomax 0.4 Flomax 0.4 2021-03- No 1{capsu QD Flomax 0.4 MG MG 03-27 le} MG 00:00: 00:00 00 :00 Ferrous Ferrous 2021-0 No 5{ml} QD Ferrous Sulfate 75 Sulfate 75 9-27 Sulfate 75 (15 Fe) (15 Fe) 00:00: (15 Fe) MG/ML MG/ML 00 MG/ML Ferrous Ferrous 2-0 No 5{ml} QD Ferrous Sulfate 75 Sulfate 75 9-27 Sulfate 75 (15 Fe) (15 Fe) 00:00: (15 Fe) MG/ML MG/ML 00 MG/ML Ferrous Ferrous 2021-0 No 5{ml} QD Ferrous Sulfate 75 Sulfate [...] 2 2021- No TID Mupirocin % % 7-08 07-22 2 % 00:00: 00:00 00 :00 amLODIPine 2021-0 Yes amlodipine U T Besylate 6-27 5 mg Health (NORVASC 09:28: PO) 37 atorvastati 2022-0 Yes 20mg QD Take 20 mg UT n (Lipitor) 6-27 by mouth 1 He alth 20 MG 09:28: (one) time tablet 37 each day. At bedtime losartan 2-0 Yes 25mg QD Take 25 mg UT (Cozaar) 25 6-27 by mouth 1 He alth MG tablet 09:28: (one) time 37 each day. Multiple 2021-0 Yes 1{tbl} QD Take 1 UT Vitamins-Mi 6-27 tablet by [facility] nerals 09:28: mouth 1 (multivitam 37 (one) time in with each day. minerals) tablet amLODIPine 2021-0 Yes amlodipine U T Besylate 6-27 5 mg Health (NORVASC 09:28: PO) 37 atorvastati 2021-0 Yes 20mg [...] Take 1 UT Vitamins-Mi 6-27 tablet by [facility] nerals 09:28: mouth 1 (multivitam 37 (one) time in with each day. minerals) tablet amLODIPine 2021-0 Yes amlodipine U T Besylate 6-27 5 mg Health (NORVASC 09:28: PO) 37 metFORMIN 2021-0 Yes Q12H every 12 UT (Glucophage 5-27 () ) 1000 MG 10:59: hours. tablet 24 TWICE DAILY, ONCE IN THE MORNING AND ONCE IN THE EVENING amLODIPine 2021-0 Yes amlodipine U T Besylate 5-27 5 mg Health (NORVASC 10:59: PO) 24 atorvastati 2022-0 Yes 20mg QD Take 20 mg UT [...] MORNING AND ONCE IN THE EVENING amLODIPine 0 Yes amlodipine U T Besylate 5-27 5 mg Health (NORVASC 10:59: PO) 24 atorvastati 0 Yes 20mg QD Take 20 mg UT n (Lipitor) 5-27 by mouth 1 He alth 20 MG 10:59: (one) time tablet 24 each day. At bedtime losartan 0 Yes 25mg QD Take 25 mg UT (Cozaar) 25 5-27 by mouth 1 He alth MG tablet 10:59: (one) time 24 each day. metFORMIN 2021-0 Yes Q12H every 12 UT (Glucophage 5-27 (twelve) Heal ) 1000 MG 10:59: hours. tablet 24 TWICE DAILY, ONCE IN THE MORNING AND ONCE IN THE EVENING metFORMIN 2021-0 Yes Q12H every 12 UT (Glucophage 5-27 (twelve) Heal ) 1000 MG 10:59: hours. tablet 24 TWICE DAILY, ONCE IN THE MORNING AND ONCE IN THE EVENING metFORMIN 2021-0 Yes Q12H every 12 UT (Glucophage 5-27 (twelve) Heal th ) 1000 MG 10:59: hours. tablet 24 TWICE DAILY, ONCE IN THE MORNING AND ONCE IN THE EVENING metFORMIN metFORMIN 0 No BID metFORMIN HCl 1000 MG HCl 1000 MG 4-05 HCl 1000 00:00: MG 00 metFORMIN metFORMIN 0 No BID metFORMIN HCl 1000 MG HCl 1000 MG 4-05 HCl 1000 00:00: MG 00 metFORMIN metFORMIN 0 No BID metFORMIN HCl 1000 MG HCl 1000 MG 4-05 HCl 1000 00:00: MG 00 Clindamycin Clindamycin 2021-2021- No 2{capsu TID Clindamyci HCl 300 MG HCl 300 MG 06-14 les} n HCl 300 00:00: 00:00 MG 00 :00 Diclofenac Diclofenac 2021-2021- No BID Diclofenac Sodium 1 % Sodium 1 % 05-25 Sodium 1 % 00:00: 00:00 00 :00 Diclofenac Diclofenac 2021-2021- No BID Diclofenac Sodium 1 % Sodium 1 % 05-25 Sodium 1 % 00:00: 00:00 00 :00 Diclofenac Diclofenac 2022-0 2022- No BID Diclofenac Sodium 1 % Sodium 1 % 3-02 04-01 Sodium 1 % 00:00: 00:00 00 :00 meloxicam 2022-0 Yes [id number] TAKE 1 UT (Mobic) 15 2-10 [id number] TABLET (15 H ealth MG tablet 00:00: MG TOTAL) 00 BY MOUTH ONE TIME EACH DAY. meloxicam 2022-0 Yes [id number] TAKE 1 UT (Mobic) 15 2-10 [id number] TABLET (15 H ealth MG tablet 00:00: MG TOTAL) 00 BY MOUTH ONE TIME EACH DAY. meloxicam 2022-0 Yes [id number] TAKE 1 UT (Mobic) 15 2-10 [id number] TABLET (15 H ealth MG tablet 00:00: MG TOTAL) 00 BY MOUTH ONE TIME EACH DAY. meloxicam 2021-0 Yes [id number] TAKE 1 UT (Mobic) 15 2-10 [id number] TABLET (15 H ealth MG tablet 00:00: MG TOTAL) 00 BY MOUTH ONE TIME EACH DAY. Diclofenac 2021-0 Yes [id number] Apply UT Sodium 1-18 [id number] topically Health (Voltaren) 00:00: 4 (four) 1 % 00 times a external day if gel needed (pain). Do not apply more than 8 grams daily. Diclofenac 2021-0 Yes [id number] Apply UT Sodium 1-18 [id number] topically Health (Voltaren) 00:00: 4 (four) 1 % 00 times a external day if gel needed (pain). Do not apply more than 8 grams daily. Diclofenac 2021-0 Yes [id number] Apply UT Sodium 1-18 [id number] topically Health (Voltaren) 00:00: 4 (four) 1 % 00 times a external day if gel needed (pain). Do not apply more than 8 grams daily. Diclofenac 2021-0 Yes [id number] Apply UT Sodium 1-18 [id number] topically Health (Voltaren) 00:00: 4 (four) 1 % 00 times a external day if gel needed (pain). Do not apply more than 8 grams daily. Diclofenac 2021-0 Yes [id number] Apply UT Sodium 1-18 [id number] topically Health (Voltaren) 00:00: 4 (four) 1 % 00 times a external day if gel needed (pain). Do not apply more than 8 grams daily. meloxicam 2021- No [id number] 15mg QD Take 1 UT (Mobic) 15 04-12 [id number] tablet (15 Health MG tablet 00:00: 00:00 mg total) 00 :00 by mouth 1 (one) time each day. No known 2020-03 No No known UT medications 2-13 medication He alth 13:15: s 55 metFORMIN 2020-03 Yes Q12H every 12 UT (Glucophage 2-13 (twelve) ) 1000 MG 13:15: hours. tablet 47 [...] GM/118ML GM/118ML 00:00: 00:00 GM/118ML 00 :00 Losartan Losartan No 2{table QD Losartan Potassium [...] le} ferol 50 (1999) (1999) MCG (1999) Ondansetron Ondansetron No Ondansetro HCl 4 MG [...] food} Cholecalcif Cholecalcif No 1{capsu QD Cholecalci robibn 50 MCG robbin 50 MCG le} ferol [...] ferol 50 (1999) (1999) MCG (2000 UT) QUEtiapine QUEtiapine No 3{table QD QUEtiapine Fumarate [...] 50 MCG le} ferol 50 (1999 UT) (1999 UT) MCG (1999) QUEtiapine QUEtiapine No 3{table QD [...] 5 MG MG MG Famotidine Famotidine No Famotidine 40 MG 40 MG 40 MG Losartan Losartan No Losartan Potassium Potassium Potassium 50 MG 50 MG 50 MG Glucerna Glucerna No QID Glucerna 1.5 Hank - 1.5 Hank - 1.5 Hank - Accu-Chek Accu-Chek No Accu-Chek Guide - Guide - Guide - Strips Strips No Strips metFORMIN metFORMIN No BID metFORMIN HCl 1000 MG HCl 1000 MG HCl 1000 MG Doxazosin Doxazosin No Doxazosin Mesylate 8 Mesylate 8 Mesylate 8 MG MG MG Atorvastati Atorvastati No 1{table [...] HCl 4 MG n HCl 4 MG Nystatin Nystatin 2- No 4{ml} QID Nystatin 871443 812554 - [id number] UNIT/ML UNIT/ML 00:00 UNIT/ML :00 Nystatin Nystatin 2- No 4{ml} QID Nystatin 325678 219970 - [id number] UNIT/ML UNIT/ML 00:00 UNIT/ML :00 Nystatin Nystatin 2- No 4{ml} QID Nystatin 240994 314264 - 941160 UNIT/ML UNIT/ML 00:00 UNIT/ML :00 Nystatin Nystatin 2- No 4{ml} QID Nystatin 447882 803911 - 290029 UNIT/ML UNIT/ML 00:00 UNIT/ML :00 Nystatin Nystatin 2- No 4{ml} QID Nystatin 259117 119334 - 779550 UNIT/ML UNIT/ML 00:00 UNIT/ML :00 Nystatin Nystatin 2- No 4{ml} QID Nystatin 193032 001819 - 727983 UNIT/ML UNIT/ML 00:00 UNIT/ML :00 Nystatin Nystatin 2- No 4{ml} QID Nystatin 678657 268775 - 794190 UNIT/ML UNIT/ML 00:00 UNIT/ML :00 Nystatin Nystatin 2022- No 4{ml} QID Nystatin 989350 471807 - 657086 UNIT/ML UNIT/ML 00:00 UNIT/ML :00 Nystatin Nystatin 2- No 4{ml} QID Nystatin 896804 442615 04-05 439679 UNIT/ML UNIT/ML 00:00 UNIT/ML :00 Nystatin Nystatin 2021- No 4{ml} QID Nystatin 423436 593349 04-05 135142 UNIT/ML UNIT/ML 00:00 UNIT/ML :00 Vital Signs Vital Name Observation Time Observation Value Comments Source height 2022-04-28 13:00:00 73.5 [in_i] Common [facility] weight 2022-04-28 13:00:00 130 [lb_av] [facility] temperature 2022-04-28 13:00:00 97.2 [degF] [facility] bmi 2022-04-28 13:00:00 16.92 kg/m2 [facility] oximetry 2022-04-28 13:00:00 96 % [facility] respiratory rate 2022-04-28 13:00:00 16 /min Comm on [facility] blood pressure 2022-04-28 13:00:00 118 mm[Hg] Common [facility] - systolic [facility] blood pressure 2022-04-28 13:00:00 64 mm[Hg] Common [facility] - diastolic [facility] height 2022-03-09 08:15:00 73.5 [in_i] [facility] weight 2022-03-09 08:15:00 130 [lb_av] [facility] temperature 2022-03-09 08:15:00 97.6 [degF] Common [facility] bmi 2022-03-09 08:15:00 16.92 kg/m2 [facility] oximetry 2022-03-09 08:15:00 98 % [facility] respiratory rate 2022-03-09 08:15:00 18 /min Comm on [facility] blood pressure 2022-03-09 08:15:00 132 mm[Hg] Common [facility] - systolic [facility] blood pressure 2022-03-09 08:15:00 68 mm[Hg] [facility] - diastolic [facility] height 2022-01-25 10:30:00 73.5 [in_i] Common S pirit [facility] weight 2022-01-25 10:30:00 130 [lb_av] Common S [facility] temperature 2022-01-25 10:30:00 99.3 [degF] Common S pirit - [facility] bmi 2022-01-25 10:30:00 16.92 kg/m2 Common S [facility]irit [facility] oximetry 2022-01-25 10:30:00 96 % Common S [facility] respiratory rate 2022-01-25 10:30:00 16 /min Comm on [facility] blood pressure 2022-01-25 10:30:00 125 mm[Hg] Common [facility] - systolic [facility] blood pressure 2022-01-25 10:30:00 62 mm[Hg] [facility] - diastolic [facility] height 2021-12-19 11:00:00 73.5 [in_i] [facility] 2021-12-19 11:00:00 128.0 [lb_av] [facility] temperature 2021-12-19 11:00:00 97.9 [degF] Common S [facility] bmi 2021-12-19 11:00:00 16.66 kg/m2 Common S [facility]irit [facility] oximetry 2021-12-19 11:00:00 97 % [facility] 2021-12-19 11:00:00 15 /min Comm on [facility] blood pressure 2021-12-19 11:00:00 101 mm[Hg] Common [facility] - systolic [facility] blood pressure 2021-12-19 11:00:00 57 mm[Hg] Common [facility] - diastolic [facility] height 2021-10-31 14:20:00 73.5 [in_i] [facility] weight 2021-10-31 14:20:00 128 [lb_av] [facility] temperature 2021-10-31 14:20:00 97.8 [degF] [facility] bmi 2021-10-31 14:20:00 16.66 kg/m2 [facility] height 2021-10-17 14:40:00 73.50 [in_i] [facility] weight 2021-10-17 14:40:00 128 [lb_av] [facility] temperature 2021-10-17 14:40:00 98.0 [degF] [facility] 2021-10-17 14:40:00 16.66 kg/m2 [facility] oximetry 2021-10-17 14:40:00 95 % [facility] respiratory rate 2021-10-17 14:40:00 15 /min Comm on [facility] blood pressure 2021-10-17 14:40:00 111 mm[Hg] [facility] - systolic [facility] blood pressure 2021-10-17 14:40:00 74 mm[Hg] [facility] diastolic [facility] height 2021-08-30 11:20:00 73.50 [in_i] [facility] weight 2021-08-30 11:20:00 128 [lb_av] [facility] bmi 2021-08-30 11:20:00 16.66 kg/m2 [facility] height 2021-06-28 11:40:00 73.50 [in_i] [facility] weight 2021-06-28 11:40:00 128.9 [lb_av] [facility] temperature 2021-06-28 11:40:00 98.1 [degF] [facility] bmi 2021-06-28 11:40:00 16.77 kg/m2 Common S [facility] oximetry 2021-06-28 11:40:00 97 % [facility] 2021-06-28 11:40:00 16 /min Comm on [facility] blood pressure 2021-06-28 11:40:00 103 mm[Hg] Common [facility] - systolic [facility] blood pressure 2021-06-28 11:40:00 65 mm[Hg] [facility] - diastolic [facility] height 2021-06-14 16:30:00 73.50 [in_i] Common [facility] weight 2021-06-14 16:30:00 130 [lb_av] [facility] temperature 2021-06-14 16:30:00 97.5 [degF] Common [facility] bmi 2021-06-14 16:30:00 16.92 kg/m2 Common S [facility] oximetry 2021-06-14 16:30:00 96 % Common S [facility] respiratory rate 2021-06-14 16:30:00 16 /min Comm on [facility] blood pressure 2021-06-14 16:30:00 120 mm[Hg] Common [facility] - systolic [facility] blood pressure 2021-06-14 16:30:00 69 mm[Hg] [facility] - diastolic [facility] height 2021-04-22 10:20:00 73.50 [in_i] Common [facility] weight 2021-04-22 10:20:00 161.0 [lb_av] Common [facility] temperature 2021-04-22 10:20:00 97.6 [degF] Common [facility] bmi 2021-04-22 10:20:00 20.95 kg/m2 Common S [facility] oximetry 2021-04-22 10:20:00 98 % Common [facility] respiratory rate 2021-04-22 10:20:00 15 /min Comm on [facility] blood pressure 2021-04-22 10:20:00 122 mm[Hg] [facility] - systolic [facility] blood pressure 2021-04-22 10:20:00 63 mm[Hg] [facility] - diastolic [facility] height 2021-04-22 10:00:00 73.50 [in_i] Common [facility] weight 2021-04-22 10:00:00 161.0 [lb_av] Common [facility] temperature 2021-04-22 10:00:00 97.6 [degF] Common S [facility] bmi 2021-04-22 10:00:00 20.95 kg/m2 Common S [facility] oximetry 2021-04-22 10:00:00 98 % Common S [facility] blood pressure 2021-04-22 10:00:00 122 mm[Hg] Common [facility] - systolic [facility] blood pressure 2021-04-22 10:00:00 63 mm[Hg] Common [facility] - diastolic [facility] height 2021-02-24 15:00:00 73.50 [in_i] Common S [facility] weight 2021-02-24 15:00:00 161 [lb_av] Common [facility] temperature 2021-02-24 15:00:00 98.1 [degF] Common S [facility]irit [facility] bmi 2021-02-24 15:00:00 20.95 kg/m2 Common S [facility] oximetry 2021-02-24 15:00:00 97 % Common S [facility] respiratory rate 2021-02-24 15:00:00 17 /min Comm on [facility] blood pressure 2021-02-24 15:00:00 115 mm[Hg] [facility] - systolic [facility] blood pressure 2021-02-24 15:00:00 70 mm[Hg] Common [facility] Procedures Procedure Date / Time Performed Performing Clinician [facility] e AUTOMATED VISUAL FIELD, EXTENDED 2021-09-19 15:37:53 JamesTony newton [facility] - OU - BOTH EYES AUTOMATED VISUAL FIELD, EXTENDED 2021-03-07 21:37:48 JamesTony newton [facility] - OU - BOTH EYES MRI BRAIN W WO CONTRAST 2021-03-03 16:58:00 Leonardo Thomason [place] [facility] MRI HEAD ANGIO W AND WO IV 2021-01-03 13:22:00 Michael Aguillon [facility] CONTRAST Encounters Start End Encounter Admission Attending Care Care Encounter Source Date/Time Date/Time Type Type Clinicians Facility Department ID 2022-06-26 Outpatient Mondragon, STLMLC STLMLC [id number] Common 09:45:01 Jenny [id number] [facility] 2022-04-28 Outpatient Mondragon, STLMLC STLMLC [id number] Common 12:50:01 Jenny [id number] [facility] 2022-04-11 Outpatient Mondragon, STLMLC STLMLC [id number] Common 10:45:00 Jenny [id number] [facility] 2022-03-[address] [facility] [id number] [place] 14:25:[id number] [place] [address] 2022-03-16 Outpatient Christianson, Na STLMLC STLMLC [id number] 2 Common 16:28:01 [facility] 2021-12-16 Outpatient Christianson, Na STLMLC STLMLC [id number] 2 Common 08:16:01 [facility] 2021-08-30 Outpatient Christianson, Na STLMLC STLMLC [id number] 2 Common 11:51:01 [facility] 2021-06-29 Outpatient Christianson, Na STLMLC STLMLC [id number] 2 Common 12:33:01 [facility] 2021-06-24 Outpatient Christianson, Na STLMLC STLMLC [id number] 2 Common 14:11:00 [facility] 2021-06-06 Outpatient Christianson, Na STLMLC STLMLC [id number] 2 Common 16:10:02 [facility] 2021-05-24 Outpatient Christianson, Na STLMLC STLMLC [id number] 2 Common 16:44:01 [facility] 2021-05-20 Outpatient DAVID, [facility] [id number] [place] 10:10:14 [facility] 2021-04-[address] [facility] [id number] [place] 13:47:04 BRIAN [facility] 2021-04-20 Outpatient Christianson, Na STLMLC STLMLC [id number] 2 Common 14:25:16 [id number] [facility] 2021-04-20 Outpatient Christianson, Na STLMLC STLMLC [id number] Common 14:14:58 [id number] [facility] 2021-04-20 Outpatient Christianson, Na STLMLC STLMLC [id number] Common 13:49:11 [id number] [facility] 2021-04-20 Outpatient Christianson, Na STLMLC STLMLC [id number] Common 13:45:40 [id number] [facility] 2021-04-20 Outpatient Christianson, Na STLMLC STLMLC [id number] Common 12:38:51 [id number] [facility] 2021-04-20 Outpatient Christianson, Na STLMLC STLMLC [id number] Common 12:37:46 [id number] [facility] 2021-04-20 Outpatient Christianson, Na STLMLC STLMLC [id number] Common 12:30:50 [id number] [facility] 2021-04-20 Outpatient Christianson, Na STLMLC STLMLC [id number] Common 12:15:45 [id number] [facility] 2021-04-[address] [facility] [id number] [place] 08:40:26 Health 2021-03-[address] [facility] [id number] [place] 13:13:47 [facility] 2021-02-09 Outpatient WENDY, [facility] [id number] [place] 01:03:51 [facility] 2020-11-30 Outpatient LIZTE, [facility] [id number] [place] 01:04:12 [facility] 2023-06-05 2023-06-05 Outpatient MHIE MHIE [id number] Memoria 10:15:00 10:15:00 05 herlinda [place] 2022-12-21 2022-12-21 Outpatient MHIE MHIE [id number] Memoria 10:15:00 10:15:00 04 herlinda [place] 2022-11-10 2022-11-10 Outpatient MHIE MHIE [id number] Memoria 11:15:00 11:15:00 03 herlinda [place] 2022-04-28 2022-04-28 OFFICE STLMLC STLMLC [id number] Co mmon 00:00:00 00:00:00 VISIT [facility] - [facility]I LEVEL 4 [facility] 2022-04-21 2022-04-21 (TEL) STLMLC STLMLC [id number] Co mmon 00:00:00 00:00:00 [facility] 2022-03-10 2022-03-10 (TEL) STLMLC STLMLC [id number] Co mmon 00:00:00 00:00:00 [facility] CHI [facility] 2022-03-09 2022-03-09 OFFICE STLMLC STLMLC [id number] Co mmon 00:00:00 00:00:00 [facility]IT [facility] - CHI LEVEL 2 [facility] 2022-03-09 2022-03-09 (TEL) STLMLC STLMLC [id number] Co mmon 00:00:00 00:00:00 [facility] 2022-01-25 2022-01-25 OFFICE STLMLC STLMLC [id number] Co mmon 00:00:00 00:00:00 VISIT NEW [facility] PT LEVEL 2 - [facility] 2022-01-25 2022-01-25 (TEL) STLMLC STLMLC [id number] Co mmon 00:00:00 00:00:00 [facility] 2022-01-23 2022-01-23 (TEL) STLMLC STLMLC [id number] Co mmon 00:00:00 00:00:00 [facility] 2021-12-20 2021-12-20 (TEL) STLMLC STLMLC [id number] Co mmon 00:00:00 00:00:00 [facility] 2021-12-19 2021-12-19 (TEL) STLMLC STLMLC [id number] Co mmon 00:00:00 00:00:00 [facility] 2021-12-19 2021-12-19 OFFICE STLMLC STLMLC [id number] Co mmon 00:00:00 00:00:00 VISIT [facility] PT - CHI LEVEL 4 [facility] 2021-12-13 2021-12-13 (TEL) STLMLC STLMLC [id number] Co mmon 00:00:00 00:00:00 [facility] 2021-11-04 2021-11-04 (TEL) STLMLC STLMLC [id number] Co mmon 00:00:00 00:00:00 [facility] 2021-10-31 2021-10-31 OFFICE STLMLC STLMLC [id number] Co mmon 00:00:00 00:00:00 VISIT [facility] PT - CHI LEVEL 1 [facility] 2021-10-27 2021-10-27 (TEL) STLMLC STLMLC [id number] Co mmon 00:00:00 00:00:00 [facility] 2021-10-21 2021-10-21 (TEL) STLMLC STLMLC [id number] Co mmon 00:00:00 00:00:00 [facility] 2021-10-17 2021-10-17 OFFICE STLMLC STLMLC [id number] Co mmon 00:00:00 00:00:00 VISIT [facility] PT - CHI LEVEL 4 [facility] 2021-10-14 2021-10-14 (TEL) STLMLC STLMLC [id number] Co mmon 00:00:00 00:00:00 [facility] 2021-10-14 2021-10-14 Telephone ROSAS Mcintyre 6400 1.2.840.114 [id number] [place] 00:00:00 00:00:[address] [id number] Health [id number] [id number] 2021-09-28 2021-09-28 (TEL) STLMLC STLMLC [id number] Co mmon 00:00:00 00:00:00 [facility] 2021-09-27 2021-09-27 (TEL) STLMLC STLMLC [id number] Co mmon 00:00:00 00:00:00 [facility] 2021-09-19 2021-09-19 Office JamesROSAS newton 6400 1.2.840.114 [id number] [place] 09:00:00 10:31:[address] [id number] Health 9.2.7.2.686 [id number] 2021-09-16 2021-09-16 (TEL) STLMLC STLMLC [id number] Co mmon 00:00:00 00:00:00 [facility] 2021-09-14 2021-09-[address] 09:40:00 12:47:00 YOLANDA 2021-09-09 2021-09-09 (TEL) STLMLC STLMLC [id number] Co mmon 00:00:00 00:00:00 [facility] 2021-09-05 2021-09-05 (TEL) STLMLC STLMLC [id number] Co mmon 00:00:00 00:00:00 [facility] 2021-08-30 2021-08-30 (TEL) STLMLC STLMLC [id number] Co mmon 00:00:00 00:00:00 [facility] 2021-08-30 2021-08-30 OFFICE STLMLC STLMLC [id number] Co mmon 00:00:00 00:00:[address] [facility] 2021-08-30 2021-08-30 Telephone Adalid, UTP 6400 1.2.840.114 [id number] [place] 00:00:00 00:00:[address] [id number] Health 9.2.7.2.686 [id number] 2021-08-23 2021-08-23 Telephone Adalid, UTP 6400 1.2.840.114 [id number] [place] 00:00:00 00:00:[address] [id number] Health 9.2.7.2.686 [id number] 2021-08-19 2021-08-19 Office Bismark Hensley UTP 6410 1.2.840.114 [id number] [place] 11:00:00 16:20:[address] [id number] Health 9.2.7.2.686 [id number] 2021-07-19 2021-07-19 Office Adalid UTP 6400 1.2.840.114 [id number] [place] 09:15:00 09:30:[address] [id number] Health 9.2.7.2.686 [id number] 2021-07-06 2021-07-06 (TEL) STLMLC STLMLC [id number] Co mmon 00:00:00 00:00:00 [facility] 2021-07-06 2021-07-06 (TEL) STLMLC STLMLC [id number] Co mmon 00:00:00 00:00:00 [facility] 2021-06-29 2021-06-29 Telephone Adalid, UTP 6400 1.2.840.114 [id number] [place] 00:00:00 00:00:[address] [id number] Health 9.2.7.2.686 [id number] 2021-06-28 2021-06-28 OFFICE STLMLC STLMLC [id number] Co mmon 00:00:00 00:00:00 VISIT [facility] PT - CHI LEVEL 4 [facility] 2021-06-28 2021-06-28 Telephone ROSAS Cordoba 6400 1.2.840.114 [id number] [place] 00:00:00 00:00:[address] [id number] Health 9.2.7.2.686 [id number] 2021-06-27 2021-06-27 (TEL) STLMLC STLMLC [id number] Co mmon 00:00:00 00:00:00 [facility] 2021-06-14 2021-06-14 (TEL) STLMLC STLMLC [id number] Co mmon 00:00:00 00:00:00 [facility] 2021-06-14 2021-06-14 OFFICE STLMLC STLMLC [id number] Co mmon 00:00:00 00:00:00 VISIT EST [facility] PT LEVEL 3 [facility] 2021-06-06 2021-06-06 (TEL) STLMLC STLMLC [id number] Co mmon 00:00:00 00:00:00 [facility] 2021-05-24 2021-05-24 (TEL) STLMLC STLMLC [id number] Co mmon 00:00:00 00:00:00 [facility] 2021-05-20 2021-05-20 Office ROSAS Keane 6410 1.2.840.114 [id number] [place] 08:30:00 10:09:[address] [id number] Health 9.2.7.2.686 [id number] 2021-04-29 2021-04-29 (TEL) STLMLC STLMLC [id number] Co mmon 00:00:00 00:00:00 [facility] 2021-04-22 2021-04-22 OFFICE STLMLC STLMLC [id number] Co mmon 00:00:00 00:00:00 VISIT EST [facility] PT LEVEL 3 [facility] 2021-04-22 2021-04-22 SUB ANNUAL STLMLC STLMLC [id number] Common 00:00:00 00:00:00 MCR [facility] - [facility]I VISIT [facility] 2021-04-20 2021-04-20 Telephone Kay Velasquez [facility] 1.2.840. 114 [id number] [place] 00:00:00 00:00:00 Kay Velasquez 350.1.13.58 Health MEDICAL 9.2.7.2.686 [address] 1 [id number] 2021-04-12 2021-04-12 Office Taryn White [facility] 1.2.840.114 [id number] [place] 09:00:00 10:18:19 Visit CARIBOU 350.1.13.58 H [facility] MEDICAL 9.2.7.2.686 [address] 3 [id number] 2021-03-21 2021-03-21 [facility] [id number] Co mmon 00:00:00 00:00:00 [facility] 2021-03-16 2021-03-16 Outpatient MHIE MHIE [id number] Memoria 09:45:00 09:45:00 02 herlinda VailDeny 2021-03-16 2021-03-16 Outpatient MHIE MHIE [id number] Memoria 09:45:00 09:45:00 02 herlinda Barclay 2021-03-14 2021-03-14 OFFICE STLC STLC [id number] Co mmon 00:00:00 00:00:00 [facility]ISIT [facility] - CHI LEVEL 1 [facility] 2021-03-08 2021-03-08 [facility] [id number] Co mmon 00:00:00 00:00:00 [facility] 2021-03-07 2021-03-07 Office ROSAS Ramirez 6400 1.2.840.114 [id number] [place] 13:00:00 14:00:[address] 350.1.13.58 Health 9.2.7.2.686 [id number] 2021-03-07 2021-03-07 Office ROSAS Ramirez 6400 1.2.840.114 [id number] [place] 13:00:00 14:00:[address] 350.1.13.58 Health 9.2.7.2.686 [id number] 2021-03-07 2021-03-07 (WEB) STLMLC STLMLC [id number] Co mmon 00:00:00 00:00:00 [facility] 2021-03-03 2021-03-03 EXT [facility] Sharri, EXT MSRDP 1.2.840.114 [id number] [place] 00:00:00 00:00:00 Anjail LOCATION 350.1.13.58 H ealth 9.2.7.2.686 [id number] 2021-03-03 2021-03-03 EXT [facility] Jean Carlosrief, EXT MSRDP 1.2.840.114 [id number] [place] 00:00:00 00:00:00 Anjail LOCATION 350.1.13.58 H ealth 9.2.7.2.686 [id number] 2021-02-25 2021-02-25 (TEL) STLMLC STLMLC [id number] Co mmon 00:00:00 00:00:00 [facility] 2021-02-24 2021-02-24 OFFICE STLMLC STLMLC [id number] Co mmon 00:00:00 00:00:00 VISIT [facility] LEVEL 4 [facility] 2021-02-11 2021-02-11 (TEL) STLMLC STLMLC [id number] Co mmon 00:00:00 00:00:00 [facility] 2021-02-11 2021-02-11 (TEL) STLMLC STLMLC [id number] Co mmon 00:00:00 00:00:00 [facility] 2021-02-10 2021-02-10 (TEL) STLMLC STLMLC [id number] Co mmon 00:00:00 00:00:00 [facility] 2021-02-09 2021-02-09 Outpatient MHIE JUAN [id number] [facility] Memoria 08:45:00 08:45:00 01 l Deny 2021-02-09 2021-02-09 Outpatient MHIE MHIE [id number] Memoria 08:45:00 08:45:00 01 l Deny 2021-01-31 2021-01-31 (TEL) STLMLC STLMLC [id number] Co mmon 00:00:00 00:00:00 [facility] 2021-01-12 2021-01-12 Outpatient MHIE MHIE [id number] Memoria 15:00:00 15:00:00 00 herlinda Barclay 2021-01-12 2021-01-12 Outpatient MHIE MHIE [id number] Memoria 15:00:00 15:00:00 00 herlinda Barclay 2021-01-03 2021-01-03 EXT [facility] OP Savitz, EXT MSRDP 1.2.840.114 [id number] [place] 00:00:00 00:00:00 Michael LOCATION 350.1.13.58 H ealth 9.2.7.2.686 [id number] 2021-01-03 2021-01-03 EXT [facility] OP Savitz, EXT MSRDP 1.2.840.114 [id number] [place] 00:00:00 00:00:00 Michael LOCATION 350.1.13.58 H ealth 9.2.7.2.686 [id number] 2020-12-31 2020-12-31 (TEL) STLMLC STLMLC [id number] Co mmon 00:00:00 00:00:00 [facility] 2020-12-29 2020-12-29 Outpatient STLMLC STLMLC [id number] Common 00:00:00 00:00:00 [facility] 2020-12-23 2020-12-23 Outpatient STLMLC STLMLC [id number] Common 00:00:00 00:00:00 [facility] 2020-12-22 2020-12-22 (TEL) STLMLC STLMLC [id number] Co mmon 00:00:00 00:00:00 [facility] 2020-12-17 2020-12-17 Outpatient STLMLC STLMLC [id number] Common 00:00:00 00:00:00 [facility] 2020-12-17 2020-12-17 Outpatient STLMLC STLMLC [id number] Common 00:00:00 00:00:00 [facility] 2020-12-15 2020-12-15 Outpatient STLMLC STLMLC [id number] Common 00:00:00 00:00:00 [facility] 2020-12-14 2020-12-14 Outpatient STLMLC STLMLC [id number] Common 00:00:00 00:00:00 [facility] 2020-12-14 2020-12-14 Outpatient STLMLC STLMLC [id number] Common 00:00:00 00:00:00 [facility] 2020-12-10 2020-12-10 Outpatient STLMLC STLMLC [id number] Common 00:00:00 00:00:00 [facility] 2020-12-08 2020-12-08 Outpatient STLMLC STLMLC [id number] Common 00:00:00 00:00:00 [facility] 2020-12-08 2020-12-08 Outpatient STLMLC STLMLC [id number] Common 00:00:00 00:00:00 [facility] 2020-12-08 2020-12-08 Outpatient STLMLC STLMLC [id number] Common 00:00:00 00:00:00 [facility] 2020-12-02 2020-12-02 Outpatient STLMLC STLMLC [id number] Common 00:00:00 00:00:00 [facility] 2020-11-26 2020-11-26 Outpatient STLMLC STLMLC [id number] Common 00:00:00 00:00:00 [facility] 2020-11-26 2020-11-26 Outpatient STLMLC STLMLC [id number] Common 00:00:00 00:00:00 [facility] 2020-11-26 2020-11-26 Outpatient STLMLC STLMLC [id number] Common 00:00:00 00:00:00 [facility] 2020-11-24 2020-11-24 Outpatient STLMLC STLMLC [id number] Common 00:00:00 00:00:00 [facility] 2020-11-22 2020-11-22 Outpatient STLMLC STLMLC [id number] Common 00:00:00 00:00:00 [facility] 2020-11-19 2020-11-19 Outpatient STLMLC STLMLC [id number] Common 00:00:00 00:00:00 [facility] 2020-11-08 2020-11-08 Outpatient COH COH PIJFHBK TIN COH 00:00:00 00:00:00 [id number] 2020-10-30 EXT [facility] Garcia, EXT MSRDP 1.2.840.114 [id number] [place] 00:00:00 00:00:00 Awais Morsean LOCATION [id number] Health 9.2.7.2.686 [id number] [id number] 2020-10-30 2020-10-30 EXT [facility] Jose, EXT MSRDP 1.2.840.114 [id number] [place] 00:00:00 00:00:00 Awais Adler LOCATION 350.1.13.58 Health 9.2.7.2.686 [id number] [id number] 2020-06-03 2020-06-03 Outpatient STLMLC STLC [id number] Common 00:00:00 00:00:00 [facility] 2020-05-04 2020-05-04 Outpatient STLMLC STLMLC [id number] Common 00:00:00 00:00:00 [facility] Results Test Description Test Time Test Comments Results Result Comments Source HEMOGLOBIN A1C Test Item Value Reference Range Interpretation Comme nts A1C (test code = 4548-4) 6.4 SARS-COV 2 AntigenSARS-COV 2 Antigen
[2023-01-01 07:33] LABS: Absolute Lymphocytes (CBC) 0.6 K/uL (0.7-4.9); Hematocrit 43.6 % (39.6-49.0); Lymphocytes % 4.6 % (15.3-44.8); MCV 90.1 fL (80-100); MPV 10.8 fL (7.6-11.3); Platelets 191 thou/uL (152-406); RBC Red Blood Cell Count 4.84 M/uL (4.33-5.43)
--- NOTE | 2023-01-01 07:35 | RAD REPORT ---
EXAM DESCRIPTION: RAD - ENTEROSTOMY TUBE CHECK W/CONTR - 01/01/2023 7:08 am CLINICAL HISTORY: PEG tube confirmation Abdominal pain COMPARISON: Barium Swallow Modified dated 11/03/2021 FINDINGS: Contrast was injected via existing gastrostomy tube. Contrast is seen in the fundus of the stomach which would indicate appropriate placement. No contrast extravasation into the peritoneal ca vity seen.
--- NOTE | 2023-01-01 07:36 | RAD REPORT ---
EXAM DESCRIPTION: RAD - Chest Single View - 01/01/2023 7:08 am CLINICAL HISTORY: COUGH Chest pain. COMPARISON: Chest Single View dated 06/24/2021 FINDINGS: Portable technique limits examination quality. The lungs are grossly clear. The heart is normal in size. No displaced fractures. IMPRESSION: No acute intrathoracic process suspected.
[2023-01-01] MEDS ORDERED: NA CHLORIDE 0.9% 1,000 ML ONE (07:42)
[2023-01-01] MEDS ORDERED: NA CHLORIDE 0.9% 500 ML ONE (07:42)
[2023-01-01 07:49] LABS: Albumin 3.7 g/dL (3.4-5.0); Bilirubin Total 0.9 mg/dL (0.2-1.0); Potassium 4.5 mEq/L (3.5-5.1); Protein, Total 8.2 g/dL (6.4-8.2)
[2023-01-01 07:54] LABS: Troponin High Sensitivity 7.2 pg/mL (<58.9)
--- NOTE | 2023-01-01 07:58 | RAD REPORT ---
EXAM DESCRIPTION: CT - Chest Abd Pelvis Wo Con - 01/01/2023 7:34 am CLINICAL HISTORY: Chest and abdomen pain. COUGH COMPARISON: No comparisons TECHNIQUE: A limited noncontrast study was performed. All CT scans are performed using dose optimization technique as appropriate and may include automated exposure control or mA/KV adjustment according to patient size. FINDINGS: Mild atelectasis in lung bases posteriorly. The lungs are otherwise clearNo pleural or per icardial effusion.No intrathoracic adenopathy. The liver, spleen, pancreas, adrenal glands and kidneys are within normal limits. Gastrostomy tube bu lb and tip appear within the lumen of the stomach. No bowel obstruction, free air, free fluid or abscess. Normal appendix. No pathologic lymphadenopath y in the abdomen or pelvis. Moderate aortoiliac atherosclerosis. Moderate lumbar degenerative changes are present. IMPRESSION: No acute abnormality is detected. Mild atelectasis is present in both lung bases posteriorly.
[2023-01-01] MEDS ORDERED: NA CHLORIDE 0.9% 0 ML ONE (08:08)
[2023-01-01] MEDS ORDERED: PIPERACIL/TAZO 3.375 GM VIAL IV ONE (08:08)
[2023-01-01] MEDS ORDERED: NA CHLORIDE 0.9% 100 ML ONE (08:27)
--- NOTE | 2023-01-01 08:30 | ER ---
Nurse's Notes [facility] Name: Contreras Naranjo Age: 72 yrs Sex: Male : 1950 Arrival Date: 01/01/2023 Time: 06:08 Bed 15 Private MD: Diagnosis: Aspiration pneumonitis;Tachypnea, not elsewhere classified;Weakness Presentation: 01/01 06:29 Chief complaint: Spouse and/or significant other states: new onset cough beginning at lg3 0200 with phlegm. pt complains of sore/dry throat from coughing. Coronavirus screen: At this time, unable to obtain information related to travel outside the [place] Client presents with at least one sign or symptom that may indicate coronavirus-19. Standard/surgical mask placed on the client. Ebola Screen: No symptoms or risks identified at this time. Initial Sepsis Screen: Does the patient meet any 2 criteria? No. Patient's initial sepsis screen is negative. Does the patient have a suspected source of infection? No. Patient's initial sepsis screen is negative. Risk Assessment: Do you want to hurt yourself or someone else? Patient reports no desire to harm self or others. Onset of symptoms was January 01, 2023 at 02:00. 06:29 Method Of Arrival: Wheelchair lg3 06:29 Acuity: NANCY 3 lg3 Triage Assessment: 06:32 General: Appears in no apparent distress. comfortable, Behavior is calm, cooperative. lg3 Pain: Complains of pain in throat Pain does not radiate. Aggravated by couging. EENT: No deficits noted. No signs and/or symptoms were reported regarding the EENT system. Neuro: No deficits noted. Martins Agitation-Sedation Scale (RASS): 0 - Alert and Calm Level of Consciousness is awake, alert, obeys commands, Oriented to person, place, time, situation. Cardiovascular: No deficits noted. Denies chest pain, shortness of breath, Capillary refill < 3 seconds Clubbing of nail beds is absent JVD is absent Patient's skin is warm and dry. Respiratory: Airway is patent Respiratory effort is even, unlabored, Respiratory pattern is regular, symmetrical, Sputum is thick, Parent/caregiver reports the patient having cough that is productive, persistent pain with cough. GI: Abdomen is flat, non-distended, PEG tube in place, clamped. Site clean. : No deficits noted. No signs and/or symptoms were reported regarding the genitourinary system. Derm: No deficits noted. No signs and/or symptoms reported regarding the dermatologic system. Skin is intact, is healthy with good turgor, Skin is dry, Skin is normal, Skin temperature is warm. Musculoskeletal: Circulation, motion, and sensation intact. Range of motion: limited in right side post stroke. Historical: - Allergies: 06:32 No Known Allergies; lg3 - Home Meds: 06:32 metformin 500 mg Oral tablet 2 times per day [Active]; carvedilol oral [Active]; lg3 losartan oral [Active]; atorvastatin oral [Active]; doxazosin oral [Active]; Pepcid Oral [Active]; - PMHx: 06:32 diabetes mellitus; Hypercholesterolemia; Right sided weakness; Hypertensive disorder; lg3 - PSHx: 06:32 PEG tube; brain (PEG tube); lg3 - Immunization history:: Adult Immunizations up to date, Client reports receiving the 2nd dose of the Covid vaccine, Flu vaccine is not up to date. It has been more than one year since last vaccine. - Social history:: Smoking status: Patient denies any tobacco usage or history of. Patient/guardian denies using alcohol, street drugs. Screenin:37 [facility] ED Fall Risk Assessment (Adult) History of falling in the last 3 months, lg3 including since admission No falls in past 3 months (0 pts). Abuse screen: Denies threats or abuse. Denies injuries from another. Nutritional screening: No deficits noted. Tuberculosis screening: No symptoms or risk factors identified. Assessment: 06:37 General: see triage assessment. lg3 07:10 General: Appears in no apparent distress. comfortable, Behavior is calm, cooperative. rs5 Pain: Complains of pain in throat Pain does not radiate. Pain currently is 3 out of 10 on a pain scale. Quality of pain is described as burning, aching, Pain began 4 hours ago. Is continuous, Aggravated by coughing. 07:10 Neuro: Level of Consciousness is awake, alert, obeys commands, Oriented to person, rs5 place, time, situation. Cardiovascular: Heart tones S1 S2 Rhythm is regular. Respiratory: Reports cough that is productive, Airway is patent Respiratory effort is even, unlabored, Respiratory pattern is regular, symmetrical, Breath sounds are diminished bilaterally. General: Appears GI: Abdomen is flat, non-distended, PEG tube noted LUQ. No signs of infection, redness, or skin breakdown noted Bowel sounds present X 4 quads. Patient currently denies nausea, vomiting. : No signs and/or symptoms were reported regarding the genitourinary system. EENT: No signs and/or symptoms were reported regarding the EENT system. Derm: Skin is pink, warm \T\ dry. Musculoskeletal: Range of motion: limited in right lower extemity Pt reports having had a stroke several years ago and has had right sided weakness since then. Pt is bedbound. Mild ataxia noted to right upper extremity. 08:20 Reassessment: Patient and/or family updated on plan of care and expected duration. Pain rs5 level reassessed. Patient is alert, oriented x 3, equal unlabored respirations, skin warm/dry/pink. 09:17 Reassessment: Pt in bed, eyes closed, respirations even, unlabored, normal sinus rhythm rs5 noted on monitor, side rails up X2, bed in lowest position. 10:30 Reassessment: Patient and/or family updated on plan of care and expected duration. Pain rs5 level reassessed. Patient is alert, oriented x 3, equal unlabored respirations, skin warm/dry/pink. Patient denies pain at this time. Vital Signs: 06:29 BP 143 / 83; Pulse 86; Resp 19 S; Temp 98.6(O); Pulse Ox 94% on R/A; Weight 65.32 kg lg3 (R); Height 6 ft. 1 in. (R); 07:30 BP 127 / 74; Pulse 84; Resp 17; Pulse Ox 99% ; rs5 08:25 Resp 25; rn 08:45 BP 145 / 78; Pulse 83; Resp 16; Pulse Ox 99% on R/A; rs5 09:47 BP 127 / 68; Pulse 79; Pulse Ox 98% on R/A; rs5 10:50 BP 130 / 70; Pulse 81; Resp 18; Pulse Ox 98% on R/A; rs5 11:40 BP 122 / 64; Pulse 82; Resp 16; Pulse Ox 99% on R/A; rs5 06:29 Body Mass Index 19.00 (65.32 kg, 185.42 cm) lg3 ED Course: 06:12 Patient arrived in ED. mg5 06:14 Zane Barakat MD is Attending Physician. delores 06:32 Triage completed. lg3 06:32 Arm band placed on right wrist. lg3 06:37 Patient has correct armband on for positive identification. Placed in gown. Bed in low lg3 position. Call light in reach. Side rails up X 1. Client placed on continuous cardiac and pulse oximetry monitoring. NIBP monitoring applied. production supv on. Door closed. Noise minimized. Warm blanket given. Family accompanied patient. 07:09 ENTEROSTOMY TUBE CHECK W/CONTR In Process Unspecified. EDMS 07:10 Chest Single View XRAY In Process Unspecified. EDMS 07:15 Inserted saline lock: 22 gauge in left forearm, using aseptic technique. Blood rs5 collected. 07:25 Nicholas Stubbs, RN is Primary Nurse. rs5 07:34 CT Chest Abdomen Pelvis W/O Contrast In Process Unspecified. EDMS 08:03 Attending Physician role handed off by Zane Barakat MD rn 08:03 Wiliam De Dios MD is Attending Physician. rn 08:04 Second set of blood cultures drawn by sd. em1 08:26 Pete Aranda MD is Hospitalizing Provider. rn 08:28 Dimitri Bruce is Hospitalizing Provider. rn 11:50 No provider procedures requiring assistance completed. rs5 11:50 Patient admitted, IV remains in place. rs5 Administered Medications: 07:10 Drug: Piperacillin-Tazobactam IVPB 3.375 grams IVPB once over 60 mins; (mix in NS 100 rs5 mL) Route: IVPB; Infused Over: 60 mins; Site: left forearm; 07:30 Follow up: Response: No adverse reaction rs5 07:30 Drug: NS 0.9% IV 500 ml IV at bolus once Route: IV; Rate: bolus; Site: left forearm; rs5 07:45 Follow up: Response: No adverse reaction rs5 07:30 Drug: NS 0.9% IV 1000 ml IV at 125 ml/hr continuous Route: IV; Rate: 125 ml/hr; Site: rs5 left forearm; 07:45 Follow up: Response: No adverse reaction rs5 10:20 CANCELLED (Duplicate Order): piperacillin-tazobactam3.375 grams IVPB once over 60 mins; aa5 (mix in NS 100 mL) Medication: 11:50 VIS not applicable for this client. rs5 Outcome: 08:29 Decision to Hospitalize by Provider. rn 11:50 Admitted to Med/surg accompanied by tech, family with patient, via stretcher, room 403, rs5 with chart, 11:50 Condition: stable rs5 11:50 Instructed on the need for admit, 11:53 Patient left the ED. aa5 Signatures: Dispatcher [employer] EDMS Zane Barakat MD MD cha Nieto, Roman, MD MD rn Martinez, Eric em1 Sandy Corbin RN RN aa5 Kayleigh Davis RN RN lg3 Nicholas Stubbs RN RN rs5 Roxana Montaño mg5 Corrections: (The following items were deleted from the chart) 06:35 06:32 PMHx: Hemorrhagic stroke; lg3 lg3 06:35 06:32 PMHx: Hemorrhagic stroke; lg3 lg3 06:35 06:32 PMHx: Hemorrhagic stroke; lg3 lg3 06:35 06:32 PMHx: Hemorrhagic stroke; lg3 lg3 06:35 06:32 PMHx: Hemorrhagic stroke; lg3 lg3 08:02 07:10 Respiratory: Airway is patent Respiratory effort is even, unlabored, Respiratory rs5 pattern is regular, symmetrical, Breath sounds are clear bilaterally. rs5 11: 07:10 GI: Abdomen is flat, non-distended, PEG tube noted LUQ Bowel sounds present X 4 rs5 quads. Patient currently denies nausea, vomiting, rs5 : 07:10 Musculoskeletal: Range of motion: limited in right lower extemity Pt reports rs5 having had a stroke several years ago and has had right sided weakness since then. Pt is bedbound. Ataxia noted to right upper extremity. rs5 11: 07:10 Respiratory: Airway is patent Respiratory effort is even, unlabored, Respiratory rs5 pattern is regular, symmetrical, Breath sounds are diminished bilaterally. rs5
--- NOTE | 2023-01-01 08:30 | EDPHYS ---
Physician Documentation [facility] Name: Contreras Naranjo Age: 72 yrs Sex: Male : 1950 Arrival Date: 01/01/2023 Time: 06:08 Bed 15 Private MD: ED Physician Wiliam De Dios HPI: 01/01 07:02 This 72 yrs old Male presents to ER via Wheelchair with complaints of Fever, delores Tube Problem. 07:02 The patient reports fever, not measured (subjective). delores Historical: - Allergies: 06:32 No Known Allergies; lg3 - Home Meds: 06:32 metformin 500 mg Oral tablet 2 times per day [Active]; carvedilol oral [Active]; lg3 losartan oral [Active]; atorvastatin oral [Active]; doxazosin oral [Active]; Pepcid Oral [Active]; - PMHx: 06:32 diabetes mellitus; Hypercholesterolemia; Right sided weakness; Hypertensive disorder; lg3 - PSHx: 06:32 PEG tube; brain (PEG tube); lg3 - Immunization history:: Adult Immunizations up to date, Client reports receiving the 2nd dose of the Covid vaccine, Flu vaccine is not up to date. It has been more than one year since last vaccine. - Social history:: Smoking status: Patient denies any tobacco usage or history of. Patient/guardian denies using alcohol, street drugs. ROS: 07:03 Constitutional: Negative for fever, chills, and weight loss, Eyes: Negative for injury, delores pain, redness, and discharge, ENT: Negative for injury, pain, and discharge, Neck: Negative for injury, pain, and swelling, Cardiovascular: Negative for chest pain, palpitations, and edema, Abdomen/GI: Negative for abdominal pain, nausea, vomiting, diarrhea, and constipation, Back: Negative for injury and pain, : Negative for injury, bleeding, discharge, and swelling, MS/Extremity: Negative for injury and deformity, Skin: Negative for injury, rash, and discoloration, Neuro: Negative for headache, weakness, numbness, tingling, and seizure, 07:03 Respiratory: Positive for cough, shortness of breath, at rest. Exam: 07:03 Constitutional: This is a well developed, well nourished patient who is awake, alert, delores and in no acute distress. Head/Face: Normocephalic, atraumatic. Eyes: Pupils equal round and reactive to light, extra-ocular motions intact. Lids and lashes normal. Conjunctiva and sclera are non-icteric and not injected. Cornea within normal limits. Periorbital areas with no swelling, redness, or edema. ENT: Nares patent. No nasal discharge, no septal abnormalities noted. Tympanic membranes are normal and external auditory canals are clear. Oropharynx with no redness, swelling, or masses, exudates, or evidence of obstruction, uvula midline. Mucous membranes moist. Neck: Trachea midline, no thyromegaly or masses palpated, and no cervical lymphadenopathy. Supple, full range of motion without nuchal rigidity, or vertebral point tenderness. No Meningismus. Chest/axilla: Normal chest wall appearance and motion. Nontender with no deformity. No lesions are appreciated. Cardiovascular: Regular rate and rhythm with a normal S1 and S2. No gallops, murmurs, or rubs. Normal PMI, no JVD. No pulse deficits. Abdomen/GI: Soft, non-tender, with normal bowel sounds. No distension or tympany. No guarding or rebound. No evidence of tenderness throughout. Back: No spinal tenderness. No costovertebral tenderness. Full range of motion. Male : Normal genitalia with no discharge or lesions. Skin: Warm, dry with normal turgor. Normal color with no rashes, no lesions, and no evidence of cellulitis. MS/ Extremity: Pulses equal, no cyanosis. Neurovascular intact. Full, normal range of motion. Neuro: Awake and alert, GCS 15, oriented to person, place, time, and situation. Cranial nerves II-XII grossly intact. Motor strength 5/5 in all extremities. Sensory grossly intact. Cerebellar exam normal. Normal gait. Psych: Awake, alert, with orientation to person, place and time. Behavior, mood, and affect are within normal limits. 07:03 Respiratory: the patient does not display signs of respiratory distress, Respirations: labored breathing, that is mild, Breath sounds: bronchial sounds, that are mild, Respiratory rate: 18 Vital Signs: 06:29 BP 143 / 83; Pulse 86; Resp 19 S; Temp 98.6(O); Pulse Ox 94% on R/A; Weight 65.32 kg lg3 (R); Height 6 ft. 1 in. (R); 07:30 BP 127 / 74; Pulse 84; Resp 17; Pulse Ox 99% ; rs5 08:25 Resp 25; rn 08:45 BP 145 / 78; Pulse 83; Resp 16; Pulse Ox 99% on R/A; rs5 09:47 BP 127 / 68; Pulse 79; Pulse Ox 98% on R/A; rs5 10:50 BP 130 / 70; Pulse 81; Resp 18; Pulse Ox 98% on R/A; rs5 11:40 BP 122 / 64; Pulse 82; Resp 16; Pulse Ox 99% on R/A; rs5 06:29 Body Mass Index 19.00 (65.32 kg, 185.42 cm) lg3 MDM: 06:14 Patient medically screened. [facility] 07:05 Differential diagnosis: viral Infection, bacterial infection, URI, bronchitis, delores pneumonia UTI. Data reviewed: vital signs, nurses notes, lab test result(s), EKG, radiologic studies, CT scan, plain films. Consideration of Admission/Observation Escalation of care including admission/observation considered. I considered the following discharge prescriptions or medication management in the emergency department Medications were administered in the Emergency Department. See MAR. Independent interpretation of the following test(s) in the Emergency Department EKG: See my EKG interpretation above. Test considered but Not performed: MRI: no mri chest. Care significantly affected by the following chronic conditions: Diabetes, Hypertension. 08:25 Counseling: I had a detailed discussion with the patient and/or guardian regarding the rn historical points, exam findings, and any diagnostic results supporting the discharge/admit diagnosis, lab results, radiology results, the need for further work-up and treatment in the hospital. ED course: Patient signed out to me by Dr. Barakat, report was most likely aspiration pneumonia, chest x-ray negative but upon reevaluation patient still tachypneic with oxygen 93 to 94%. Given that aspiration just happened overnight anticipate slight worsening soon. Will admit for further care.. 01/01 06:31 Order name: Strep as6 01/01 06:31 Order name: Influenza Screen (a \T\ B); Complete Time: 08:03 as6 01/01 07:01 Order name: CBC with Diff; Complete Time: 08:03 delores 01/01 07:01 Order name: Comprehensive Metabolic Panel; Complete Time: 08:03 delores 01/01 07:01 Order name: Blood Culture Adult (2) [facility] 01/01 07:01 Order name: Lactate w/ 2H reflex if indic.; Complete Time: 08:03 delores 01/01 07:06 Order name: BNP; Complete Time: 08:03 [facility] 01/01 07:06 Order name: Troponin HS; Complete Time: 08:03 [facility] 01/01 07:09 Order name: SARS-COV-2 RT PCR; Complete Time: 08:03 EDMS 01/01 07:18 Order name: Throat Culture EDMS 01/01 09:17 Order name: Urinalysis w/ reflexes EDMS 01/01 09:17 Order name: Basic Metabolic Panel EDMS 01/01 09:17 Order name: Basic Metabolic Panel EDMS 01/01 09:17 Order name: Basic Metabolic Panel EDMS 01/01 09:17 Order name: Basic Metabolic Panel EDMS 01/01 09:17 Order name: Basic Metabolic Panel EDMS 01/01 09:17 Order name: Basic Metabolic Panel EDMS 01/01 09:17 Order name: CBC with Automated Diff EDMS 01/01 09:17 Order name: CBC with Automated Diff EDMS 01/01 09:17 Order name: CBC with Automated Diff EDMS 01/01 09:17 Order name: CBC with Automated Diff EDMS 01/01 09:17 Order name: CBC with Automated Diff EDMS 01/01 09:17 Order name: CBC with Automated Diff EDMS 01/01 09:17 Order name: Magnesium EDMS 01/01 09:17 Order name: Magnesium EDMS 01/01 09:17 Order name: Magnesium EDMS 01/01 09:17 Order name: Magnesium EDMS 01/01 09:17 Order name: Magnesium EDMS 01/01 09:17 Order name: Magnesium EDMS 01/01 09:17 Order name: Phosphorus EDMS 01/01 09:17 Order name: Phosphorus EDMS 01/01 09:17 Order name: Phosphorus EDMS 01/01 09:17 Order name: Phosphorus EDMS 01/01 09:17 Order name: Phosphorus EDMS 01/01 09:17 Order name: Phosphorus EDMS 01/01 09:20 Order name: Lactate w/ 2H reflex if indic. EDMS 01/01 09:54 Order name: Sputum Gram Stain EDMS 01/01 09:54 Order name: Sputum Culture EDMS 01/01 06:29 Order name: Chest Single View XRAY; Complete Time: 08:03 as6 01/01 07:01 Order name: CT Chest Abdomen Pelvis W/O Contrast; Complete Time: 08:03 delores 01/01 07:09 Order name: ENTEROSTOMY TUBE CHECK W/CONTR; Complete Time: 08:03 EDMS 01/01 07:06 Order name: EKG; Complete Time: 07:07 delores 01/01 09:17 Order name: Dietitian Consult [facility] 01/01 09:17 Order name: EKG Electrocardiogram [facility] 01/01 09:22 Order name: Occupational Therapy Consult [facility] 01/01 09:22 Order name: Physical Therapy Consult [facility] 01/01 09:52 Order name: Speech Therapy Consult [facility] 01/01 07:06 Order name: EKG - Nurse/Tech; Complete Time: 07:53 delores Administered Medications: 07:10 Drug: Piperacillin-Tazobactam IVPB 3.375 grams IVPB once over 60 mins; (mix in NS 100 rs5 mL) Route: IVPB; Infused Over: 60 mins; Site: left forearm; 07:30 Follow up: Response: No adverse reaction rs5 07:30 Drug: NS 0.9% IV 500 ml IV at bolus once Route: IV; Rate: bolus; Site: left forearm; rs5 07:45 Follow up: Response: No adverse reaction rs5 07:30 Drug: NS 0.9% IV 1000 ml IV at 125 ml/hr continuous Route: IV; Rate: 125 ml/hr; Site: rs5 left forearm; 07:45 Follow up: Response: No adverse reaction rs5 10:20 CANCELLED (Duplicate Order): piperacillin-tazobactam3.375 grams IVPB once over 60 mins; aa5 (mix in NS 100 mL) Disposition Summary: 01/01/23 08:29 Hospitalization Ordered Notes: Hospitalization Status: Observation rn Provider: Dimitri Bruce rn [facility] rn Condition: Stable rn Problem: new rn Symptoms: are unchanged rn Bed/Room Type: Standard rn Room Assignment: 403(01/01/23 10:43) bd Diagnosis - Aspiration pneumonitis rn - Tachypnea, not elsewhere classified rn - Weakness rn Forms: - Medication Reconciliation Form rn - SBAR form rn - Leadership Thank You Letter rn Signatures: Dispatcher [employer] EDMS Elana Nunn Corey, MD MD cha Nieto, Roman, MD MD rn Gibson, Lacie, RN RN lg3 Nicholas Stubbs RN RN rs5 Sandy Corbin RN aa5 Corrections: (The following items were deleted from the chart) 06:35 06:32 PMHx: Hemorrhagic stroke; lg3 lg3 06:35 06:32 PMHx: Hemorrhagic stroke; lg3 lg3 06:35 06:32 PMHx: Hemorrhagic stroke; lg3 lg3 06:35 06:32 PMHx: Hemorrhagic stroke; lg3 lg3 06:35 06:32 PMHx: Hemorrhagic stroke; lg3 lg3 07:07 06:41 Chest Pa And Lat (2 Views)+RAD.RAD.BRZ ordered. EDMS EDMS 07:08 06:56 Chest Single View+RAD.RAD.BRZ ordered. EDMS EDMS 07:09 06:30 Abdomen 1 View+RAD.RAD.BRZ ordered. EDMS EDMS 07:09 06:31 SARS-COV-2 Antigen Rapid+I.LAB.BRZ ordered. EDMS EDMS 10:20 08:25 Piperacillin-Tazobactam IVPB 3.375 grams IVPB once over 60 mins; (mix in NS 100 aa5 mL) ordered. rn 10:43 08:29 cristela olivas
--- NOTE | 2023-01-01 10:11 | P.HP ---
Certification for Inpatient Patient admitted to: Inpatient With expected LOS: >2 Midnights Patient will require the following post-hospital care: None (Contreras lives with his who is his primary caregiver) Practitioner: I am a practitioner with admitting privileges, knowledge of patient current condition, hospital course, and medical plan of care. 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 is at the bedside and reports he is able to eat pured food for enjoyment while being on continual tube feeds Q 6 hours. Last night he had tomato soup and choked, he stated it felt like there was something caught in his throat. Contreras denies nausea and vomiting at that time, states he can swallow his saliva but still has a cough that is causing his throat to feel raw. On examination Contreras did not display respiratory distress, he did cough several times, but was able to recover and continue speaking. He has a garbled voice likely due to the coughing. Initial vital signs: BP 143/83, heart rate 86, respirations 19, temperature 98.6, pulse ox 94% on room air. Significant labs WBC 13.5, potassium 4.5, glucose 221, BUN/creatinine 16/0.73. CXR " lungs are grossly clear", CT CAP shows "mild atelectasis in lung bases posteriorly otherwise clear, no pleural or pericardial effusion". Modified barium swallow "contrast is seen in fundus of the stomach which would indicate appropriate placement." Of note Contreras has home health with [facility] and uses their PT services. Contreras Naranjo will be admitted to hospitalist services for further evaluation and treatment of aspiration pneumonia. Zosyn was started in the ED and will continue on the floor for now. Will consult speech for a swallow evaluation, will consult dietitian for tube feed management, will consult PT/OT for evaluation and treatment. Allergies No Known Allergies Allergy (Verified 10/24/22 12:15) Home Medications: Atorvastatin Calcium 20 mg PO BEDTIME 06/25/21 Losartan Potassium [Cozaar] 25 mg PO DAILY 06/25/21 Metformin HCl 500 mg PO BID 06/25/21 Nut.tx.gluc Intol,Lf,Soy/Fiber [Glucerna 1 Hank Liquid] 60 ml FT Q1H 06/25/21 carvediloL [Carvedilol] 6.25 mg PO BID 06/25/21 Doxazosin Mesylate 8 mg PO BEDTIME 09/22/22 Ascorbic Acid [Vitamin C] 500 mg PO DAILY 10/24/22 - Past Medical/Surgical History -: Hemorrhagic CVA 2020 -: PEG tube -: Hypertension -: Diabetes mellitus type 2 [id number] -: Brain surgery -: PEG tube Psychosocial/ Personal History: Patient lives at home with his - Social History Alcohol use: No CD- Drugs: No Caffeine use: No Review of Systems General: Weakness (residual Right sided weakness, 2020 stroke) Eyes: Unremarkable ENT: Unremarkable Respiratory: Cough, Dry Cardiovascular: Unremarkable Gastrointestinal: Diarrhea (regular from TF), Unremarkable Genitourinary: Unremarkable Musculoskeletal: Unremarkable Integumentary: Unremarkable Neurological: Unremarkable Physical Examination - Physical Exam General: Alert, In no apparent distress, Oriented x3 HEENT: Atraumatic, Normocephalic, PERRLA Neck: Supple, 2+ carotid pulse no bruit Respiratory: Clear to auscultation bilaterally, Normal air movement Cardiovascular: No edema, Normal pulses, Regular rate/rhythm, Normal S1 S2 Capillary refill: <2 Seconds Gastrointestinal: Soft and benign, Other (PEG tube in place), Hyperactive Musculoskeletal: No clubbing, No swelling, Other (right sided weakness) Integumentary: No rashes, No breakdown Neurological: Normal speech, Other (right sided weakness), Abnormal gait, Abnormal strength - Studies Laboratory Data (last 24 hrs) 01/01/23 01/01/23 07:15 07:15 WBC 13.70 H Hgb 15.0 Hct 43.6 Plt Count 191 Sodium 134 L Potassium 4.5 BUN 16 Creatinine 0.73 Glucose 221 H Total Bilirubin 0.9 AST 12 L ALT 35 Alkaline Phosphatase 150 H Microbiology Data (last 24 hrs): 01/01/23 06:37 Nasopharnyx Influenza Type A Antigen Screen - Final 01/01/23 06:37 Nasopharnyx Influenza Type B Antigen Screen - Final 01/01/23 06:37 Throat Group A Streptococcus Rapid Screen - Final Assessment and Plan - Plan Assessment and Plan Aspiration Pneumonia Leukocytosis -continue Zosyn, given in ED -HOB 30%, aspiration precautions -ST for swallow re-evaluation h/o HTN -Restart home medications when available -monitor Q4h h/o CVA 2020 -PT/OT evaluation and treatment -ST for re-evaluation of Swallow test -Residual right sided weakness -can walk very short distances with walk and 's help PEG tube feeds h/o Diabetes mellitus type 2 -Serum glucose 221 -hold home metformin -Accucheck with SSI medium -PEG tube placement confirmed with modified barium swallow -Dietary consulted for continual tube feed set up DVT ppx: lovenox DNR LOS 2-3 days Discharge Plan: Home Plan to discharge in: 48 Hours - Advance Directives Does patient have a Living Will: No Does patient have a Durable POA for Healthcare: No Time Spent Managing Pts Care (In Minutes): 55
[2023-01-01] MEDS: INSULIN REGULAR (HUMAN) 100 UNIT/ML SQ SCH ×3 (11:30→20:36)
[2023-01-01 13:01] VITALS: BMI 19.0
[2023-01-01] MEDS: ENOXAPARIN 40 MG/0.4 ML SQ SCH (13:03)
[2023-01-01] MEDS: PIPER TAZO 3.375 GM in NA CHLORIDE 0.9% 100 ML IV SCH (17:08)
[2023-01-01 17:27] LABS: Specific Gravity 1.021 (1.005-1.030); Urine Bacteria None Seen /HPF (<20); Urine Bilirubin NEGATIVE (Negative); Urine Blood Negative (Negative); Urine Clarity Clear (Clear); Urine Color Yellow (Yellow); Urine Crystals Unidentified Few /HPF (None Seen); Urine Glucose NEGATIVE (Negative); Urine Protein 1+ (Negative); Urine RBC <5 /HPF (None Seen); Urine Urobilinogen 1+ (Normal); Urine pH 7.5 (5.0-7.0)
[2023-01-01] MEDS: D5 0.9 NS 1,000 ML IV SCH (20:35)
[2023-01-02] MEDS: PIPER TAZO 3.375 GM in NA CHLORIDE 0.9% 100 ML IV SCH ×2 (00:42→08:46)
[2023-01-02 07:29] LABS: MCV 91.1 fL (80-100); MPV 11.3 fL (7.6-11.3); Platelets 174 thou/uL (152-406); RBC Red Blood Cell Count 4.17 M/uL (4.33-5.43)
[2023-01-02] MEDS: INSULIN REGULAR (HUMAN) 100 UNIT/ML SQ SCH ×4 (07:30→20:27)
[2023-01-02 07:34] LABS: Magnesium 2.2 mg/dL (1.6-2.4); Potassium 3.9 mEq/L (3.5-5.1)
--- NOTE | 2023-01-02 07:46 | P.PN ---
Date of Service: 01/02/23 Subjective: Doing okay no new / worsening problems 101.5 temp overnight cough/gurgling continues no n/v/d ROS: 10 point ROS as noted above, otherwise negative Physical Exam: GEN: Alert, oriented, NAD HEENT: Normal conjunctiva, sclera anicteric CV: Regular rate and rhythm, no edema Pulm: Nonlabored respirations on room air, +cough ABD: Soft, nontender, nondistended MSK: No joint tenderness Integumentary: No rashes Neuro: Normal speech, Abnormal gait, right-sided weakness ~baseline PEG tube in place vitals reviewed Problem List: Aspiration Pneumonia h/o CVA (2020 with residual right sided weakness) NIDDM2 Hypertension Aspiration Pneumonia CT abdomen (01/01): Mild atelectasis is present in both lung bases posteriorly blood cx (01/01): NGTD sputum cx (01/01): pending; 1+GPC on stain continue empiric zosyn (01/01-) 101.5 temp overnight, leukocytosis improving pulm consulted HOB 30%, aspiration precautions ST for swallow re-evaluation h/o CVA (2020 with residual right sided weakness) PT/OT consult ST for re-evaluation of Swallow test PEG tube placement confirmed with modified barium swallow Dietary consulted for continual tube feed set up NIDDM2 hold home metformin Accucheck with SSI medium Hypertension confirm home medications, restart as appropriate VTE: Lovenox Code: Full Dispo: Home with HH pending afebrile > 24 hours, further improvement
[2023-01-02] MEDS: D5 0.9 NS 1,000 ML IV SCH (08:47)
[2023-01-02] MEDS: ENOXAPARIN 40 MG/0.4 ML SQ SCH (08:47)
--- NOTE | 2023-01-02 11:40 | P.PN ---
Subjective Date of Service: 01/02/23 (Hospitalist) Chief Complaint: Coughing Patient is 72 years of age admitted with acute onset of cough which started suddenly he has a PEG tube denies any fever or chills however he had 1 episode of fever denies any urinary tract symptom Review of Systems General: Weakness Respiratory: Cough Physical Examination - Vital Signs Temperature: 98.2 F Blood Pressure: 122/57 Pulse: 72 Respirations: 16 Pulse Ox (%): 96 - Physical Exam General: Alert, In no apparent distress, Oriented x3 Respiratory: Clear to auscultation bilaterally, Diminished Cardiovascular: No edema, Normal pulses, Regular rate/rhythm Gastrointestinal: Normal bowel sounds, Soft and benign - Studies Microbiology Data (last 24 hrs): 01/01/23 06:37 Throat Group A Streptococcus Rapid Screen - Final 01/01/23 06:37 Nasopharnyx Influenza Type A Antigen Screen - Final 01/01/23 06:37 Nasopharnyx Influenza Type B Antigen Screen - Final Assessment And Plan - Current Problems (Diagnosis) (1) Acute cough Current Visit: Yes Status: Acute Plan: Patient is 72 years of age with a history of stroke right-sided paralysis he has a PEG tube in place admitted with acute onset of cough 1 episode of fever White count is mildly elevated change house attendant to Augmentin for now there is no evidence of pneumonia on the CT scan of the abdomen urinalysis is also negative cultures are so far negative sputum cultures are pending may be related to reflux postnasal drainage DC IV fluids Discharge Plan: Home Plan to discharge in: 24 Hours
[2023-01-02] MEDS ORDERED: FIBER FT SCH (11:45)
[2023-01-02] MEDS ORDERED: [UNRECOGNIZED DRUG - OTHER] FT SCH (11:45)
[2023-01-02] MEDS ORDERED: NUT TX GLUC INTOL LF SOY FT SCH (11:45)
[2023-01-02] MEDS: FLUTICASONE 50MCG NASAL SPRAY NAS SCH (11:47)
[2023-01-02] MEDS ORDERED: GLUCERNA 1.5 CAL 1,000 ML BOT FT SCH (12:00)
[2023-01-02] MEDS ORDERED: GLUCERNA 1.5 CAL 1,000 ML BOT RTH SCH (12:00)
[2023-01-02] MEDS: LOSARTAN POTASSIUM 50 MG TABLET PO SCH (12:46)
[2023-01-02] MEDS: METFORMIN HCL 500 MG TAB PO SCH ×2 (12:47→17:23)
[2023-01-02] MEDS ORDERED: ACETAMINOPHEN 500 MG TAB PO PRN (13:14)
[2023-01-02] MEDS: AMOX/K CLAV 500 MG TAB PO SCH (20:22)
[2023-01-02] MEDS: carvediloL 6.25 MG TAB PO SCH (20:23)
[2023-01-02] MEDS: FAMOTIDINE 20 MG TAB PO SCH (20:24)
[2023-01-02] MEDS ORDERED: DOXAZOSIN MESYLATE 8 MG PO SCH (21:00)
[2023-01-02] MEDS ORDERED: HOME MED 1 EA UNK (Metformin Hcl [Metformin Hcl] 1,000 MG Tablet) PO SCH (21:00)
[2023-01-02] MEDS ORDERED: DOXAZOSIN 4 MG TAB PO SCH (21:00)
[2023-01-02] MEDS ORDERED: HOME MED 1 EA UNK (Famotidine [Pepcid] 40 MG Tablet) PO SCH (21:00)
[2023-01-02] MEDS ORDERED: ATORVASTATIN 20 MG TAB PO SCH (21:00)
[2023-01-03 07:10] LABS: Hematocrit 36.9 % (39.6-49.0); Lymphocytes % 12.4 % (15.3-44.8); MCV 90.6 fL (80-100); MPV 10.8 fL (7.6-11.3); Platelets 182 thou/uL (152-406); RBC Red Blood Cell Count 4.07 M/uL (4.33-5.43)
[2023-01-03] MEDS: INSULIN REGULAR (HUMAN) 100 UNIT/ML SQ SCH (07:30)
[2023-01-03 07:35] LABS: Potassium 3.8 mEq/L (3.5-5.1)
[2023-01-03 07:36] LABS: Magnesium 2.1 mg/dL (1.6-2.4); Phosphorus 2.4 mg/dL (2.5-4.9)
[2023-01-03 07:57] VITALS: O2SAT 95
[2023-01-03 08:30] VITALS: BP 131/68; TEMP 98.9
[2023-01-03] MEDS ORDERED: ASCORBIC ACID 500 MG TABLET PO SCH (09:00)
[2023-01-03] MEDS ORDERED: HOME MED 1 EA UNK (Losartan Potassium [Cozaar] 25 MG Tablet) PO SCH (09:00)
[2023-01-03] MEDS: FLUTICASONE 50MCG NASAL SPRAY NAS SCH (09:00)
[2023-01-03] MEDS: ENOXAPARIN 40 MG/0.4 ML SQ SCH (09:00)
[2023-01-03] MEDS: METFORMIN HCL 500 MG TAB PO SCH (09:23)
[2023-01-03] MEDS: LOSARTAN POTASSIUM 50 MG TABLET PO SCH (09:23)
[2023-01-03] MEDS: FAMOTIDINE 20 MG TAB PO SCH (09:23)
[2023-01-03] MEDS: carvediloL 6.25 MG TAB PO SCH (09:23)
[2023-01-03] MEDS: AMOX/K CLAV 500 MG TAB PO SCH (09:23)
--- NOTE | 2023-01-03 12:10 | P.DS ---
Admission Date: 01/01/23 Discharge Date: 01/03/23 Disposition: ROUTINE DISCHARGE Discharge Condition: FAIR Reason for Admission: Coughing - Problems (1) Acute cough Current Visit: Yes Status: Acute Brief History of Present Illness: Patient is 72 years of age admitted with a cough Hospital Course: Is admitted to the hospital started on some antibiotics at the time of discharge his cough improved at the bedside has a PEG tube is also history of reflux vital signs all stable chest some rhonchi On examination alert responsive cooperative cardiovascular system heart sounds normal Cultures all negative patient to be discharged home on Augmentin and Advair have reflux induced reactive airways disease patient has famotidine at home to follow-up with me in 1 to 2 weeks Vital Signs/Physical Exam: Temp Pulse Resp BP Pulse Ox 98.9 F 75 18 131/68 94 01/03/23 08:00 01/03/23 08:00 01/03/23 08:00 01/03/23 08:00 01/03/23 08:00 Laboratory Data at Discharge: WBC 8.50 thou/uL (4.3-10.9) 01/03/23 06:30 Hgb 12.5 g/dL (13.6-17.9) L 01/03/23 06:30 Hct 36.9 % (39.6-49.0) L 01/03/23 06:30 Plt Count 182 thou/uL (152-406) 01/03/23 06:30 Sodium 140 mEq/L (136-145) 01/03/23 06:30 Potassium 3.8 mEq/L (3.5-5.1) 01/03/23 06:30 BUN 12 mg/dL (7-18) 01/03/23 06:30 Creatinine 0.59 mg/dL (0.70-1.30) L 01/03/23 06:30 Glucose 179 mg/dL (74-106) H 01/03/23 06:30 Phosphorus 2.4 mg/dL (2.5-4.9) L 01/03/23 06:30 Magnesium 2.1 mg/dL (1.6-2.4) 01/03/23 06:30 Total Bilirubin 0.9 mg/dL (0.2-1.0) 01/01/23 07:15 AST 12 U/L (15-37) L 01/01/23 07:15 ALT 35 U/L (16-61) 01/01/23 07:15 Alkaline Phosphatase 150 U/L (45-117) H 01/01/23 07:15 Home Medications: Atorvastatin Calcium 20 mg PO BEDTIME 06/25/21 Losartan Potassium [Cozaar] 25 mg PO DAILY 06/25/21 Metformin HCl 500 mg PO BID 06/25/21 Nut.tx.gluc Intol,Lf,Soy/Fiber [Glucerna 1 Hank Liquid] 65 ml FT SEECOM 06/25/21 carvediloL [Carvedilol] 6.25 mg PO BID 06/25/21 Doxazosin Mesylate 8 mg PO BEDTIME 09/22/22 Ascorbic Acid [Vitamin C] 500 mg PO DAILY 10/24/22 Famotidine [Pepcid] 40 mg PO BID 01/01/23 Amoxicillin/Potassium Clav [Augmentin 250-62.5 mg/5 ml] 250 ml PO TID 7 Days #210 ml 01/03/23 Fluticasone/Salmeterol [Advair 250-50 Diskus] 1 each IH BID 30 Days #60 aero 01/03/23 New Medications: Fluticasone/Salmeterol [Advair 250-50 Diskus] 1 each IH BID 30 Days #60 aero Amoxicillin/Potassium Clav [Augmentin 250-62.5 mg/5 ml] 250 ml PO TID 7 Days #210 ml Physician Discharge Instructions: Please check if Advair was faxed to the pharmacy and I faxed in a prescription for Augmentin Followup: Vikram Ingram MD [ACTIVE - CAN ADMIT] - Jenny Mondragon MD [Primary Care Provider] -
== END 2023-01-03 12:18 | disposition home health service (06) | DRG 204 ==
LOC: ER 06:08 → ERHOLD 09:05 → 4TH 11:47
PROVIDERS: ADMIT Internal Medicine; ATTEND Internal Medicine Sleep Medicine
DX: R05.1 Acute cough (principal); I69.351 Hemiplegia and hemiparesis following cerebral infarction affecting right dominant side; I10 Essential (primary) hypertension; E11.9 Type 2 diabetes mellitus without complications; K21.9 Gastro-esophageal reflux disease without esophagitis; E78.00 Pure hypercholesterolemia, unspecified; Z93.1 Gastrostomy status; Z79.84 Long term (current) use of oral hypoglycemic drugs; Z79.02 Long term (current) use of antithrombotics/antiplatelets; Z79.899 Other long term (current) drug therapy; Z20.822 Contact with and (suspected) exposure to COVID-19
CPT/HCPCS: 36415; 49465; 71045; 71250; 74176; 80048; 80053; 81001; 82947; 83605; 83735; 83880; 84100; 84484; 85025; 87040; 87070; 87077; 87081; 87186; 87205; 87635; 87804; 92526; 92610; 96374; 97110; 97116; 97163; 97165; 97530; 99285; J1650; J2543; J7030; J7040; J7042; J7050

== ENCOUNTER 2023-06-26 10:53 | Inpatient (IN) | payer OTHER ==
[2023-06-26 11:24] LABS: Absolute Eosinophils 0.1 K/uL (0-0.5); Absolute Lymphocytes (CBC) 1.3 K/uL (0.7-4.9); Absolute Monocytes 0.9 K/uL (0.1-1.3); Absolute Neutrophil 5.7 K/uL (1.8-8.0); Basophils % 0.5 % (0-1.3); Eosinophils % 0.7 % (0-4.4); Hematocrit 39.1 % (39.6-49.0); Hemoglobin 12.7 g/dL (13.6-17.9); Lymphocytes % 16.8 % (15.3-44.8); MCH 29.8 pg (27.0-35.0); MCHC 32.5 g/dL (32.0-36.0); MCV 91.8 fL (80-100); MPV 11.4 fL (7.6-11.3); Platelets 204 thou/uL (152-406); RBC Red Blood Cell Count 4.26 M/uL (4.33-5.43)
--- NOTE | 2023-06-26 11:33 | RAD REPORT ---
EXAM DESCRIPTION: CT - Head Brain Wo Cont - 06/26/2023 11:24 am CLINICAL HISTORY: CONFUSED COMPARISON: Head Brain Wo Cont dated 12/02/2020; Head Brain Wo Cont dated 10/30/2020 TECHNIQUE: All CT scans are performed using dose optimization technique as appropriate and may inclu de automated exposure control or mA/KV adjustment according to patient size. FINDINGS: No intracranial hemorrhage, hydrocephalus or extra-axial fluid collection.No areas of brai n edema or evidence of midline shift. Chronic small vessel ischemic changes. Remote bilateral boswell radiata and basal ganglia lacunar infarcts. Similar encephalomalacia at the right cerebellar hemisphe re. The paranasal sinuses and mastoids are clear. The calvarium is intact. Prior suboccipital craniectomy . IMPRESSION: No acute intracranial abnormality. Remote infarcts.
[2023-06-26 11:44] LABS: Albumin/Globulin Ratio 0.8 (1.1-1.8); Anion Gap 7.5 mEq/L (5.0-15.0); Bilirubin Direct 0.2 mg/dL (0-0.2); Bilirubin Indirect, Calculated 0.6 mg/dL (0.2-0.8); Bilirubin Total 0.8 mg/dL (0.2-1.0); Potassium 4.5 mEq/L (3.5-5.1)
--- NOTE | 2023-06-26 11:46 | RAD REPORT ---
EXAM DESCRIPTION: RAD - Chest Single View - 06/26/2023 11:35 am CLINICAL HISTORY: syncope COMPARISON: Chest Single View dated 01/01/2023; Chest Single View dated 06/24/2021 FINDINGS: Lines: None. Lungs: No evidence of edema or pneumonia. Pleural: No significant pleural effusions or pneumothorax. Cardiac: The heart size is within normal limits. Mediastinum: Within normal limits. Bones: No acute fractures. Other: None IMPRESSION: No acute cardiopulmonary disease.
[2023-06-26] MEDS ORDERED: ASPIRIN 81 MG CHEWABLE TABLET ONE (11:58)
[2023-06-26] MEDS ORDERED: HEPARIN 5000 UNIT/ML 1 ML VIAL ONE ×2 (11:59→12:02)
[2023-06-26] MEDS ORDERED: TICAGRELOR 90 MG TABLET PO ONE (11:59)
[2023-06-26] MEDS ORDERED: HEPARIN/D5W 25,000 UNIT/500 ML BAG IV ONE (11:59)
--- NOTE | 2023-06-26 11:59 | EDPHYS ---
Physician Documentation [facility] Name: Contreras Naranjo Age: 72 yrs Sex: Male : 1950 Arrival Date: 06/26/2023 Time: 10:53 Bed 4 Private MD: ED Physician Kenney Hemphill HPI: 06/25 11:06 This 72 yrs old Male presents to ER via EMS with complaints of syncope. ec2 11:06 Patient arrives today for evaluation of a syncopal episode. Patient reportedly was ec2 receiving a bath by his spouse, noted become drowsy and have LOC. No reported chest pain or difficulty breathing, no abdominal pain, nausea or vomiting, otherwise normal state of health. History of previous stroke, chronic right-sided deficits. No falls or injuries or trauma.. Historical: - Allergies: 11:04 No Known Allergies; ko1 - PMHx: 11:04 diabetes mellitus; Hemorrhagic stroke; Hypercholesterolemia; Hypertensive disorder; ko1 Right sided weakness; - Immunization history:: Adult Immunizations unknown. - Infectious Disease History:: Denies. - Social history:: Smoking status: Patient denies any tobacco usage or history of. ROS: 11:06 Constitutional: as per hpi ec2 Exam: 11:06 Constitutional: GEN: NAD Head: atraumatic Eyes: EOMI Ears: External ears are ec2 normal. CV: regular rate LUNGS: no respiratory distress ABD: non-distended, soft, nontender, no guarding, not rigid SKIN: no evidence of rashes MSK: no evidence of trauma Vital Signs: 11:01 BP 116 / 62; Pulse 53; Resp 15; Temp 97; Pulse Ox 100% on R/A; ko1 11:58 Weight 65 kg; ph 12:12 BP 113 / 62; Pulse 55; Resp 15; Pulse Ox 98% ; ko1 MDM: 11:01 Patient medically screened. ec2 11:06 Data reviewed: vital signs. ED course: Patient arrives today for evaluation of a ec2 syncopal episode. Examination remarkable for well-appearing nontoxic dividual is otherwise in no acute distress. Will obtain lab work, urine studies, EKG, chest x-ray as well as CT scan of the head. Evaluate for electrolyte disturbance, anemia, dehydration, ACS. 11:54 ED course: Metabolic profile reassuring, CBC is evident for slight anemia, slight BNP ec2 elevation, troponin is within normal ranges, chest x-ray shows no acute intrathoracic process. CT scan of the head shows no acute intracranial process. EKG independently reviewed and interpreted by me, concern for STEMI, ST elevations in leads I and aVL with reciprocal depressions in the inferior leads in 3 and aVF. At 1148 I attempted to contact on-call Dr. Carlos, cardiology who instructed me to call Dr. Hwang. Dr. Hwang to come see the patient. . 11:57 ED course: Dr. Hwang agrees to take patient to Orthotics Technician. Aspirin, heparin, Brilinta ec2 ordered. 06/25 11:05 Order name: Basic Metabolic Panel; Complete Time: 11:53 ec2 06/25 11:05 Order name: CBC with Diff; Complete Time: 11:53 ec2 06/25 11:05 Order name: NT PRO-BNP; Complete Time: 11:53 ec2 06/25 11:05 Order name: Troponin HS; Complete Time: 11:53 ec2 06/25 11:05 Order name: LFT's; Complete Time: 11:53 ec2 06/25 11:05 Order name: UAM; Complete Time: 15:49 ec2 06/25 12:09 Order name: Basic Metabolic Panel EDMS 06/25 12:09 Order name: Basic Metabolic Panel EDMS 06/25 12:09 Order name: Basic Metabolic Panel EDMS 06/25 12:09 Order name: CBC with Automated Diff EDMS 06/25 12:09 Order name: CBC with Automated Diff EDMS 06/25 12:09 Order name: CBC with Automated Diff EDMS 06/25 12:09 Order name: Lipid Profile EDMS 06/25 12:09 Order name: Lipid Profile EDMS 06/25 12:09 Order name: Magnesium EDMS 06/25 12:09 Order name: Magnesium EDMS 06/25 12:09 Order name: Magnesium EDMS 06/25 11:05 Order name: XRAY Chest (1 view); Complete Time: 11:53 ec2 06/25 11:05 Order name: CT Head Brain wo Cont; Complete Time: 11:53 ec2 06/25 11:05 Order name: EKG; Complete Time: 11:06 ec2 06/25 12:06 Order name: CONS Physician Consult EDMS 06/25 12:08 Order name: EKG Electrocardiogram EDCO 06/25 12:09 Order name: EKG Electrocardiogram EDCO 06/25 12:09 Order name: EKG Electrocardiogram EDCO 06/25 12:09 Order name: EKG Electrocardiogram EDCO 06/25 11:05 Order name: Cardiac monitoring; Complete Time: 11:10 ec2 06/25 11:05 Order name: EKG - Nurse/Tech; Complete Time: 11:23 ec2 06/25 11:05 Order name: IV Saline Lock; Complete Time: 11:10 ec2 06/25 11:05 Order name: Labs collected and sent; Complete Time: 11:10 ec2 06/25 11:05 Order name: O2 Per Protocol; Complete Time: 11: ec2 06/25 11:05 Order name: O2 Sat Monitoring; Complete Time: 11:10 ec2 Administered Medications: 11:10 Drug: NS 0.9% IV 1000 ml IV at 1 bolus Per protocol; 1000 mL bolus Route: IV; Rate: 1 ko1 bolus; Site: left antecubital; 12:14 Follow up: Response: No adverse reaction; IV Status: Completed infusion; IV Intake: ko1 1000ml 11:56 CANCELLED (Physician Discretion): [id number] mg PO once ec2 12:07 Drug: Aspirin PO Chewable Tablet 324 mg PO once; 81 mg tablets x 4 Route: Feeding Tube; ph 12:08 Drug: Ticagrelor PO 180 mg PO once; loading dose Route: Feeding Tube; ph 12:10 Drug: Heparin (MT-Bolus with thrombolytic) - HEParin IVP 60 units/kg IVP once; Max 4000 ko1 units {Co-Signature: jael (Sondra Jerez RN).} Route: IVP; Site: left forearm; 12:14 Follow up: Response: No adverse reaction ko1 12:10 Drug: Heparin (MT Drip) 12 units/kg/hr - ([place] [address] units, D5W IV 500 ml) IV at ko1 calculated rate Per protocol; Max initial rate 1000 units/hr {Co-Signature: jael (Sondra Jerez RN).} Route: IV; Rate: calculated rate; Site: left forearm; Disposition Summary: 06/26/23 11:59 Hospitalization Ordered Notes: Hospitalization Status: Inpatient Admission ec2 Provider: Vilchis, Mohammad ec2 Location: Intensive Care Unit ec2 Condition: Stable ec2 Problem: new ec2 Symptoms: are unchanged ec2 Bed/Room Type: Standard ec2 Room Assignment: ec2 Diagnosis - ST elevation (STEMI) myocardial infarction of unspecified site ec2 Forms: - Medication Reconciliation Form ec2 - SBAR form ec2 - Leadership Thank You Letter ec2 Critical care time excluding procedures: 11:57 Critical care time: Bedside Care: 30 minutes, Consultation: 10 minutes. Total time: 40 ec2 minutes Signatures: Dispatcher [employer] Sondra Blake RN RN ph Bouchra Riggs RN RN ko1 Kenney Hemphill MD MD ec2 Sondra Jerez RN ph Corrections: (The following items were deleted from the chart) 11:04 11:04 PMHx: Hemorrhagic stroke; ko1 ko1 11:04 11:04 PMHx: Hemorrhagic stroke, 10/30/20; ko1 ko1 11:04 11:04 PSHx: PEG tube; ko1 ko1 11:04 11:04 PSHx: Brain; ko1 ko1 11:06 11:06 BASIC METABOLIC PANEL+C.LAB.BRZ ordered. EDMS EDMS 11:06 11:06 CBC+H.LAB.BRZ ordered. EDMS EDMS 11:06 11:06 PROBNP+C.LAB.BRZ ordered. EDMS EDMS 11:06 11:06 Troponin High Sensitivity+C.LAB.BRZ ordered. EDMS EDMS 11:06 11:06 HEPATIC FUNCTION+C.LAB.BRZ ordered. EDMS EDMS 11:06 11:06 Urinalysis W/Microscopic+U.LAB.BRZ ordered. EDMS EDMS 11:56 11:53 Clopidogrel PO 600 mg PO once ordered. ec2 ec2
--- NOTE | 2023-06-26 11:59 | ER ---
Nurse's Notes [facility] Name: Contreras Naranjo Age: 72 yrs Sex: Male : 1950 Arrival Date: 06/26/2023 Time: 10:53 Bed 4 Private MD: Diagnosis: ST elevation (STEMI) myocardial infarction of unspecified site Presentation: 06/25 11:01 Chief complaint: EMS states: patients was giving him a shower on the shower chair ko1 when he complained of abdominal pain and went unresponsive for about a minute and called EMS. Coronavirus screen: At this time, the client does not indicate any symptoms associated with coronavirus-19. Ebola Screen: No symptoms or risks identified at this time. Initial Sepsis Screen: Does the patient meet any 2 criteria? No. Patient's initial sepsis screen is negative. Does the patient have a suspected source of infection? No. Patient's initial sepsis screen is negative. Risk Assessment: Do you want to hurt yourself or someone else? Patient reports no desire to harm self or others. Onset of symptoms was June 26, 2023. Care prior to arrival: Medication(s) given: Normal saline infusion, 500 mL, IV initiated. 20 GA, in the left in the right forearm, Glucose check: 248. Activity prior to arrival: unresponsive. Mechanism of Injury: No Mechanism of Injury. Transition of care: patient was not received from another setting of care. 11:01 Method Of Arrival: EMS: [facility] ko1 11:01 Acuity: NANCY 2 ko1 Triage Assessment: 11:04 General: Appears in no apparent distress. comfortable, Behavior is calm, cooperative, ko1 appropriate for age. Pain: Complains of pain in back of neck. Historical: - Allergies: 11:04 No Known Allergies; ko1 - PMHx: 11:04 diabetes mellitus; Hemorrhagic stroke; Hypercholesterolemia; Hypertensive disorder; ko1 Right sided weakness; - Immunization history:: Adult Immunizations unknown. - Infectious Disease History:: Denies. - Social history:: Smoking status: Patient denies any tobacco usage or history of. Screenin:05 [facility] ED Fall Risk Assessment (Adult) History of falling in the last 3 months, ko1 including since admission No falls in past 3 months (0 pts) Confusion or Disorientation No (0 pts) Intoxicated or Sedated No (0 pts) Impaired Gait Yes (1 pt) Mobility Assist Device Used Yes (1 pt) Altered Elimination No (0 pt) Score/Fall Risk Level 0 - 2 = Low Risk Oriented to surroundings, Maintained a safe environment, Educated pt \T\ family on fall prevention, incl call for assistance when getting out of bed, Assessed \T\ reinforced patient's understanding of fall precautions, Provided non-skid footwear, Hourly rounding (assess needs \T\ fall precautionary measures) done, Used ambulatory aids as needed (educated on \T\ assisted with), Used gait belt as appropriate. Abuse screen: Denies threats or abuse. Denies injuries from another. Nutritional screening: On NPO diet, by peg only Difficulty chewing/swallowing? Yes. Tuberculosis screening: No symptoms or risk factors identified. Assessment: 11:05 Neuro: Reports old CVA that left right side deficit and slurred speech with dysphagia ko1 requiring peg tube . Cardiovascular: No deficits noted. Respiratory: No deficits noted. GI: PEG tube in place, clamped. Site clean. : No deficits noted. EENT: No deficits noted. Derm: No deficits noted. Musculoskeletal: right side weak. Vital Signs: 11:01 BP 116 / 62; Pulse 53; Resp 15; Temp 97; Pulse Ox 100% on R/A; ko1 11:58 Weight 65 kg; ph 12:12 BP 113 / 62; Pulse 55; Resp 15; Pulse Ox 98% ; ko1 ED Course: 11:00 Patient arrived in ED. ko1 11:00 Kenney Hemphill MD is Attending Physician. ec2 11:01 Bouchra Riggs, BORIS is Primary Nurse. ko1 11:04 Triage completed. ko1 11:04 Arm band placed on right wrist. Patient placed in an exam room, on a stretcher, on ko1 playground monitor, on pulse oximetry, Patient notified of wait time. 11:05 Patient has correct armband on for positive identification. Fall risk band placed. ko1 Placed in gown. Bed in low position. Call light in reach. Side rails up X2. Client placed on continuous cardiac and pulse oximetry monitoring. NIBP monitoring applied. monitoring specialist on. Door closed. Noise minimized. Lights dimmed. Warm blanket given. Pillow given. 11:05 Maintain EMS IV. Dressing intact. Good blood return noted. Site clean \T\ dry. Gauge \T\ ko 1 site: bilateral AC 20 g . 11:16 LFT's Sent. ko1 11:16 Basic Metabolic Panel Sent. ko1 11:16 CBC with Diff Sent. ko1 11:16 NT PRO-BNP Sent. ko1 11:16 Troponin HS Sent. ko1 11:24 Initial lab(s) drawn, by me, sent to lab. EKG done, by ED staff, reviewed by Kenney Hemphill MD. 11:26 CT Head Brain wo Cont In Process Unspecified. EDMS 11:37 XRAY Chest (1 view) In Process Unspecified. EDMS 11:58 Stephanie Vilchis MD is Hospitalizing Provider. ec2 12:12 Provided Education on: Procedure Consent. ko1 12:12 No provider procedures requiring assistance completed. Patient admitted, IV remains in ko1 place. Administered Medications: 11:10 Drug: NS 0.9% IV 1000 ml IV at 1 bolus Per protocol; 1000 mL bolus Route: IV; Rate: 1 ko1 bolus; Site: left antecubital; 12:14 Follow up: Response: No adverse reaction; IV Status: Completed infusion; IV Intake: ko1 1000ml 11:56 CANCELLED (Physician Discretion): [id number] mg PO once ec2 12:07 Drug: Aspirin PO Chewable Tablet 324 mg PO once; 81 mg tablets x 4 Route: Feeding Tube; ph 12:08 Drug: Ticagrelor PO 180 mg PO once; loading dose Route: Feeding Tube; ph 12:10 Drug: Heparin (TX-Bolus with thrombolytic) - HEParin IVP 60 units/kg IVP once; Max 4000 ko1 units {Co-Signature: ph (Sondra Jerez RN).} Route: IVP; Site: left forearm; 12:14 Follow up: Response: No adverse reaction ko1 12:10 Drug: Heparin (TX Drip) 12 units/kg/hr - ([place] [address] units, D5W IV 500 ml) IV at ko1 calculated rate Per protocol; Max initial rate 1000 units/hr {Co-Signature: ph (Sondra Jerez RN).} Route: IV; Rate: calculated rate; Site: left forearm; Medication: 12:12 VIS not applicable for this client. ko1 Intake: 12:14 IV: 1000ml; Total: 1000ml. ko1 Outcome: 11:59 Decision to Hospitalize by Provider. ec2 12:12 Admitted to Auxiliary Equipment Tender ko1 12:12 Condition: stable 12:12 Instructed on the need for admit, 12:15 Patient left the ED. ko1 Signatures: Dispatcher [employer] Sondra Blake RN RN ph Bouchra Riggs RN RN ko1 Kenney Hemphill MD MD ec2 Sondra Jerez RN ph Corrections: (The following items were deleted from the chart) 11: 11:04 PMHx: Hemorrhagic stroke; ko1 ko1 11:04 11:04 PMHx: Hemorrhagic stroke, 10/30/20; ko1 ko1 11: 11:04 PSHx: PEG tube; ko1 ko1 11: 11:04 PSHx: Brain; ko1 ko1
[2023-06-26] MEDS ORDERED: FENTANYL CITR 100 MCG/2 ML ONE (12:01)
[2023-06-26] MEDS ORDERED: LIDOCAINE 1% 20 ML MDV ONE (12:01)
[2023-06-26] MEDS ORDERED: HEPA 1000U/500MLS 2,000 UNIT/1,000 ML BAG IV ONE (12:01)
[2023-06-26] MEDS ORDERED: MIDAZOLAM HCL 2 MG/2 ML INJ ONE (12:02)
[2023-06-26] MEDS ORDERED: ATROPINE SULF 1 MG/10 ML SYR IV ONE (12:02)
[2023-06-26] MEDS ORDERED: HEPARIN 10,000 UNIT/10 ML VIAL IV ONE (12:02)
[2023-06-26] MEDS ORDERED: ACETAMINOPHEN 500 MG TAB PO PRN (12:04)
[2023-06-26] MEDS ORDERED: HEPA 1000U/500MLS 1,000 UNIT/500 ML BAG IV ONE (12:23)
[2023-06-26] MEDS ORDERED: NA CHLORIDE 0.9% 500 ML ONE (12:24)
[2023-06-26 15:24] LABS: Specific Gravity 1.018 (1.005-1.030); Sqamous Epithelial None Seen /HPF (None Seen); Urine Bacteria None Seen /HPF (<20); Urine Bilirubin NEGATIVE (Negative); Urine Blood Negative (Negative); Urine Clarity Clear (Clear); Urine Color Colorless (Yellow); Urine Culture Reflex Order NOT NEEDED; Urine Glucose 2+ (Negative); Urine Ketones NEGATIVE (Negative); Urine Micro Reflex YN NO BILL MICROSCOPIC; Urine Nitrite NEGATIVE (Negative); Urine Protein NEGATIVE (Negative); Urine RBC <5 /HPF (None Seen); Urine Urobilinogen Normal (Normal); Urine WBC <5 /HPF (<5); Urine pH 7.5 (5.0-7.0)
[2023-06-26 15:52] VITALS: BMI 19.9
--- NOTE | 2023-06-26 16:18 | P.HP ---
Certification for Inpatient Patient admitted to: Observation With expected LOS: <2 Midnights Patient will require the following post-hospital care: None Practitioner: I am a practitioner with admitting privileges, knowledge of patient current condition, hospital course, and medical plan of care. Services: Services provided to patient in accordance with Admission requirements found in Title 42 Section 412.3 of the Code of Federal Regulations Patient History Date of Service: 06/26/23 Reason for admission: Hypotension History of Present Illness: Patient is a 72-year-old gentleman who came to the hospital with hypotension. Patient was seen by cardiology and decision was made to admit the patient to the hospital for further evaluation including cardiac catheterization. Patient had a cardiac catheterization performed earlier today. Patient had normal coronaries. Patient is on numerous antihypertensives including carvedilol, losartan, and then patient takes Cardura at night for the prostate. Patient is on a very large dose of the Cardura. I believe that is probably what precipitated patient's hypotension. At this time, patient is clinically doing well. We will hold off on patient's antihypertensives at this time. Patient can refrain from Cardura use. Will use Flomax as well. Patient will be admitted for observation Allergies No Known Allergies Allergy (Verified 05/29/23 08:16) Home Medications: Atorvastatin Calcium 20 mg FT BEDTIME 06/25/21 Losartan Potassium [Cozaar] 25 mg FT DAILY 06/25/21 carvediloL [Carvedilol] 6.25 mg PO BID 06/25/21 Doxazosin Mesylate 8 mg FT BEDTIME 09/22/22 Famotidine [Pepcid] 40 mg FT BID 01/01/23 Nut.tx.gluc Intol,Lf,Soy/Fiber [Glucerna 1.2 Hank Liquid] 12 oz FT QID 06/26/23 Polyethylene Glycol 3350 [Miralax] 17 gm FT DAILY PRN 06/26/23 Sennosides [Senna] 1 tab FT BEDTIME 06/26/23 - Past Medical/Surgical History Has patient received pneumonia vaccine in the past: Yes Diabetic: Yes -: Hemorrhagic CVA 2020 -: PEG tube -: Hypertension -: Diabetes mellitus type 2 [id number] -: High Cholesterol -: GERD -: Brain surgery -: PEG tube -: cataracts surgery bilateral--september 2022/October 2022 Psychosocial/ Personal History: Patient lives at home with his - Family History Brother Medical History: Diabetes - Social History Smoking Status: Former smoker Alcohol use: No CD- Drugs: No Caffeine use: No Place of Residence: Home Review of Systems 10-point ROS is otherwise unremarkable Physical Examination - Vital Signs Temperature: 97.6 F Blood Pressure: 114/64 Pulse: 63 Respirations: 16 Pulse Ox (%): 95 - Physical Exam General: Alert, In no apparent distress, Oriented x3 HEENT: Atraumatic, PERRLA, Mucous membr. moist/pink, EOMI, Sclerae nonicteric Neck: Supple, 2+ carotid pulse no bruit, No LAD, Without JVD or thyroid abnormality Respiratory: Clear to auscultation bilaterally, Normal air movement Cardiovascular: Regular rate/rhythm, Normal S1 S2 Gastrointestinal: Normal bowel sounds, Soft and benign, Non-distended, No tenderness Musculoskeletal: No clubbing, No swelling, No tenderness Integumentary: No rashes Neurological: Normal gait, Normal speech, Normal strength at 5/5 x4 extr, Normal tone, Sensation intact, Cranial nerves 3-12 intact, Normal affect Lymphatics: No axilla or inguinal lymphadenopathy - Studies Laboratory Data (last 24 hrs) 06/26/23 06/26/23 11:15 11:15 WBC 8.00 Hgb 12.7 L Hct 39.1 L Plt Count 204 Sodium 136 Potassium 4.5 BUN 11 Creatinine 0.85 Glucose 219 H Total Bilirubin 0.8 AST 19 ALT 35 Alkaline Phosphatase 111 Assessment & Plan - Problems (Diagnosis) (1) Hypotension Current Visit: Yes Status: Acute (2) Syncope Current Visit: Yes Status: Acute (3) CVA (cerebral vascular accident) Current Visit: No Status: Acute (4) HTN (hypertension) Current Visit: No Status: Acute - Plan Plan: 1. Patient with hypotension secondary to Cardura use and patient is on losartan and carvedilol. Will go ahead and DC all of his antihypertensives and we will go ahead and refrain from using Cardura. Patient has BPH and can use Flomax. At this time patient is doing well and his cardiac catheterization was negative. Anticipate discharge home in the morning if cardiology is agreeable. Echocardiogram and carotid Doppler are pending. These could be done as an outpatient if patient is doing really well clinically in the morning 2. GI DVT prophylaxis Discharge Plan: Home Plan to discharge in: 24 Hours - Advance Directives Does patient have a Living Will: No Does patient have a Durable POA for Healthcare: Yes - Code Status/Comfort Care Code Status Assessed: Yes Code Status: Full Code Critical Care: No Time Spent Managing PTS Care (In Minutes): 45
[2023-06-26] MEDS: GLUCERNA 1.2 CAL 1,000 ML BOT FT SCH (18:00)
--- NOTE | 2023-06-26 18:01 | P.CNS ---
Date of Consult: 06/26/23 Chief Complaint: Syncope, abnormal EKG History of Present Illness: Patient with PMH of stroke, disability from that, also he got PEG tube for feeding, presented with syncope, had an abnormal EKG in ED concerning for STEMI so patient was taken urgently to quality assurance/r&d lab technician for coronary angiogram. Allergies No Known Allergies Allergy (Verified 05/29/23 08:16) Home Medications: Atorvastatin Calcium 20 mg FT BEDTIME 06/25/21 Losartan Potassium [Cozaar] 25 mg FT DAILY 06/25/21 carvediloL [Carvedilol] 6.25 mg PO BID 06/25/21 Doxazosin Mesylate 8 mg FT BEDTIME 09/22/22 Famotidine [Pepcid] 40 mg FT BID 01/01/23 Nut.tx.gluc Intol,Lf,Soy/Fiber [Glucerna 1.2 Hank Liquid] 12 oz FT QID 06/26/23 Polyethylene Glycol 3350 [Miralax] 17 gm FT DAILY PRN 06/26/23 Sennosides [Senna] 1 tab FT BEDTIME 06/26/23 - Past Medical/Surgical History Diabetic: Yes -: Hemorrhagic CVA 2020 -: PEG tube -: Hypertension -: Diabetes mellitus type 2 [id number] -: High Cholesterol -: GERD -: Brain surgery -: PEG tube -: cataracts surgery bilateral--september 2022/October 2022 Psychosocial/ Personal History: Patient lives at home with his - Family History Brother Medical History: Diabetes - Social History Alcohol use: No CD- Drugs: No Caffeine use: No Place of Residence: Home Review of Systems 10-point ROS is otherwise unremarkable Physical Examination Temp Pulse Resp BP Pulse Ox 97.6 F 63 16 114/64 06/26/23 16:18 06/26/23 16:18 06/26/23 16:18 06/26/23 16:18 General: Alert, Oriented x3 HEENT: Atraumatic Neck: Supple Respiratory: Clear to auscultation bilaterally Cardiovascular: No edema, Normal S1 S2 Gastrointestinal: Normal bowel sounds Laboratory Data (last 24 hrs) 06/26/23 06/26/23 11:15 11:15 WBC 8.00 Hgb 12.7 L Hct 39.1 L Plt Count 204 Sodium 136 Potassium 4.5 BUN 11 Creatinine 0.85 Glucose 219 H Total Bilirubin 0.8 AST 19 ALT 35 Alkaline Phosphatase 111 - Problems (1) Syncope Current Visit: Yes Status: Acute Plan: unclear etiology, continue to monitor on tele. get echo (2) Abnormal EKG Current Visit: Yes Status: Acute Plan: there was concern for ST elevation in lateral leads, although did not meet STEMI criteria but patient was taken to quality assurance/r&d lab technician and he have clean coronaries. (3) HTN (hypertension) Current Visit: No Status: Acute Plan: BP is normal, continue to monitor and add medications if needed.
--- NOTE | 2023-06-26 20:36 | OP ---
Date of Procedure: 06/26/2023 Surgeon: Varinder Hwang Procedures Performed: 1.Left heart catheterization. 2.Coronary angiogram. Indication For Procedure: Syncope with questionable ST changes on EKG. Complications: None. Estimated Blood Loss: Less than 50 cc. Sedation Time: 20 minutes. Access: Right common femoral artery 6-Citizen [place], closed by Angio-Seal. Description Of Procedure: After risks, benefits, and alternatives were explained to the patient and family, patient agreed to proceed and signed informed consent. The patient was brought to the cath l ab and prepped and draped in a sterile fashion. A time-out was performed. Sedation was administered . Next, we accessed the right common femoral artery. We used a 6-Citizen [place] sheath, ultrasound-guided m icropuncture. Next, we advanced a JL4 catheter over a J-wire to engage the left coronary artery. Se lective angiogram was performed and the catheter was exchanged to a JR4 catheter to engage the right coronary artery. Selective coronary angiogram was performed. Same catheter was used to measure the LVEDP. No gradient on pullback. At the end of procedure, the right common femoral artery was remove d and Angio-Seal was used to close the femoral access. The patient was removed to recovery in stable condition. Findings: 1.Left main: Normal. 2.LAD: Mild luminal irregularities. 3.Left circ: Small luminal irregularities. 4.RCA: Large, very tortuous, mild luminal irregularities. Assessment: Mild luminal irregularities, nonobstructive coronary artery disease. Plan: Will be to continue medical management. BRENDA/MONIE Voice ID: [id number] Report ID: [id number]
[2023-06-27 05:24] VITALS: TEMP 97.6
[2023-06-27 05:27] LABS: Absolute Eosinophils 0.1 K/uL (0-0.5); Absolute Lymphocytes (CBC) 1.6 K/uL (0.7-4.9); Absolute Monocytes 1.1 K/uL (0.1-1.3); Absolute Neutrophil 7.1 K/uL (1.8-8.0); Basophils % 0.4 % (0-1.3); Eosinophils % 0.6 % (0-4.4); Hematocrit 38.7 % (39.6-49.0); Hemoglobin 12.9 g/dL (13.6-17.9); Lymphocytes % 16.2 % (15.3-44.8); MCH 30.4 pg (27.0-35.0); MCHC 33.4 g/dL (32.0-36.0); MPV 11.3 fL (7.6-11.3); Monocytes % 11.2 % (3.3-12.3); Neutrophils % 71.6 % (41.7-73.7); Nucleated Red Blood Cells % 0.1 % (0-0); Platelets 196 thou/uL (152-406); RBC Red Blood Cell Count 4.25 M/uL (4.33-5.43); Red Cell Distribution Width 14.2 % (12.1-15.2)
[2023-06-27 05:31] LABS: Anion Gap 7.8 mEq/L (5.0-15.0); Potassium 3.8 mEq/L (3.5-5.1)
[2023-06-27 08:29] VITALS: BP 114/64
[2023-06-27] MEDS: GLUCERNA 1.2 CAL 1,000 ML BOT FT SCH (09:00)
[2023-06-27] MEDS ORDERED: FAMOTIDINE 20 MG TAB FT SCH (09:00)
[2023-06-27] MEDS ORDERED: ASPIRIN 81 MG CHEWABLE TABLET PO SCH (09:00)
[2023-06-27 09:09] VITALS: O2SAT 97
--- NOTE | 2023-06-27 09:21 | RAD REPORT ---
EXAM DESCRIPTION: US - CP - 06/27/2023 9:08 am CLINICAL HISTORY: syncope Headache, drowsiness COMPARISON: Soft Tissue Neck W/Contr dated 06/24/2021 TECHNIQUE: Real-time sonographic evaluation of both carotid systems was performed. Doppler interroga tion was performed with waveform tracing bilaterally. FINDINGS: Normal high resistance waveforms are noted in both external carotid arteries. The common c arotid arteries and internal carotid arteries show normal low resistance waveforms. Mild predominately soft plaquing is present right carotid bulb resulting mild narrowing of less than 50% based on NASCET criteria. Small hard plaque is also present left carotid bulb. Peak systolic and end diastolic velocity values and the ICA/CCA ratios are in the non-hemodynamically significant range . Antegrade flow seen in both vertebral arteries. IMPRESSION: Mild plaquing is seen in both carotid bulbs. No evidence of a hemodynamically significant stenosis.
[2023-06-27] MEDS ORDERED: ATORVASTATIN 20 MG TAB FT SCH (21:00)
--- NOTE | 2023-06-28 07:32 | ECHO ---
HEIGHT: 6 ft 1 in WEIGHT: 143 lb 4.8 oz DATE OF STUDY: 06/27/[address]: Stephanie Vilchis MD 2-DIMENSIONAL: YES M.MODE: YES DOPPLER: YES COLOR FLOW: YES TDS: PORTABLE: YES DEFINITY: BUBBLE STUDY: DIAGNOSIS: SYNCOPE CARDIAC HISTORY: CATHERIZATION: SURGERY: PROSTHETIC VALVE: PACEMAKER: MEASUREMENTS (cm) DIASTOLIC (NORMALS) SYSTOLIC (NORMALS) IVSd 0.9 (0.6-1.2) LA Diam 3.5 (1.9-4.0) LVEF 69% LVIDd 3.5 (3.5-5.7) LVIDs 2.2 (2.0-3.5) %FS 38% LVPWd 1.0 (0.6-1.2) Ao Diam 3.1 (2.0-3.7) 2 DIMENSIONAL ASSESSMENT: RIGHT ATRIUM: NORMAL LEFT ATRIUM: NORMAL RIGHT VENTRICLE: NORMAL LEFT VENTRICLE: NORMAL TRICUSPID VALVE: NORAML MITRAL VALVE: NORMAL PULMONIC VALVE: NORMAL AORTIC VALVE: NORMAL PERICARDIAL EFFUSION: NONE AORTIC ROOT: NORMAL LEFT VENTRICULAR WALL MOTION: NORMAL DOPPLER/COLOR FLOW: GRADE II DIASTOLIC DYSFUNCTION COMMENTS: 1. NORMAL LEFT VENTRICULAR SYSTOLIC FUNCTION, EJECTION FRACTION 60-65%, NORMAL WALL MOTION 2. GRADE II DIASTOLIC DYSFUNCTION TECHNOLOGIST: ALEJANDRA ZHENG
--- NOTE | 2023-06-28 15:45 | EKG ---
Test Date: 2023-06-26 Test Time: 11:29:20 Blending Machine Operator: MARY LOU MEASUREMENT RESULTS: Intervals: Rate: 65 MO: 164 QRSD: 88 QT: 442 QTc: 459 [place]: P: 27 MO: 164 QRS: -2 T: -17 INTERPRETIVE STATEMENTS: Sinus rhythm with occasional premature ventricular complexes Moderate voltage criteria for LVH, may be normal variant ST elevation, consider early repolarization, pericarditis, or injury T wave abnormality, consider inferior ischemia Abnormal ECG Compared to ECG 10/24/2022 12:22:04 Ventricular premature complex(es) now present ST (T wave) deviation now present T-wave abnormality now present Possible ischemia now present Electronically Signed On 06-28-23 15:40:32 CDT by Valerio Carlos
== END 2023-06-27 11:00 | disposition home or self-care (01) | DRG 287 ==
LOC: ER 10:53 → ERHOLD 12:02 → 3RD-ICU 13:46
PROVIDERS: ADMIT Hospitalist; ATTEND Hospitalist
PROC: 4A023N7 Measurement of Cardiac Sampling and Pressure, Left Heart, Percutaneous Approach (ICD-10-PCS; principal; 2023-06-26)
PROC: B2111ZZ Fluoroscopy of Multiple Coronary Arteries using Low Osmolar Contrast (ICD-10-PCS; 2023-06-26)
DX: I95.2 Hypotension due to drugs (principal); I10 Essential (primary) hypertension; E11.9 Type 2 diabetes mellitus without complications; E78.00 Pure hypercholesterolemia, unspecified; K21.9 Gastro-esophageal reflux disease without esophagitis; T44.6X5A Adverse effect of alpha-adrenoreceptor antagonists, initial encounter; Z79.02 Long term (current) use of antithrombotics/antiplatelets; Z79.899 Other long term (current) drug therapy; Z87.891 Personal history of nicotine dependence
CPT/HCPCS: 36415; 70450; 71045; 76937; 80048; 80061; 80076; 81001; 83735; 83880; 84484; 85025; 93005; 93306; 93458; 93880; 96361; 96374; 99152; 99153; 99285; C1760; C1893; G0269; J0461; J1644; J2001; J2250; J3010; J7040; Q9966

== ENCOUNTER 2023-10-10 09:58 | Inpatient (IN) | payer OTHER ==
[2023-10-10] MEDS ORDERED: ONDANSETRON 4 MG/2 ML VIAL ONE (10:43)
[2023-10-10] MEDS ORDERED: FAMOTIDINE 20 MG/2 ML VIAL IV ONE (10:43)
[2023-10-10] MEDS ORDERED: NA CHLORIDE 0.9% 1,000 ML ONE ×3 (10:43→14:50)
[2023-10-10 11:06] LABS: Absolute Eosinophils 0.1 K/uL (0-0.5); Absolute Lymphocytes (CBC) 0.4 K/uL (0.7-4.9); Absolute Monocytes 1.7 K/uL (0.1-1.3); Absolute Neutrophil 23.9 K/uL (1.8-8.0); Basophils % 0.1 % (0-1.3); Eosinophils % 0.3 % (0-4.4); Hematocrit 46.8 % (39.6-49.0); Hemoglobin 15.3 g/dL (13.6-17.9); Lymphocytes % 1.5 % (15.3-44.8); MCH 29.5 pg (27.0-35.0); MCHC 32.8 g/dL (32.0-36.0); MPV 10.6 fL (7.6-11.3); Monocytes % 6.4 % (3.3-12.3); Neutrophils % 91.7 % (41.7-73.7); Nucleated Red Blood Cells % 0.1 % (0-0); Platelets 215 thou/uL (152-406); Red Cell Distribution Width 14.4 % (12.1-15.2)
[2023-10-10 12:22] LABS: ALT/SGPT 23 U/L (16-61); Albumin 3.1 g/dL (3.4-5.0); Albumin/Globulin Ratio 0.7 (1.1-1.8); Alkaline Phosphatase 85 U/L (45-117); Anion Gap 10.3 mEq/L (5.0-15.0); BUN Blood Urea Nitrogen 10 mg/dL (7-18); Bicarbonate 29 mEq/L (21-32); Bilirubin Total 1.5 mg/dL (0.2-1.0); Globulin 4.3 g/dL (2.3-3.5); Glomerular Filtration Rate 94 ml/min (=/>90); Glucose Level 204 mg/dL (74-106); Lipase 21 U/L (13-75); Potassium 4.3 mEq/L (3.5-5.1); Protein, Total 7.4 g/dL (6.4-8.2); Sodium Level 128 mEq/L (136-145)
[2023-10-10 12:23] LABS: Blood Morphology Comment NOT SEEN (NOT SEEN); Platelet Estimate ADEQ; White Blood Cell Scan OK (OK)
[2023-10-10 12:23] LABS: AST/SGOT < 10 U/L (15-37)
[2023-10-10] MEDS ORDERED: CEFTRIAXONE 1000 MG/VIAL ONE (12:30)
[2023-10-10 12:56] LABS: PT Prothrombin Time 16.2 SECONDS (9.4-12.5); Protime INR 1.46
[2023-10-10 12:57] LABS: PTT, Activated Partial Thromb 29.8 SECONDS (24.3-36.9)
--- NOTE | 2023-10-10 12:58 | RAD REPORT ---
EXAM DESCRIPTION: CT - Abdomen Pelvis W Contrast - 10/10/2023 12:42 pm CLINICAL HISTORY: Abdominal pain COMPARISON: 2020 TECHNIQUE: Computed axial tomography of the abdomen pelvis was obtained. 100 cc Isovue-300 was admin istered intravenously. Oral contrast was not requested which limits evaluation of bowel and appendix All CT scans are performed using dose optimization technique as appropriate and may include automated exposure control or mA/KV adjustment according to patient size. FINDINGS: Mild to moderate right lower lobe alveolar opacities with small right pleural effusion Gallbladder wall thickening with edema in the adjacent fat The liver, spleen, pancreas, adrenal and kidneys appear unremarkable. There is no evidence of diverticulitis. Atherosclerosis. Normal appendix. Prostate gland moderately enlarged mild bladder wall thickening may be secondary to a chronic outlet obstruction Small amount of ascites Percutaneous gastrostomy tube in place IMPRESSION: Gallbladder wall thickening with edema in the adjacent fat probably cholecystitis Mild to moderate right lower lobe pneumonia
[2023-10-10 13:08] LABS: Specific Gravity 1.022 (1.005-1.030); Sqamous Epithelial None Seen /HPF (None Seen); Urine Bacteria None Seen /HPF (<20); Urine Bilirubin NEGATIVE (Negative); Urine Blood Trace (Negative); Urine Clarity Turbid (Clear); Urine Color Yellow (Yellow); Urine Culture Reflex Order NOT NEEDED; Urine Glucose 1+ (Negative); Urine Ketones TRACE (Negative); Urine Microscopic Reflex YN ORDER UMIC; Urine Mucus Slight /HPF (None Seen); Urine Nitrite NEGATIVE (Negative); Urine Protein 2+ (Negative); Urine RBC <5 /HPF (None Seen); Urine Urobilinogen 1+ (Normal); Urine WBC <5 /HPF (<5)
--- NOTE | 2023-10-10 13:49 | EDPHYS ---
Physician Documentation [facility] Name: Contreras Naranjo Age: 72 yrs Sex: Male : 1950 Arrival Date: 10/10/2023 Time: 09:58 Bed 18 Private MD: ED Physician Kenney Hemphill HPI: 10/09 12:59 This 72 yrs old Male presents to ER via Wheelchair with complaints of ec2 Vomiting, Urinary Problem - Dark urine. 12:59 Patient arrives today for evaluation of generalized abdominal pain along with dark and ec2 colored urine. Patient been having issues with abdominal pain, generalized, associated nausea as well. No issues with bowels, last BM was yesterday. History of a stroke, is feeding tube dependent.. Historical: - Allergies: 10:10 No Known Allergies; ph - PMHx: 10:10 diabetes mellitus; Hypercholesterolemia; Hypertensive disorder; Right sided weakness; ph - Immunization history:: Adult Immunizations unknown. - Infectious Disease History:: Denies. - Social history:: Smoking status: Patient denies any tobacco usage or history of. ROS: 12:59 Constitutional: as per hpi ec2 Exam: 12:59 Constitutional: GEN: NAD Head: atraumatic Eyes: EOMI Ears: External ears are ec2 normal. CV: regular rate LUNGS: no respiratory distress ABD: non-distended, soft, generally tender, not guarding, not rigid, feeding tube in place. SKIN: no evidence of rashes MSK: no evidence of trauma NEURO: moves all extremities equally Vital Signs: 10:09 BP 148 / 83; Pulse 98; Resp 18; Temp 98.3; Pulse Ox 98% on R/A; Weight 61.23 kg; Height ph 6 ft. 1 in. ; 11:00 BP 141 / 84; Pulse 87; Resp 16; Pulse Ox 98% on R/A; db 11:30 BP 136 / 74; Pulse 88; Resp 16; Pulse Ox 98% on R/A; db 16:00 BP 130 / 71; Pulse 70; Resp 17; Pulse Ox 99% on R/A; rs5 10:09 Body Mass Index 17.81 (61.23 kg, 185.42 cm) ph MDM: 10:04 Patient medically screened. ec2 12:59 Data reviewed: vital signs. ED course: Patient arrives today for evaluation of ec2 generalized abdominal pain. Examination remarkable for abdominal findings as noted above. Lab work ordered, CT imaging ordered. EKG obtained, independently reviewed and interpreted by me, shows sinus tachycardia, rate of 101, no acute ST segment elevations, intervals are nonconcerning. ED course: Differential diagnosis include process such as urinary tract infection, small bowel obstruction, trauma or infection. Patient with leukocytosis noted, tachycardia noted as well.. 13:14 ED course: Metabolic profile shows hyponatremia with a sodium of 128, urine is negative ec2 for nitrites and esterase, ketones and trace amounts present. Lactate elevated at 4.6. Will give the patient additional crystalloid . 13:28 ED course: CT imaging shows cholecystitis along with pneumonia, will add on Flagyl for ec2 antibiotic coverage.. 14:52 ED course: MDM: Differential diagnosis as documented above in ED course; All lab tests ec2 ordered and reviewed as documented above; Independent interpretation of tests: EKG as above; Discuss inpatient hospitalization: Yes; I discussed the case with: Hospitalist, surgeon . 10/09 10:24 Order name: CBC with Diff; Complete Time: 13: [facility] 10/09 10:24 Order name: CMP; Complete Time: 13: [facility] 10/09 10:24 Order name: Lipase; Complete Time: 13: [facility] 10/09 10:24 Order name: Urinalysis w/ reflexes; Complete Time: 13: [facility] 10/09 11:09 Order name: CBC Smear Scan; Complete Time: 13: [facility] 10/09 11:56 Order name: Blood Culture Adult (2) 2 10/09 11:56 Order name: Lactate w/ 2H reflex if indic.; Complete Time: 13: [facility] 10/09 11:56 Order name: Protime (+inr); Complete Time: 13: [facility] 10/09 11:56 Order name: Ptt, Activated; Complete Time: 13: [facility] 10/09 15:05 Order name: Ghost Lactate-NO COLLECT Timer; Complete Time: 15: [facility] 10/09 10:24 Order name: CT Abd/Pelvis - IV Contrast Only; Complete Time: 13: [facility] 10/09 13:27 Order name: CXR XRAY; Complete Time: 15: [facility] 10/09 13:45 Order name: US Abdomen Limited; Complete Time: 15:09 ec2 10/09 11:56 Order name: EKG; Complete Time: 11:57 ec2 10/09 14:30 Order name: Dr Erica Garcia [facility] 10/09 10:24 Order name: IV Saline Lock; Complete Time: 11:09 ec2 10/09 10:24 Order name: Labs collected and sent; Complete Time: 11:09 ec2 10/09 11:12 Order name: Labs - recollect needed: recollect lavender and green top; Complete Time: bd 11:51 10/09 11:56 Order name: Accucheck; Complete Time: 13:02 ec2 10/09 11:56 Order name: Cardiac monitoring; Complete Time: 13:02 ec2 10/09 11:56 Order name: EKG - Nurse/Tech; Complete Time: 13:02 ec2 10/09 11:56 Order name: IV Saline Lock - Large Bore; Complete Time: 13:02 ec2 10/09 11:56 Order name: O2 Per Protocol; Complete Time: 13:02 ec2 10/09 11:56 Order name: O2 Sat Monitoring; Complete Time: 13:02 ec2 10/09 11:56 Order name: Vital Signs; Complete Time: 13:02 ec2 Administered Medications: 11:10 Drug: NS 0.9% IV 1000 ml IV at 1 bolus Per protocol; 1000 mL bolus Route: IV; Rate: 1 db bolus; Site: right antecubital; 11:10 Drug: Famotidine IVP 20 mg IVP once; dilute with 10 mL 0.9% NaCl; give over 2 minutes db Route: IVP; Site: right antecubital; 11:10 Drug: Ondansetron IVP 4 mg IVP once; over 2 minutes Route: IVP; Site: right antecubital;db 12:10 Drug: Rocephin IV 1 grams IV at calculated rate once; Given slow IV push per pharmacy rs5 instructions Route: IV; Rate: calculated rate; Site: left antecubital; 12:25 Follow up: Response: No adverse reaction rs5 13:20 Drug: NS 0.9% IV 1000 ml IV at 1 bolus Per protocol; 1000 mL bolus Route: IV; Rate: 1 rs5 bolus; Site: left antecubital; 14:01 Follow up: IV Status: Completed infusion; IV Intake: 999ml rs5 13:55 Drug: metroNIDAZOLE IVPB 500 mg 100 ml IVPB at 200 ml/hr once over 30 mins Volume: 100 rs5 ml; Route: IVPB; Rate: 200 ml/hr; Infused Over: 30 mins; Site: left antecubital; 14:20 Follow up: Response: No adverse reaction rs5 13:55 Drug: NS 0.9% IV 1000 ml IV at 1 bolus Per protocol; 1000 mL bolus Route: IV; Rate: 1 rs5 bolus; Site: left antecubital; 15:05 Follow up: Response: No adverse reaction; IV Status: Completed infusion; IV Intake: rs5 999ml Disposition Summary: 10/10/23 13:49 Hospitalization Ordered Notes: Hospitalization Status: Inpatient Admission ec2 Provider: Dinesh De Dios ec2 Location: Telemetry/[facility] (Inpatient) ec2 Condition: Stable ec2 Problem: new ec2 Symptoms: have worsened ec2 Bed/Room Type: Standard ec2 Room Assignment: 430(10/10/23 14:52) ja Diagnosis - Acute cholecystitis ec2 - Unspecified bacterial pneumonia ec2 - Sepsis, unspecified organism ec2 Forms: - Medication Reconciliation Form ec2 - SBAR form ec2 - Leadership Thank You Letter ec2 Critical care time excluding procedures: 13:53 Critical care time: Bedside Care: 30 minutes, Consultation: 5 minutes. Total time: 35 ec2 minutes Signatures: Dispatcher [employer] EDMS Elana Nunn, Angel, BUSINESS ENGLISH INSTRUCTOR-C BUSINESS ENGLISH INSTRUCTOR-Cla1 Sondra Jerez RN RN ph Aguilar, Jose RN RN ja1 Alexandra Gaming RN RN db Sotelo, Ricky, RN RN rs5 Kenney Hemphill MD MD ec2 Corrections: (The following items were deleted from the chart) 13:28 13:28 Chest Single View+RAD.RAD.BRZ ordered. EDND EDND 14:45 13:49 ec2 bd 14:52 14:45 218 bd ja1
--- NOTE | 2023-10-10 13:49 | ER ---
Nurse's Notes [facility] Name: Contreras Naranjo Age: 72 yrs Sex: Male : 1950 Arrival Date: 10/10/2023 Time: 09:58 Bed 18 Private MD: Diagnosis: Acute cholecystitis;Unspecified bacterial pneumonia;Sepsis, unspecified organism Presentation: 10/09 10:09 Chief complaint: Patient states: N/V and abdominal pain since Sunday, no fever, ph also reports decreased urinary output and dark colored urine. Coronavirus screen: Vaccine status: Patient reports receiving the 2nd dose of the covid vaccine. Ebola Screen: No symptoms or risks identified at this time. Initial Sepsis Screen: Does the patient meet any 2 criteria? No. Patient's initial sepsis screen is negative. Does the patient have a suspected source of infection? No. Patient's initial sepsis screen is negative. Risk Assessment: Do you want to hurt yourself or someone else? Patient reports no desire to harm self or others. Onset of symptoms was October 10, 2023. 10:09 Method Of Arrival: Wheelchair 10:09 Acuity: NANCY 3 ph Triage Assessment: 10:10 General: Appears in no apparent distress. Behavior is calm, cooperative. Pain: Complains of pain in umbilical area. GI: Reports lower abdominal pain, upper abdominal pain, nausea, vomiting, Patient currently denies diarrhea. Historical: - Allergies: 10:10 No Known Allergies; ph - PMHx: 10:10 diabetes mellitus; Hypercholesterolemia; Hypertensive disorder; Right sided weakness; ph - Immunization history:: Adult Immunizations unknown. - Infectious Disease History:: Denies. - Social history:: Smoking status: Patient denies any tobacco usage or history of. Screenin:11 [facility] ED Fall Risk Assessment (Adult) History of falling in the last 3 months, rs5 including since admission No falls in past 3 months (0 pts) Confusion or Disorientation No (0 pts) Intoxicated or Sedated No (0 pts) Impaired Gait Yes (1 pt) Mobility Assist Device Used Yes (1 pt) Altered Elimination No (0 pt) Score/Fall Risk Level 0 - 2 = Low Risk Oriented to surroundings, Maintained a safe environment. Abuse screen: Denies threats or abuse. Nutritional screening: No deficits noted. Tuberculosis screening: No symptoms or risk factors identified. Assessment: 10:05 General: Appears in no apparent distress. uncomfortable, Behavior is calm, cooperative. rs5 Pain: Denies pain. Neuro: Level of Consciousness is awake, alert, obeys commands, Oriented to person, place, time, situation. Cardiovascular: Patient's skin is warm and dry. Respiratory: Airway is patent Respiratory effort is even, unlabored, Respiratory pattern is regular, symmetrical. GI: Abdomen is round non-distended, Abd is soft and non tender X 4 quads. Reports nausea, vomiting. : Reports dark urine. EENT: No signs and/or symptoms were reported regarding the EENT system. Derm: Skin is intact, Skin is pink, warm \T\ dry. Musculoskeletal: Range of motion: limited in right arm and right leg due to previouse stroke. 11:10 Reassessment: Patient and/or family updated on plan of care and expected duration. Pain rs5 level reassessed. Patient is alert, oriented x 3, equal unlabored respirations, skin warm/dry/pink. Patient states feeling better. 12:12 Reassessment: No changes from previously documented assessment. rs5 13:22 Reassessment: Patient and/or family updated on plan of care and expected duration. Pain rs5 level reassessed. Patient is alert, oriented x 3, equal unlabored respirations, skin warm/dry/pink. 14:30 Reassessment: No changes from previously documented assessment. rs5 15:04 Reassessment: No changes from previously documented assessment. rs5 16:02 Reassessment: No changes from previously documented assessment. rs5 Vital Signs: 10:09 BP 148 / 83; Pulse 98; Resp 18; Temp 98.3; Pulse Ox 98% on R/A; Weight 61.23 kg; Height ph 6 ft. 1 in. ; 11:00 BP 141 / 84; Pulse 87; Resp 16; Pulse Ox 98% on R/A; db 11:30 BP 136 / 74; Pulse 88; Resp 16; Pulse Ox 98% on R/A; db 16:00 BP 130 / 71; Pulse 70; Resp 17; Pulse Ox 99% on R/A; rs5 10:09 Body Mass Index 17.81 (61.23 kg, 185.42 cm) ph ED Course: 10:00 Patient arrived in ED. ra3 10:02 Kenney Hemphill MD is Attending Physician. ec2 10:10 Triage completed. ph 10:11 Nicholas Stubbs, BORIS is Primary Nurse. rs5 10:11 Arm band placed on Patient placed in an exam room. ph 10:11 Patient has correct armband on for positive identification. Placed in gown. Bed in low rs5 position. Call light in reach. Side rails up X2. 10:11 No provider procedures requiring assistance completed. rs5 11:08 Inserted saline lock: 20 gauge in left antecubital area, using aseptic technique. Blood jr12 collected. Flushed with 10 mL NS. 12:44 CT Abd/Pelvis - IV Contrast Only In Process Unspecified. EDMS 13:49 Dinesh De Dios MD is Hospitalizing Provider. ec2 14:06 CXR XRAY In Process Unspecified. EDMS 14:22 US Abdomen Limited In Process Unspecified. EDMS 16:02 Patient admitted, IV remains in place. rs5 Administered Medications: 11:10 Drug: NS 0.9% IV 1000 ml IV at 1 bolus Per protocol; 1000 mL bolus Route: IV; Rate: 1 db bolus; Site: right antecubital; 11:10 Drug: Famotidine IVP 20 mg IVP once; dilute with 10 mL 0.9% NaCl; give over 2 minutes db Route: IVP; Site: right antecubital; 11:10 Drug: Ondansetron IVP 4 mg IVP once; over 2 minutes Route: IVP; Site: right antecubital;db 12:10 Drug: Rocephin IV 1 grams IV at calculated rate once; Given slow IV push per pharmacy rs5 instructions Route: IV; Rate: calculated rate; Site: left antecubital; 12:25 Follow up: Response: No adverse reaction rs5 13:20 Drug: NS 0.9% IV 1000 ml IV at 1 bolus Per protocol; 1000 mL bolus Route: IV; Rate: 1 rs5 bolus; Site: left antecubital; 14:01 Follow up: IV Status: Completed infusion; IV Intake: 999ml rs5 13:55 Drug: metroNIDAZOLE IVPB 500 mg 100 ml IVPB at 200 ml/hr once over 30 mins Volume: 100 rs5 ml; Route: IVPB; Rate: 200 ml/hr; Infused Over: 30 mins; Site: left antecubital; 14:20 Follow up: Response: No adverse reaction rs5 13:55 Drug: NS 0.9% IV 1000 ml IV at 1 bolus Per protocol; 1000 mL bolus Route: IV; Rate: 1 rs5 bolus; Site: left antecubital; 15:05 Follow up: Response: No adverse reaction; IV Status: Completed infusion; IV Intake: rs5 999ml Medication: 10:12 VIS not applicable for this client. rs5 Intake: 14:01 IV: 999ml; Total: 999ml. rs5 15:05 IV: 999ml; Total: 1998ml. rs5 Outcome: 13:49 Decision to Hospitalize by Provider. ec2 16:02 Admitted to Med/surg accompanied by tech, with chart, rs5 16:02 Condition: stable 16:02 Instructed on the need for admit, Demonstrated understanding of instructions, 16:03 Patient left the ED. rs5 Signatures: Dispatcher [employer] Sondra Blake RN RN ph Benton, Danielle, RN RN Nicholas Stubbs RN RN rs5 Kenney Hemphill MD MD 2 Ayanna Roblero [facility] Paula Hanson ra3 Corrections: (The following items were deleted from the chart) 16:03 15:04 BP 130 / 71; Pulse 70bpm; Resp 17bpm; Pulse Ox 99% RA; rs5 rs5
[2023-10-10] MEDS ORDERED: METRONIDAZOLE 500mg IVPB 500 MG/100 ML BAG IV ONE (13:52)
--- NOTE | 2023-10-10 14:37 | RAD REPORT ---
EXAM DESCRIPTION: [place]ore[place] Single View10/10/2023 2:04 pm CLINICAL HISTORY: cough COMPARISON: June 26, 2023 FINDINGS: Mild to moderate right lower lobe opacities. Small right pleural effusion Remainder lungs appear clear of acute infiltrate. Heart is normal size IMPRESSION: [id number] right lower lobe pneumonia
--- NOTE | 2023-10-10 14:41 | RAD REPORT ---
EXAM DESCRIPTION: US - Abdomen Exam Limited - 10/10/2023 2:21 pm CLINICAL HISTORY: Abdominal pain. COMPARISON: CT October 10, 2023 FINDINGS: Gallbladder contains tiny stones and sludge. Gallbladder wall moderately thickened. The biliary tree is normal caliber. IMPRESSION: Tiny gallstones and sludge Thickened gallbladder wall probably cholecystitis
[2023-10-10] MEDS: INSULIN REGULAR (HUMAN) 100 UNIT/ML SQ SCH (16:34)
[2023-10-10] MEDS: NA CHLORIDE 0.9% 1,000 ML IV SCH (17:05)
[2023-10-10] MEDS: PIPER TAZO 3.375 GM in NA CHLORIDE 0.9% 100 ML IV SCH (17:05)
--- NOTE | 2023-10-10 17:24 | P.HP ---
Certification for Inpatient Patient admitted to: Inpatient With expected LOS: >2 Midnights Patient will require the following post-hospital care: None Practitioner: I am a practitioner with admitting privileges, knowledge of patient current condition, hospital course, and medical plan of care. 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 He reports his symptoms began on 10/07 in the evening when he had abdominal pain and 3 episodes of vomiting, since then he has been getting worse. Patient was evaluated in the emergency department his labs are significant for likely psychotic 26 sodium 128 chloride 93 glucose [address] abdomen pelvis was performed which showed gallbladder wall thickening with edema in the adjacent fat probably cholecystitis. Mild to moderate right lower lobe pneumonia. Chest x-ray also concerning for mild to moderate right lower lobe pneumonia, abdominal ultrasound was performed which revealed thickened gallbladder wall probably cholecystitis. General surgery was consulted and will evaluate patient, patient to be admitted for septic shock secondary to acute cholecystitis, right lower lobe pneumonia. He was given more than 30 cc/kg IV fluid bolus, lactate was repeated and trending down. He has remained normotensive/hypertensive during his ER stay Allergies No Known Allergies Allergy (Verified 05/29/23 08:16) Home Medications: Atorvastatin Calcium 20 mg FT BEDTIME 06/25/21 Famotidine [Pepcid] 20 mg FT BID 01/01/23 Nut.tx.gluc Intol,Lf,Soy/Fiber [Glucerna 1.2 Hank Liquid] 12 oz FT QID 06/26/23 Polyethylene Glycol 3350 [Miralax] 17 gm FT DAILY PRN 06/26/23 Metformin HCl 500 mg PO BID 10/10/23 - Past Medical/Surgical History Has patient received pneumonia vaccine in the past: Yes Diabetic: Yes -: Hemorrhagic CVA 2020 -: PEG tube -: Diabetes mellitus type 2 [id number] -: High Cholesterol -: GERD -: Brain surgery -: PEG tube -: cataracts surgery bilateral--september 2022/October 2022 Psychosocial/ Personal History: Patient lives at home with his - Family History Brother -: Diabetes - Social History Smoking Status: Former smoker Alcohol use: Yes CD- Drugs: No Caffeine use: Yes Place of Residence: Home Review of Systems 10-point ROS is otherwise unremarkable Respiratory: Cough Gastrointestinal: Nausea, Vomiting, Abdominal Pain Physical Examination - Vital Signs Temperature: 99.6 F Blood Pressure: 153/77 Pulse: 99 Respirations: 21 Pulse Ox (%): 94 - Physical Exam General: Alert, In no apparent distress, Oriented x3 HEENT: Atraumatic, Other (Eyepatch in placeright eye) Neck: Supple, 2+ carotid pulse no bruit Respiratory: Clear to auscultation bilaterally, Normal air movement Cardiovascular: Regular rate/rhythm, Normal S1 S2 Gastrointestinal: Normal bowel sounds, Other (PEG tube in place), Tenderness (Moderate right upper quadrant tenderness) Musculoskeletal: No tenderness Integumentary: No rashes Neurological: Normal gait, Normal speech, Normal tone, Normal affect, Abnormal strength (Right-sided weakness after CVA) - Studies Laboratory Data (last 24 hrs) 10/10/23 10/10/23 10/10/23 12:26 11:48 10:56 WBC 26.00 H Hgb 15.3 Hct 46.8 Plt Count 215 PT 16.2 H INR 1.46 APTT 29.8 Sodium 128 L Potassium 4.3 BUN 10 Creatinine 0.79 Glucose 204 H Total Bilirubin 1.5 H AST < 10 L ALT 23 Alkaline Phosphatase 85 Lipase 21 Assessment and Plan - Plan Assessment: Septic shock secondary to acute cholecystitis/right lower lobe pneumonia Mild hyponatremia 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, 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 Diabetes mellitus type [id number]-ibqopdaxn Hyperlipidemia Plan: Septic shock secondary to acute cholecystitis/right lower lobe pneumonia Initial lactate 4.6, given greater than 30 cc/kg IV fluid bolus now downtrending Blood cultures obtained in ED, started on IV antibiotics General surgery consulted, case discussed N.p.o., hold tube feeds for now Continue IV antibioticsZosyn Suspect possible aspiration pneumonia related to vomiting episodes 2 days ago Currently on room air Mild hyponatremia Continue IV fluids Recheck imaging the morning 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, 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 Diabetes mellitus type [id number]-ncfluowbl Hyperlipidemia Hold oral medications at this time, resume when appropriate DVT PPX: SCD Code status: Full Discharge Plan: Home Plan to discharge in: Greater than 2 days - Advance Directives Does patient have a Living Will: No Does patient have a Durable POA for Healthcare: No - Code Status/Comfort Care Code Status Assessed: Yes (DNR) Critical Care: No Time Spent Managing Pts Care (In Minutes): 70
[2023-10-11] MEDS: MORPHINE 2 MG/ML SYR IV PRN (04:33)
[2023-10-11] MEDS: ONDANSETRON 4 MG/2 ML VIAL IV PRN (04:33)
[2023-10-11 06:30] LABS: Absolute Lymphocytes (CBC) 0.5 K/uL (0.7-4.9); Absolute Monocytes 1.6 K/uL (0.1-1.3); Absolute Neutrophil 19.5 K/uL (1.8-8.0); Hematocrit 38.6 % (39.6-49.0); Hemoglobin 12.8 g/dL (13.6-17.9); Lymphocytes % 2.3 % (15.3-44.8); MCH 29.5 pg (27.0-35.0); MCHC 33.1 g/dL (32.0-36.0); MPV 10.2 fL (7.6-11.3); Monocytes % 7.3 % (3.3-12.3); Neutrophils % 90.4 % (41.7-73.7); Platelets 183 thou/uL (152-406); RBC Red Blood Cell Count 4.33 M/uL (4.33-5.43); Red Cell Distribution Width 14.6 % (12.1-15.2)
[2023-10-11 06:50] LABS: Albumin 2.7 g/dL (3.4-5.0); Albumin/Globulin Ratio 0.7 (1.1-1.8); Bilirubin Total 1.2 mg/dL (0.2-1.0); Globulin 3.9 g/dL (2.3-3.5); Protein, Total 6.6 g/dL (6.4-8.2)
[2023-10-11] MEDS ORDERED: propofoL 200 MG/20 ML VIAL IV ONE (07:11)
[2023-10-11] MEDS ORDERED: ROCURONIUM 50 MG/5 ML VIAL IV ONE (07:11)
[2023-10-11] MEDS ORDERED: GLYCOPYRROLATE 0.2 MG/ML SYR ONE (07:11)
[2023-10-11] MEDS ORDERED: ONDANSETRON 4 MG/2 ML VIAL ONE (07:11)
[2023-10-11] MEDS ORDERED: NEOSTIGMINE 1 MG/ML -10 ML VIAL ONE (07:11)
[2023-10-11] MEDS ORDERED: LIDOCAINE 2% MPF 5 ML VIAL ONE (07:12)
[2023-10-11] MEDS ORDERED: FENTANYL CITR 100 MCG/2 ML ONE ×2 (07:15→08:28)
[2023-10-11] MEDS ORDERED: MIDAZOLAM HCL 2 MG/2 ML INJ ONE (07:15)
--- NOTE | 2023-10-11 07:37 | P.CNS ---
Date of Consult: 10/11/23 Reason for consult: Abdominal pain History of present illness: Patient is a 72-year-old gentleman comes in with 3- day history of abdominal pain associated with nausea and vomiting. Patient has had a extensive workup in the ER upon admission and was in septic shock. Patient has been resuscitated. Patient is awake and alert. Patient still having pain in the right upper quadrant. Patient denies any sore throat, runny nose, cough, headaches, dizziness, chest pain, fever or chills. Patient has a PEG tube in place. Patient was also found to have a right lower lobe pneumonia. Review of systems: Otherwise unremarkable Past medical history: Hemorrhagic stroke, high cholesterol, type 2 diabetes, hypertension Past surgical history: PEG tube, craniotomy, cataract Allergies: None Social history: Former smoker, drinks occasionally Family history: Noncontributory Vital signs: Stable, afebrile Physical exam: Awake and alert Head and neck exam: No masses Chest: Clear Heart: S1-S2 Abdomen: Soft, nondistended, positive bowel sounds and tenderness in the right upper quadrant Extremity: Neurovascular intact Neuro: Nonfocal Diagnostic data: CT of the abdomen pelvis and ultrasound of the abdomen reviewed. Findings are consistent with acute cholecystitis and cholelithiasis as well as a right lower lobe pneumonia. Laboratory data reveals leukocytosis which is improving from 26,002 21,000. LFTs are within normal limits. Assessment: Acute cholecystitis and cholelithiasis. Right lower lobe pneumonia. History of stroke. Septic shock. Plan/recommendation: Admit, n.p.o., IV fluids, IV antibiotics and to the OR for laparoscopic cholecystectomy possible open. Patient and understand risk, benefits and alternatives and agrees to procedure. CC:
[2023-10-11] MEDS ORDERED: Phenylephrine HCl 10 MG/ML 1 ML VIAL ONE (08:08)
[2023-10-11] MEDS: BUPIVACAINE 0.5% PF 10 ML VIAL ONE (08:09)
--- NOTE | 2023-10-11 08:58 | P.OP ---
Date of Service: 10/11/23 Preop diagnosis: Acute cholecystitis and cholelithiasis Postop diagnosis: Acute ischemic cholecystitis and cholelithiasis Procedure performed: Laparoscopic cholecystectomy Surgeon: Michael Garcia MD Speed Reading Teacher: None Estimated blood loss: Minimal Specimen: Gallbladder Findings: As above Anesthesia: General Complications: None Drains: None Fluids and blood products: Nonapplicable Disposition: Recovery room Operative note: Patient brought to the OR and placed in the supine position. General anesthesia began. Patient prepped and draped in usual sterile fashion. Marcaine 0.5% infiltrated locally. 15 blade used to make a 1 cm infraumbilical midline incision. Subcutaneous tissue divided. Bleeding controlled cautery. F ascia identified and divided. #1 Vicryl stay suture placed. Peritoneal cavity entered with sharp and blunt dissection. 12 mm trocar placed into the peritoneal cavity under direct vision. Pneumoperitoneum established. Then three 5 mm trocars placed into the peritoneal cavity under direct vision. 1 trocar placed in the epigastric region just to the right of midline and 2 trocars placed in the right subcostal region laparoscopy revealed omental coverage of the gallbladder which was gently taken down. The gallbladder itself was distended with ischemic changes. Consistent with acute cholecystitis the gallbladder was aspirated of bile. The fundus was identified and retracted superiorly. Infundibulum was identified retracted inferolaterally. Cystic duct and cystic artery were clearly identified with blunt dissection. Clips placed and both structures divided. Cautery used to remove the gallbladder from the liver bed. Bleeding on the gallbladder fossa controlled with cautery. Gal lbladder retrieved to the umbilicus via Endo Catch bag. Pneumoperitoneum reestablished. There is no evidence of bleeding or bile leakage appreciated. Right upper quadrant was irrigated and the fluid was clear. Subsequently all trocars were removed under direct vision. Stay sutures were tied to each other to reapproximate the fascial defect. Subcutaneous wounds irrigated and bleeding controlled cautery. 3-0 chromic used to reapproximate subcutaneous tissue and tyrone used to close skin. Sterile dressing applied. Patient awakened and taken to recovery room in good general condition. CC:
[2023-10-11] MEDS ORDERED: HYDROMORPHONE HCL 0.5 MG/0.5 ML INJ IV PRN (09:07)
[2023-10-11] MEDS: HYDROMORPHONE HCL 2 MG/ML inj ONE (09:19)
[2023-10-11] MEDS: HYDROCODONE/APAP 7.5/325 MG TAB PO PRN (11:35)
--- NOTE | 2023-10-11 12:35 | EKG ---
Test Date: 2023-10-10 Test Time: 12:53:38 Assurance Analyst: NOLAN MEASUREMENT RESULTS: Intervals: Rate: 101 MT: 124 QRSD: 92 QT: 350 QTc: 453 [place]: P: 50 MT: 124 QRS: -6 T: -11 INTERPRETIVE STATEMENTS: Sinus tachycardia Otherwise normal ECG Compared to ECG 06/26/2023 11:29:20 Sinus rhythm no longer present Ventricular premature complex(es) no longer present Left ventricular hypertrophy no longer present ST (T wave) deviation no longer present T-wave abnormality no longer present Possible ischemia no longer present Electronically Signed On 10-11-23 12:34:35 CDT by Varinder Hwang
[2023-10-11] MEDS: GLUCERNA 1.2 CAL 1,000 ML BOT FT SCH (13:00)
--- NOTE | 2023-10-11 13:54 | P.PN ---
Date of Service: 10/11/23 Subjective: ROS: 10 point ROS as noted above, otherwise negative Physical exam GEN: Alert, oriented, NAD HEENT: Normal conjunctiva, sclera anicteric CV: Regular rate and rhythm, no edema Pulm: Nonlabored respirations on room air ABD: Soft, nontender, nondistended MSK: No joint tenderness Integumentary: No rashes Neuro: Normal speech, normal affect Vitals reviewed Assessment: Septic shock secondary to acute cholecystitis/ischemic cholecystitis and right lower lobe pneumonia S/P laparoscopic cholecystectomy 10/10 Lactic acidosis secondary to septic shock Mild hyponatremia 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, 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 Diabetes mellitus type 2qtr-[id number]-anaamlqhc Hyperlipidemia Plan: Septic shock secondary to acute cholecystitis/ischemic cholecystitis and right lower lobe pneumonia S/P laparoscopic cholecystectomy 10/10 Lactic acidosis secondary to septic shock Initial lactate 4.6, given greater than 30 cc/kg IV fluid bolus-down trended Blood cultures obtained in ED, started on IV antibiotics Laparoscopic cholecystectomy performed 10/10 Findings of ischemic gallbladder Continue IV antibioticsZosyn Suspect possible aspiration pneumonia related to vomiting episodes 2 days ago Currently on room air Continue antibiotics, await blood cultures Resume tube feeds today Mild hyponatremia Improving, monitor chemistry daily 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
[2023-10-11] MEDS ORDERED: GLUCERNA 1.5 CAL 1,000 ML BOT FT SCH (14:00)
[2023-10-11] MEDS: HYDROMORPHONE HCL 2 MG/ML inj IV PRN (21:45)
[2023-10-12 06:53] LABS: Absolute Lymphocytes (CBC) 0.7 K/uL (0.7-4.9); Absolute Monocytes 0.9 K/uL (0.1-1.3); Absolute Neutrophil 10.7 K/uL (1.8-8.0); Basophils % 0.1 % (0-1.3); Hematocrit 35.1 % (39.6-49.0); Hemoglobin 11.7 g/dL (13.6-17.9); Lymphocytes % 5.5 % (15.3-44.8); MCH 29.7 pg (27.0-35.0); MCHC 33.2 g/dL (32.0-36.0); MCV 89.4 fL (80-100); MPV 10.3 fL (7.6-11.3); Monocytes % 7.5 % (3.3-12.3); Neutrophils % 86.9 % (41.7-73.7); Nucleated Red Blood Cells % 0.1 % (0-0); Platelets 190 thou/uL (152-406); RBC Red Blood Cell Count 3.93 M/uL (4.33-5.43); Red Cell Distribution Width 14.5 % (12.1-15.2)
[2023-10-12 07:10] LABS: Albumin 2.3 g/dL (3.4-5.0); Albumin/Globulin Ratio 0.6 (1.1-1.8); Anion Gap 5.6 mEq/L (5.0-15.0); Globulin 3.9 g/dL (2.3-3.5); Magnesium 2.1 mg/dL (1.6-2.4); Potassium 3.6 mEq/L (3.5-5.1); Protein, Total 6.2 g/dL (6.4-8.2)
[2023-10-12 07:17] LABS: Phosphorus 1.2 mg/dL (2.5-4.9)
[2023-10-12] MEDS: KCL 20 MEQ/100 mL IVPB 20 MEQ/100 ML BAG IV SCH (09:00)
[2023-10-12] MEDS: ENOXAPARIN 40 MG/0.4 ML SQ SCH (09:30)
[2023-10-12] MEDS: POTASSIUM 25 MEQ EFFERV TAB ONE (09:40)
[2023-10-12] MEDS ORDERED: POLYETHYL GLY 3350 17 GM/DOSE FT PRN (10:42)
[2023-10-12] MEDS: ENOXAPARIN 40 MG/0.4 ML SQ ONE (11:30)
[2023-10-12] MEDS: FAMOTIDINE 20 MG TAB ONE (13:50)
[2023-10-12] MEDS: METFORMIN HCL 500 MG TAB ONE (13:50)
--- NOTE | 2023-10-12 17:36 | PN ---
Date of Progress Note: 10/12/2023 Subjective: The patient is awake, alert, complaining of incisional pain. Tolerating his tube feeds. Objective: Vital Signs: Stable, afebrile. Laboratory data reviewed, white count is down to 12,000. Abdomen: Benign. Dressing is clean, dry, intact. Assessment: Status post laparoscopic cholecystectomy. Recommendations: Continue IV antibiotics for another day. Probable discharge tomorrow on oral antib iotics. Plan of care discussed with the family as well as Dr. De Dios. /MODL Voice ID: [id number] Report ID: [id number]
--- NOTE | 2023-10-12 19:43 | P.PN ---
Date of Service: 10/12/23 Subjective: Doing well today tolerating tube feeds ROS: 10 point ROS as noted above, otherwise negative Physical exam GEN: Alert, oriented, NAD HEENT: Normal conjunctiva, sclera anicteric, eye patch to right eye CV: Regular rate and rhythm, no edema Pulm: Nonlabored respirations on room air ABD: Soft, nontender, nondistended, PEG tube in place MSK: No joint tenderness Integumentary: No rashes Neuro: Normal speech, normal affect, right sided weakness previous cva Vitals reviewed Assessment: Septic shock secondary to acute cholecystitis/ischemic cholecystitis and right lower lobe pneumonia S/P laparoscopic cholecystectomy 10/10 Lactic acidosis secondary to septic shock Mild hyponatremia 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, 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 Diabetes mellitus type 0meo-[id number]-sotzedapc Hyperlipidemia Plan: Septic shock secondary to acute cholecystitis/ischemic cholecystitis and right lower lobe pneumonia S/P laparoscopic cholecystectomy 10/10 Lactic acidosis secondary to septic shock Initial lactate 4.6, given greater than 30 cc/kg IV fluid bolus-down trended Blood cultures obtained in ED, started on IV antibiotics Laparoscopic cholecystectomy performed 10/10 Findings of ischemic gallbladder Continue IV antibioticsZosyn Suspect possible aspiration pneumonia related to vomiting episodes 2 days ago Currently on room air 03/29 blood cultures prelim with GNR continue zosyn and await cultures Tolerating tube feeds Mild hyponatremia Improving, monitor chemistry daily 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
[2023-10-12] MEDS: METFORMIN HCL 500 MG TAB FT SCH (21:59)
[2023-10-12] MEDS: ATORVASTATIN 20 MG TAB FT SCH (21:59)
[2023-10-12] MEDS: FAMOTIDINE 20 MG TAB FT SCH (22:13)
[2023-10-13 06:45] LABS: Absolute Lymphocytes (CBC) 0.7 K/uL (0.7-4.9); Absolute Monocytes 1.2 K/uL (0.1-1.3); Absolute Neutrophil 8.1 K/uL (1.8-8.0); Basophils % 0.1 % (0-1.3); Eosinophils % 0.1 % (0-4.4); Hematocrit 32.8 % (39.6-49.0); Lymphocytes % 7.3 % (15.3-44.8); MCHC 33.5 g/dL (32.0-36.0); MCV 89.5 fL (80-100); MPV 10.4 fL (7.6-11.3); Monocytes % 11.5 % (3.3-12.3); Nucleated Red Blood Cells % 0.1 % (0-0); Platelets 186 thou/uL (152-406); RBC Red Blood Cell Count 3.67 M/uL (4.33-5.43); Red Cell Distribution Width 14.6 % (12.1-15.2)
[2023-10-13 06:55] LABS: Albumin 2.1 g/dL (3.4-5.0); Albumin/Globulin Ratio 0.6 (1.1-1.8); Anion Gap 8.2 mEq/L (5.0-15.0); Bilirubin Total 0.6 mg/dL (0.2-1.0); Globulin 3.8 g/dL (2.3-3.5); Potassium 3.2 mEq/L (3.5-5.1); Protein, Total 5.9 g/dL (6.4-8.2)
[2023-10-13] MEDS ORDERED: FAMOTIDINE 20 MG TAB FT SCH (09:00)
[2023-10-13] MEDS: POTASSIUM 25 MEQ EFFERV TAB PO ONE ×2 (09:00→13:34)
--- NOTE | 2023-10-13 11:03 | PN ---
Date of Progress Note: 10/13/2023 Subjective: The patient is awake and alert. Tolerating tube feeds. Had bowel movement this morning . Pain is better. Objective: Vital Signs: Stable, afebrile. Pathology report shows gangrenous gallbladder. Abdomen: Benign. Assessment: Status post laparoscopic cholecystectomy for gangrenous gallbladder. Recommendations: Await blood cultures as 1 out of 4 bottles was positive and then to see if the chantal ent needs IV antibiotics upon discharge or not. I will discuss the case with Dr. De Dios. Continue IV antibiotics for the time being. /MODL Voice ID: [id number] Report ID: [id number]
--- NOTE | 2023-10-13 13:49 | P.PN ---
Date of Service: 10/13/23 Subjective: Doing well today tolerating tube feeds Home meds resumed on lovenox ROS: 10 point ROS as noted above, otherwise negative Physical exam GEN: Alert, oriented, NAD HEENT: Normal conjunctiva, sclera anicteric, eye patch to right eye CV: Regular rate and rhythm, no edema Pulm: Nonlabored respirations on room air ABD: Soft, nontender, nondistended, PEG tube in place MSK: No joint tenderness Integumentary: No rashes Neuro: Normal speech, normal affect, right sided weakness previous cva Vitals reviewed Assessment: Septic shock secondary to acute cholecystitis/ischemic cholecystitis and right lower lobe pneumonia S/P laparoscopic cholecystectomy 10/10 Lactic acidosis secondary to septic shock Mild hyponatremia 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, 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 Diabetes mellitus type 3ogk-salqxwq-hziugmoyy Hyperlipidemia Plan: Septic shock secondary to acute cholecystitis/ischemic cholecystitis and right lower lobe pneumonia S/P laparoscopic cholecystectomy 10/10 Lactic acidosis secondary to septic shock Initial lactate 4.6, given greater than 30 cc/kg IV fluid bolus-down trended Blood cultures obtained in ED, started on IV antibiotics Laparoscopic cholecystectomy performed 10/10 Findings of ischemic gallbladder Continue IV antibioticsZosyn Suspect possible aspiration pneumonia related to vomiting episodes 2 days ago Currently on room air 03/29 blood cultures prelim with GNR continue zosyn and await cultures-called lab will be available 10/13 Can DC tomorrow if sensitive to oral abx on 2 weeks FT abx Tolerating tube feeds Mild hyponatremia Improving, monitor chemistry daily 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
[2023-10-14 06:04] LABS: Absolute Eosinophils 0.2 K/uL (0-0.5); Absolute Lymphocytes (CBC) 1.1 K/uL (0.7-4.9); Absolute Monocytes 1.1 K/uL (0.1-1.3); Absolute Neutrophil 6.2 K/uL (1.8-8.0); Basophils % 0.3 % (0-1.3); Eosinophils % 1.9 % (0-4.4); Hematocrit 32.3 % (39.6-49.0); Hemoglobin 10.7 g/dL (13.6-17.9); Lymphocytes % 12.9 % (15.3-44.8); MCH 29.8 pg (27.0-35.0); MCHC 33.1 g/dL (32.0-36.0); MCV 89.9 fL (80-100); Monocytes % 13.1 % (3.3-12.3); Neutrophils % 71.8 % (41.7-73.7); Platelets 189 thou/uL (152-406); Red Cell Distribution Width 14.4 % (12.1-15.2)
[2023-10-14 06:41] LABS: Albumin/Globulin Ratio 0.5 (1.1-1.8); Anion Gap 8.4 mEq/L (5.0-15.0); Bilirubin Total 0.8 mg/dL (0.2-1.0); Globulin 3.8 g/dL (2.3-3.5); Potassium 3.4 mEq/L (3.5-5.1); Protein, Total 5.8 g/dL (6.4-8.2)
[2023-10-14 08:26] LABS: CDIFF INTERNAL NEG CONTROL White Background (WHITE BKGD); STOOL CONSISTENCY Liquid/Semi-Solid
[2023-10-14 08:27] LABS: C.diff Antigen/Toxin Ag neg : Tox neg (NEG : NEG)
[2023-10-14] MEDS: POTASSIUM 25 MEQ EFFERV TAB PO ONE (09:02)
--- NOTE | 2023-10-14 11:19 | P.PN ---
Date of Service: 10/14/23 Subjective: Has been having large volume diarrhea for ~24 hours now Abdominal pain at incision site when moving Otherwise doing ok ROS: 10 point ROS as noted above, otherwise negative Physical exam GEN: Alert, oriented, NAD HEENT: Normal conjunctiva, sclera anicteric, eye patch to right eye CV: Regular rate and rhythm, no edema Pulm: Nonlabored respirations on room air ABD: Soft, Mild RUQ tenderness, nondistended, PEG tube in place MSK: No joint tenderness Integumentary: No rashes Neuro: Normal speech, normal affect, right sided weakness previous cva Vitals reviewed Assessment: Septic shock secondary to acute cholecystitis/ischemic cholecystitis and right lower lobe pneumonia S/P laparoscopic cholecystectomy 10/10 Lactic acidosis secondary to septic shock Mild hyponatremia 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, 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 Diabetes mellitus type 6wkj-[id number]-tlutoqukj Hyperlipidemia Plan: Septic shock secondary to acute cholecystitis/ischemic cholecystitis and right lower lobe pneumonia S/P laparoscopic cholecystectomy 10/10 Lactic acidosis secondary to septic shock Diarrhea Elevated aminotransferase levels Laparoscopic cholecystectomy performed 10/10 Findings of ischemic gallbladder Continue IV antibioticsZosyn Suspect possible aspiration pneumonia related to vomiting episodes 2 days ago Currently on room air 04/29 blood cultures show Klebsiella pneumoniae-sensitive to Zosyn as well as Cipro/Levaquin Morning of 10/13 LFTs increased Also developed diarrhea 10/12 Negative for C. 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
[2023-10-14] MEDS: LACTOBACILLUS/ACIDOPHILUS TAB FT SCH (12:11)
[2023-10-14] MEDS: GLUCERNA 1.2 CAL 1,000 ML BOT FT SCH (12:15)
[2023-10-14 19:16] LABS: Absolute Eosinophils 0.1 K/uL (0-0.5); Absolute Lymphocytes (CBC) 0.8 K/uL (0.7-4.9); Absolute Monocytes 1.1 K/uL (0.1-1.3); Absolute Neutrophil 7.6 K/uL (1.8-8.0); Basophils % 0.3 % (0-1.3); Eosinophils % 1.2 % (0-4.4); Hematocrit 36.9 % (39.6-49.0); Hemoglobin 12.2 g/dL (13.6-17.9); Lymphocytes % 8.6 % (15.3-44.8); MCH 29.5 pg (27.0-35.0); MCV 89.5 fL (80-100); MPV 9.4 fL (7.6-11.3); Monocytes % 11.6 % (3.3-12.3); Neutrophils % 78.3 % (41.7-73.7); Platelets 268 thou/uL (152-406); RBC Red Blood Cell Count 4.12 M/uL (4.33-5.43); Red Cell Distribution Width 14.4 % (12.1-15.2)
--- NOTE | 2023-10-14 19:39 | RAD REPORT ---
EXAM DESCRIPTION: RAD - Chest Single View - 10/14/2023 7:29 pm CLINICAL HISTORY: aspiration COMPARISON: Chest Single View dated 10/10/2023; Chest Single View dated 06/26/2023 FINDINGS: Lines: None. Lungs: Worsened aeration of the right lung base with increased consolidation. The left lung is clear . Pleural: No significant pleural effusions or pneumothorax. Cardiac: The heart size is within normal limits. Mediastinum: Within normal limits. Bones: No acute fractures. Other: None IMPRESSION: Worsened aeration of the right lung base which could represent pneumonia or pneumonitis, including secondary to aspiration given the clinical concern.
[2023-10-14] MEDS: HYDRALAZINE HCL 20 MG/ML VIAL IV PRN (20:31)
[2023-10-14] MEDS: INSULIN REGULAR (HUMAN) 100 UNIT/ML SQ SCH (20:32)
[2023-10-14] MEDS: NA CHLORIDE 0.9% 500 ML ONE (20:51)
[2023-10-14] MEDS ORDERED: LOPERAMIDE HCL 2 MG/15 ML FT PRN (21:05)
[2023-10-14] MEDS: NA CHLORIDE 0.9% 500 ML IV ONE (21:09)
[2023-10-14 21:52] LABS: Arterial Blood Carboxyhemoglob 1.2 % (0-1.5); Blood Gas Oxyhemoglobin 94.3 % (94-97); Blood Gas THB 12.9 g/dl (12-18); Blood O2 Saturation 96.4 % (92-98.5)
[2023-10-14] MEDS: LOPERAMIDE HCL 2 MG CAPSULE PO PRN (22:09)
[2023-10-15 06:23] LABS: Hemoglobin 11.9 g/dL (13.6-17.9); MCH 29.5 pg (27.0-35.0); MCHC 33.1 g/dL (32.0-36.0); MCV 89.1 fL (80-100); MPV 9.4 fL (7.6-11.3); Platelets 299 thou/uL (152-406); RBC Red Blood Cell Count 4.04 M/uL (4.33-5.43); Red Cell Distribution Width 14.6 % (12.1-15.2)
[2023-10-15 06:44] LABS: Albumin 2.4 g/dL (3.4-5.0); Albumin/Globulin Ratio 0.5 (1.1-1.8); Anion Gap 9.5 mEq/L (5.0-15.0); Bilirubin Total 1.1 mg/dL (0.2-1.0); Globulin 4.4 g/dL (2.3-3.5); Potassium 3.5 mEq/L (3.5-5.1); Protein, Total 6.8 g/dL (6.4-8.2)
[2023-10-15] MEDS: NA CHLORIDE 0.9% 1,000 ML IV SCH (10:51)
--- NOTE | 2023-10-15 16:09 | RAD REPORT ---
EXAM DESCRIPTION: RAD - Abdomen W Erect - 10/15/2023 1:15 pm CLINICAL HISTORY: nausea vomiting/ r/o ileus COMPARISON: Abdomen Pelvis W Contrast dated 10/10/2023 TECHNIQUE: Single AP view of the abdomen. FINDINGS: Percutaneous gastrostomy tube in place. Moderate gaseous distention predominantly of large bowel. No air-fluid levels, free air, or pneumatosis. No suspicious calcifications. Crescentic lucency along the right lung base, suggesting aerated region within right lower lobe conso lidation. No significant bony abnormality. IMPRESSION: Moderate gaseous distention predominantly involve large bowel. Right lower lobe airspace opacification.
--- NOTE | 2023-10-15 19:29 | P.PN ---
Date of Service: 10/15/23 Subjective: Uncomfortable, 230 residual tube feed NPO and stopped tube feed abdominal xray Moderate gaseous distention predominantly involve large bowel. ROS: 10 point ROS as noted above, otherwise negative Physical exam GEN: Alert and oriented x3, NAD HEENT: Normal conjunctiva, sclera anicteric, eye patch to right eye CV: RRR, S1 S2 present, no edema Pulm: Nonlabored respirations on room air ABD: Soft and benign on palpation, Mild RUQ tenderness, nondistended, PEG tube in place MSK: No joint tenderness Integumentary: No rashes Neuro: Normal speech, normal affect, right sided weakness previous cva Vitals reviewed Assessment: Septic shock secondary to acute cholecystitis/ischemic cholecystitis and right lower lobe pneumonia S/P laparoscopic cholecystectomy 10/10 Lactic acidosis secondary to septic shock Mild hyponatremia 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, 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 Diabetes mellitus type 8eoe-bpnktrp-bkfxnawgl Hyperlipidemia Plan: Septic shock secondary to acute cholecystitis/ischemic cholecystitis and right lower lobe pneumonia S/P laparoscopic cholecystectomy 10/10 Lactic acidosis secondary to septic shock Diarrhea Elevated aminotransferase levels Laparoscopic cholecystectomy performed 10/10 Findings of ischemic gallbladder Continue IV antibioticsZosyn Suspect possible aspiration pneumonia related to vomiting episodes 2 days ago Currently on room air 04/29 blood cultures show Klebsiella pneumoniae-sensitive to Zosyn as well as Cipro/Levaquin Morning of 10/13 LFTs increased, Repeat LFTs, trending down Also developed diarrhea 10/12 Negative for C. 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
[2023-10-16] MEDS: FAMOTIDINE 20 MG/2 ML VIAL IV ONE (04:27)
[2023-10-16 05:38] LABS: Hematocrit 38.4 % (39.6-49.0); Hemoglobin 12.4 g/dL (13.6-17.9); MCH 28.9 pg (27.0-35.0); MCHC 32.4 g/dL (32.0-36.0); MCV 89.4 fL (80-100); MPV 9.1 fL (7.6-11.3); Platelets 362 thou/uL (152-406); Red Cell Distribution Width 14.8 % (12.1-15.2)
[2023-10-16 05:56] LABS: Albumin 2.5 g/dL (3.4-5.0); Albumin/Globulin Ratio 0.6 (1.1-1.8); Anion Gap 9.9 mEq/L (5.0-15.0); Bilirubin Total 1.1 mg/dL (0.2-1.0); Globulin 4.5 g/dL (2.3-3.5); Potassium 3.9 mEq/L (3.5-5.1)
--- NOTE | 2023-10-16 13:44 | PN ---
Date of Progress Note: 10/16/2023 Please note, I did evaluate the patient in the last couple of days, was unable to dictate a note sandra use the dictation system was not working yesterday. However, I discussed the case in detail with the hospitalist team on Sunday as well as yesterday. Subjective: The patient is awake, alert, feels better today. He is having diarrhea, decreased in th e number, however. He is passing gas. He had vomiting yesterday, but none since that time. His [address] [facility] x-ray showed worsening of his pneumonia. His abdominal x-ray showed colonic distention that was d one yesterday. Objective: Vital Signs: Stable. He is afebrile. Abdomen: Soft, nondistended, nontender. Positive bowel sounds. His tube feeds were held yesterday after his vomiting. Assessment: Status post laparoscopic cholecystectomy, pneumonia, and ileus, improving. Recommendations: We will slowly start the tube feeds again at a low rate and make sure he tolerates it before we increase it. The patient will need at least a couple of weeks of IV antibiotics because his blood cultures were positive for klebsiella. The patient will need a PICC line and discharge pl anning by [facility] facility. Plan of care discussed with the as well as the hospitalist team. /MODL Voice ID: [id number] Report ID: [id number]
[2023-10-16] MEDS: GLUCERNA 1.2 CAL 1,000 ML BOT FT SCH (14:11)
[2023-10-16] MEDS: Meropenem 1,000 MG in NA CHLORIDE 0.9% 100 ML IV SCH ×2 (15:00→17:00)
--- NOTE | 2023-10-16 16:54 | CON ---
History Of Present Illness: This is a 72-year-old male, I was consulted for evaluation of bacteremia secondary to Klebsiella pneumoniae, which was done on 10/09. The patient is currently being treated with Zosyn. The patient has significant past medical history of hemorrhagic stroke in 2020 with rig ht-sided deficit and PEG tube placement, diabetes mellitus, hyperlipidemia, coming into the emergency room with complaint of abdominal pain and vomiting. The patient went into septic shock secondary to acute cholecystitis and ischemic cholecystitis, which was operated by surgical team, was also found to have right lower lobe pneumonia, status post laparoscopy and cholecystectomy on 10/10. Past Medical History: As per HPI. Social History: Nonsmoker, nondrinker. Family History: Noncontributory. Medications: Zosyn. See MAR for other medications. Allergies: NO KNOWN DRUG ALLERGIES. Review of Systems: A 10-point review was performed. Physical Examination: General: This is a 72-year-old male, lying in bed, in mild distress secondary to discomfort. Vital Signs: Temperature 97, pulse 86, respirations 18, blood pressure 163/88. HEENT: Unremarkable. Neck: Supple. Lungs: Basal crackles, right more than left. Heart: S1, S2. Regular. Abdomen: Soft. Bowel sounds present, sluggish. Extremities: No edema. Muscle wasting noted. Laboratory Data: WBC 12.3, hemoglobin 12.4, platelets 362. Chemistry shows BUN 8, creatinine 0.5. Blood culture grew Klebsiella pneumoniae on 10/09, sensitive to all except ampicillin. Assessment And Plan: 1.A 72-year-old male with significant past medical history of hemorrhagic and stroke, coming in with abdominal pain with acute cholecystitis, status post acute ischemic cholecystitis, status post nacho cystectomy on 10/10. 2.Right lower lobe pneumonia. 3.Septic shock, improving. Currently on Zosyn, diabetes mellitus, hyperlipidemia. Continue antibio tic and repeat blood cultures. We will monitor patient as needed. Thank you for consult. NF/MODL Voice ID: [id number] Report ID: [id number]
--- NOTE | 2023-10-16 19:34 | RAD REPORT ---
[facility] CLINICAL HISTORY: Post PICC placement COMPARISON: Chest Single View dated 10/14/2023; Chest Single View dated 10/10/2023; Chest Single View dated 06/26/2023; Chest Single View dated 01/01/2023 TECHNIQUE: Portable AP view of the chest. FINDINGS: No pneumothorax. Progressive right basilar opacification and/or right layering effusion, u p to moderate. Perihilar interstitial prominence is again seen. Left arm PICC in place with tip proje cting at the level of the distal SVC. The cardiomediastinal contours are unremarkable. IMPRESSION: Satisfactory positioning of the left arm PICC. Progressive right basilar airspace opacif ication and/ or effusion.
[2023-10-16] MEDS: Mupirocin NASAL 2 APPL/1 GM TUBE NAS SCH (20:35)
[2023-10-16] MEDS: Meropenem 1000 MG/VIAL IV ONE (20:36)
--- NOTE | 2023-10-16 20:59 | P.PN ---
Date of Service: 10/16/23 Subjective: Pain much better this morning, no nausea and vomiting Restarting tube feeds very slow and low amount ROS: 10 point ROS as noted above, otherwise negative Physical exam GEN: AAO x3, NAD, conversing well HEENT: Normal conjunctiva, sclera anicteric, eye patch to right eye CV: NSR, S1 S2 present, no edema Pulm: Nonlabored respirations, symmetrical chest wall movement on room air ABD: Soft on palpation, Mild RUQ tenderness, nondistended, PEG tube in place, incisions CDI MSK: No joint tenderness Integumentary: No rashes Neuro: Normal speech, normal affect, right sided weakness previous cva Vitals reviewed Assessment: Septic shock secondary to acute cholecystitis/ischemic cholecystitis and right lower lobe pneumonia S/P laparoscopic cholecystectomy 10/10 Lactic acidosis secondary to septic shock Diarrhea Mild hyponatremia 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, 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 Diabetes mellitus type [id number]-[id number]-liihqpfqb Hyperlipidemia Bacteremia Plan: Septic shock secondary to acute cholecystitis/ischemic cholecystitis and right lower lobe pneumonia S/P laparoscopic cholecystectomy 10/10 Lactic acidosis secondary to septic shock Diarrhea Elevated aminotransferase levels Bacteremia Laparoscopic cholecystectomy performed 10/10 Findings of ischemic gallbladder Continue IV antibioticsZosyn Suspect possible aspiration pneumonia related to vomiting episodes 2 days ago Currently on room air 04/29 blood cultures show Klebsiella pneumoniae-sensitive to Zosyn as well as Cipro/Levaquin Morning of 10/13 LFTs increased, Repeat LFTs, trending down Also developed diarrhea 10/12 Negative for C. difficile Multiple possible contributing factors to diarrhea including increasing frequency of tube feeds, recent cholecystectomy, antibiotics Tube feeds attempting 170 mL 3 times daily, residual 190 ml Continue probiotics Monitor diarrhea frequency/volume Atorvastatin-patient home medication discontinued today Blood culture resulted with Klebsiella pneumoniae Dr. 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
[2023-10-17] MEDS: Meropenem 1,000 MG in NA CHLORIDE 0.9% 100 ML IV SCH (04:52)
[2023-10-17 06:51] LABS: Hematocrit 34.8 % (39.6-49.0); Hemoglobin 11.7 g/dL (13.6-17.9); MCH 29.7 pg (27.0-35.0); MCHC 33.5 g/dL (32.0-36.0); MCV 88.5 fL (80-100); MPV 8.3 fL (7.6-11.3); Platelets 434 thou/uL (152-406); RBC Red Blood Cell Count 3.93 M/uL (4.33-5.43); Red Cell Distribution Width 14.5 % (12.1-15.2)
[2023-10-17 07:07] LABS: Albumin 2.3 g/dL (3.4-5.0); Albumin/Globulin Ratio 0.6 (1.1-1.8); Anion Gap 8.1 mEq/L (5.0-15.0); Bilirubin Total 0.9 mg/dL (0.2-1.0); Globulin 4.1 g/dL (2.3-3.5); Potassium 3.1 mEq/L (3.5-5.1); Protein, Total 6.4 g/dL (6.4-8.2)
[2023-10-17] MEDS: GLUCERNA 1.2 CAL 1,000 ML BOT FT SCH (14:40)
--- NOTE | 2023-10-17 15:11 | P.PN ---
Date of Service: 10/17/23 Subjective: Feeling well this AM tolerating TF no new complaints ROS: 10 point ROS as noted above, otherwise negative Physical exam GEN: Awake, alert, and oriented x3, NAD, conversing well HEENT: Normal conjunctiva, sclera anicteric, eye patch to right eye CV: Normal sinus rhythm,, S1 S2 present, no edema Pulm: Bilaterally clear breath sounds, symmetrical chest wall movement on room air ABD: Soft and benign on palpation, Mild RUQ tenderness, nondistended, PEG tube in place, incisions CDI MSK: No joint tenderness Integumentary: No rashes Neuro: Normal speech, normal affect, right sided weakness previous cva Vitals reviewed Assessment: Septic shock secondary to acute cholecystitis/ischemic cholecystitis and right lower lobe pneumonia S/P laparoscopic cholecystectomy 10/10 Lactic acidosis secondary to septic shock Diarrhea Mild hyponatremia 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, 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 Diabetes mellitus type [id number] Hyperlipidemia Bacteremia Plan: Septic shock secondary to acute cholecystitis/ischemic cholecystitis and right lower lobe pneumonia S/P laparoscopic cholecystectomy 10/10 Lactic acidosis secondary to septic shock Diarrhea Elevated aminotransferase levels Bacteremia Laparoscopic cholecystectomy performed 10/10 Findings of ischemic gallbladder Continue IV antibioticsZosyn Suspect possible aspiration pneumonia related to vomiting episodes 2 days ago Currently on room air 04/29 blood cultures show Klebsiella pneumoniae-sensitive to Zosyn as well as Cipro/Levaquin Morning of 10/13 LFTs increased, Repeat LFTs, trending down Also developed diarrhea 10/12 Negative for C. difficile Multiple possible contributing factors to diarrhea including increasing frequency of tube feeds, recent cholecystectomy, antibiotics Tube feeds tolerated, return to original setting Continue probiotics Monitor diarrhea frequency/volume Atorvastatin-patient home medication discontinued today Blood culture resulted with Klebsiella pneumoniae Dr. 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
[2023-10-17] MEDS: FAMOTIDINE 20 MG TAB FT SCH (20:38)
[2023-10-18 06:20] LABS: Hematocrit 35.6 % (39.6-49.0); Hemoglobin 11.7 g/dL (13.6-17.9); MCH 29.1 pg (27.0-35.0); MCHC 32.8 g/dL (32.0-36.0); MPV 8.5 fL (7.6-11.3); Platelets 446 thou/uL (152-406); RBC Red Blood Cell Count 4.01 M/uL (4.33-5.43); Red Cell Distribution Width 14.3 % (12.1-15.2)
[2023-10-18 07:03] LABS: Albumin 2.2 g/dL (3.4-5.0); Albumin/Globulin Ratio 0.5 (1.1-1.8); Anion Gap 6.2 mEq/L (5.0-15.0); Bilirubin Total 0.6 mg/dL (0.2-1.0); Globulin 4.1 g/dL (2.3-3.5); Potassium 3.2 mEq/L (3.5-5.1); Protein, Total 6.3 g/dL (6.4-8.2)
[2023-10-18 13:59] VITALS: BMI 19.8
[2023-10-18] MEDS: NA CHLORIDE 0.9% 250 ML IV ONE (14:25)
[2023-10-18] MEDS: POTASSIUM 25 MEQ EFFERV TAB PO ONE (17:27)
[2023-10-18] MEDS: WATER FOR INJ,STERILE 10 ML IV SCH (19:00)
[2023-10-18] MEDS: ALTEPLASE 2 MG/VIAL IV SCH (19:00)
--- NOTE | 2023-10-18 20:47 | P.PN ---
Date of Service: 10/18/23 Subjective: Feeling better but having diarrhea since the feeding tube was restarted White blood cell count decreased In good spirits ROS: 10 point ROS as noted above, otherwise negative Physical exam GEN: AAO x3, NAD HEENT: Normal conjunctiva, sclera anicteric, eye patch to right eye CV: RRR, S1 S2 present Pulm: Bilaterally clear breath sounds, nonlabored breathing, on room air ABD: Soft on palpation, Mild generalized tenderness, ND, PEG tube in place, incisions CDI MSK: No joint tenderness Integumentary: No rashes Neuro: Normal speech, normal affect, right sided weakness previous cva Vitals reviewed Assessment: Septic shock secondary to acute cholecystitis/ischemic cholecystitis and right lower lobe pneumonia S/P laparoscopic cholecystectomy 10/10 Lactic acidosis secondary to septic shock Diarrhea Mild hyponatremia 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, 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 Diabetes mellitus type [id number] Hyperlipidemia Bacteremia Plan: Septic shock secondary to acute cholecystitis/ischemic cholecystitis and right lower lobe pneumonia S/P laparoscopic cholecystectomy 10/10 Lactic acidosis secondary to septic shock Diarrhea Elevated aminotransferase levels Bacteremia Laparoscopic cholecystectomy performed 10/10 Findings of ischemic gallbladder Continue IV antibioticsZosyn Suspect possible aspiration pneumonia related to vomiting episodes 2 days ago Currently on room air 04/29 blood cultures show Klebsiella pneumoniae-sensitive to Zosyn as well as Cipro/Levaquin Morning of 10/13 LFTs increased, Repeat LFTs, trending down developed diarrhea 10/12 Negative for C. difficile Multiple possible contributing factors to diarrhea including increasing frequency of tube feeds, recent cholecystectomy, antibiotics Tube feeds tolerated, return to original setting Continue probiotics Monitor diarrhea frequency/volume Atorvastatin-patient home medication discontinued today Blood culture resulted with Klebsiella pneumoniae Dr. 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
[2023-10-18] MEDS ORDERED: MIDODRINE HCL 5 MG TABLET FT SCH (21:00)
--- NOTE | 2023-10-19 10:30 | PN ---
Date of Progress Note: 10/19/2023 Subjective: Patient is having diarrhea still, but no nausea, no vomiting, no cough. Objective: Vital Signs: Stable. Afebrile. Abdomen: Benign. Wound: Clean, dry, and intact Laboratory Data: White count is normal. Assessment: Status post laparoscopic cholecystectomy and pneumonia. Recommendations: Medical management and discharge planning per the hospitalist team. The tyrone ca n be removed. Patient does not need to follow up with me unless there is any surgical issue. /MODL Voice ID: [id number] Report ID: [id number]
--- NOTE | 2023-10-19 18:41 | P.PN ---
Date of Service: 10/19/23 Subjective: Contreras states he feels better two diarrhea episodes no residual ROS: 10 point ROS as noted above, otherwise negative Physical exam GEN: Alert and orientedx3, No acute distress HEENT: Normal conjunctiva, sclera anicteric, right closed eye CV: NSR, S1 S2 present, no murmur noted Pulm: Symmetrical chest wall movement, nonlabored breathing on room air ABD: Soft on palpation, non-tender, ND, PEG tube in place, incisions CDI MSK: No joint tenderness Integumentary: No rashes Neuro: Normal speech, normal affect, right sided weakness previous cva Vitals reviewed Assessment: Septic shock secondary to acute cholecystitis/ischemic cholecystitis and right lower lobe pneumonia S/P laparoscopic cholecystectomy 10/10 Lactic acidosis secondary to septic shock Diarrhea Mild hyponatremia 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, 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 Diabetes mellitus type [id number]-ronrvusyh Hyperlipidemia Bacteremia Plan: Septic shock secondary to acute cholecystitis/ischemic cholecystitis and right lower lobe pneumonia S/P laparoscopic cholecystectomy 10/10 Lactic acidosis secondary to septic shock Diarrhea Elevated aminotransferase levels Bacteremia Laparoscopic cholecystectomy performed 10/10 Findings of ischemic gallbladder Stopped Zosyn 10/16 Suspect possible aspiration pneumonia related to vomiting episodes 2 days ago Currently on room air 04/29 blood cultures show Klebsiella pneumoniae-sensitive to Zosyn as well as Cipro/Levaquin Morning of 10/13 LFTs increased, Repeat LFTs, trending down developed diarrhea 10/12- decreased frequency Negative for C. difficile Multiple possible contributing factors to diarrhea including increasing frequency of tube feeds, recent cholecystectomy, antibiotics Tube feeds tolerated, return to original setting Continue probiotics Monitor diarrhea frequency/volume Atorvastatin-patient home medication discontinued today Blood culture resulted with Klebsiella pneumoniae Dr. 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
[2023-10-19] MEDS: Banana Flakes/T-Galactooligos 1 Dose Packet FT SCH (21:00)
[2023-10-20 06:50] LABS: Absolute Basophils 0.1 K/uL (0-0.5); Absolute Eosinophils 0.1 K/uL (0-0.5); Absolute Lymphocytes (CBC) 1.2 K/uL (0.7-4.9); Absolute Monocytes 0.8 K/uL (0.1-1.3); Absolute Neutrophil 8.5 K/uL (1.8-8.0); Basophils % 0.8 % (0-1.3); Eosinophils % 1.2 % (0-4.4); Lymphocytes % 11.4 % (15.3-44.8); MCH 29.6 pg (27.0-35.0); MCHC 33.3 g/dL (32.0-36.0); MCV 89.1 fL (80-100); Monocytes % 7.8 % (3.3-12.3); Neutrophils % 78.8 % (41.7-73.7); Nucleated Red Blood Cells % 0.1 % (0-0); Platelets 587 thou/uL (152-406); RBC Red Blood Cell Count 4.04 M/uL (4.33-5.43); Red Cell Distribution Width 14.4 % (12.1-15.2)
[2023-10-20 07:03] LABS: Anion Gap 5.8 mEq/L (5.0-15.0); Magnesium 2.1 mg/dL (1.6-2.4); Phosphorus 3.1 mg/dL (2.5-4.9); Potassium 3.8 mEq/L (3.5-5.1)
--- NOTE | 2023-10-20 19:07 | P.PN ---
Date of Service: 10/20/23 Subjective: Feeling well this morning no diarrhea overnight no new complaint ROS: 10 point ROS as noted above, otherwise negative Physical exam GEN: AAO x3, NAD,calm HEENT: Normal conjunctiva, sclera anicteric, right closed eye CV: Normal sinus rhythm, S1 S2 present, no murmur noted Pulm: Symmetrical chest wall movement, bilaterally clear breath sounds, nonlabored breathing, on room air ABD: Soft and benign on palpation, NT/ND, PEG tube in place, incisions CDI MSK: No joint tenderness Integumentary: No rashes Neuro: Normal speech, normal affect, right sided weakness previous cva Vitals reviewed Assessment: Septic shock secondary to acute cholecystitis/ischemic cholecystitis and right l ower lobe pneumonia S/P laparoscopic cholecystectomy 10/10 Lactic acidosis secondary to septic shock Diarrhea Mild hyponatremia 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, 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 Diabetes mellitus type [id number]-cwahjudgu Hyperlipidemia Bacteremia Plan: Septic shock secondary to acute cholecystitis/ischemic cholecystitis and right lower lobe pneumonia S/P laparoscopic cholecystectomy 10/10 Lactic acidosis secondary to septic shock Diarrhea Elevated aminotransferase levels Bacteremia Laparoscopic cholecystectomy performed 10/10 Findings of ischemic gallbladder Stopped Zosyn 10/16 Suspect possible aspiration pneumonia related to vomiting episodes 2 days ago Currently on room air 04/29 blood cultures show Klebsiella pneumoniae-sensitive to Zosyn as well as Cipro/Levaquin Morning of 10/13 LFTs increased, Repeat LFTs, trending down developed diarrhea 10/12- decreased frequency Negative for C. difficile Multiple possible contributing factors to diarrhea including increasing frequency of tube feeds, recent cholecystectomy, antibiotics Tube feeds tolerated, return to original setting Continue probiotics Monitor diarrhea frequency/volume Atorvastatin-patient home medication discontinued today Blood culture resulted with Klebsiella pneumoniae Dr. 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
[2023-10-21 05:39] LABS: Absolute Basophils 0.1 K/uL (0-0.5); Absolute Eosinophils 0.1 K/uL (0-0.5); Absolute Lymphocytes (CBC) 1.6 K/uL (0.7-4.9); Absolute Neutrophil 8.4 K/uL (1.8-8.0); Basophils % 0.5 % (0-1.3); Hematocrit 36.3 % (39.6-49.0); Hemoglobin 11.9 g/dL (13.6-17.9); Lymphocytes % 14.4 % (15.3-44.8); MCH 29.3 pg (27.0-35.0); MCHC 32.8 g/dL (32.0-36.0); MCV 89.1 fL (80-100); MPV 8.1 fL (7.6-11.3); Monocytes % 8.6 % (3.3-12.3); Neutrophils % 75.5 % (41.7-73.7); Nucleated Red Blood Cells % 0.1 % (0-0); Platelets 584 thou/uL (152-406); RBC Red Blood Cell Count 4.07 M/uL (4.33-5.43); Red Cell Distribution Width 14.8 % (12.1-15.2)
[2023-10-21 05:55] LABS: Anion Gap 7.9 mEq/L (5.0-15.0); Magnesium 2.3 mg/dL (1.6-2.4); Phosphorus 2.8 mg/dL (2.5-4.9); Potassium 3.9 mEq/L (3.5-5.1)
[2023-10-21] MEDS: KCL 20 MEQ/100 mL IVPB 20 MEQ/100 ML BAG IV SCH (08:58)
--- NOTE | 2023-10-21 20:04 | P.PN ---
Date of Service: 10/21/23 Subjective: Sleeping this morning, awakens easily no new complaint [facility]wait[facility] ROS: 10 point ROS as noted above, otherwise negative Physical exam GEN: Sleeping but awakens x3, NAD HEENT: Normal conjunctiva, sclera anicteric, right closed eye CV: Regular rate and rhythm, no murmur noted, S1 S2 present Pulm: Symmetrical chest wall movement, bilaterally clear breath sounds, nonlabored breathing, on room air ABD: Soft on palpation, NT/ND, PEG tube in place, incisions healing MSK: No joint tenderness Integumentary: No rashes Neuro: Normal speech, normal affect, right sided weakness previous cva Vitals reviewed Assessment: Septic shock secondary to acute cholecystitis/ischemic cholecystitis and right lower lobe pneumonia S/P laparoscopic cholecystectomy 10/10 Lactic acidosis secondary to septic shock Diarrhea Mild hyponatremia 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, 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 Diabetes mellitus type [id number]-dbebuxvgh Hyperlipidemia Bacteremia Plan: Septic shock secondary to acute cholecystitis/ischemic cholecystitis and right lower lobe pneumonia S/P laparoscopic cholecystectomy 10/10 Lactic acidosis secondary to septic shock Diarrhea Elevated aminotransferase levels Bacteremia Laparoscopic cholecystectomy performed 10/10 Findings of ischemic gallbladder Stopped Zosyn 10/16 Suspect possible aspiration pneumonia related to vomiting episodes 2 days ago Currently on room air 04/29 blood cultures show Klebsiella pneumoniae-sensitive to Zosyn as well as Cipro/Levaquin Morning of 10/13 LFTs increased, Repeat LFTs, trending down developed diarrhea 10/12- decreased frequency Negative for C. difficile Multiple possible contributing factors to diarrhea including increasing frequency of tube feeds, recent cholecystectomy, antibiotics Tube feeds tolerated, return to original setting Continue probiotics Monitor diarrhea frequency/volume Atorvastatin-patient home medication discontinued today Blood culture resulted with Klebsiella pneumoniae Dr. 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
[2023-10-22 05:56] LABS: Absolute Eosinophils 0.1 K/uL (0-0.5); Absolute Lymphocytes (CBC) 1.2 K/uL (0.7-4.9); Absolute Monocytes 0.8 K/uL (0.1-1.3); Absolute Neutrophil 7.5 K/uL (1.8-8.0); Basophils % 0.4 % (0-1.3); Eosinophils % 1.4 % (0-4.4); Hematocrit 37.7 % (39.6-49.0); Hemoglobin 12.3 g/dL (13.6-17.9); Lymphocytes % 12.4 % (15.3-44.8); MCH 29.2 pg (27.0-35.0); MCHC 32.5 g/dL (32.0-36.0); MCV 89.7 fL (80-100); MPV 8.4 fL (7.6-11.3); Monocytes % 8.4 % (3.3-12.3); Neutrophils % 77.4 % (41.7-73.7); Platelets 582 thou/uL (152-406); Red Cell Distribution Width 14.4 % (12.1-15.2)
[2023-10-22 06:03] LABS: Magnesium 2.5 mg/dL (1.6-2.4)
[2023-10-22 10:45] VITALS: O2SAT 96
[2023-10-22] MEDS ORDERED: ERTAPENEM SODIUM 1 GM VIAL IVPB SCH (13:00)
--- NOTE | 2023-10-22 13:47 | P.DS ---
Admission Date: 10/10/23 Discharge Date: 10/22/23 Disposition: DC HOME/HOME HEALTH CARE Discharge Condition: GOOD Reason for Admission: Septic shock, acute cholecystitis Brief History of Present Illness: 72-year-old male with history of hemorrhagic CVA 2020 resulting in 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, peo-feddldo-vaanfcplf diabetes, hyperlipidemia presents emergency department with chief complaint of abdominal pain, vomiting. He reports his symptoms began on 10/07 in the evening when he had abdominal pain and 3 episodes of vomiting, since then he has been getting worse. Patient was evaluated in the emergency department his labs are significant for likely psychotic 26 sodium 128 chloride 93 glucose [address] abdomen pelvis was performed which showed gallbladder wall thickening with edema in the adjacent fat probably cholecystitis. Mild to moderate right lower lobe pneumonia. Chest x-ray also concerning for mild to moderate right lower lobe pneumonia, abdominal ultrasound was performed which revealed thickened gallbladder wall probably cholecystitis. General surgery was consulted and will evaluate patient, patient to be admitted for septic shock secondary to acute cholecystitis, right lower lobe pneumonia. He was given more than 30 cc/kg IV fluid bolus, lactate was repeated and trending down. He has remained normotensive/hypertensive during his ER stay Hospital Course: Patient was admitted to the hospital on 10/09 for septic shock, acute cholecystitis, suspected pneumoniaaspiration. He underwent laparoscopic cholecystectomy on 10/10 with findings of acute ischemic cholecystitis and cholelithiasis. His blood cultures from 10/09 2 out of 4 bottles positive for gram-negative rodsKlebsiella pneumoniae. Infectious disease recommended total of 2 weeks IV antibiotics, he was treated with Zosyn during his hospitalization and has been arranged to receive Invanz 1 g daily at home through 10/23 which will be the completion date for his antibiotics. His hospital course was complicated with development of diarrhea, dietitian evaluated and recommended addition of banana flakes/Banatrol which had been implemented with some improvement. Also okay to use as needed Imodium for diarrhea. He was tested for C. difficile which was negative. Continue home medications and tube feeds as previously prescribed Please follow-up with your primary care doctor in 1 to 2 weeks If any complications arise in relation to your surgery 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, 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 Diabetes mellitus type [id number]-[id number] Hyperlipidemia Bacteremia Vital Signs/Physical Exam: Temp Pulse Resp BP Pulse Ox 97.3 F 18 L 18 112/70 94 10/22/23 04:00 10/22/23 04:00 10/22/23 04:00 10/22/23 04:00 10/22/23 04:00 General: Alert, In no apparent distress, Oriented x3 HEENT: Atraumatic, PERRLA Neck: Supple, JVD not distended Respiratory: Clear to auscultation bilaterally, Normal air movement Cardiovascular: Regular rate/rhythm, Normal S1 S2 Gastrointestinal: Normal bowel sounds, No tenderness, Other (PEG in place, incicision healing well) Musculoskeletal: No tenderness Integumentary: No rashes Neurological: Normal tone, Normal affect, Other (Right sided weakness including right eye from previous cva) Laboratory Data at Discharge: WBC 9.70 thou/uL (4.3-10.9) 10/22/23 05:30 Hgb 12.3 g/dL (13.6-17.9) L 10/22/23 05:30 Hct 37.7 % (39.6-49.0) L 10/22/23 05:30 Plt Count 582 thou/uL (152-406) H 10/22/23 05:30 PT 16.2 SECONDS (9.4-12.5) H 10/10/23 12:26 INR 1.46 10/10/23 12:26 APTT 29.8 SECONDS (24.3-36.9) 10/10/23 12:26 Sodium 136 mEq/L (136-145) 10/22/23 05:30 Potassium 4.0 mEq/L (3.5-5.1) 10/22/23 05:30 BUN 10 mg/dL (7-18) 10/22/23 05:30 Creatinine 0.52 mg/dL (0.70-1.30) L 10/22/23 05:30 Glucose 134 mg/dL (74-106) H 10/22/23 05:30 Phosphorus 3.0 mg/dL (2.5-4.9) 10/22/23 05:30 Magnesium 2.5 mg/dL (1.6-2.4) H 10/22/23 05:30 Total Bilirubin 0.6 mg/dL (0.2-1.0) 10/18/23 05:56 AST 17 U/L (15-37) 10/18/23 05:56 ALT 34 U/L (16-61) 10/18/23 05:56 Alkaline Phosphatase 163 U/L (45-117) H 10/18/23 05:56 Lipase 30 U/L (13-75) 10/15/23 08:50 Home Medications: Atorvastatin Calcium 20 mg FT BEDTIME 06/25/21 Famotidine [Pepcid] 20 mg FT BID 01/01/23 Nut.tx.gluc Intol,Lf,Soy/Fiber [Glucerna 1.2 Hank Liquid] 12 oz FT QID 06/26/23 Polyethylene Glycol 3350 [Miralax] 17 gm FT DAILY PRN 06/26/23 Metformin HCl 500 mg PO BID 10/10/23 Loperamide [Imodium*] 2 mg PO Q6HP PRN cap 10/22/23 Physician Discharge Instructions: Patient was admitted to the hospital on 10/09 for septic shock, acute cholecystitis, suspected pneumoniaaspiration. He underwent laparoscopic cholecystectomy on 10/10 with findings of acute ischemic cholecystitis and cholelithiasis. His blood cultures from 10/09 2 out of 4 bottles positive for gram-negative rodsKlebsiella pneumoniae. Infectious disease recommended total of 2 weeks IV antibiotics, he was treated with Zosyn during his hospitalization and has been arranged to receive Invanz 1 g daily at home through 10/23 which will be the completion date for his antibiotics. His hospital course was complicated with development of diarrhea, dietitian evaluated and recommended addition of banana flakes/Banatrol which had been implemented with some improvement. Also okay to use as needed Imodium for diarrhea. He was tested for C. difficile which was negative. Continue home medications and tube feeds as previously prescribed Please follow-up with your primary care doctor in 1 to 2 weeks If any complications arise in relation to your surgery you may also follow-up with Dr. GarciaGeneral surgery Diet: tube feeds Activity: Fall precautions Followup: Jenny Mondragon MD [Primary Care Provider] - 1-2 Weeks Michael Garcia MD [ACTIVE - CAN ADMIT] - 1-2 Weeks Time spent managing pt's care (in minutes): 35
[2023-10-22] MEDS: ERTAPENEM NA 1 GM in NA CHLORIDE 0.9% 100 ML IVPB SCH ×2 (14:33→15:00)
[2023-10-22 16:00] VITALS: BP 114/73; TEMP 97.8
== END 2023-10-22 17:00 | disposition home health service (06) | DRG 853 ==
LOC: ER 09:58 → ERHOLD 14:27 → 4TH 15:07
PROVIDERS: ADMIT Hospitalist; ATTEND Internal Medicine
PROC: 0FT44ZZ Resection of Gallbladder, Percutaneous Endoscopic Approach (ICD-10-PCS; principal; 2023-10-11 07:30)
PROC: 4A033R1 Measurement of Arterial Saturation, Peripheral, Percutaneous Approach (ICD-10-PCS; 2023-10-14)
PROC: 02HV33Z Insertion of Infusion Device into Superior Vena Cava, Percutaneous Approach (ICD-10-PCS; 2023-10-16)
DX: A41.89 Other specified sepsis (principal); J69.0 Pneumonitis due to inhalation of food and vomit; R65.21 Severe sepsis with septic shock; E44.0 Moderate protein-calorie malnutrition; Z68.1 Body mass index [BMI] 19.9 or less, adult; E87.1 Hypo-osmolality and hyponatremia; I69.351 Hemiplegia and hemiparesis following cerebral infarction affecting right dominant side; K80.00 Calculus of gallbladder with acute cholecystitis without obstruction; E87.20 Acidosis, unspecified; K56.7 Ileus, unspecified; K82.A1 Gangrene of gallbladder in cholecystitis; I69.391 Dysphagia following cerebral infarction; R13.10 Dysphagia, unspecified; I10 Essential (primary) hypertension; E78.00 Pure hypercholesterolemia, unspecified; E11.9 Type 2 diabetes mellitus without complications; K21.9 Gastro-esophageal reflux disease without esophagitis; B96.1 Klebsiella pneumoniae [K. pneumoniae] as the cause of diseases classified elsewhere; R79.89 Other specified abnormal findings of blood chemistry; Z66 Do not resuscitate; Z93.1 Gastrostomy status; Z79.84 Long term (current) use of oral hypoglycemic drugs; Z79.899 Other long term (current) drug therapy; Z87.891 Personal history of nicotine dependence
CPT/HCPCS: 36415; 36600; 71045; 74019; 74177; 76705; 80048; 80053; 81001; 82805; 82947; 83605; 83690; 83735; 84100; 84132; 85025; 85027; 85610; 85730; 87040; 87077; 87186; 87205; 87324; 88304; 93005; 94010; 97110; 97112; 97161; 97530; 99285; J0360; J0696; J1170; J1335; J1650; J2001; J2185; J2250; J2270; J2371; J2405; J2543; J2704; J2710; J2997; J3010; J3480; J7030; J7040; J7050; Q9967

== ENCOUNTER 2024-01-07 06:40 | Day surgery (SDC) | payer OTHER ==
[2024-01-07] MEDS: NA CHLORIDE 0.9% 1,000 ML ONE (07:10)
[2024-01-07] MEDS ORDERED: ROCURONIUM 50 MG/5 ML VIAL IV ONE (08:08)
[2024-01-07] MEDS ORDERED: NEOSTIGMINE 1 MG/ML -10 ML VIAL ONE (08:08)
[2024-01-07] MEDS ORDERED: FENTANYL CITR 100 MCG/2 ML ONE (08:08)
[2024-01-07] MEDS ORDERED: GLYCOPYRROLATE 0.2 MG/ML SYR ONE (08:08)
[2024-01-07] MEDS ORDERED: MIDAZOLAM HCL 2 MG/2 ML INJ ONE (08:08)
[2024-01-07] MEDS ORDERED: propofoL 200 MG/20 ML VIAL IV ONE (08:08)
[2024-01-07] MEDS ORDERED: ONDANSETRON 4 MG/2 ML VIAL ONE (08:08)
[2024-01-07] MEDS ORDERED: LIDOCAINE 2% MPF 5 ML VIAL ONE (08:08)
[2024-01-07] MEDS: CEFAZOLIN SODIUM 1 GM/VIAL ONE (08:35)
[2024-01-07] MEDS ORDERED: SUCCINYLCHOLINE 20 MG/ML (10 ML) IV ONE (08:37)
[2024-01-07] MEDS ORDERED: EPHEDRINE SULF 50 MG/ML VIAL ONE (08:45)
--- NOTE | 2024-01-07 09:23 | P.BOP ---
Preoperative diagnosis: gsatrostomy tube malfuntion, inhability to swallow Postoperative diagnosis: same Primary procedure: 1. Placement of new gastrostomy tube Secondary procedure: 2. Debridement subq of abd wall gastrostomy tube wound Estimated blood loss: <10cc Specimen: old g tube Anesthesia: General Complications: None Transferred to: Recovery Room Condition: Good
[2024-01-07 10:44] VITALS: BP 141/71; TEMP 97.2; O2SAT 99
== END 2024-01-07 10:50 | disposition home or self-care (01) ==
LOC: OR 06:40
PROVIDERS: ATTEND Surgery
PROC: 0DP60UZ Removal of Feeding Device from Stomach, Open Approach (ICD-10-PCS; 2024-01-07)
PROC: 0DH60UZ Insertion of Feeding Device into Stomach, Open Approach (ICD-10-PCS; 2024-01-07)
PROC: 0JD83ZZ Extraction of Abdomen Subcutaneous Tissue and Fascia, Percutaneous Approach (ICD-10-PCS; principal; 2024-01-07 08:30)
DX: K94.23 Gastrostomy malfunction (principal); R13.10 Dysphagia, unspecified; I10 Essential (primary) hypertension; Z86.73 Personal history of transient ischemic attack (TIA), and cerebral infarction without residual deficits
CPT/HCPCS: 49440; 11042; 82947 ×3; 88300; J2704; J2710; J2001; J3010; J2405; J7030; J0690; J2250

== ENCOUNTER 2024-03-08 16:23 | Emergency (ER) | payer OTHER ==
[2024-03-08 18:57] LABS: SARS-CoV-2 Antigen CONTROL BLUE LINE VIS/BG OK; SARS-CoV-2 Antigen Rapid Res Negative (Negative)
--- NOTE | 2024-03-08 18:59 | RAD REPORT ---
EXAMINATION: TWO VIEW CHEST XR CLINICAL INDICATION: Cough;Congestion TECHNIQUE: 2 views of the chest was performed. COMPARISON: 12/06/2023 FINDINGS: Interstitial markings are prominent bilaterally which may represent infection or interstitial edema. The heart is upper limit of normal in size. No displaced fractures evident. IMPRESSION: Mild CHF versus interstitial infection.
[2024-03-08] MEDS ORDERED: ACETAMINOPHEN 160 MG/5 ML UCUP ONE (19:04)
[2024-03-08 20:21] LABS: Absolute Lymphocytes (CBC) 0.4 K/uL (0.7-4.9); Absolute Monocytes 0.8 K/uL (0.1-1.3); Absolute Neutrophil 7.5 K/uL (1.8-8.0); Basophils % 0.4 % (0-1.3); Hematocrit 41.9 % (39.6-49.0); Hemoglobin 13.9 g/dL (13.6-17.9); MCH 29.5 pg (27.0-35.0); MCHC 33.1 g/dL (32.0-36.0); MCV 89.2 fL (80-100); Monocytes % 9.1 % (3.3-12.3); Neutrophils % 85.5 % (41.7-73.7); Platelets 170 thou/uL (152-406); Red Cell Distribution Width 15.1 % (12.1-15.2)
[2024-03-08 20:37] LABS: Anion Gap 7.9 mEq/L (5.0-15.0); Potassium 3.9 mEq/L (3.5-5.1); Troponin High Sensitivity 15.4 pg/mL (<58.9)
[2024-03-08 20:57] LABS: Blood Morphology Comment NOT SEEN (NOT SEEN); Platelet Estimate ADEQ; White Blood Cell Scan OK (OK)
[2024-03-08] MEDS ORDERED: NA CHLORIDE 0.9% 500 ML ONE (21:40)
[2024-03-09 00:08] LABS: Sqamous Epithelial None Seen /HPF (None Seen); Urine Bacteria None Seen /HPF (<20); Urine Bilirubin NEGATIVE (Negative); Urine Blood Negative (Negative); Urine Clarity Turbid (Clear); Urine Color Yellow (Yellow); Urine Culture Reflex Order NOT NEEDED; Urine Glucose NEGATIVE (Negative); Urine Ketones NEGATIVE (Negative); Urine Microscopic Reflex YN ORDER UMIC; Urine Mucus Slight /HPF (None Seen); Urine Nitrite NEGATIVE (Negative); Urine Protein 2+ (Negative); Urine RBC <5 /HPF (None Seen); Urine Urobilinogen Normal (Normal); Urine WBC <5 /HPF (<5)
--- NOTE | 2024-03-09 00:10 | ER ---
Nurse's Notes [facility] Name: Contreras Naranjo Age: 73 yrs Sex: Male : 1950 Arrival Date: 03/08/2024 Time: 16:23 Bed Treatment Private MD: Diagnosis: Influenza due to identified novel influenza A virus Presentation: 03/08 16:33 Chief complaint: Patient states: Cough since Sunday. Low oxygenation for 2 days ll1 90-92%. Diarrhea, weak, cough, phlegm for 2 days. Coronavirus screen: Client denies travel out of the [place] in the last 14 days. diarrhea, fatigue, fever, headache, Client presents with at least one sign or symptom that may indicate coronavirus-19. Standard/surgical mask placed on the client. Ebola Screen: Patient denies travel to an Ebola-affected area in the 21 days before illness onset. No acute neurological deficit is noted. Initial Sepsis Screen: Does the patient meet any 2 criteria? No. Patient's initial sepsis screen is negative. Does the patient have a suspected source of infection? No. Patient's initial sepsis screen is negative. Risk Assessment: Do you want to hurt yourself or someone else? Patient reports no desire to harm self or others. Onset of symptoms was March 05, 2024. 16:33 Method Of Arrival: Wheelchair ll1 16:33 Acuity: NANCY 3 ll1 Triage Assessment: 16:33 General: Appears uncomfortable, ill, Behavior is calm, cooperative, appropriate for ll1 age, Reports fever for feeling ill for fatigue for. Pain: Denies pain. Neuro: Reports weakness. Respiratory: Reports shortness of breath cough that is low O2 at home. GI: Reports diarrhea. Stroke Activation: Symptom onset > 6 hours Physician: ED Attending; Name: ; Notified At: ; Arrived At: Physician: Mid-Level Provider; Name: ; Notified At: ; Arrived At: Physician: [not used]; Name: ; Notified At: ; Arrived At: Physician: [not used]; Name: ; Notified At: ; Arrived At: Physician: [not used]; Name: ; Notified At: ; Arrived At: Historical: - Allergies: 16:32 No Known Allergies; ll1 - PMHx: 16:32 diabetes mellitus; Hypercholesterolemia; Hypertensive disorder; Right sided weakness; ll1 - PSHx: 16:32 PEG tube replaced; Cholecystectomy; ll1 - Immunization history:: Adult Immunizations up to date. - Social history:: Smoking status: Patient denies any tobacco usage or history of. Screenin/15 00:36 [facility] ED Fall Risk Assessment (Adult) History of falling in the last 3 months, lg3 including since admission No falls in past 3 months (0 pts) Confusion or Disorientation No (0 pts) Intoxicated or Sedated No (0 pts) Impaired Gait Yes (1 pt) Mobility Assist Device Used Yes (1 pt) Altered Elimination No (0 pt) Score/Fall Risk Level 3 or more points = High Risk Oriented to surroundings, Maintained a safe environment, Educated pt \T\ family on fall prevention, incl call for assistance when getting out of bed, Assessed \T\ reinforced patient's understanding of fall precautions. Abuse screen: Denies threats or abuse. Denies injuries from another. Nutritional screening: No deficits noted. Tuberculosis screening: No symptoms or risk factors identified. Assessment: 03/08 19:00 General: Appears in no apparent distress. uncomfortable, Behavior is calm, cooperative, jb4 appropriate for age. Pain: Denies pain. Neuro: Level of Consciousness is awake, alert, obeys commands, Oriented to person, place, time, situation. Cardiovascular: Patient's skin is warm and dry. Respiratory: Airway is patent Respiratory effort is even, unlabored, Respiratory pattern is regular, symmetrical. Derm: Skin is intact, Skin is pink, warm \T\ dry. Musculoskeletal: Circulation, motion, and sensation intact. Range of motion: intact in all extremities. 21:05 Reassessment: Patient appears in no apparent distress at this time. Patient and/or jb4 family updated on plan of care and expected duration. Pain level reassessed. Patient is alert, oriented x 3, equal unlabored respirations, skin warm/dry/pink. 22:16 Reassessment: Patient appears in no apparent distress at this time. Patient and/or jb4 family updated on plan of care and expected duration. Pain level reassessed. Patient is alert, oriented x 3, equal unlabored respirations, skin warm/dry/pink. 23:44 Reassessment: Patient appears in no apparent distress at this time. Patient and/or jb4 family updated on plan of care and expected duration. Pain level reassessed. Patient is alert, oriented x 3, equal unlabored respirations, skin warm/dry/pink. 03/09 00:01 Reassessment: Post void residual 213ml, provider made aware. jb4 Vital Signs: 03/08 16:33 BP 135 / 72; Pulse 111; Resp 18; Temp 100.4; Pulse Ox 96% on R/A; Weight 63.5 kg; ll1 Height 6 ft. 1 in. ; Pain 0/10; 21:05 BP 106 / 69; Pulse 75; Resp 15; Pulse Ox 92% ; jb4 22:16 BP 125 / 78; Pulse 76; Resp 20; Temp 97.8(O); Pulse Ox 95% on R/A; jb4 23:44 BP 125 / 69; Pulse 65; Resp 26; Pulse Ox 99% on R/A; jb4 16:33 Body Mass Index 18.47 (63.50 kg, 185.42 cm) ll1 16:33 Pain Scale: Adult ll1 ED Course: 16:26 Patient arrived in ED. mr 16:34 Triage completed. ll1 16:34 Arm band placed on. ll1 18:09 Krissy Finn FNP-C is PHCP. kb 18:09 Romeo José MD is Attending Physician. kb 18:49 Chest Pa And Lat (2 Views) XRAY In Process Unspecified. EDMS 20:12 Inserted saline lock: 20 gauge antecubital area, using aseptic technique. Blood af3 collected. Flushed with 10 mL NS. 20:22 EKG done, by technology officer. af3 21:03 Haroldo Rowland, RN is Primary Nurse. jb4 03/09 00:06 Report received from BORIS Jerez. lg3 00:36 Patient has correct armband on for positive identification. Bed in low position. Call lg3 light in reach. Family accompanied patient. 00:36 No provider procedures requiring assistance completed. IV discontinued, intact, lg3 bleeding controlled, No redness/swelling at site. Pressure dressing applied. Administered Medications: 03/08 19:20 Drug: Tylenol Feeding Tube 15 mg/kg Feeding Tube once; not to exceed 1,000 milligrams jb4 Route: Feeding Tube; 21:44 Drug: NS 0.9% IV 500 ml 500 ml IV at 1 bolus once; to be given as a bolus over 30 jb4 minutes Volume: 500 ml; Route: IV; Rate: 1 bolus; Site: left antecubital; 22:14 Follow up: IV Status: Completed infusion; IV Intake: 500ml jb4 Medication: 03/09 00:37 VIS not applicable for this client. lg3 Intake: 03/08 22:14 IV: 500ml; Total: 500ml. jb4 Outcome: 03/09 00:09 Discharge ordered by MD. gray 00:36 Discharged to home via wheelchair, with significant other, lg3 00:36 Condition: stable 00:36 Discharge instructions given to patient, significant other, Instructed on discharge instructions, follow up and referral plans. Demonstrated understanding of instructions, follow-up care, 00:37 Patient left the ED. lg3 Signatures: Dispatcher [employer] EDMS Krissy Finn, AMANDA-C ORGAN PIPE MAKER METAL-CkLaura Jones, Reg Reg mr [place]Haroldo milian, RN RN jb4 Kayleigh Felton RN RN lg3 Casey Flores RN RN ll1 Monique Hurtado [place] Corrections: (The following items were deleted from the chart) 03/08 22:37 22:16 BP 125 / 78; Pulse 76bpm; Resp 20bpm; Pulse Ox 95% RA; jb4 jb4
--- NOTE | 2024-03-09 00:10 | EDPHYS ---
Physician Documentation [facility] Name: Contreras Naranjo Age: 73 yrs Sex: Male : 1950 Arrival Date: 03/08/2024 Time: 16:23 Bed Treatment Private MD: ED Physician Romeo José HPI: 03/09 00:32 This 73 yrs old Male presents to ER via Wheelchair with complaints of Low o2, kb Fever, Weakness. 00:32 Pt is a 73 year old male who presents for diarrhea, fever, cough, congestion and low O2 kb (92%, normally 95%) at home. states symptoms started 3-4 days ago. States pt has had aspiration pneumonia in that past so she wanted to get him evaluated. . Historical: - Allergies: 03/08 16:32 No Known Allergies; ll1 - PMHx: 16:32 diabetes mellitus; Hypercholesterolemia; Hypertensive disorder; Right sided weakness; ll1 - PSHx: 16:32 PEG tube replaced; Cholecystectomy; ll1 - Immunization history:: Adult Immunizations up to date. - Social history:: Smoking status: Patient denies any tobacco usage or history of. ROS: 03/09 00:31 Constitutional: As per HPI kb Exam: 00:31 Constitutional: This is a well developed, well nourished patient who is awake, alert, kb and in no acute distress. Head/Face: Normocephalic, atraumatic. ENT: Moist Mucous membranes Cardiovascular: Regular rate Respiratory: Respirations even and unlabored. No increased work of breathing. Talking in full sentences Abdomen/GI: Soft, non-tender. No distention Skin: Warm, dry with normal turgor. Normal color. MS/ Extremity: Pulses equal, no cyanosis. Neurovascular intact. . 00:31 ECG was reviewed by the Attending Physician. Vital Signs: 03/08 16:33 BP 135 / 72; Pulse 111; Resp 18; Temp 100.4; Pulse Ox 96% on R/A; Weight 63.5 kg; ll1 Height 6 ft. 1 in. ; Pain 0/10; 21:05 BP 106 / 69; Pulse 75; Resp 15; Pulse Ox 92% ; jb4 22:16 BP 125 / 78; Pulse 76; Resp 20; Temp 97.8(O); Pulse Ox 95% on R/A; jb4 23:44 BP 125 / 69; Pulse 65; Resp 26; Pulse Ox 99% on R/A; jb4 16:33 Body Mass Index 18.47 (63.50 kg, 185.42 cm) ll1 16:33 Pain Scale: Adult ll1 MDM: 18:09 Medical Screening Exam initiated 03/09 00:32 Data reviewed: vital signs, nurses notes. 00:33 Differential diagnosis: flu, covid, pneumonia. Consideration of Admission/Observation Escalation of care including admission/observation considered. admission considered but pt is nontoxic in appearance, resp even and unlabored, oxygen saturation 99% on room air. . Historians other than the Patient: Spouse/Significant Other: . Counseling: I had a detailed discussion with the patient and/or guardian regarding the historical points, exam findings, and any diagnostic results supporting the discharge/admit diagnosis, lab results, radiology results, the need for outpatient follow up, a family practitioner, to return to the emergency department if symptoms worsen or persist or if there are any questions or concerns that arise at home. ED course: After initial results returned, I had discussion about symptomatic treatment. concerned about decrease in urine output since symptoms started. Serum labs and urinalysis completed due to concern. Discussed all results with upon completion. in agreement with outpatient follow up. 03/08 18:09 Order name: Flu; Complete Time: 19:01 kb 03/08 18:09 Order name: SARS-COV-2 Antigen Rapid; Complete Time: 19:01 kb 03/08 19:49 Order name: Basic Metabolic Panel; Complete Time: 20:39 kb 03/08 19:49 Order name: CBC with Diff; Complete Time: 20:58 kb 03/08 19:49 Order name: Magnesium; Complete Time: 20:39 kb 03/08 19:49 Order name: NT PRO-BNP; Complete Time: 20:39 kb 03/08 19:49 Order name: Troponin HS; Complete Time: 20:39 kb 03/08 20:40 Order name: Urinalysis w/ reflexes; Complete Time: 00:09 kb 03/08 20:58 Order name: CBC Smear Scan; Complete Time: 20:58 EDMS 03/08 18:09 Order name: Chest Pa And Lat (2 Views) XRAY; Complete Time: 19:01 kb 03/08 19:49 Order name: EKG; Complete Time: 19:49 kb 03/08 19:49 Order name: Cardiac monitoring; Complete Time: 20:22 kb 03/08 19:49 Order name: EKG - Nurse/Tech; Complete Time: 20:22 kb 03/08 19:49 Order name: IV Saline Lock; Complete Time: 20:12 kb 03/08 19:49 Order name: Labs collected and sent; Complete Time: 20:12 kb 03/08 19:49 Order name: O2 Per Protocol; Complete Time: 20:12 kb 03/08 19:49 Order name: O2 Sat Monitoring; Complete Time: 20:12 kb 03/08 22:06 Order name: Vital Signs; Complete Time: 22:16 kb 03/08 23:23 Order name: Bladder Scanner; Complete Time: 00:01 kb EC:31 Rate is 84 beats/min. Rhythm is regular. QRS Hunters is Normal. MO interval is normal at kb 148 msec. QRS interval is normal at 92 msec. QT interval is normal at 439 msec. Administered Medications: 03/08 19:20 Drug: Tylenol Feeding Tube 15 mg/kg Feeding Tube once; not to exceed 1,000 milligrams jb4 Route: Feeding Tube; 21:44 Drug: NS 0.9% IV 500 ml 500 ml IV at 1 bolus once; to be given as a bolus over 30 jb4 minutes Volume: 500 ml; Route: IV; Rate: 1 bolus; Site: left antecubital; 22:14 Follow up: IV Status: Completed infusion; IV Intake: 500ml jb4 Disposition Summary: 03/09/24 00:09 Discharge Ordered Notes: Location: Home kb Condition: Stable kb Diagnosis - Influenza due to identified novel influenza A virus kb Followup: kb - With: Emergency Department - When: As needed - Reason: Worsening of condition Followup: kb - With: Private Physician - When: 2 - 3 days - Reason: Recheck today's complaints, Continuance of care, Re-evaluation by your physician Discharge Instructions: - Discharge Summary Sheet kb - Influenza, Adult, [id number] kb Forms: - Medication Reconciliation Form kb - Antibiotic Education kb - Prescription Opioid Use kb - Patient Portal Instructions kb - Leadership Thank You Letter kb Signatures: Dispatcher [employer] Krissy Menon, INVESTIGATOR INTERNAL AFFAIRS-C INVESTIGATOR INTERNAL AFFAIRS-Haroldo Newell, RN RN jb4 Casey Flores RN RN ll1 Corrections: (The following items were deleted from the chart) 19:49 19:49 BASIC METABOLIC PANEL+C.LAB.BRZ ordered. EDMS EDMS 19:49 19:49 CBC+H.LAB.BRZ ordered. EDMS EDMS 19:49 19:49 MAGNESIUM+C.LAB.BRZ ordered. EDMS EDMS 19:49 19:49 PROBNP+C.LAB.BRZ ordered. EDMS EDMS 19:49 19:49 Troponin High Sensitivity+C.LAB.BRZ ordered. EDMS EDMS
[2024-03-09 00:59] VITALS: TEMP 97.8
[2024-03-09 01:01] VITALS: BP 125/69; O2SAT 99
== END 2024-03-09 00:37 | disposition home or self-care (01) ==
LOC: ER 16:23
DX: J10.1 Influenza due to other identified influenza virus with other respiratory manifestations (principal); Z11.52 Encounter for screening for COVID-19; E11.9 Type 2 diabetes mellitus without complications; I10 Essential (primary) hypertension
CPT/HCPCS: 85025; 81001; 80048; 36415; 83735; 84484; 83880; 87804 ×2; 71046; 99284; 87811; J7040

== ENCOUNTER 2024-05-14 16:29 | Inpatient (IN) | payer OTHER ==
--- NOTE | 2024-05-14 17:32 | EDPHYS ---
Physician Documentation [facility] Name: Contreras Naranjo Age: 73 yrs Sex: Male : 1950 Arrival Date: 05/14/2024 Time: 16:29 Bed IW1 Private MD: ED Physician Wiliam De Dios HPI: 05/14 17:28 This 73 yrs old Male presents to ER via Wheelchair with complaints of peg tube rn issue. 17:28 Family member reports saw Dr. Doherty at wound care earlier today, was determined that rn PEG tube has been displaced and possibly for days. Dr. Doherty was unable to replace PEG tube despite attempts made. Plan is to replace it 1 to 2 weeks once this tract has healed. Family returns to ER today because patient is 100% PEG tube dependent and cannot take p.o. due to aspiration risk and previous stroke with dysphagia.. Historical: - Allergies: 16:36 No Known Allergies; ll1 - PMHx: 16:36 diabetes mellitus; Hypercholesterolemia; Hypertensive disorder; Right sided weakness; ll1 - PSHx: 16:36 Cholecystectomy; PEG tube replaced; ll1 - Immunization history:: Adult Immunizations up to date. - Social history:: Smoking status: Patient denies any tobacco usage or history of. - Family history:: not pertinent. - Hospitalizations: : No recent hospitalization is reported. ROS: 17:28 Constitutional: Negative for fever, chills, and weight loss, Abdomen/GI: Negative for rn abdominal pain, nausea, vomiting, diarrhea, and constipation, Exam: 17:28 Constitutional: This is a well developed, well nourished patient who is awake, alert, rn and in no acute distress. Abdomen/GI: Soft, non-tender, previous PEG stoma identified but appears closed, raw skin surrounding with erythema. No warmth or fluctuance. Vital Signs: 16:51 BP 143 / 87; Pulse 82; Resp 18; Temp 98.6; Pulse Ox 98% ; Weight 63.5 kg; Height 6 ft. ll1 1 in. ; Pain 0/10; 16:51 Body Mass Index 18.47 (63.50 kg, 185.42 cm) ll1 16:51 Pain Scale: Adult ll1 MDM: 16:43 Medical Screening Exam initiated rn 17:28 Differential Diagnosis PEG tube displacement. Data reviewed: vital signs, nurses notes. rn Management of patient was discussed with the following: Package Lift Operator: Discussed case with Dr. Doehrty, is unable to replace feeding tube for a week or 2 until tract heals. States if patient needs to be admitted for nutrition would be admitted to hospitalist service.. Counseling: I had a detailed discussion with the patient and/or guardian regarding the historical points, exam findings, and any diagnostic results supporting the discharge/admit diagnosis, the need for further work-up and treatment in the hospital. 17:31 Consideration of Admission/Observation Patient was admitted/placed on observation. rn Escalation of care including admission/observation considered. ED course: Dr. Doherty spoke with Dr. Mondragon who could not organize TPN nutrition as an outpatient.. 05/14 17:30 Order name: CBC with Diff rn 05/14 17:30 Order name: Basic Metabolic Panel rn 05/14 17:30 Order name: Protime (+inr) rn 05/14 17:30 Order name: Ptt, Activated rn 05/14 17:31 Order name: LFT's rn 05/14 18:02 Order name: CBC with Automated Diff [facility] 05/14 18:02 Order name: CBC with Automated Diff [facility] 05/14 18:02 Order name: Comprehensive Metabolic Panel [facility] 05/14 18:02 Order name: Comprehensive Metabolic Panel [facility] 05/14 18:02 Order name: Barium Swallow Modified [facility] 05/14 18:02 Order name: Speech Therapy Consult [facility] 05/14 17:30 Order name: IV Start; Complete Time: 18:27 rn Administered Medications: No medications were administered Disposition Summary: 05/14/24 17:32 Hospitalization Ordered Notes: Hospitalization Status: Observation rn Provider: Stephanie Vilchis [facility]n [facility] Condition: Stable rn Problem: new rn Symptoms: are unchanged rn Bed/Room Type: Standard rn Room Assignment: 201(05/14/24 19:22) rv1 Diagnosis - PEG tube displacement - PEG tube dependent rn Forms: - Medication Reconciliation Form rn - SBAR form rn - Leadership Thank You Letter rn Signatures: [facility] Wiliam Navas MD MD rn Lewis, Lynsay, RN RN ll1 Yanira Frost rv1 Corrections: (The following items were deleted from the chart) 17:31 17:31 PROTIME (+INR)+COAG.LAB.BRZ ordered. EDMS EDMS 17:31 PTT, ACTIVATED+COAG.LAB.BRZ ordered. EDMS EDMS 17:31 HEPATIC FUNCTION+C.LAB.BRZ ordered. EDMS EDMS 19: 17:32 rn rv1
--- NOTE | 2024-05-14 17:32 | ER ---
Nurse's Notes [facility] Name: Contreras Naranjo Age: 73 yrs Sex: Male : 1950 Arrival Date: 05/14/2024 Time: 16:29 Bed IW1 Private MD: Diagnosis: PEG tube displacement - PEG tube dependent Presentation: 05/14 16:51 Chief complaint: Patient states: PEG tube site has been red and raw for 2 weeks. Tube ll1 came out this weekend. Unable to get it back in today, sent in for further evaluation. Coronavirus screen: Client denies travel out of the [place] in the last 14 days. At this time, the client does not indicate any symptoms associated with coronavirus-19. Ebola Screen: Patient denies travel to an Ebola-affected area in the 21 days before illness onset. Initial Sepsis Screen: Does the patient meet any 2 criteria? No. Patient's initial sepsis screen is negative. Does the patient have a suspected source of infection? No. Patient's initial sepsis screen is negative. Risk Assessment: Do you want to hurt yourself or someone else? Patient reports no desire to harm self or others. Onset of symptoms was May 09, 2024. 16:51 Method Of Arrival: Wheelchair ll1 16:51 Acuity: NANCY 3 ll1 Triage Assessment: 16:55 General: Appears uncomfortable, Behavior is calm, cooperative, appropriate for age. ll1 Pain: Denies pain. GI: Reports g tube came out. Historical: - Allergies: 16:36 No Known Allergies; ll1 - PMHx: 16:36 diabetes mellitus; Hypercholesterolemia; Hypertensive disorder; Right sided weakness; ll1 - PSHx: 16:36 Cholecystectomy; PEG tube replaced; ll1 - Immunization history:: Adult Immunizations up to date. - Social history:: Smoking status: Patient denies any tobacco usage or history of. - Family history:: not pertinent. - Hospitalizations: : No recent hospitalization is reported. Screenin:30 [facility] ED Fall Risk Assessment (Adult). Abuse screen: Denies threats or abuse. vc1 Nutritional screening: No deficits noted. Tuberculosis screening: No symptoms or risk factors identified. Assessment: 20:31 General: Pt admitted from [facility]. vc1 Vital Signs: 16:51 BP 143 / 87; Pulse 82; Resp 18; Temp 98.6; Pulse Ox 98% ; Weight 63.5 kg; Height 6 ft. ll1 1 in. ; Pain 0/10; 16:51 Body Mass Index 18.47 (63.50 kg, 185.42 cm) ll1 16:51 Pain Scale: Adult [facility] ED Course: 16:31 Patient arrived in ED. im 16:36 Arm band placed on. ll1 16:42 Wiliam De Dios MD is Attending Physician. rn 16:55 Triage completed. ll1 17:31 Stephanie Vilchis MD is Hospitalizing Provider. rn 18:27 Protime (+inr) Sent. bc6 18:27 Ptt, Activated Sent. bc6 18:27 Basic Metabolic Panel Sent. bc6 18:27 CBC with Diff Sent. bc6 18:27 LFT's Sent. 6 18:27 Initial lab(s) drawn, by nc, sent to lab. Inserted saline lock: 20 gauge in left bc6 forearm, using aseptic technique. Blood collected. Flushed with 10 mL NS. 20:32 No provider procedures requiring assistance completed. Patient admitted, IV remains in vc1 place. Administered Medications: No medications were administered Medication: 20:31 VIS not applicable for this client. vc1 Outcome: 17:32 Decision to Hospitalize by Provider. rn 20:32 Admitted to Med/surg accompanied by tech, via wheelchair, room 201, [facility] 20:32 Condition: stable 20:32 Instructed on the need for admit, 20:33 Patient left the ED. 1 Signatures: Wiliam De Dios MD MD rn Lewis, Lynsay, RN RN 1 Judy Szymanski RN RN 1 Cherelle Grande [facility] Nadya Fuentes im
[2024-05-14 18:32] LABS: Absolute Eosinophils 0.1 K/uL (0-0.5); Absolute Lymphocytes (CBC) 1.7 K/uL (0.7-4.9); Absolute Monocytes 0.9 K/uL (0.1-1.3); Absolute Neutrophil 5.5 K/uL (1.8-8.0); Basophils % 0.5 % (0-1.3); Hemoglobin 16.8 g/dL (13.6-17.9); Lymphocytes % 21.1 % (15.3-44.8); MCHC 32.9 g/dL (32.0-36.0); MCV 91.2 fL (80-100); MPV 10.4 fL (7.6-11.3); Monocytes % 10.5 % (3.3-12.3); Neutrophils % 66.9 % (41.7-73.7); Nucleated Red Blood Cells % 0.3 % (0-0); Platelets 248 thou/uL (152-406); RBC Red Blood Cell Count 5.59 M/uL (4.33-5.43); Red Cell Distribution Width 14.1 % (12.1-15.2)
[2024-05-14 18:41] LABS: PT Prothrombin Time 12.9 SECONDS (9.4-12.5); PTT, Activated Partial Thromb 34.7 SECONDS (24.3-36.9); Protime INR 1.23
[2024-05-14 18:51] LABS: Albumin 3.8 g/dL (3.4-5.0); Albumin/Globulin Ratio 0.7 (1.1-1.8); Anion Gap 6.9 mEq/L (5.0-15.0); Bilirubin Direct 0.2 mg/dL (0-0.2); Bilirubin Indirect, Calculated 0.6 mg/dL (0.2-0.8); Bilirubin Total 0.8 mg/dL (0.2-1.0); Globulin 5.2 g/dL (2.3-3.5)
[2024-05-14 18:53] LABS: Potassium 3.9 mEq/L (3.5-5.1)
[2024-05-14] MEDS: NA CHLORIDE 0.9% 1,000 ML IV SCH (22:17)
--- NOTE | 2024-05-15 04:40 | P.HP ---
Certification for Inpatient Patient admitted to: Inpatient With expected LOS: >2 Midnights Practitioner: I am a practitioner with admitting privileges, knowledge of patient current condition, hospital course, and medical plan of care. Services: Services provided to patient in accordance with Admission requirements found in Title 42 Section 412.3 of the Code of Federal Regulations Patient History Date of Service: 05/15/24 Reason for admission: Displaced PEG tube History of Present Illness: Displaced PEG tube 73-year-old male with past medical history of diabetes, hyperlipidemia, hypertension, right sided weakness, dysphagia presented with wheelchair with complaints of displaced PEG tube. Seen by general surgery. Unable to replace PEG tube. Concern for PEG site issue. Patient being admitted for observation possible parenteral nutrition. Allergies No Known Allergies Allergy (Verified 05/14/24 22:35) Home Medications: Atorvastatin Calcium 20 mg FT BEDTIME 06/25/21 Famotidine [Pepcid] 20 mg FT BID 01/01/23 Metformin HCl 500 mg PO BEDTIME 10/10/23 Cholecalciferol (Vitamin D3) [Vitamin D3] 50 mcg FT DAILY 05/14/24 - Past Medical/Surgical History Has patient received pneumonia vaccine in the past: Yes Diabetic: Yes -: Hemorrhagic CVA 2020 -: PEG tube -: Hypertension -: Diabetes mellitus type 2 [id number] -: High Cholesterol -: GERD -: Brain surgery -: PEG tube -: cataracts surgery bilateral--september 2022/October 2022 Psychosocial/ Personal History: Patient lives at home with his - Family History Brother -: Diabetes - Social History Smoking Status: Former smoker Alcohol use: No CD- Drugs: No Caffeine use: No Place of Residence: Home Review of Systems 10-point ROS is otherwise unremarkable Physical Examination - Vital Signs Temperature: 97.7 F Blood Pressure: 144/82 Pulse: 86 Respirations: 16 Pulse Ox (%): 97 - Physical Exam General: Alert HEENT: Atraumatic, Other (right eye closed) Cardiovascular: Regular rate/rhythm, Normal S1 S2 Gastrointestinal: Other (Erythema around PEG site with drainage) Integumentary: Erythema Neurological: Other (right sided weakness) Assessment and Plan - Problems (Diagnosis) (1) Dysphagia Current Visit: Yes Status: Acute (2) CVA (cerebral vascular accident) Current Visit: No Status: Acute (3) HTN (hypertension) Current Visit: No Status: Acute (4) PEG (percutaneous endoscopic gastrostomy) status Current Visit: No Status: Acute - Plan 73-year-old male presents to the ER with nonfunctioning PEG tube. Nonfunctioning PEG site Malnutrition Dysphagia History of CVA Hypertension Hyperlipidemia Diabetes Plan: N.p.o. IV fluids Surgery and pharmacy consults IV Unasyn check fluid culture Consider PICC line placement and TPN in a.m. or dobhoff for TFs , defer to surgery Will check a magnesium and phosphorus with a.m. labs Await home medication reconciliation fsbs, ssi - Advance Directives Does patient have a Living Will: No Does patient have a Durable POA for Healthcare: No
[2024-05-15] MEDS ORDERED: GLUCAGON 1 MG/VIAL IM PRN (05:05)
[2024-05-15] MEDS ORDERED: D10W 125 ML IV PRN (05:05)
[2024-05-15 05:31] LABS: Absolute Eosinophils 0.1 K/uL (0-0.5); Absolute Lymphocytes (CBC) 1.9 K/uL (0.7-4.9); Absolute Neutrophil 5.7 K/uL (1.8-8.0); Basophils % 0.3 % (0-1.3); Eosinophils % 0.6 % (0-4.4); Hematocrit 42.9 % (39.6-49.0); Hemoglobin 14.9 g/dL (13.6-17.9); Lymphocytes % 21.4 % (15.3-44.8); MCH 31.2 pg (27.0-35.0); MCHC 34.7 g/dL (32.0-36.0); MPV 11.1 fL (7.6-11.3); Monocytes % 11.5 % (3.3-12.3); Neutrophils % 66.2 % (41.7-73.7); Nucleated Red Blood Cells % 0.2 % (0-0); Platelets 215 thou/uL (152-406); RBC Red Blood Cell Count 4.76 M/uL (4.33-5.43); Red Cell Distribution Width 14.1 % (12.1-15.2)
[2024-05-15 05:40] LABS: Albumin 3.4 g/dL (3.4-5.0); Albumin/Globulin Ratio 0.8 (1.1-1.8); Anion Gap 7.8 mEq/L (5.0-15.0); Bilirubin Total 0.8 mg/dL (0.2-1.0); Globulin 4.4 g/dL (2.3-3.5); Magnesium 2.1 mg/dL (1.6-2.4); Phosphorus 3.4 mg/dL (2.5-4.9); Potassium 3.8 mEq/L (3.5-5.1); Protein, Total 7.8 g/dL (6.4-8.2)
[2024-05-15] MEDS: INSULIN REGULAR (HUMAN) 100 UNIT/ML SQ SCH (07:30)
[2024-05-15] MEDS: AMPICILLIN/SULBACT 1.5 GM in NA CHLORIDE 0.9% 100 ML IVPB SCH (09:22)
--- NOTE | 2024-05-15 11:10 | RAD REPORT ---
Modified barium swallow exam with speech pathology service HISTORY: Dysphagia Fluoroscopy Time: 3:02 IMPRESSION: Please see the speech pathology service report for details. Barium contrast of multiple consistencies was provided the patient orally by the speech pathology dep artment. Fluoroscopic observation was performed during swallowing. The radiologist was not present for the examination. Provided images demonstrate no evidence for oscar subglottic tracheal aspiration .
--- NOTE | 2024-05-15 15:27 | P.PN ---
Date of Service: 05/15/24 Subjective Sleeping comfortably, awakens easily No new complaint ROS 10 point ROS as noted above, otherwise negative General: AAOx3, NAD HEENT: mucus membranes dry, nare normal, right eye closed Head/Neck: Normocephalic, atraumatic, neck supple Respiratory: symmetrical chest expansion, no accessory muscles used, lungs clear on ausultation Cardiac: RRR, no murmurs or gallops noted Extremities: No edema present, peripheral pulses 2+ Abdominal: soft, NT/ND, PEG tube in place Skin: erythema Neurological: clear speech, appropriate Psych: normal mood and affect Vitals Reviewed Problem list Nonfunctioning PEG site Malnutrition Dysphagia History of CVA Diabetes Mellitus Hypertension Hyperlipidemia Assessment and Plan Nonfunctioning PEG site Malnutrition Dysphagia -FLAME CUTTER consulted "recommends that pt. continue to be on PEG due to high risk of aspiration and thereby making the pt. unsafe for PO intake at this time." -Modified barium swallow reports " no evidence for oscar subglottic tracheal aspiration. moderate dysphasia." -NPO -IV fluids -Dr. Doherty consulted -environmental services director to assist with [facility] -Culture with NGTD Diabetes Mellitus -accucheck with SSI Hypertension Hyperlipidemia History of CVA -Continue home medications DVT ppx SCD Full code LOS 2-3 days <Sydnee Hdez - Last Filed: 05/15/24 17:13> Chart has been reviewed. Events of the last 24 hours have been noted. Case discussed with JOSÉ. I performed a substantial part of the MDM during this patient's care today. I personally made or approved the documented management plan and acknowledge its risk of complications. I agree with the findings and documentation provided in the JOSÉ's notes <Stephanie Vilchis - Last Filed: 06/06/24 05:19>
[2024-05-15] MEDS: Mupirocin NASAL 2 APPL/1 GM TUBE NAS SCH (21:44)
--- NOTE | 2024-05-16 08:29 | RAD REPORT ---
EXAMINATION: CT ABDOMEN AND PELVIS WITH CONTRAST CLINICAL INDICATION: s/p PEG tube dislodged-peritonitis TECHNIQUE: CT abdomen and pelvis was performed, after the administration of IV [facility] Axial, sagittal and coronal reconstructions were obtained. One or more of the following dose reduction techniques were used: Automated exposure control, adjustment of the mA and k V according to patient size, and iterative reconstruction. Unless otherwise specified, incidental findings do not require dedicated imaging follow-up. COMPARISON: 10/10/2023 FINDINGS: LOWER CHEST: The visualized lung bases are clear. LIVER: Mild fatty liver is present. No focal lesion or biliary dilatation is seen. Cholecystectomy clips. SPLEEN: Normal size. No focal lesion. PANCREAS: No mass, ductal dilation, or haylie-pancreatic fluid. ADRENALS: Normal; no mass. KIDNEYS: Normal size and contour. No hydronephrosis. GASTROINTESTINAL TRACT: No evidence of free air, significant intra-abdominal free fluid, bowel obstru ction or abscess. APPENDIX: Appendix not visualized, but no inflammatory changes in region of appendix. LYMPH NODES: No lymphadenopathy. MUSCULOSKELETAL: Mild multilevel spinal degenerative changes. ADDITIONAL FINDINGS: Gastrostomy tube soft tissue tract is seen. Tube itself is not present. Aortoili ac atherosclerosis. IMPRESSION: No acute or concerning abnormalities seen in the abdomen or pelvis.
--- NOTE | 2024-05-16 10:17 | RAD REPORT ---
EXAMINATION: ONE VIEW CHEST XR CLINICAL INDICATION: Post PICC placement TECHNIQUE: Frontal chest projection is submitted. Examination is limited by patient positioning and t echnique. COMPARISON: 03/08/2024 FINDINGS: Left PICC line is tip in SVC. The lungs are grossly clear. The heart is normal in size. No displaced fractures identified. IMPRESSION: Left PICC line in expected location with tip in SVC.
--- NOTE | 2024-05-16 10:38 | P.PN ---
Date of Service: 05/16/24 Subjective Alert and oriented, at the bedside Evaluation for PEG tube replacement, PICC line to be placed and starting TPN today ROS 10 point ROS as noted above, otherwise negative General: Alert and oriented x3, NAD, conversing well Head/Neck: Normocephalic, atraumatic, neck supple Respiratory: Clear BBS, no accessory muscles used, lungs clear on ausultation, On RA Cardiac: Regular Rate and rhythm, S1 S2 present Extremities: peripheral pulses 2+ Abdominal: soft and benign on palpation, NT/ND, PEG tube present Skin: erythema Neurological: clear speech, appropriate Psych: normal mood and affect Vitals Reviewed Problem list Nonfunctioning PEG site Malnutrition Dysphagia History of CVA Diabetes Mellitus Hypertension Hyperlipidemia Assessment and Plan Nonfunctioning PEG site Malnutrition Dysphagia -CHILLER TENDER consulted "recommends that pt. continue to be on PEG due to high risk of aspiration and thereby making the pt. unsafe for PO intake at this time." -Modified barium swallow reports " no evidence for oscar subglottic tracheal aspiration. moderate dysphasia." -NPO, PICC line ordered and will start TPN today (05/16) -IV fluids -Dr. Doherty consulted -counseling services director to assist with [facility] -Culture with NGTD -CXR reports "Left PICC line is tip in SVC. The lungs are grossly clear. The heart is normal in size. No displaced fractures identified." -CT abd/pelvis reports "No acute or concerning abnormalities seen in the abdomen or pelvis." Diabetes Mellitus -accucheck with SSI Hypertension Hyperlipidemia History of CVA -Continue home medications DVT ppx SCD Full code LOS 2-3 days <Sydnee Hdez - Last Filed: 05/16/24 17:17> Chart has been reviewed. Events of the last 24 hours have been noted. Case discussed with JOSÉ. I performed a substantial part of the MDM during this patient's care today. I personally made or approved the documented management plan and acknowledge its risk of complications. I agree with the findings and documentation provided in the JOSÉ's notes <Stephanie Vilchis - Last Filed: 06/06/24 05:21>
[2024-05-16 12:33] LABS: Specific Gravity > 1.030 (1.005-1.030); Urine Bilirubin NEGATIVE (Negative); Urine Blood Negative (Negative); Urine Clarity Clear (Clear); Urine Color Light-Yellow (Yellow); Urine Glucose NEGATIVE (Negative); Urine Ketones 3+ (Negative); Urine Microscopic Reflex YN NO UMIC; Urine Nitrite NEGATIVE (Negative); Urine Protein NEGATIVE (Negative); Urine Urobilinogen Normal (Normal); Urine pH 5.5 (5.0-7.0)
[2024-05-16] MEDS ORDERED: AA 4.25 %/D5W/ELECTROLYTES 2,000 ML, Lipids 20% 250 ML with MULTIVITAMINS INJ 10 ML IV SCH (17:00)
[2024-05-16] MEDS ORDERED: DEXTROSE 10%-WATER 500 ML IV SCH (17:00)
[2024-05-16] MEDS: INSULIN REGULAR (HUMAN) 100 UNIT/ML SQ SCH (17:25)
[2024-05-16] MEDS: AA 5%/D20W/ELECTROLYTES-TPN 2,000 ML, Lipids 20% 250 ML with MULTIVITAMINS INJ 10 ML IV SCH (17:37)
[2024-05-16 22:28] VITALS: BMI 18.4
[2024-05-17 05:29] LABS: Absolute Eosinophils 0.1 K/uL (0-0.5); Absolute Lymphocytes (CBC) 1.2 K/uL (0.7-4.9); Absolute Monocytes 0.9 K/uL (0.1-1.3); Absolute Neutrophil 4.3 K/uL (1.8-8.0); Basophils % 0.4 % (0-1.3); Eosinophils % 1.9 % (0-4.4); Hematocrit 43.1 % (39.6-49.0); Hemoglobin 13.6 g/dL (13.6-17.9); Lymphocytes % 17.9 % (15.3-44.8); MCH 32.7 pg (27.0-35.0); MCHC 31.5 g/dL (32.0-36.0); MCV 103.7 fL (80-100); MPV 11.1 fL (7.6-11.3); Monocytes % 13.7 % (3.3-12.3); Neutrophils % 66.1 % (41.7-73.7); Nucleated Red Blood Cells % 0.1 % (0-0); Platelets 171 thou/uL (152-406); RBC Red Blood Cell Count 4.16 M/uL (4.33-5.43)
[2024-05-17 06:33] LABS: Anion Gap 7.3 mEq/L (5.0-15.0); Magnesium 1.9 mg/dL (1.6-2.4); Phosphorus 1.9 mg/dL (2.5-4.9); Potassium 3.3 mEq/L (3.5-5.1)
--- NOTE | 2024-05-17 10:16 | P.PN ---
Date of Service: 05/17/24 Subjective Tolerating TPN, denies diarrhea and abdominal pain Conversing well this morning no new complaints ROS 10 point ROS as noted above, otherwise negative General: AAOx3, NAD, conversing well Head/Neck: Normocephalic, atraumatic Respiratory: Clear BBS, no accessory muscles used, lungs clear on auscultation, On RA Cardiac: RRR, S1 S2 present Extremities: peripheral pulses 2+ Abdominal: soft and benign on palpation, NT/ND, PEG tube removed dressing CDI Skin: erythema Neurological: clear speech, appropriate Vitals Reviewed Problem list Nonfunctioning PEG site Malnutrition Dysphagia History of CVA Diabetes Mellitus Hypertension Hyperlipidemia Assessment and Plan Nonfunctioning PEG site Malnutrition Dysphagia -PRESTO LOG OPERATOR consulted "recommends that pt. continue to be on PEG due to high risk of aspiration and thereby making the pt. unsafe for PO intake at this time." -Modified barium swallow reports " no evidence for oscar subglottic tracheal aspiration. moderate dysphasia." -NPO, PICC line in place, continue TPN, (start date 05/16) -IV fluids -Dr. Doherty consulted -volunteer services coordinator to assist with [facility] T[facility] or placement -Culture with skin contamination -CXR reports "Left PICC line is tip in SVC. The lungs are grossly clear. The heart is normal in size. No displaced fractures identified." -CT abd/pelvis reports "No acute or concerning abnormalities seen in the abdomen or pelvis." Diabetes Mellitus -accucheck with SSI Hypertension Hyperlipidemia History of CVA -Continue home medications DVT ppx SCD Full code LOS 2-3 days <Sydnee Hdez - Last Filed: 05/17/24 10:17> Chart has been reviewed. Events of the last 24 hours have been noted. Case discussed with JOSÉ. I performed a substantial part of the MDM during this patient's care today. I personally made or approved the documented management plan and acknowledge its risk of complications. I agree with the findings and documentation provided in the JOSÉ's notes <Stephanie Vilchis - Last Filed: 06/06/24 05:22>
[2024-05-17] MEDS: AA 5%/D20W/ELECTROLYTES-TPN 2,000 ML IV SCH (16:12)
[2024-05-18 05:15] LABS: Absolute Eosinophils 0.2 K/uL (0-0.5); Absolute Lymphocytes (CBC) 1.2 K/uL (0.7-4.9); Absolute Monocytes 0.9 K/uL (0.1-1.3); Absolute Neutrophil 4.7 K/uL (1.8-8.0); Basophils % 0.5 % (0-1.3); Eosinophils % 2.9 % (0-4.4); Hematocrit 43.3 % (39.6-49.0); Hemoglobin 14.3 g/dL (13.6-17.9); Lymphocytes % 16.7 % (15.3-44.8); MCH 29.9 pg (27.0-35.0); MCV 90.8 fL (80-100); MPV 9.9 fL (7.6-11.3); Monocytes % 13.4 % (3.3-12.3); Neutrophils % 66.5 % (41.7-73.7); Nucleated Red Blood Cells % 0.1 % (0-0); Platelets 203 thou/uL (152-406); RBC Red Blood Cell Count 4.76 M/uL (4.33-5.43); Red Cell Distribution Width 13.7 % (12.1-15.2)
[2024-05-18 05:24] LABS: Anion Gap 7.1 mEq/L (5.0-15.0); Phosphorus 2.7 mg/dL (2.5-4.9); Potassium 3.1 mEq/L (3.5-5.1)
--- NOTE | 2024-05-18 10:10 | P.PN ---
Date of Service: 05/18/24 Subjective Awake, conversing well Denies abdominal pain, N/V, seems to be tolerating TPN well no new complaints ROS 10 point ROS as noted above, otherwise negative General: AAOx3, NAD, afebrile Respiratory: Clear BBS, nonlabored breathing, On RA Cardiac: Regular rate and rhythm, normal S1 S2 present Extremities: peripheral pulses 2+ Abdominal: soft and benign on palpation, NT/ND, abdominal dressing CDI Skin: no rash Neurological: clear speech, appropriate Vitals Reviewed Problem list Nonfunctioning PEG site Malnutrition Dysphagia History of CVA Diabetes Mellitus Hypertension Hyperlipidemia Assessment and Plan Nonfunctioning PEG site Malnutrition Dysphagia -HARD METALS HAND ENGRAVER consulted "recommends that pt. continue to be on PEG due to high risk of aspiration and thereby making the pt. unsafe for PO intake at this time." -Modified barium swallow reports " no evidence for oscar subglottic tracheal aspiration. moderate dysphasia." -NPO, PICC line in place, continue TPN, (start date 05/16) -IV fluids -Dr. Doherty consulted -director of managed services to assist with [facility] TPN or placement -Culture with skin contamination -CXR reports "Left PICC line is tip in SVC. The lungs are grossly clear. The heart is normal in size. No displaced fractures identified." -CT abd/pelvis reports "No acute or concerning abnormalities seen in the abdomen or pelvis." Diabetes Mellitus -accucheck with SSI Hypertension Hyperlipidemia History of CVA -Continue home medications DVT ppx SCD Full code LOS 2-3 days <Sydnee Hdez - Last Filed: 05/18/24 10:03> Chart has been reviewed. Events of the last 24 hours have been noted. Case discussed with JOSÉ. I performed a substantial part of the MDM during this patient's care today. I personally made or approved the documented management plan and acknowledge its risk of complications. I agree with the findings and documentation provided in the JOSÉ's notes <Stephanie Vilchis - Last Filed: 06/06/24 05:23>
[2024-05-19 04:55] LABS: Absolute Eosinophils 0.3 K/uL (0-0.5); Absolute Lymphocytes (CBC) 1.2 K/uL (0.7-4.9); Absolute Monocytes 0.9 K/uL (0.1-1.3); Absolute Neutrophil 5.2 K/uL (1.8-8.0); Basophils % 0.5 % (0-1.3); Eosinophils % 3.4 % (0-4.4); Hematocrit 42.4 % (39.6-49.0); Hemoglobin 14.5 g/dL (13.6-17.9); Lymphocytes % 15.9 % (15.3-44.8); MCH 30.6 pg (27.0-35.0); MCHC 34.1 g/dL (32.0-36.0); MCV 89.5 fL (80-100); MPV 10.5 fL (7.6-11.3); Neutrophils % 68.2 % (41.7-73.7); Platelets 195 thou/uL (152-406); RBC Red Blood Cell Count 4.74 M/uL (4.33-5.43); Red Cell Distribution Width 13.8 % (12.1-15.2)
[2024-05-19 05:16] LABS: Anion Gap 6.3 mEq/L (5.0-15.0); Magnesium 1.9 mg/dL (1.6-2.4); Phosphorus 2.6 mg/dL (2.5-4.9); Potassium 3.3 mEq/L (3.5-5.1)
--- NOTE | 2024-05-19 09:59 | P.PN ---
Date of Service: 05/19/24 Subjective Sleeping comfortably Remains on TPN until further evaluated by Dr. Doherty no new complaints ROS 10 point ROS as noted above, otherwise negative Physical Exam General: Sleeping, NAD, afebrile Respiratory: Clear BBS, symmetrical chest wall movement, On RA Cardiac: Regular rate and rhythm, normal S1 S2 present Extremities: peripheral pulses 2+ Abdominal: soft and nontender on palpation, abdominal dressing CDI Skin: no rash Neurological: clear speech, appropriate Vitals Reviewed Problem list Nonfunctioning PEG site Malnutrition Dysphagia History of CVA Diabetes Mellitus Hypertension Hyperlipidemia Assessment and Plan Nonfunctioning PEG site Malnutrition Dysphagia -PATIENT CARE SECRETARY consulted "recommends that pt. continue to be on PEG due to high risk of aspiration and thereby making the pt. unsafe for PO intake at this time." -Modified barium swallow reports " no evidence for oscar subglottic tracheal aspiration. moderate dysphasia." -NPO, PICC line in place, continue TPN, (start date 05/16) -IV fluids -Dr. Doherty consulted -new client banking services clerk to assist with [facility]PN or placement -Culture with skin contamination -CXR reports "Left PICC line is tip in SVC. The lungs are grossly clear. The heart is normal in size. No displaced fractures identified." -CT abd/pelvis reports "No acute or concerning abnormalities seen in the abdomen or pelvis." Diabetes Mellitus -accucheck with SSI Hypertension Hyperlipidemia History of CVA -Continue home medications DVT ppx SCD Full code LOS 2-3 days, awaiting approval with Bryon Mcdaniels <Sydnee Hdez - Last Filed: 05/20/24 10:40> Chart has been reviewed. Events of the last 24 hours have been noted. Case discussed with JOÉS. I performed a substantial part of the MDM during this patient's care today. I personally made or approved the documented management plan and acknowledge its risk of complications. I agree with the findings and documentation provided in the JOSÉ's notes <Stephanie Vilchis - Last Filed: 06/06/24 05:29>
[2024-05-20 05:18] LABS: Absolute Eosinophils 0.3 K/uL (0-0.5); Absolute Lymphocytes (CBC) 1.3 K/uL (0.7-4.9); Absolute Monocytes 0.8 K/uL (0.1-1.3); Absolute Neutrophil 5.5 K/uL (1.8-8.0); Basophils % 0.5 % (0-1.3); Eosinophils % 3.5 % (0-4.4); Hematocrit 41.3 % (39.6-49.0); Lymphocytes % 16.5 % (15.3-44.8); MCH 30.6 pg (27.0-35.0); MCHC 33.9 g/dL (32.0-36.0); MCV 90.3 fL (80-100); Neutrophils % 69.5 % (41.7-73.7); Platelets 198 thou/uL (152-406); RBC Red Blood Cell Count 4.58 M/uL (4.33-5.43); Red Cell Distribution Width 13.7 % (12.1-15.2)
[2024-05-20 05:41] LABS: Anion Gap 7.3 mEq/L (5.0-15.0); Phosphorus 2.4 mg/dL (2.5-4.9); Potassium 3.3 mEq/L (3.5-5.1)
--- NOTE | 2024-05-20 13:14 | P.PN ---
Date of Service: 05/20/24 Subjective On TPN Family at bedside No acute events overnight Family curious about plan ROS 10 point ROS as noted above, otherwise negative Physical Exam General: Sleeping, NAD, afebrile Respiratory: Clear BBS, symmetrical chest wall movement, On RA Cardiac: Regular rate and rhythm, normal S1 S2 present Extremities: peripheral pulses 2+ Abdominal: soft and nontender on palpation, abdominal dressing CDI Skin: no rash Neurological: clear speech, appropriate Vitals Reviewed Problem list Nonfunctioning PEG site Malnutrition Dysphagia History of CVA Diabetes Mellitus Hypertension Hyperlipidemia Plan Nonfunctioning PEG site Malnutrition Dysphagia -INSTRUMENT REPAIR SUPERVISOR consulted "recommends that pt. continue to be on PEG due to high risk of aspiration and thereby making the pt. unsafe for PO intake at this time." -Modified barium swallow reports " no evidence for oscar subglottic tracheal aspiration. moderate dysphasia." -NPO, PICC line in place, continue TPN, (start date 05/16) -Dr. Doherty consulted-plans for possible PEG tube insertion tomorrow 05/21 Diabetes Mellitus -accucheck with SSI Hypertension Hyperlipidemia History of CVA -Continue home medications DVT ppx SCD Full code LOS 2-3 days, plan for dispo home
[2024-05-21 06:02] LABS: Absolute Eosinophils 0.3 K/uL (0-0.5); Absolute Lymphocytes (CBC) 1.4 K/uL (0.7-4.9); Absolute Monocytes 0.7 K/uL (0.1-1.3); Absolute Neutrophil 4.2 K/uL (1.8-8.0); Basophils % 0.7 % (0-1.3); Eosinophils % 4.1 % (0-4.4); Hematocrit 40.8 % (39.6-49.0); Hemoglobin 13.8 g/dL (13.6-17.9); Lymphocytes % 21.5 % (15.3-44.8); MCH 30.4 pg (27.0-35.0); MCHC 33.8 g/dL (32.0-36.0); MCV 89.7 fL (80-100); MPV 11.2 fL (7.6-11.3); Monocytes % 10.8 % (3.3-12.3); Neutrophils % 62.9 % (41.7-73.7); Nucleated Red Blood Cells % 0.1 % (0-0); Platelets 187 thou/uL (152-406); RBC Red Blood Cell Count 4.55 M/uL (4.33-5.43); Red Cell Distribution Width 13.8 % (12.1-15.2)
[2024-05-21 06:25] LABS: Anion Gap 7.3 mEq/L (5.0-15.0); Phosphorus 2.4 mg/dL (2.5-4.9); Potassium 3.3 mEq/L (3.5-5.1)
[2024-05-21] MEDS ORDERED: ONDANSETRON 4 MG/2 ML VIAL ONE (09:19)
[2024-05-21] MEDS ORDERED: propofoL 200 MG/20 ML VIAL IV ONE (09:19)
[2024-05-21] MEDS ORDERED: LIDOCAINE 2% MPF 5 ML VIAL ONE (09:19)
[2024-05-21] MEDS ORDERED: FENTANYL CITR 100 MCG/2 ML ONE (09:19)
[2024-05-21] MEDS: SUCCINYLCHOLINE 20 MG/ML (10 ML) IV ONE (10:16)
[2024-05-21] MEDS: ROCURONIUM 50 MG/5 ML VIAL IV ONE (10:17)
[2024-05-21] MEDS: CIPROFLOXACIN 400mg IV 400 MG/200 ML BAG IV ONE (10:25)
--- NOTE | 2024-05-21 10:37 | P.CNS ---
Date of Consult: 05/20/24 Chief Complaint: Displaced PEG tube, unable tp be replaced, need for open gastrostomy tube History of Present Illness: 73 y/o male with hx dysphagia and odynophagia with hx of debilitating stroke unable to swallow and as per unable to do upper endoscopy. The gastrostomy tube came out and unable to be placed back. Pt and doest not want to try upper endoscopy. Even swallow study attempted to see if enteral nutrition possible but as per patient he could not tolerated and he still cant swallow. Pt was admitted for parenteral nutrition and gastrostomy tube requested. Pt has hx of upper abdominal surgeries in the past . Allergies No Known Allergies Allergy (Verified 05/14/24 22:35) Home Medications: Atorvastatin Calcium 20 mg FT BEDTIME 06/25/21 Famotidine [Pepcid] 20 mg FT BID 01/01/23 Metformin HCl 500 mg PO BEDTIME 10/10/23 Cholecalciferol (Vitamin D3) [Vitamin D3] 50 mcg FT DAILY 05/14/24 - Past Medical/Surgical History Diabetic: Yes -: Hemorrhagic CVA 2020 -: PEG tube -: Hypertension -: Diabetes mellitus type 2 [id number] -: High Cholesterol -: GERD -: Brain surgery -: PEG tube -: cataracts surgery bilateral--september 2022/October 2022 Psychosocial/ Personal History: Patient lives at home with his - Family History Brother Medical History: Diabetes - Social History Alcohol use: No CD- Drugs: No Caffeine use: No Place of Residence: Home Review of Systems General: Unremarkable Eyes: Unremarkable ENT: As per HPI Respiratory: Unremarkable Cardiovascular: Unremarkable Gastrointestinal: As per HPI Integumentary: As per HPI Physical Examination Temp Pulse Resp BP Pulse Ox 97.4 F 86 16 135/79 98 05/21/24 08:00 05/21/24 08:00 05/21/24 08:00 05/21/24 08:00 05/21/24 08:00 General: Alert, In no apparent distress, Oriented x3 HEENT: PERRLA, EOMI Neck: Supple Respiratory: Normal air movement Cardiovascular: No edema Gastrointestinal: Soft and benign, No rebound, No guarding, Other (stll have the remnant open of the previous gastrostomy tube) Musculoskeletal: No erythema, No tenderness, No warmth, Contractures Integumentary: No rashes, No breakdown Neurological: Normal speech Conclusions/Impression: Laparotomy and open gastrostomy tube placement. BAR fully explained including but not limited to infection, bleeding, damage to adjacent structure , gastrostomy leak, stroke, DC even . Pt educated once again about not modifing the tube without manufactured permission and proper use and maintenance of the product.
[2024-05-21] MEDS: NA CHLORIDE 0.9% 1,000 ML ONE (10:40)
[2024-05-21] MEDS: HYDROMORPHONE HCL 1 MG/ML INJ ONE (11:09)
--- NOTE | 2024-05-21 11:45 | P.BOP ---
Preoperative diagnosis: dysphagia, CVA Postoperative diagnosis: same Primary procedure: 1. Diagnostic laparoscopy Secondary procedure: 2. Laparoscopic gastrostomy tube placement Estimated blood loss: <10cc Specimen: none Findings: as above Anesthesia: General Complications: None Implants: G tube Transferred to: Recovery Room Condition: Good
[2024-05-21] MEDS: SUGAMMADEX SODIUM 200 MG/2 ML VIAL IV ONE (12:01)
--- NOTE | 2024-05-21 14:12 | P.PN ---
Date of Service: 05/21/24 Subjective Doing well Plan for lap G tube placement today ROS 10 point ROS as noted above, otherwise negative Physical Exam General: Sleeping, NAD, afebrile Respiratory: Clear BBS, symmetrical chest wall movement, On RA Cardiac: Regular rate and rhythm, normal S1 S2 present Extremities: peripheral pulses 2+ Abdominal: soft and nontender on palpation, abdominal dressing CDI Skin: no rash Neurological: clear speech, appropriate Vitals Reviewed Problem list Nonfunctioning PEG site Malnutrition Dysphagia History of CVA Diabetes Mellitus Hypertension Hyperlipidemia Plan Nonfunctioning PEG site Malnutrition Dysphagia Plan for Lap G tube insertion today Further planning after tube placement Diabetes Mellitus -accucheck with SSI Hypertension Hyperlipidemia History of CVA -Continue home medications DVT ppx SCD Full code LOS 2-3 days, plan for dispo home
[2024-05-22 06:39] LABS: Absolute Eosinophils 0.1 K/uL (0-0.5); Absolute Lymphocytes (CBC) 1.3 K/uL (0.7-4.9); Absolute Monocytes 0.9 K/uL (0.1-1.3); Absolute Neutrophil 8.1 K/uL (1.8-8.0); Basophils % 0.4 % (0-1.3); Eosinophils % 0.7 % (0-4.4); Hematocrit 42.7 % (39.6-49.0); Hemoglobin 14.1 g/dL (13.6-17.9); Lymphocytes % 12.8 % (15.3-44.8); MCH 30.1 pg (27.0-35.0); MPV 10.3 fL (7.6-11.3); Monocytes % 8.6 % (3.3-12.3); Neutrophils % 77.5 % (41.7-73.7); Nucleated Red Blood Cells % 0.1 % (0-0); Platelets 203 thou/uL (152-406); Red Cell Distribution Width 13.9 % (12.1-15.2)
[2024-05-22 06:53] LABS: Anion Gap 5.4 mEq/L (5.0-15.0); Phosphorus 2.7 mg/dL (2.5-4.9); Potassium 3.4 mEq/L (3.5-5.1)
[2024-05-22] MEDS ORDERED: GLUCERNA 1.5 CAL 1,000 ML BOT FT SCH (10:00)
[2024-05-22 11:19] VITALS: O2SAT 95
[2024-05-22] MEDS: ONDANSETRON 4 MG/2 ML VIAL IV ONE (11:56)
[2024-05-22] MEDS: MORPHINE 2 MG/ML SYR IV ONE ×2 (11:58→15:10)
[2024-05-22] MEDS ORDERED: MORPHINE 2 MG/ML SYR IV PRN (13:40)
[2024-05-22] MEDS: PROMETHAZINE INJ 25 MG/ML AMP IV ONE (15:11)
--- NOTE | 2024-05-22 15:28 | P.PN ---
Date of Service: 05/22/24 Subjective Having some abdominal pain and nausea after PEG tube placement No other acute events overnight ROS 10 point ROS as noted above, otherwise negative Physical Exam General: Sleeping, NAD, afebrile Respiratory: Clear BBS, symmetrical chest wall movement, On RA Cardiac: Regular rate and rhythm, normal S1 S2 present Extremities: peripheral pulses 2+ Abdominal: soft and nontender on palpation, abdominal dressing CDI Skin: no rash Neurological: clear speech, appropriate Vitals Reviewed Problem list Nonfunctioning PEG site Malnutrition Dysphagia History of CVA Diabetes Mellitus Hypertension Hyperlipidemia Plan Nonfunctioning PEG site Malnutrition Dysphagia PEG tube placement went well General surgery was able to do it endoscopically Patient has some nausea and abdominal tenderness today Will take it slow tube feeds, as needed pain medication and nausea medication Once able to tolerate slow continuous tube feeds may resume bolus feeds Will have difficulty with compatibility of patient's home bolus feeding system and PEG tube system Diabetes Mellitus -accucheck with SSI Hypertension Hyperlipidemia History of CVA -Continue home medications DVT ppx SCD Full code LOS 2-3 days, plan for dispo home
[2024-05-22] MEDS: ONDANSETRON 4 MG/2 ML VIAL IV PRN (20:21)
[2024-05-23] MEDS: PROMETHAZINE INJ 25 MG/ML AMP IV PRN (00:39)
[2024-05-23] MEDS: METOCLOPRAMIDE 10 MG/2mL INJ IV ONE (04:16)
[2024-05-23] MEDS: HYDRALAZINE HCL 20 MG/ML VIAL IV PRN (04:16)
[2024-05-23 05:04] LABS: Absolute Lymphocytes (CBC) 1.2 K/uL (0.7-4.9); Absolute Monocytes 1.2 K/uL (0.1-1.3); Absolute Neutrophil 15.2 K/uL (1.8-8.0); Basophils % 0.1 % (0-1.3); Hematocrit 48.8 % (39.6-49.0); Hemoglobin 14.7 g/dL (13.6-17.9); Lymphocytes % 6.7 % (15.3-44.8); MCHC 30.1 g/dL (32.0-36.0); MCV 99.5 fL (80-100); MPV 10.8 fL (7.6-11.3); Neutrophils % 86.2 % (41.7-73.7); Platelets 198 thou/uL (152-406); Red Cell Distribution Width 14.8 % (12.1-15.2)
[2024-05-23 05:24] LABS: Anion Gap 12.3 mEq/L (5.0-15.0); Magnesium 2.4 mg/dL (1.6-2.4); Phosphorus 6.7 mg/dL (2.5-4.9); Potassium 5.3 mEq/L (3.5-5.1)
[2024-05-23 05:27] LABS: Blood Morphology Comment NOT SEEN (NOT SEEN); Platelet Estimate ADEQ; White Blood Cell Scan OK (OK)
--- NOTE | 2024-05-23 06:09 | RAD REPORT ---
XR ABDOMEN 1 VIEW (KUB), XR CHEST 1 VIEW INDICATION: Rule out aspiration COMPARISON: No prior images available for comparison at time of interpretation TECHNIQUE: 1 view of the chest and 3 views of abdomen FINDINGS: CHEST: SUPPORT DEVICES: Left upper extremity PICC terminates over SVC. LUNGS/PLEURAL SPACES: The lungs are clear. No focal consolidation. No pleural effusion. No pneumothor ax. HEART/MEDIASTINUM: Within normal range. BONES/SOFT TISSUES: Unremarkable. UPPER ABDOMEN: Suggestion of bilateral subdiaphragmatic air. ABDOMEN: SUPPORT DEVICES: Percutaneous gastrostomy in place. Right upper quadrant cholecystectomy surgical cli ps in place. BOWELS: There is diffuse gaseous distention of stomach, small bowel, and colon likely ileus. No focal obstruction. Residual barium contrast in colon. STOOL BURDEN: Mild. PERITONEUM: Lucent appearance of the abdomen, suspicious for pneumoperitoneum. BONES/SOFT TISSUES: No acute findings. OTHER: Midline skin tyrone noted at pelvis. IMPRESSION: 1. Concern for pneumoperitoneum, presumably related to recent surgery. 2. Diffuse gaseous distention of stomach, small bowel, and colon, likely ileus. 3. No acute cardiopulmonary process. Electronically signed by: Alem Melgar MD 05/23/2024 05:57 AM [facility] Due to temporary technical issues with the PACS/[employer] reporting system, reports are being kay d by the in-house radiologist without review as a courtesy to ensure prompt reporting the interpreting radiologist is fully responsible for the content of the report. Transcribed Date/Time: 05/23/2024 6:08 AM
--- NOTE | 2024-05-23 06:09 | RAD REPORT ---
XR ABDOMEN 1 VIEW (KUB), XR CHEST 1 VIEW INDICATION: Rule out aspiration COMPARISON: No prior images available for comparison at time of interpretation TECHNIQUE: 1 view of the chest and 3 views of abdomen FINDINGS: CHEST: SUPPORT DEVICES: Left upper extremity PICC terminates over SVC. LUNGS/PLEURAL SPACES: The lungs are clear. No focal consolidation. No pleural effusion. No pneumothor ax. HEART/MEDIASTINUM: Within normal range. BONES/SOFT TISSUES: Unremarkable. UPPER ABDOMEN: Suggestion of bilateral subdiaphragmatic air. ABDOMEN: SUPPORT DEVICES: Percutaneous gastrostomy in place. Right upper quadrant cholecystectomy surgical cli ps in place. BOWELS: There is diffuse gaseous distention of stomach, small bowel, and colon likely ileus. No focal obstruction. Residual barium contrast in colon. STOOL BURDEN: Mild. PERITONEUM: Lucent appearance of the abdomen, suspicious for pneumoperitoneum. BONES/SOFT TISSUES: No acute findings. OTHER: Midline skin tyrone noted at pelvis. IMPRESSION: 1. Concern for pneumoperitoneum, presumably related to recent surgery. 2. Diffuse gaseous distention of stomach, small bowel, and colon, likely ileus. 3. No acute cardiopulmonary process. Electronically signed by: Alem Melgar MD 05/23/2024 05:57 AM [facility] Due to temporary technical issues with the PACS/[employer] reporting system, reports are being kay d by the in-house radiologist without review as a courtesy to ensure prompt reporting the interpreting radiologist is fully responsible for the content of the report. Transcribed Date/Time: 05/23/2024 6:09 AM
[2024-05-23] MEDS ORDERED: ONDANSETRON 4 MG/2 ML VIAL IV PRN (06:25)
[2024-05-23 06:36] LABS: Albumin 3.1 g/dL (3.4-5.0); Albumin/Globulin Ratio 0.6 (1.1-1.8); Anion Gap 10.3 mEq/L (5.0-15.0); Bilirubin Total 1.1 mg/dL (0.2-1.0); Globulin 4.8 g/dL (2.3-3.5); Phosphorus 2.5 mg/dL (2.5-4.9); Protein, Total 7.9 g/dL (6.4-8.2)
[2024-05-23 06:40] LABS: Magnesium 2.1 mg/dL (1.6-2.4); Potassium 3.3 mEq/L (3.5-5.1)
[2024-05-23] MEDS: NA CHLORIDE 0.9% 1,000 ML IV SCH (08:02)
[2024-05-23] MEDS: NA CHLORIDE 0.9% 500 ML IV ONE (08:02)
[2024-05-23] MEDS: PIPER TAZO 3.375 GM in NA CHLORIDE 0.9% 100 ML IV SCH (08:39)
--- NOTE | 2024-05-23 20:27 | PN ---
Date of Progress Note: 05/23/2024 Subjective: The patient is awake, alert. Objective: HEENT: Pupils anicteric. Chest: Clear. Abdomen: Soft and depressible. Intact surgical site. Extremities: Good capillary refill. Laboratory Data: WBC count is 17 today, platelets of about 198. Chemistry: At one point, we had a glucose of 1347 and now it is 354. Potassium 3.3, sodium is 125. Patient is on PPN. KUB shows pneu moperitoneum. Obviously, we had diagnostic lab 48 hours ago, and once again, we have the presence of ileus suspected after the procedure. Plan: Continue parenteral nutrition. Fix electrolytes and slowly use the tube making sure he does n ot get nauseous. Remember that the reason we did this is because of a history of the potential of as piration. The tube at this moment seems to be intact. In the x-rays, once again free air, is becaus e we put air inside for the laparoscopic surgery. MIGUELANGEL/MODL Voice ID: [id number] Report ID: [id number]
[2024-05-24 05:14] LABS: Hematocrit 38.7 % (39.6-49.0); MCH 30.7 pg (27.0-35.0); MCHC 33.6 g/dL (32.0-36.0); MCV 91.5 fL (80-100); MPV 10.5 fL (7.6-11.3); Platelets 165 thou/uL (152-406); RBC Red Blood Cell Count 4.23 M/uL (4.33-5.43); Red Cell Distribution Width 14.2 % (12.1-15.2)
[2024-05-24 06:02] LABS: Albumin 2.7 g/dL (3.4-5.0); Albumin/Globulin Ratio 0.7 (1.1-1.8); Anion Gap 3.9 mEq/L (5.0-15.0); Bilirubin Total 0.7 mg/dL (0.2-1.0); Globulin 3.9 g/dL (2.3-3.5); Phosphorus 2.5 mg/dL (2.5-4.9); Potassium 2.9 mEq/L (3.5-5.1); Protein, Total 6.6 g/dL (6.4-8.2)
--- NOTE | 2024-05-24 07:25 | RAD REPORT ---
EXAM: AP view(s) of the abdomen Abdomen 1 View (KUB) HISTORY: ileus COMPARISON: Yesterday FINDINGS: Small bowel distention has improved. Contrast present within the colon.. No definite pneumoperitoneu m. No suspicious calcifications are seen. No acute osseous abnormality. Other: Gastrostomy tube in place. IMPRESSION: Improving small bowel dilatation. Bowel gas pattern is nonobstructive.
[2024-05-24] MEDS: ENOXAPARIN 40 MG/0.4 ML SQ SCH (08:01)
[2024-05-24] MEDS: KCL 20 MEQ/100 mL IVPB 20 MEQ/100 ML BAG IV SCH ×2 (08:01→21:53)
[2024-05-24] MEDS: POTASSIUM CL 40 MEQ in NA CHLORIDE 0.9% 500 ML IV SCH (10:23)
[2024-05-24] MEDS: ACETAMINOPHEN 500 MG TAB PO PRN (11:51)
[2024-05-24] MEDS ORDERED: GLUCERNA 1.2 CAL 1,000 ML BOT FT SCH (13:00)
[2024-05-24] MEDS ORDERED: MORPHINE 4 MG/ML SYR IV PRN (13:54)
--- NOTE | 2024-05-24 14:31 | P.PN ---
Date of Service: 05/24/24 Subjective Doing better today Less pain/nausea Will try some tube feed through PEG ROS 10 point ROS as noted above, otherwise negative Physical Exam General: Sleeping, NAD, afebrile Respiratory: Clear BBS, symmetrical chest wall movement, On RA Cardiac: Regular rate and rhythm, normal S1 S2 present Extremities: peripheral pulses 2+ Abdominal: soft and nontender on palpation, abdominal dressing CDI Skin: no rash Neurological: clear speech, appropriate Vitals Reviewed Problem list Nonfunctioning PEG site Malnutrition Dysphagia History of CVA Diabetes Mellitus Hypertension Hyperlipidemia Plan Nonfunctioning PEG site Malnutrition Dysphagia PEG tube placement went well General surgery was able to do it endoscopically Will take it slow tube feeds, as needed pain medication and nausea medication Once able to tolerate slow continuous tube feeds may resume bolus feeds Will have difficulty with compatibility of patient's home bolus feeding system and PEG tube system Diabetes Mellitus -accucheck with SSI Hypertension Hyperlipidemia History of CVA -Continue home medications DVT ppx SCD Full code LOS 2-3 days, plan for dispo home
[2024-05-25] MEDS: GLUCERNA 1.2 CAL 1,000 ML BOT FT SCH (05:31)
[2024-05-25 05:55] LABS: Hematocrit 40.5 % (39.6-49.0); Hemoglobin 13.4 g/dL (13.6-17.9); MCH 30.2 pg (27.0-35.0); MCHC 33.1 g/dL (32.0-36.0); MCV 91.5 fL (80-100); MPV 11.1 fL (7.6-11.3); Platelets 165 thou/uL (152-406); RBC Red Blood Cell Count 4.43 M/uL (4.33-5.43); Red Cell Distribution Width 13.8 % (12.1-15.2)
[2024-05-25 06:14] LABS: Albumin 2.6 g/dL (3.4-5.0); Albumin/Globulin Ratio 0.7 (1.1-1.8); Anion Gap 5.6 mEq/L (5.0-15.0); Bilirubin Total 0.6 mg/dL (0.2-1.0); Magnesium 1.7 mg/dL (1.6-2.4); Phosphorus 3.2 mg/dL (2.5-4.9); Potassium 3.6 mEq/L (3.5-5.1); Protein, Total 6.6 g/dL (6.4-8.2)
[2024-05-25] MEDS: MAGNESIUM SULFATE 1 gm IVPB 1 GM/100 ML BAG IV ONE (08:23)
[2024-05-25] MEDS: KCL 20 MEQ/100 mL IVPB 20 MEQ/100 ML BAG IV SCH (08:23)
--- NOTE | 2024-05-25 08:32 | RAD REPORT ---
EXAM: XR of the abdomen HISTORY: Abdominal pain ileus COMPARISON: 05/24/2024, 05/15/2024 FINDINGS: XR of the abdomen shows a gaseous distention of bowel loops in a nonorganized pattern, bahman lar to comparative.. Midline skin tyrone are seen. Gastrostomy tube is noted. Cholecystectomy clips. Degenerative changes are present in both hips. IMPRESSION: Diffuse adynamic ileus is present similar to comparison study.
--- NOTE | 2024-05-25 12:04 | P.DS ---
Admission Date: 05/16/24 Discharge Date: 05/25/24 Disposition: ROUTINE DISCHARGE Discharge Condition: GOOD Reason for Admission: Displaced PEG tube, unable tp be replaced, need for open gastrostomy tube Brief History of Present Illness: Displaced PEG tube 73-year-old male with past medical history of diabetes, hyperlipidemia, hypertension, right sided weakness, dysphagia presented with wheelchair with complaints of displaced PEG tube. Seen by general surgery. Unable to replace PEG tube. Concern for PEG site issue. Patient being admitted for observation possible parenteral nutrition. Hospital Course: Problem list Nonfunctioning PEG site Malnutrition Dysphagia History of CVA Diabetes Mellitus Hypertension Hyperlipidemia Patient was admitted to the hospital for displaced PEG tube. He was started on TPN and subsequently failed an MBS. He was seen by general surgery who recommended PEG tube replacement, it was thought this may need to be performed as an open procedure but fortunately it was able to be done laparoscopically using the same tract as previous. PEG tube was inserted on 05/21/2024, on the patient developed some nausea, vomiting and abdominal pain. This subsided after about 24 hours and patient was started back on tube feeds, initially at slow rates and continuous overnight. He tolerated the tube feeds continuously overnight at goal rate. His continuous tube feed was stopped this morning and his gave his normal bolus feeding followed by a flush and he has tolerated this quite well. PEG-tube is functioning appropriately and is familar with adapter required to give feeds. Patient is stable for DC and outpatient follow up Vital Signs/Physical Exam: Temp Pulse Resp BP Pulse Ox 97.9 F 71 23 H 122/65 96 05/25/24 08:00 05/25/24 08:00 05/25/24 08:00 05/25/24 08:00 05/25/24 08:00 General: Alert, In no apparent distress HEENT: Atraumatic, PERRLA Neck: Supple, JVD not distended Respiratory: Clear to auscultation bilaterally, Normal air movement Cardiovascular: Regular rate/rhythm, Normal S1 S2 Gastrointestinal: Normal bowel sounds, Other (PEG tube in place) Musculoskeletal: No tenderness Integumentary: No rashes Neurological: Normal speech, Normal affect Laboratory Data at Discharge: WBC 7.30 thou/uL (4.3-10.9) 05/25/24 05:30 Hgb 13.4 g/dL (13.6-17.9) L 05/25/24 05:30 Hct 40.5 % (39.6-49.0) 05/25/24 05:30 Plt Count 165 thou/uL (152-406) 05/25/24 05:30 PT 12.9 SECONDS (9.4-12.5) H 05/14/24 18:25 INR 1.23 05/14/24 18:25 APTT 34.7 SECONDS (24.3-36.9) 05/14/24 18:25 Sodium 141 mEq/L (136-145) 05/25/24 05:30 Potassium 3.6 mEq/L (3.5-5.1) 05/25/24 05:30 BUN 18 mg/dL (7-18) 05/25/24 05:30 Creatinine 0.62 mg/dL (0.70-1.30) L 05/25/24 05:30 Glucose 180 mg/dL (74-106) H 05/25/24 05:30 Phosphorus 3.2 mg/dL (2.5-4.9) 05/25/24 05:30 Magnesium 1.7 mg/dL (1.6-2.4) 05/25/24 05:30 Total Bilirubin 0.6 mg/dL (0.2-1.0) 05/25/24 05:30 AST 49 U/L (15-37) H 05/25/24 05:30 ALT 69 U/L (16-61) H 05/25/24 05:30 Alkaline Phosphatase 99 U/L (45-117) D 05/25/24 05:30 Triglycerides 90 mg/dL (<150) 05/15/24 04:50 Home Medications: Atorvastatin Calcium 20 mg FT BEDTIME 06/25/21 Famotidine [Pepcid] 20 mg FT BID 01/01/23 Metformin HCl 500 mg PO BEDTIME 10/10/23 Cholecalciferol (Vitamin D3) [Vitamin D3] 50 mcg FT DAILY 05/14/24 Amox/Clavulanate [Augmentin 875-125 Tab] 875 mg FT BID #6 tab 05/25/24 New Medications: Amox/Clavulanate [Augmentin 875-125 Tab] 875 mg FT BID #6 tab Physician Discharge Instructions: Patient was admitted to the hospital for displaced PEG tube. He was started on TPN and subsequently failed an MBS. He was seen by general surgery who recommended PEG tube replacement, it was thought this may need to be performed as an open procedure but fortunately it was able to be done laparoscopically using the same tract as previous. PEG tube was inserted on 05/21/2024, on the patient developed some nausea, vomiting and abdominal pain. This subsided after about 24 hours and patient was started back on tube feeds, initially at slow rates and continuous overnight. He tolerated the tube feeds continuously overnight at goal rate. His continuous tube feed was stopped this morning and his gave his normal bolus feeding followed by a flush and he has tolerated this quite well. PEG-tube is functioning appropriately and is familar with adapter required to give feeds. Patient is stable for DC and outpatient follow up Diet: Tube feeds Activity: Bedrest Followup: Jenny Mondragon MD [Primary Care Provider] - 1-2 Weeks Time spent managing pt's care (in minutes): 45
[2024-05-25 13:47] VITALS: BP 128/67; TEMP 98.7
--- NOTE | 2024-05-26 12:14 | EKG ---
Test Date: 2024-05-23 Test Time: 04:22:35 Visual Effects Artist: FS MEASUREMENT RESULTS: Intervals: Rate: 100 CO: 130 QRSD: 92 QT: 352 QTc: 454 [place]: P: 44 CO: 130 QRS: 2 T: 39 INTERPRETIVE STATEMENTS: Normal sinus rhythm Septal infarct, age undetermined Abnormal ECG Compared to ECG 03/08/2024 20:16:51 Myocardial infarct finding now present Left ventricular hypertrophy no longer present Electronically Signed On 05-26-24 12:07:25 CVT TECH by Varinder Hwang
--- NOTE | 2024-05-28 20:26 | OP ---
Surgeon: Marvin Doherty MD Preoperative Diagnoses: Dysphagia, cerebrovascular accident, inability to swallow, inability to endo scopy, and dislodged a gastrostomy tube. Postoperative Diagnoses: Dysphagia, cerebrovascular accident, inability to swallow, inability to end oscopy, and dislodged a gastrostomy tube. Procedure: Diagnostic laparoscopy, laparoscopic placement of gastrostomy tube. Estimated Blood Loss: Less than 10 cc. Specimen: None. Findings: The patient had dislodged gastrostomy tube. Many attempts, was unable to replace that. T he patient cannot tolerate upper endoscopy. Swallowing studies were done to see if he at least can t olerate some diet, but it put him at a high risk of aspiration. The did not want to try that. He does not want to try that, so they asked me to replace the gastrostomy tube. Anesthesia: General plus local. Complications: None. Indication: This is a case of a male, who came to us once again with a chronic gastrostomy tube, dys phagia, odynophagia, CVA, risk for aspiration while swallowing. He has been using the G-tube for a l janae time. The G-tube came out and it could not be replaced. So because he cannot swallow at all, th e patient went to the primary doctor, sent back to the ER, admitted for parenteral nutrition. Since the tube just came out, still there, but no way to put any tube, it is so narrow. We gave him few options. He does not want the upper endoscopy, so we offered an open gastrostomy tube place ment. The benefits, alternatives, and risks fully explained, which include, but not limited to, infe ction, bleeding, damage to adjacent structures, anesthesia complication, recurrence, LA, and even doron th. We also have the options of putting the cameras first to see what are we dealing with and trying to understand why the tube had not been replaced and then have some other techniques trying to put t his, so we do not have to do a complete laparotomy and the family agreed. Description Of Procedure: So, patient was brought to the operating room, placed in supine position. Anesthesia was induced without complication. Abdomen was prepped and draped in a sterile fashion. A time-out was called. Local anesthetic was applied followed by sharp incision in the periumbilical region. Incision was carried down to fascia, which was opened under direct vision. Peritoneum was e ncountered, opened under direct vision. Vicryl #1 placed inside the fascia. Nitin trocar was caref ully introduced. Pneumoperitoneum was obtained. We proceeded with the diagnostic lap. We noticed t he large bowel to be near the area of the stomach, so it may get a little bit dangerous for a PEG tub e anyway because there is always a risk to go through the colon if another space in the stomach is se lected. So, we checked the liver and we saw the stomach still attached to the anterior abdominal wal l and I saw that there could be a tunnel in between. So, after we removed some adhesions from the ar ea and looked at the small bowel to be intact and the risks of the abdomen. With gastrostomy tube a nd dilators, we proceeded to dilate the area on the skin. This allowed me to find the tract and unde r direct visualization with the laparoscopic surgery, we were able to introduce the G-tube on the sto mach. The stomach is still attached to the anterior abdominal wall. So, there is no need to re-sutu re at this moment on that area. We sutured the tube in place and then tested the area and it shows n o leakage. The patient tolerated the procedure well. At that moment, I proceeded to remove the troc ars under direct vision. Deflated the pneumoperitoneum. Closed the fascia with #1 Vicryl, irrigated subcutaneous tissue, closed that with 3-0 chromic and the skin with tyrone. Sponge counts and inst rument counts correct. Patient tolerated the procedure well. Patient sent to Recovery in stable co ndition. MIGUELANGEL/ISABELAL Voice ID: [id number] Report ID: [id number]
== END 2024-05-25 15:49 | disposition home or self-care (01) | DRG 394 ==
LOC: ER 16:29 → ERHOLD 17:57 → 2ND 20:09 → OBSVTOIN 05-16 15:50
PROVIDERS: ADMIT Hospitalist; ATTEND Hospitalist
PROC: 3E0436Z Introduction of Nutritional Substance into Central Vein, Percutaneous Approach (ICD-10-PCS; 2024-05-15)
PROC: 02HV33Z Insertion of Infusion Device into Superior Vena Cava, Percutaneous Approach (ICD-10-PCS; 2024-05-16)
PROC: 0DH60UZ Insertion of Feeding Device into Stomach, Open Approach (ICD-10-PCS; principal; 2024-05-21 10:37)
DX: K94.23 Gastrostomy malfunction (principal); E44.0 Moderate protein-calorie malnutrition; Z68.1 Body mass index [BMI] 19.9 or less, adult; E11.9 Type 2 diabetes mellitus without complications; E78.00 Pure hypercholesterolemia, unspecified; I10 Essential (primary) hypertension; I69.391 Dysphagia following cerebral infarction; R13.10 Dysphagia, unspecified; Z90.49 Acquired absence of other specified parts of digestive tract; Z79.84 Long term (current) use of oral hypoglycemic drugs; Z79.899 Other long term (current) drug therapy; Z87.891 Personal history of nicotine dependence
CPT/HCPCS: 36415; 71045; 74018; 74177; 74230; 80048; 80053; 80076; 81003; 82947; 83735; 84100; 84132; 84134; 84145; 84478; 85025; 85027; 85610; 85730; 87070; 87077; 87186; 87205; 92611; 93005; 99285; G0378; J0295; J0360; J0744; J1171; J1650; J1815; J2003; J2270; J2405; J2543; J2550; J2704; J2765; J3010; J3475; J3480; J7030; J7040; Q9967